=== PATIENT | female | born 1975 | race Caucasian/White ===

== ENCOUNTER 2016-10-18 18:16 | Emergency (ER) | payer OTHER ==
[2016-10-18 19:06] VITALS: BMI 29.6
--- NOTE | 2016-10-18 19:20 | PDOC ---
History of Present Illness - General History Source: Patient, Spouse Exam Limitations: No Limitations - History of Present Illness Timing/Duration: 1 hour <Nelida Sapp - Last Filed: 12/08/16 14:39> <Natasha Daniels - Last Filed: 12/09/16 09:09> - General Chief Complaint: Overdose Stated Complaint: overdose Time Seen by Provider: 10/18/16 18:38 Past History - Past Medical History Anemia: No Asthma: Yes Cancer: No Cardiac Disorders: No CVA: No COPD: No CHF: No Dementia: No Diabetes: No GI Disorders: No Disorders: No HTN: No Hypercholesterolemia: No Liver Disease: No Psychiatric Problems: Yes (DEPRESSION/ANXIETY) Seizures: No Thyroid Disease: No - Surgical History Abdominal Surgery: No Appendectomy: No Cardiac Surgery: No Cholecystectomy: No Lung Surgery: No Neurologic Surgery: No Orthopedic Surgery: No - Immunization History Immunization Up to Date: Yes - Psycho/Social/Smoking Cessation Hx Anxiety: Yes Suicidal Ideation: Yes Smoking Status: No Smoking History: Current some day smoker Have you smoked in the past 12 months: Yes Number of Cigarettes Smoked Daily: 2 Information on smoking cessation initiated: Yes 'Breaking Loose' booklet given: 10/18/16 Hx Alcohol Use: No Drug/Substance Use Hx: No Substance Use Type: None Hx Substance Use Treatment: No <Nelida Sapp - Last Filed: 12/08/16 14:39> <Natasha Daniels - Last Filed: 12/09/16 09:09> - Past Medical History Allergies/Adverse Reactions: Allergies Allergy/AdvReac Type Severity Reaction Status Date / Time latex [Latex] Allergy Intermediate Verified 10/18/16 19:06 Home Medications: Ambulatory Orders Acetaminophen [Tylenol] 650 mg PO ONCE PRN 12/04/16 BUPROPion HCL "SR" [Wellbutrin Sr [Nf]] 150 mg PO DAILY 12/04/16 Bupropion HCl [Bupropion HCl ER] 200 mg PO DAILY 12/04/16 Clonazepam [Klonopin] 1 mg PO BID PRN 12/04/16 Review of Systems - Review of Systems Comments:: 10/19/16 03:22 CONSTITUTIONAL: Absent: fever, chills, diaphoresis, generalized weakness, malaise, loss of appetite HEENT: Absent: rhinorrhea, nasal congestion, throat pain, throat swelling, difficulty swallowing, mouth swelling, ear pain, eye pain, visual Changes CARDIOVASCULAR: Absent: chest pain, loss of consciousness, palpitations, irregular heart rate, peripheral edema RESPIRATORY: Absent: cough, shortness of breath, dyspnea with exertion, orthopnea, wheezing, stridor, hemoptysis GASTROINTESTINAL: Absent: abdominal pain, abdominal distension, nausea, vomiting, diarrhea, constipation, melena, hematochezia GENITOURINARY: Absent: dysuria, frequency, urgency, hesitancy, hematuria, flank pain, genital pain MUSCULOSKELETAL: Absent: myalgia, arthralgia, joint swelling SKIN: Absent: rash, itching, pallor HEMATOLOGIC/IMMUNOLOGIC: Absent: easy bleeding, easy bruising, lymphadenopathy, frequent infections ENDOCRINE: Absent: unexplained weight gain, unexplained weight loss, heat intolerance, cold intolerance NEUROLOGIC: Absent: headache, focal weakness or paresthesias, dizziness, unsteady gait, seizure, mental status changes, bladder or bowel incontinence PSYCHIATRIC: + anxiety, depression, suicidal Absent:r homicidal ideation, hallucinations. <Nelida Sapp - Last Filed: 12/08/16 14:39> *Physical Exam - Vital Signs Last Vital Signs Temp Pulse Resp BP Pulse Ox 99.4 F 106 H 18 105/51 96 10/18/16 18:28 10/18/16 18:28 10/18/16 18:28 10/18/16 18:28 10/18/16 18:28 - Physical Exam Comments: 10/19/16 03:23 GENERAL: Well developed, well nourished. Awake and alert. No acute distress. HEENT: Normocephalic, atraumatic. PERRLA, EOMI. No conjunctival pallor. Sclera are non- icteric. Moist mucous membranes. Oropharynx is clear. NECK: Supple. Full ROM. No JVD. Carotid pulses 2+ and symmetric, without bruits. No thyromegaly. No lymphadenopathy. CARDIOVASCULAR: Regular rate and rhythm. No murmurs, rubs, or gallops. Distal pulses are 2+ and symmetric. PULMONARY: No evidence of respiratory distress. Lungs clear to auscultation bilaterally. No wheezing, rales or rhonchi. ABDOMINAL: Soft. Non-tender. Non-distended. No rebound or guarding. No organomegaly. Normoactive bowel sounds. MUSCULOSKELETAL Normal range of motion at all joints. No bony deformities or tenderness. No CVA tenderness. EXTREMITIES: No cyanosis. No clubbing. No edema. No calf tenderness. SKIN: Warm and dry. Normal capillary refill. No rashes. No jaundice. NEUROLOGICAL: Alert, awake, appropriate. Cranial nerves 2-12 intact. No deficits to light touch and temperature in face, upper extremities and lower extremities. No motor deficits in the in face, upper extremities and lower extremities. Normoreflexic in the upper and lower extremities. Normal speech. Toes are down- going bilaterally. Gait is normal without ataxia. PSYCHIATRIC: Cooperative. Good eye contact. Appropriate mood and affect. <Nelida Sapp - Last Filed: 12/08/16 14:39> - Vital Signs Last Vital Signs Temp Pulse Resp BP Pulse Ox 98.4 F 92 H 18 118/76 99 10/19/16 08:54 10/19/16 13:01 10/19/16 13:01 10/19/16 13:01 10/19/16 13:01 <Natasha Daniels - Last Filed: 12/09/16 09:09> ED Treatment Course - LABORATORY CBC & Chemistry Diagram: 10/18/16 19:30 10/18/16 19:30 <Nelida Sapp - Last Filed: 12/08/16 14:39> - LABORATORY CBC & Chemistry Diagram: 10/18/16 19:30 10/18/16 19:30 - ADDITIONAL ORDERS Additional order review: 10/18/16 19:30 RBC 4.75 MCV 87.6 MCHC 33.5 RDW 13.1 MPV 6.9 L Neutrophils % 63.8 D Lymphocytes % 28.0 D Monocytes % 6.0 D Eosinophils % 1.6 D Basophils % 0.6 - Medications Given in the ED: ED Medications Discontinued Medications Generic Name Dose Route Start Last Admin Trade Name Freq PRN Reason Stop Dose Admin Diphenhydramine HCl 50 mg 10/19/16 05:49 10/19/16 06:02 Benadryl Injection - IVPUSH 10/19/16 05:50 50 mg ONCE ONE Administration Sodium Chloride 1,000 mls @ 1,000 mls/hr 10/18/16 19:28 10/18/16 19:31 Normal Saline - IV 10/18/16 20:27 1,000 mls/hr ASDIR STA Administration Sodium Chloride 1,000 mls @ 1,000 mls/hr 10/19/16 05:49 10/19/16 06:02 Normal Saline - IV 10/19/16 06:48 1,000 mls/hr ASDIR STA Administration Sodium Chloride 1,000 mls @ 100 mls/hr 10/19/16 08:45 10/19/16 08:52 Normal Saline - IV 100 mls/hr ASDIR TALISHA Administration Nicotine 21 mg 10/19/16 10:00 10/19/16 12:04 Nicoderm Patch - TD Not Given DAILY TALISHA <Natasha Daniels - Last Filed: 12/09/16 09:09> *DC/Admit/Observation/Transfer <Nelida Sapp - Last Filed: 12/08/16 14:39> - Attestations Physician Attestion: I reviewed the case with the mid-level practitioner and agree with the mid- level practitioner's assessment, diagnosis and disposition. <Natasha Daniels - Last Filed: 12/09/16 09:09> Diagnosis at time of Disposition: Drug overdose Qualifiers: Encounter type: initial encounter Injury intent: undetermined intent Qualified Code(s): T50.904A - Poisoning by unspecified drugs, medicaments and biological substances, undetermined, initial encounter - Discharge Dispostion Disposition: HOME - Referrals Referrals: Cindy Landis MD [Staff Physician] - Call tomorrow - Patient Instructions Printed Discharge Instructions: DI for Drug Overdose in Adults Additional Instructions: -Rest and say well-hydrated -Take your medications only as prescribed -Return here for suicidal thoughts or any other concerning symptoms Progress Note - Progress Note Progress Note: 1922hrs: Called Poison Control [phone]/ In Service Educator Natasha Increase PROSTHETICS ASSISTANT, Tachycardia, Decrease bowel sounds, Mydriasis Will monitor and obtain labs: CBCw/diff Chem Drug screen LFT Tylenol level Alcohol Level ASA level EKG [id number]: Called [facility] for transfer to [facility] 40-year-old female presents to the emergency department complaining of feeling depressed with suicidal thoughts. Patient states she is tired of being tired and failing in school. Patient states she informed her that she no longer wants to live for approximately one week. This evening, she decided to take 12 tablets of Klonopin 1 mg. She denies any headache, dizziness, lightheadedness, difficulty swallowing, sore throat, neck pain, chest pain, shortness of breath, abdominal pains or extremity numbness or tingling sensation. Patient's states immediately after she ingested the medications, she informed him and he called 911. Patient has been experiencing suicidal thoughts and had the plan of overdosing on Klonopin. Patient denies any homicidal thoughts or intentions. Patient sees her psychiatry every other week. The expiration date on the Clonopin on 08/16/2013. Pt informed that she will remain in the ER until our psychiatrist consults with her. Pt understands. Called Dr. Landers/psychiatry numerous times/ no response <Nelida Sapp - Last Filed: 12/08/16 14:39>
[2016-10-18] MEDS ORDERED: SODIUM CHLORIDE 1,000 ML IV STA (19:28)
[2016-10-18 19:45] LABS: BASOPHIL 0.6 % (0-2.0); EOSINOPHIL 1.6 % (0-4.5); MCH 29.4 pg (25.7-33.7); MCHC 33.5 g/dl (32.0-36.0); MEAN CELL VOLUME 87.6 fl (80-96); MEAN PLT VOLUME 6.9 fl (7.5-11.1); NEUTROPHILS 63.8 % (42.8-82.8); PLATELET COUNT 349 K/MM3 (134-434); RDW 13.1 % (11.6-15.6); WHITE BLOOD COUNT 8.1 K/mm3 (4.0-10.0)
[2016-10-18 20:17] LABS: ALBUMIN 3.8 g/dl (3.4-5.0); ALK PHOS 74 U/L (45-117); ANION GAP 12 (8-16); BILIRUBIN,TOTAL 0.2 mg/dL (0.2-1.0); CALCIUM 8.4 mg/dL (8.5-10.1); CO2 22 mmol/L (21-32); CREATININE 0.6 mg/dL (0.55-1.02); GLUCOSE,RANDOM 103 mg/dL (74-106); SGOT/AST 26 U/L (15-37); SGPT/ALT 50 U/L (12-78); TOT PROT 7.7 g/dl (6.4-8.2)
[2016-10-18] MEDS: NICOTINE 21 MG/24 HOURS TOPICAL PATCH TD SCH (21:13)
[2016-10-18 21:15] LABS: SALICYLATE < 4.0 mg/dl (0.0-30.0)
[2016-10-18 21:16] LABS: ALCOHOL 128.1 mg/dl (0-5)
[2016-10-18 21:29] LABS: URINE MARIJUANA THC NEGATIVE ng/ml (CUTOFF=50)
[2016-10-18 23:00] LABS: ALBUMIN 3.7 g/dl (3.4-5.0); ALK PHOS 73 U/L (45-117); BILIRUBIN,TOTAL 0.2 mg/dL (0.2-1.0); SGOT/AST 26 U/L (15-37); SGPT/ALT 50 U/L (12-78); TOT PROT 7.5 g/dl (6.4-8.2)
[2016-10-18 23:01] LABS: BILIRUBIN,DIRECT < 0.1 mg/dL (0.0-0.2)
[2016-10-19 05:30] VITALS: TEMP 98.4
[2016-10-19] MEDS ORDERED: SODIUM CHLORIDE 1,000 ML IV STA (05:49)
--- NOTE | 2016-10-19 07:16 | PDOC ---
*Physical Exam - Vital Signs Last Vital Signs Temp Pulse Resp BP Pulse Ox 98.4 F 126 H 20 124/81 100 10/19/16 04:35 10/19/16 06:35 10/19/16 04:35 10/19/16 06:35 10/19/16 06:35 ED Treatment Course - LABORATORY CBC & Chemistry Diagram: 10/18/16 19:30 10/18/16 19:30 - ADDITIONAL ORDERS Additional order review: Laboratory Results 10/18/16 10/18/16 10/18/16 20:48 19:30 19:30 Sodium Potassium Chloride Carbon Dioxide Anion Gap BUN Creatinine Creat Clearance w eGFR Random Glucose Calcium Total Bilirubin Direct Bilirubin AST ALT Alkaline Phosphatase Total Protein Albumin Salicylates < 4.0 Opiates Screen Negative Methadone Screen Negative Acetaminophen < 2.000 L Barbiturate Screen Negative Phencyclidine Screen Negative Ur Amphetamines Screen Positive MDMA (Ecstasy) Screen Negative Benzodiazepines Screen Negative Cocaine Screen Negative U Marijuana (THC) Screen Negative Alcohol, Quantitative 128.1 H* 10/18/16 10/18/16 19:30 19:27 Sodium 141 Potassium 4.0 Chloride 107 Carbon Dioxide 22 Anion Gap 12 BUN 9 Creatinine 0.6 D Creat Clearance w eGFR > 60 Random Glucose 103 Calcium 8.4 L Total Bilirubin 0.2 0.2 D Direct Bilirubin < 0.1 AST 26 26 D ALT 50 50 D Alkaline Phosphatase 74 73 Total Protein 7.7 7.5 Albumin 3.8 3.7 Salicylates Opiates Screen Methadone Screen Acetaminophen Barbiturate Screen Phencyclidine Screen Ur Amphetamines Screen MDMA (Ecstasy) Screen Benzodiazepines Screen Cocaine Screen U Marijuana (THC) Screen Alcohol, Quantitative 10/18/16 19:30 RBC 4.75 MCV 87.6 MCHC 33.5 RDW 13.1 MPV 6.9 L Neutrophils % 63.8 D Lymphocytes % 28.0 D Monocytes % 6.0 D Eosinophils % 1.6 D Basophils % 0.6 - Medications Given in the ED: ED Medications Discontinued Medications Generic Name Dose Route Start Last Admin Trade Name Freq PRN Reason Stop Dose Admin Diphenhydramine HCl 50 mg 10/19/16 05:49 10/19/16 06:02 Benadryl Injection - IVPUSH 10/19/16 05:50 50 mg ONCE ONE Administration Sodium Chloride 1,000 mls @ 1,000 mls/hr 10/18/16 19:28 10/18/16 19:31 Normal Saline - IV 10/18/16 20:27 1,000 mls/hr ASDIR STA Administration Sodium Chloride 1,000 mls @ 1,000 mls/hr 10/19/16 05:49 10/19/16 06:02 Normal Saline - IV 10/19/16 06:48 1,000 mls/hr ASDIR STA Administration Medical Decision Making - Medical Decision Making 10/19/16 07:16 Signout received from MICHAEL Sapp. Briefly, this is a 40 year old female with a history of depression who presented to the ED with depression and suicidal ideation after taking 12 x 1mg tablets of Klonopin. Airway and breathing have been stable, but patient has been tachycardic up to 126. She is now resting comfortably after receiving Benadryl and 2L IVF. Psychiatry consultation is pending. 10/19/16 09:08 Repeat HR is 104. 10/19/16 12:39 Patient evaluated by psychiatry. She is feeling less anxious and now denies SI. Declines alcohol/drug detox. Cleared for discharge home by psychiatry. Accompanied by . *DC/Admit/Observation/Transfer Diagnosis at time of Disposition: Drug overdose Qualifiers: Encounter type: initial encounter Injury intent: undetermined intent Qualified Code(s): T50.904A - Poisoning by unspecified drugs, medicaments and biological substances, undetermined, initial encounter - Discharge Dispostion Disposition: HOME Admit: No - Referrals Referrals: Cindy Landis MD [Staff Physician] - Call tomorrow - Patient Instructions Printed Discharge Instructions: DI for Drug Overdose in Adults Additional Instructions: -Rest and say well-hydrated -Take your medications only as prescribed -Return here for suicidal thoughts or any other concerning symptoms
[2016-10-19] MEDS ORDERED: SODIUM CHLORIDE 1,000 ML IV SCH (08:45)
[2016-10-19] MEDS: NICOTINE 21 MG/24 HOURS TOPICAL PATCH TD SCH (12:04)
--- NOTE | 2016-10-19 12:49 | CONSULT ---
Consult - text type - Consultation Consultation Note: Psych Consultation. 40 yeart old female brought to ER by for taking three Klonapins and drinking Alcohol. Patient has a history of Major DEpression, PTSD. Anxiety. Patient denies s\any suicidal thoughts or behaviour. She is under a pvt psych care. One previous admission to Psych In patient about two years ago. Ms: Alert, oriented, able to comprehend, not hallucinating or delusional. No concrete suicidal plans. RES: Dischsrge when medically stable. Follow up with T psych.
[2016-10-19 13:02] VITALS: BP 118/76; PULSE 92
--- NOTE | 2016-10-20 16:18 | EKG ---
Test Reason : Blood Pressure : / mmHG Vent. Rate : 102 BPM Atrial Rate : 102 BPM P-R Int : 152 ms QRS Dur : 092 ms QT Int : 354 ms P-R-T Axes : 057 024 050 degrees QTc Int : 461 ms SINUS TACHYCARDIA POSSIBLE LEFT ATRIAL ENLARGEMENT INCOMPLETE RIGHT BUNDLE BRANCH BLOCK BORDERLINE ECG NO PREVIOUS ECGS AVAILABLE Confirmed by ZACH MOREAU, FERMIN ([id number]) on 10/20/2016 4:18:15 PM Referred By: Confirmed By:FERMIN SERRANO MD
--- NOTE | 2016-10-20 16:18 | EKG ---
Test Reason : Blood Pressure : / mmHG Vent. Rate : 125 BPM Atrial Rate : 125 BPM P-R Int : 148 ms QRS Dur : 092 ms QT Int : 306 ms P-R-T Axes : 035 011 039 degrees QTc Int : 441 ms SINUS TACHYCARDIA RSR' OR QR PATTERN IN V1 SUGGESTS RIGHT VENTRICULAR CONDUCTION DELAY ABNORMAL ECG WHEN COMPARED WITH ECG OF 18-OCT-2016 18:33, LIKELY NO SIGNIFICANT CHANGES Confirmed by FERMIN SERRANO MD ([id number]) on 10/20/2016 4:17:50 PM Referred By: Confirmed By:FERMIN SERRANO MD
== END 2016-10-19 13:02 | disposition home or self-care (01) ==
LOC: JER 18:16
PROC: 3E0337Z Introduction of Electrolytic and Water Balance Substance into Peripheral Vein, Percutaneous Approach (ICD-10-PCS; principal; 2016-10-18)
PROC: 3E033GC Introduction of Other Therapeutic Substance into Peripheral Vein, Percutaneous Approach (ICD-10-PCS; 2016-10-18)
DX: T42.4X2A Poisoning by benzodiazepines, intentional self-harm, initial encounter (principal); F32.89 Other specified depressive episodes; F43.10 Post-traumatic stress disorder, unspecified; J45.909 Unspecified asthma, uncomplicated; F17.210 Nicotine dependence, cigarettes, uncomplicated; Y92.038 Other place in apartment as the place of occurrence of the external cause
CPT/HCPCS: 36415; 80053; 80076; 80307; 84443; 85025; 93005; 93010; 99285-25

== ENCOUNTER 2016-12-04 20:05 | Emergency (ER) | payer OTHER ==
--- NOTE | 2016-12-04 20:16 | PDOC ---
History of Present Illness - General History Source: Patient, Old Records Exam Limitations: No Limitations - History of Present Illness Initial Comments: 12/04/16 20:50 The patient is a 41 year old female, with a significant past medical history of anxiety and depression, who presents to the emergency department with right eye pain and tearing for the past 2 days. The patient reports that two days ago, she wiped her face and believes she might have scratched her eye, as her symptoms began shortly after. She rates her pain as an 8/10 and reports that the pain is worse when closing her eye or moving her eye in any direction. She presents to the ED for evaluation because she does not have an opthamologist, as she does not wear glasses or contact lenses. The patient denies blurry vision , double vision or any changes in vision. PAST MEDICAL HISTORY: See HPI. PAST SURGICAL HISTORY: No significant history. FAMILY HISTORY: No pertinent history. SOCIAL HISTORY: Patient lives with family and is employed. MEDICATIONS: Reviewed. ALLERGIES: As per nursing notes. Adult ROS: General: No fevers or chills, no weakness, no weight loss. HEENT: +Right eye pain and tearing. No change in vision. No sore throat. No ear pain. CardioVascular: No chest pain or shortness of breath. Respiratory: No cough, or wheezing. Gastrointestinal: No nausea, vomiting, diarrhea or constipation, no rectal bleeding. Genitourinary: No dysuria, hematuria, or frequency. Musculoskeletal: No joint or muscle pain or swelling. Neurologic: No headache, vertigo, dizziness or loss of consciousness. Psychiatric: No depression. Skin: No rashes or easy bruising. Endocrine: No increased thirst or abnormal weight change. Allergic: No skin or latex allergy. All other systems reviewed and normal. Basic Exam: GENERAL: The patient is awake, alert, and fully oriented, in no acute distress. HEAD: Normal with no signs of trauma. EYES: Right eye, there is moderate tearing of the eye with some mild injection of the conjunctival tissues. No foreign body visible on exam. There is a corneal abrasion visible on slit lamp and on fluorescein stain. There is increased uptake of fluorescein stain corresponding to the location of the corneal abrasion. Pupils equal, round and reactive to light, extraocular movements intact, sclera anicteric. EXTREMITIES: Normal range of motion, no edema. NEUROLOGICAL: Normal speech, normal gait. PSYCH: Normal mood, normal affect. SKIN: Warm, dry, normal turgor, no rashes or lesions noted. <Leia Correa - Last Filed: 12/04/16 20:50> - General History Source: Patient Exam Limitations: No Limitations - History of Present Illness Initial Comments: 12/04/16 20:56 A portion of this note was documented by scribe services under my direction. I have reviewed the details of the note, within reason, and agree with the documentation. The case summary and management plan written by me. Assessment and plan: This is a 41-year-old female who comes in complaining of pain in her right eye. Patient on examination has a small corneal abrasion. Patient given antibiotics and a follow-up with an caster operator. Patient discharged home with antibiotic drops for her eye. <Jatin Mckenna I - Last Filed: 12/04/16 20:57> - General Chief Complaint: Eye Problem Stated Complaint: RIGHT EYE PAIN & TEARING Time Seen by Provider: 12/04/16 20:15 Past History <Leia Correa - Last Filed: 12/04/16 20:50> - Past Medical History Anemia: No Asthma: Yes Cancer: No Cardiac Disorders: No CVA: No COPD: No CHF: No Dementia: No Diabetes: No GI Disorders: No Disorders: No HTN: No Hypercholesterolemia: No Liver Disease: No Psychiatric Problems: Yes (DEPRESSION/ANXIETY) Seizures: No Thyroid Disease: No - Surgical History Abdominal Surgery: No Appendectomy: No Cardiac Surgery: No Cholecystectomy: No Lung Surgery: No Neurologic Surgery: No Orthopedic Surgery: No - Immunization History Immunization Up to Date: Yes - Psycho/Social/Smoking Cessation Hx Anxiety: Yes Suicidal Ideation: Yes Smoking Status: No Smoking History: Current some day smoker Have you smoked in the past 12 months: Yes Number of Cigarettes Smoked Daily: 2 'Breaking Loose' booklet given: 10/18/16 Hx Alcohol Use: No Drug/Substance Use Hx: No Substance Use Type: None Hx Substance Use Treatment: No <Jatin Mckenna I - Last Filed: 12/04/16 20:57> - Past Medical History Allergies/Adverse Reactions: Allergies Allergy/AdvReac Type Severity Reaction Status Date / Time latex [Latex] Allergy Intermediate Verified 12/04/16 20:16 Home Medications: Ambulatory Orders Acetaminophen [Tylenol] 650 mg PO ONCE PRN 12/04/16 BUPROPion HCL "SR" [Wellbutrin Sr [Nf]] 150 mg PO DAILY 12/04/16 Bupropion HCl [Bupropion HCl ER] 200 mg PO DAILY 12/04/16 Clonazepam [Klonopin] 1 mg PO BID PRN 12/04/16 *Physical Exam - Vital Signs Last Vital Signs Temp Pulse Resp BP Pulse Ox 97.8 F 87 16 122/76 96 12/04/16 20:14 12/04/16 20:14 12/04/16 20:14 12/04/16 20:14 12/04/16 20:14 <Leia Correa - Last Filed: 12/04/16 20:50> *DC/Admit/Observation/Transfer - Attestations Scribe Attestion: 12/04/16 20:29 Documentation prepared by Leia Correa, acting as medical advisor for Jatin Mckenna MD. <Leia Correa - Last Filed: 12/04/16 20:50> <Jatin Mckenna I - Last Filed: 12/04/16 20:57> Diagnosis at time of Disposition: Corneal abrasion Qualifiers: Encounter type: initial encounter Laterality: right Qualified Code(s): S05.01XA - Injury of conjunctiva and corneal abrasion without foreign body, right eye, initial encounter - Discharge Dispostion Disposition: HOME Condition at time of disposition: Good - Referrals Referrals: Maxine Parnell [Primary Care Provider] - Maria Guadalupe Kuhn MD [Staff Physician] - - Patient Instructions Additional Instructions: Put 2 drops of tobramycin in your right eye 4 times a day for the next 5 days. Follow-up with the caster operator call them in the morning for an appointment. For pain you can take Tylenol or ibuprofen or Aleve as directed on the bottle all 3 are [id number]. Return to the emergency department immediately with ANY new, persistent or worsening symptoms. Continue any medications as previously prescribed by your physician. You should follow up with your primary doctor as soon as possible regarding today's emergency department visit. . Please make sure your doctor reviews the results of your emergency evaluation. Thank you for coming to the Emergency Department today for your care. It was a pleasure to see you today. Please note that your evaluation is INCOMPLETE until you follow-up with your doctor.
[2016-12-04 20:39] VITALS: BP 122/76; PULSE 87; TEMP 97.8; BMI 30.9
[2016-12-04] MEDS ORDERED: TOBRAMYCIN 0.3% OPHTH SOLN 5 ML BOTTLE OD ONE (20:41)
[2016-12-04] MEDS ORDERED: OXYCODONE/APAP 5/325MG COMBO TABLET PO ONE (20:42)
[2016-12-04] MEDS ORDERED: TOBRAMYCIN 0.3% OPHTH SOLN 5 ML BOTTLE ONE (20:43)
[2016-12-04] MEDS ORDERED: OXYCODONE/APAP 5/325MG COMBO TABLET ONE (20:44)
== END 2016-12-04 21:03 | disposition home or self-care (01) ==
LOC: FER 20:05
DX: S05.01XA Injury of conjunctiva and corneal abrasion without foreign body, right eye, initial encounter (principal); F17.210 Nicotine dependence, cigarettes, uncomplicated; F41.8 Other specified anxiety disorders; J45.909 Unspecified asthma, uncomplicated
CPT/HCPCS: 99282-25

== ENCOUNTER 2016-12-26 08:07 | Emergency (ER) | payer OTHER ==
--- NOTE | 2016-12-26 08:08 | PDOC ---
History of Present Illness - General Chief Complaint: Vomiting/Diarrhea Stated Complaint: N/V/D Time Seen by Provider: 12/26/16 08:08 History Source: Patient Exam Limitations: No Limitations - History of Present Illness Initial Comments: 12/26/16 08:10 This is a 41yo F who presents to the ER with a complaint of nausea, vomiting, diarrhea, abdominal cramping Pt states her symptoms began 2 days ago with nausea, vomiting and subjective fevers Pt states she has vomited (in total) 4 times (non bloody, non bilious) Yesterday, she had nausea and diarrhea currently, she continues to have diarrhea, described as brown liquid Pt states she is having so much diarrhea, that she went in the bed No travel No ill contacts No recent antibiotic use PMH: Asthma, Depression PSH: C section Meds: Wellbutrin, Buproprion, Klonopin ALL: Latex Social: denies alcohol, drug, cigarette use GENERAL/CONSTITUTIONAL: Yes: subjective fevers yesterday No: chills HEAD, EYES, EARS, NOSE AND THROAT: No: change in vision, ear pain, discharge, sore throat, throat swelling. CARDIOVASCULAR: No: chest pain, lightheadedness RESPIRATORY: No: cough, shortness of breath GASTROINTESTINAL: Yes: nausea, vomiting, diarrhea, abdominal pain No:rectal bleeding GENITOURINARY: No: dysuria, hematuria, frequency, urgency, flank pain. NEUROLOGIC: No: headache, vertigo, paresthesias, weakness GENERAL: The patient is in no acute distress. EYES: PERRLA, EOMI, sclera anicteric, conjunctiva clear. ENT: Ears normal, nares patent, oropharynx clear without exudates. Moist mucous membranes. NECK: Normal range of motion, supple without lymphadenopathy, JVD, or masses. LUNGS: Breath sounds equal, clear to auscultation bilaterally. No wheezes, and no crackles. HEART:Regular rate and rhythm, normal S1 and S2 without murmur, rub or gallop. ABDOMEN: Soft, nontender, normoactive bowel sounds. No guarding, no rebound. No RLQ or LLQ tenderness EXTREMITIES: Normal range of motion, no edema. No clubbing or cyanosis. No erythema, or tenderness. 12/26/16 08:21 12/26/16 08:51 Past History - Past Medical History Allergies/Adverse Reactions: Allergies Allergy/AdvReac Type Severity Reaction Status Date / Time latex [Latex] Allergy Intermediate Verified 12/26/16 08:08 Home Medications: Ambulatory Orders BUPROPion HCL "SR" [Wellbutrin Sr [Nf]] 450 mg PO DAILY 12/04/16 Clonazepam [Klonopin] 1 mg PO ASDIR PRN 12/04/16 Ondansetron HCl [Zofran] 4 mg PO BID PRN #10 tablet 12/26/16 Anemia: No Asthma: Yes Cancer: No Cardiac Disorders: No CVA: No COPD: No CHF: No Dementia: No Diabetes: No GI Disorders: No Disorders: No HTN: No Hypercholesterolemia: No Liver Disease: No Psychiatric Problems: Yes (DEPRESSION/ANXIETY) Seizures: No Thyroid Disease: No - Surgical History Abdominal Surgery: No Appendectomy: No Cardiac Surgery: No Cholecystectomy: No Lung Surgery: No Neurologic Surgery: No Orthopedic Surgery: No - Immunization History Immunization Up to Date: Yes - Psycho/Social/Smoking Cessation Hx Anxiety: Yes Suicidal Ideation: Yes Smoking Status: No Smoking History: Current some day smoker Have you smoked in the past 12 months: Yes Number of Cigarettes Smoked Daily: 2 'Breaking Loose' booklet given: 10/18/16 Hx Alcohol Use: No Drug/Substance Use Hx: No Substance Use Type: None Hx Substance Use Treatment: No Medical Decision Making - Medical Decision Making 12/26/16 08:50 41 yo F presenting with a complaint of nausea, vomiting, diarrhea Symptoms began with fever, no longer having fevers Pt predominant symptom is diarrhea Will Check bhcg give IVF give Zofran Will discharge to home 12/26/16 09:43 Upon re assessment, pt states she feels better Will discharge to home Follow up with PMD Return to the ER for any new symptoms, concerns or complaints *DC/Admit/Observation/Transfer Diagnosis at time of Disposition: Diarrhea, Vomiting - Discharge Dispostion Disposition: HOME Condition at time of disposition: Stable Admit: No - Prescriptions Prescriptions: Ondansetron HCl [Zofran] 4 mg PO BID PRN #10 tablet PRN Reason: Nausea - Patient Instructions Printed Discharge Instructions: DI for Vomiting -- Adult, DI for Diarrhea and Traveler's Diarrhea -- Adult, Loperamide, Diarrhea (Alternative Therapy) Additional Instructions: Ms. Mcguire Thank you for coming in to the ER today Please take medications as prescribed Please try to stay hydrated Please monitor yourself for fevers, lower abdominal pain Please return to the ER for ANY new symptoms, persistent symptoms, any other concerns or complaints
[2016-12-26 08:14] VITALS: BP 114/73; PULSE 89; TEMP 99.6; BMI 30.2
[2016-12-26] MEDS ORDERED: FAMOTIDINE 20 MG/50 ML IVPB 50 ML IVPB ONE (08:16)
[2016-12-26] MEDS ORDERED: ONDANSETRON 4 MG/2 ML VIAL IVPUSH ONE (08:16)
[2016-12-26] MEDS ORDERED: SODIUM CHLORIDE 1,000 ML IV STA (08:20)
[2016-12-26] MEDS ORDERED: LOPERAMIDE HCL 2 MG CAPSULE PO ONE (09:01)
[2016-12-26] MEDS ORDERED: LOPERAMIDE HCL 2 MG CAPSULE ONE (09:02)
== END 2016-12-26 10:11 | disposition home or self-care (01) ==
LOC: FER 08:07
PROC: 3E033GC Introduction of Other Therapeutic Substance into Peripheral Vein, Percutaneous Approach (ICD-10-PCS; principal; 2016-12-26)
PROC: 3E0337Z Introduction of Electrolytic and Water Balance Substance into Peripheral Vein, Percutaneous Approach (ICD-10-PCS; 2016-12-26)
DX: R19.7 Diarrhea, unspecified (principal); R11.10 Vomiting, unspecified; F17.210 Nicotine dependence, cigarettes, uncomplicated; J45.909 Unspecified asthma, uncomplicated; F41.8 Other specified anxiety disorders
CPT/HCPCS: 84703; 96361; 96365; 96375; 99281-25

== ENCOUNTER 2017-01-12 08:01 | Emergency (ER) | payer OTHER ==
--- NOTE | 2017-01-12 08:10 | PDOC ---
History of Present Illness - General Chief Complaint: Sore Throat Stated Complaint: SORE THROAT,COUGH Time Seen by Provider: 01/12/17 08:10 History Source: Patient, Old Records Exam Limitations: No Limitations - History of Present Illness Initial Comments: 01/12/17 08:26 41-year-old female with history of PTSD, depression, personality disorder who presents to the emergency Department with complaints of 1 week history of nonproductive cough, sore throat and subjective fevers at home. She denies nausea vomiting diarrhea complaints. The pain in her throat is mostly when she swallows but she is able to tolerate solids and liquids without difficulty. She denies any hoarseness, muffled voice, difficulty speaking. The patient has not taken any medication for the pain; however, she has taken several doses of Amoxicillin that she had left over from a prior prescription. Past History - Past Medical History Allergies/Adverse Reactions: Allergies Allergy/AdvReac Type Severity Reaction Status Date / Time latex [Latex] Allergy Intermediate Verified 01/12/17 08:02 Home Medications: Ambulatory Orders Clonazepam [Klonopin] 1 mg PO ASDIR PRN 12/04/16 Ondansetron HCl [Zofran] 4 mg PO BID PRN #10 tablet 12/26/16 Loratadine [Claritin] 10 mg PO DAILY #30 tablet 01/12/17 Anemia: No Asthma: Yes Cancer: No Cardiac Disorders: No CVA: No COPD: No CHF: No Dementia: No Diabetes: No GI Disorders: No Disorders: No HTN: No Hypercholesterolemia: No Liver Disease: No Psychiatric Problems: Yes (DEPRESSION/ANXIETY) Seizures: No Thyroid Disease: No - Surgical History Abdominal Surgery: No Appendectomy: No Cardiac Surgery: No Cholecystectomy: No Lung Surgery: No Neurologic Surgery: No Orthopedic Surgery: No - Immunization History Immunization Up to Date: Yes - Psycho/Social/Smoking Cessation Hx Anxiety: Yes Suicidal Ideation: Yes Smoking Status: No Smoking History: Current some day smoker Have you smoked in the past 12 months: Yes Number of Cigarettes Smoked Daily: 2 If you are a former smoker, when did you quit?: T 'Breaking Loose' booklet given: 10/18/16 Hx Alcohol Use: No Drug/Substance Use Hx: No Substance Use Type: None Hx Substance Use Treatment: No Review of Systems - Review of Systems Able to Perform ROS?: Yes Is the patient limited Cook Islander proficient: No Constitutional: Yes: See HPI HEENTM: Yes: See HPI Respiratory: Yes: See HPI Cardiac (ROS): No: Symptoms Reported ABD/GI: No: Symptoms Reported : No: Symptoms Reported Musculoskeletal: No: Symptoms Reported Integumentary: No: Symptoms Reported Neurological: No: Symptoms reported *Physical Exam - Physical Exam Comments: 01/12/17 08:27 GENERAL: Well developed, well nourished. Awake and alert. No acute distress. HEENT: Normocephalic, atraumatic. PERRLA, EOMI. No conjunctival pallor. Sclera are non- icteric. Moist mucous membranes. Oropharynx has mild erythema but no exudates. NECK: Supple. Full ROM. No JVD. No lymphadenopathy. CARDIOVASCULAR: Regular rate and rhythm. No murmurs, rubs, or gallops. Distal pulses are 2+ and symmetric. PULMONARY: No evidence of respiratory distress. Lungs clear to auscultation bilaterally. No wheezing, rales or rhonchi. EXTREMITIES: No cyanosis. No clubbing. No edema. SKIN: Warm and dry. Normal capillary refill. No rashes. No jaundice. NEUROLOGICAL: Alert, awake, appropriate. Cranial nerves 2-12 intact. Grossly non-focal exam. PSYCHIATRIC: Cooperative. Good eye contact. Appropriate mood and affect. Medical Decision Making - Medical Decision Making 01/12/17 08:28 41-year-old female with sore throat and dry cough as well as itchy eyes and ears. Differential diagnosis includes but is not limited to: Strep pharyngitis, viral syndrome, seasonal ALLERGIES. Plan: 1. Rapid strep 2. Ibuprofen for pain 3. Observe and reevaluate 4. If rapid strep is negative will discharge home with ibuprofen, follow-up with primary care physician and return to the emergency department if symptoms persist, worsen, or new symptoms arise. *DC/Admit/Observation/Transfer Diagnosis at time of Disposition: Pharyngitis - Discharge Dispostion Disposition: HOME Condition at time of disposition: Stable Admit: No - Prescriptions Prescriptions: Loratadine [Claritin] 10 mg PO DAILY #30 tablet - Patient Instructions Printed Discharge Instructions: DI for Viral Pharyngitis Additional Instructions: You have pharyngitis that is likely viral in origin. You may take Ibuprofen 600 -800mg every 6-8 hours as needed for the pain. Please follow-up with your primary care physician within one week. Return to the ED if your symptoms persist, worsen or new symptoms arise.
[2017-01-12 08:21] VITALS: BP 104/53; PULSE 71; TEMP 98.6; BMI 30.4
[2017-01-12] MEDS ORDERED: IBUPROFEN 400 MG TABLET (FP) PO ONE ×2 (08:25→08:30)
== END 2017-01-12 09:13 | disposition home or self-care (01) ==
LOC: FER 08:01
DX: J02.9 Acute pharyngitis, unspecified (principal); F43.10 Post-traumatic stress disorder, unspecified; F32.9 Major depressive disorder, single episode, unspecified; J45.909 Unspecified asthma, uncomplicated; F41.9 Anxiety disorder, unspecified; F17.210 Nicotine dependence, cigarettes, uncomplicated
CPT/HCPCS: 87070; 87430; 99282-25

== ENCOUNTER 2017-02-18 06:33 | Day surgery (SDC) | payer SELFPAY ==
[2017-02-10 17:05] VITALS: BMI 31.4
[2017-02-18] MEDS ORDERED: HEPARIN NA (PORCINE) 5,000 UNITS/ML 1ML VIAL ONE (06:46)
[2017-02-18] MEDS ORDERED: EPINEPHrine 1:1,000 1 MG/1 ML - 30ML VIAL (INJECTION) ONE (07:14)
[2017-02-18] MEDS ORDERED: LIDOCAINE HCL 1%, 10 MG/ML (20ML VIAL) ONE (07:14)
[2017-02-18] MEDS ORDERED: HYDROmorphone HCL/PF 1 MG/ML VIAL (FOR PYXIS CHARGING ONLY) ONE (07:41)
[2017-02-18] MEDS ORDERED: PROPOFOL 20 ML ONE ×2 (07:42)
[2017-02-18] MEDS ORDERED: ROCURONIUM BROMIDE 50 MG/5 ML VIAL ONE ×2 (07:42→09:03)
[2017-02-18] MEDS ORDERED: MIDAZOLAM HCL 2 MG/2 ML SINGLE DOSE VIAL ONE (07:42)
[2017-02-18] MEDS ORDERED: SUCCINYLCHOLINE CHLORIDE 200 MG/10 ML VIAL ONE (07:42)
[2017-02-18] MEDS ORDERED: LIDOCAINE HCL/PF 2% SDV 5ML VIAL ONE (07:44)
[2017-02-18] MEDS ORDERED: ONDANSETRON 4 MG/2 ML VIAL ONE (07:45)
[2017-02-18] MEDS ORDERED: ceFAZolin SODIUM 1 GM VIAL ONE (07:45)
[2017-02-18] MEDS ORDERED: DEXAMETHASONE SOD PHOSPHATE 4 MG/1 ML VIAL ONE (07:45)
[2017-02-18] MEDS ORDERED: KETOROLAC TROMETHAMINE 30 MG/1 ML VIAL ONE (07:45)
[2017-02-18] MEDS ORDERED: SODIUM CHLORIDE 0.9% P/F 10 ML VIAL IJ ONE (07:45)
[2017-02-18] MEDS ORDERED: SCOPOLAMINE HYDROBROMIDE 1 PATCH PATCH.TD72 ONE (07:50)
[2017-02-18] MEDS ORDERED: BACITRACIN 15 GM TUBE TOPICAL OINTMENT ONE (07:52)
[2017-02-18] MEDS ORDERED: BUPIVACAINE HCL/PF 2.5 MG/ML - 30 ML VIAL IJ ONE (07:52)
[2017-02-18] MEDS ORDERED: DESFLURANE GAS 240 ML BOTTLE IH ONE (09:43)
[2017-02-18] MEDS ORDERED: GLYCOPYRROLATE 0.2 MG/1 ML VIAL ONE (12:01)
[2017-02-18] MEDS ORDERED: NEOSTIGMINE METHYLSULFATE 0.5 MG/ML - 10 ML MDV ONE (12:01)
[2017-02-18] MEDS ORDERED: ONDANSETRON 4 MG/2 ML VIAL IVPUSH PRN (12:37)
[2017-02-18] MEDS ORDERED: ONDANSETRON 4 MG/2 ML VIAL IVPB PRN (12:41)
[2017-02-18] MEDS: LACTATED RINGERS SOLUTION 1,000 ML IV SCH ×2 (14:51→14:52)
[2017-02-18] MEDS: morphine CARPU-JECT 2 MG/1 ML DISP.SYRIN IVPUSH PRN ×2 (15:31→20:52)
[2017-02-18] MEDS: oxyCODONE HCL 5 MG TABLET PO PRN ×2 (15:41→19:17)
[2017-02-18] MEDS: CEFAZOLIN 1 GM/D5W 50 ML IVPB SCH (17:16)
[2017-02-19] MEDS: morphine CARPU-JECT 2 MG/1 ML DISP.SYRIN IVPUSH PRN ×3 (00:16→11:07)
[2017-02-19] MEDS: CEFAZOLIN 1 GM/D5W 50 ML IVPB SCH ×2 (01:40→09:43)
[2017-02-19] MEDS: oxyCODONE HCL 5 MG TABLET PO PRN ×2 (01:46→08:14)
[2017-02-19] MEDS ORDERED: HEPARIN NA (PORCINE) 5,000 UNITS/ML 1ML VIAL SQ SCH (07:00)
--- NOTE | 2017-02-19 08:02 | OP ---
DATE OF OPERATION: 02/18/2017 TITLE OF PROCEDURE: Abdominoplasty with bilateral flank liposuction. PREOPERATIVE DIAGNOSIS: Abdominal lipidosis. POSTOPERATIVE DIAGNOSIS: Abdominal lipidosis. Patient seen in the holding area. She was counseled on all risks, benefits, and alternatives throughout the procedure which she understands, agrees to proceed. She is marked wide awake in a standing position, awake and aware of all incisions and resulting scars. The patient is given 5000 units subcutaneous heparin preoperatively. Sequential compression stockings and FLOR hose are applied. She is then brought to the operating room, placed in a supine position. Position is carefully checked and padded by surgical and anesthesia teams. She is prepped and draped in standard surgical fashion. Two g of Ancef are given preoperatively. The timeout is called. Patient, procedure, incision sites are verified. A Beyer catheter had been placed in the beginning of the procedure is removed at the end of the procedure. PROCEDURE: Incision is made along the intrapedicular portion of the abdominoplasty flap markings. Dissection is then carried along the abdominal fascia to the level of the umbilicus. The umbilicus is then circumcised and developed on a fibrofatty stalk to its base along the abdominal fascia. The abdominoplasty flaps are then elevated to the xiphoid process of the midline costal margins bilaterally. At this point, hemostasis is meticulously achieved and irrigation is performed. The midline plication is performed in 2 layers with a series of interrupted buried [id number] 1 Prolene sutures followed by running locking 1 Prolene suture, 1 line of plication is performed superior to the umbilicus, a separate line is performed inferior to the umbilicus. Wide berth is given to the umbilicus to be translocated through the plication. The flap is judiciously defatted of sub [place] fat. Hemostasis is meticulously achieved once again. Wound is copiously irrigated, and the patient is brought to a flexed position where the flap is able to be transposed with minimal tension. The excess skin and fat is then removed. At this point, the skin is tailor tacked with les. The flanks are then marked for liposuction and are infiltrated with wetting solution, 700 mL of wetting solution is infiltrated on the right side, and 700 mL is infiltrated on the left side. The wetting solution is a liter of normal saline with 1:1000 epinephrine 1 mL as well as 20 mg of lidocaine plain. Prior to final closure, the costal margins are injected with a total of 20 of 0.25% Marcaine plain into the fascia. Liposuction is then performed 15 minutes after the wetting solution is performed using a power assisted system and 5 mm cannula. The total aspirate is 500 mL of fat from both sides. The end point is smooth, even contour. No blood is seen within the fluid. The closure is then performed over 2 flat JAVED drains which were brought out to lateral extents of the incisions. The closure performed with a series of interrupted buried superficial fascial system 2-0 Vicryl sutures followed by a series of interrupted deep dermal 3-0 Monocryl followed by a running subcuticular 3-0 Monocryl suture. The umbilicus had been translocated through the umbilical defect which is cut in an oval pattern on the abdominoplasty flap. Flap is not thinned around the umbilicus. The umbilicus is then insetted to the new defect with a series of interrupted buried deep dermal 3-0 Monocryl suture followed by a running 5-0 nylon suture. All incisions are dressed with bacitracin and Xeroform. Nitroglycerin paste is applied to the suprapubic skin prophylactically in the case of ischemia which is not evident at the time of this closure. The tissues appear with good appropriate capillary refill and color. Dressings are applied with 4x4 gauze, ABD gauze, and an abdominal binder. Drains are placed to bulb suction. Patient is transferred to her hospital bed in a flexed position, transferred to recovery without complications. YAYA ALVA M.D. [id number]
--- NOTE | 2017-02-19 08:43 | PN ---
Progress Note (short form) - Note Progress Note: All tissues viable, no collections, JAVED thin and functioning, Pt ambulating, received sq heparin. OK for discharge once meets all criteria.
[2017-02-19 10:00] VITALS: BP 126/70; PULSE 75; TEMP 98
--- NOTE | 2017-02-19 11:33 | PN ---
Progress Note, Physician Chief Complaint: Pt. complaining of pain that was worse yesterday, but helped with medication. Was on PO now also getting Morphine IV. No GA complaints. - Current Medication List Current Medications: Active Medications Fentanyl (Sublimaze Injection -) 50 mcg IVPUSH [id number] PRN PRN Reason: PAIN Stop: 02/21/17 12:38 Last Admin: 02/18/17 13:40 Dose: 50 mcg Heparin Sodium (Porcine) (Heparin -) 5,000 unit SQ BID@0700,1900 [facility] Last Admin: 02/19/17 06:34 Dose: 5,000 unit Lactated Ringer's (Lactated Ringers Solution) 1,000 mls @ 125 mls/hr IV ASDIR [facility] Last Admin: 02/18/17 14:51 Dose: Not Given Cefazolin Sodium (Ancef 1 Gm Premixed Ivpb -) 50 mls @ 100 mls/hr IVPB Q8H-IV [facility] Last Admin: 02/19/17 09:43 Dose: 100 mls/hr Lactated Ringer's (Lactated Ringers Solution) 1,000 mls @ 75 mls/hr IV ASDIR [facility] Last Admin: 02/18/17 14:52 Dose: 75 mls/hr Morphine Sulfate (Morphine Injection -) 2 mg IVPUSH Q4H PRN PRN Reason: PAIN Last Admin: 02/19/17 11:07 Dose: 2 mg Ondansetron HCl (Zofran Injection) 8 mg IVPB Q6H PRN PRN Reason: NAUSEA Oxycodone HCl (Roxicodone -) 10 mg PO Q4H PRN PRN Reason: PAIN Last Admin: 02/19/17 08:14 Dose: 10 mg - Objective Vital Signs: Vital Signs Temperature 98.0 F 02/19/17 09:40 Pulse Rate 75 02/19/17 09:40 Respiratory Rate 20 02/19/17 09:40 Blood Pressure 126/70 02/19/17 09:40 O2 Sat by Pulse Oximetry (%) 96 02/19/17 06:15 Constitutional: Yes: Well Nourished, No Distress, Calm Musculoskeletal: Yes: WNL Neurological: Yes: WNL, Alert, Oriented ...Motor Strength: WNL Assessment/Plan pOD#1 s/p Abdominoplasty with liposuction under GA. Doing well. D/C from anesthesia care.
[2017-02-19] MEDS: LACTATED RINGERS SOLUTION 1,000 ML IV SCH ×2 (12:34→12:35)
--- NOTE | 2017-02-25 15:31 | PATH ---
Surgical Pathology Report Patient Name: TRSITIAN PADILLA [facility]. Rec. #: [id number] /Age/Gender: 1975 (Age: 41) / F Account: [id number] Location: [facility] Taken: 02/18/2017 Received: 02/18/2017 Reported: 02/25/2017 Physicians: Shashi Jennings Specimen(s) Received ABDOMINAL SKIN AND TISSUE Clinical History Cosmetic Final Diagnosis ABDOMINAL SKIN AND TISSUE, ABDOMINOPLASTY: SKIN AND ADIPOSE TISSUE, DESCRIBED (GROSS EXAMINATION ONLY). Electronically Signed Patty Kearney M.D. Gross Description Received in formalin labeled "abdominal skin and tissue," is a 2277 g, 36.0 x 19.5 x 4.2 cm aggregate of 2 shearer, triangular, unoriented portions of inlet underlying soft tissue. The epidermal surfaces are unremarkable. Sectioning of the underlying soft tissue reveals unremarkable yellow, lobulated adipose tissue. No lesions are identified. No sections are submitted, gross only. /02/19/2017 [facility]02/19/2017
== END 2017-02-19 15:35 | disposition home or self-care (01) ==
LOC: FASU 06:33 → FM/S 12:41 → FASU 02-19 15:35
PROVIDERS: ATTEND Plastic Surgery
PROC: 0J083ZZ Alteration of Abdomen Subcutaneous Tissue and Fascia, Percutaneous Approach (ICD-10-PCS; 2017-02-18)
PROC: 0J080ZZ Alteration of Abdomen Subcutaneous Tissue and Fascia, Open Approach (ICD-10-PCS; principal; 2017-02-18 08:35)
DX: Z41.1 Encounter for cosmetic surgery (principal); E75.6 Lipid storage disorder, unspecified
CPT/HCPCS: 84703; 88300-TC; 94010; 94760; J1644

== ENCOUNTER 2017-05-21 11:16 | Emergency (ER) | payer OTHER ==
[2017-05-21] MEDS ORDERED: FLUORESCEIN NA 1 EA STRIP ONE (11:28)
[2017-05-21] MEDS ORDERED: TETRACAINE 0.5% OPHTH SOLN 2 ML BOTTLE ONE (11:28)
[2017-05-21 11:35] VITALS: BP 141/78; PULSE 60; TEMP 98.5; BMI 28.3
--- NOTE | 2017-05-21 11:39 | PDOC ---
Attending Attestation - Resident Resident Name: Rachel Satcy - ED Attending Attestation I have performed the following: I have examined & evaluated the patient, The case was reviewed & discussed with the resident, I agree w/resident's findings & plan, Exceptions are as noted - HPI HPI: 05/21/17 11:39 41 yo healthy woman presents with pain and tearing in Right Eye - Physicial Exam PE: 05/21/17 12:12 Punctate abrasion center cornea. Superficial in nature 05/21/17 12:35 - Medical Decision Making 05/21/17 12:[address] Stacy's assessment and plan
[2017-05-21] MEDS ORDERED: TOBRAMYCIN 0.3% OPHTH SOLN 5 ML BOTTLE OD ONE (12:13)
[2017-05-21] MEDS ORDERED: DIPHTH,PERTUSS(ACELL),TET 0.5 ML DISP.SYRIN IM ONE (12:14)
--- NOTE | 2017-05-21 12:18 | PDOC ---
History of Present Illness - General Chief Complaint: Eye Problem Stated Complaint: rt eye tearing Time Seen by Provider: 05/21/17 11:38 - History of Present Illness Initial Comments: 05/21/17 13:21 Patient is a 41 y.o. female with a PMH of Anxiety and Depression who presents to our facility today c/o 1 day h/o L eye tearing, "itching" pain and blurry vision. Patient states she believes she scratched her eye during her sleep and her symptoms today are identical to her symptoms on a previous admission at our facility a few months previous at which time she was diagnosed with an ocular abrasion. Patient denies any photophobia, contact lens use, trauma, medication changes. Past History - Past Medical History Allergies/Adverse Reactions: Allergies Allergy/AdvReac Type Severity Reaction Status Date / Time latex [Latex] Allergy Intermediate Itching Verified 05/21/17 11:17 Home Medications: Ambulatory Orders Clonazepam [Klonopin] 1 mg PO ASDIR PRN 12/04/16 Loratadine [Claritin] 10 mg PO DAILY PRN 02/10/17 Anemia: No Asthma: Yes (seasonal) Cancer: No Cardiac Disorders: No CVA: No COPD: No CHF: No Dementia: No Diabetes: No GI Disorders: No Disorders: No HTN: No Hypercholesterolemia: No Liver Disease: No Psychiatric Problems: Yes (DEPRESSION/ANXIETY) Seizures: No Thyroid Disease: No - Surgical History Abdominal Surgery: Yes Appendectomy: No Cardiac Surgery: No Cholecystectomy: No Lung Surgery: No Neurologic Surgery: No Orthopedic Surgery: No - Immunization History Immunization Up to Date: Yes - Psycho/Social/Smoking Cessation Hx Anxiety: No Suicidal Ideation: No Smoking Status: No Smoking History: Former smoker Have you smoked in the past 12 months: No Number of Cigarettes Smoked Daily: 2 If you are a former smoker, when did you quit?: 10 yrs ago Information on smoking cessation initiated: No 'Breaking Loose' booklet given: 01/12/17 Hx Alcohol Use: No Drug/Substance Use Hx: No Substance Use Type: None Hx Substance Use Treatment: No Review of Systems - Review of Systems Constitutional: No: Chills, Diaphoresis, Fever, Unintentional Wgt. Loss HEENTM: Yes: Eye Pain, Blurred Vision, Tearing, Recent change in vision. No: Double Vision Respiratory: No: Cough, Shortness of Breath, Wheezing, Hemoptysis Cardiac (ROS): No: Chest Pain, Edema, Lightheadedness, Palpitations ABD/GI: No: Constipated, Diarrhea : No: Burning, Dysuria Musculoskeletal: No: Back Pain, Joint Pain, Muscle Pain, Muscle Weakness Integumentary: No: Bruising, Dryness, Erythema, Rash Neurological: No: Headache, Numbness Psychiatric: No: Anxiety, Depression All Other Systems: Reviewed and Negative *Physical Exam - Vital Signs Last Vital Signs Temp Pulse Resp BP Pulse Ox 98.5 F 60 16 141/78 96 05/21/17 11:17 05/21/17 11:17 05/21/17 11:17 05/21/17 11:17 05/21/17 11:17 - Physical Exam General Appearance: Yes: Nourished, Appropriately Dressed HEENT: positive: EOMI, CARLOS ENRIQUE, Other (R eye lacrimation; eye appears grossly normal; no conjunctival inflammation; no purulent draining; anterior chamber clear; fundoscopic exam beningn; flourescent dye reveals a pinpoint abrasion in the central corneal region). negative: Photophobia Neck: positive: Tender, Supple Respiratory/Chest: positive: Lungs Clear, Normal Breath Sounds Cardiovascular: positive: Regular Rhythm, Regular Rate, S1, S2 Gastrointestinal/Abdominal: positive: Normal Bowel Sounds, Soft Neurologic: positive: Fully Oriented, Alert Medical Decision Making - Medical Decision Making 05/21/17 14:30 Patient is a 44 y.o. female who presents with blurry vision, lacrimation and R eye pain. Flourscein dye examination reveals a corneal abrasion in the central corneal region likely secondary to self inflicted abrasion during sleep. Patient advised to trim fingernails and given Tobramycin (1%) as well as tetanus shot in ED and referral to radiotelegrapher. *DC/Admit/Observation/Transfer Diagnosis at time of Disposition: Eye abrasion - Discharge Dispostion Disposition: HOME Condition at time of disposition: Good Admit: No - Referrals Referrals: Trevor Arnett [Staff Physician] - - Patient Instructions Printed Discharge Instructions: DI for Corneal Abrasion Additional Instructions: Please make an appointment with Dr. Arnett, opthamologist within the next 2-3 days. Please use tobramycin drops twice daily until bottle is finished or until advised by opthamologist. - Attestations Physician Attestion: 05/21/17 12:16 Physician Attestation: Dr. Rachel Stacy, I attest all medical notation and procedures as documented in this note are under the auspices of my medical decision making.
[2017-05-21] MEDS ORDERED: TOBRAMYCIN 0.3% OPHTH SOLN 5 ML BOTTLE ONE (12:23)
== END 2017-05-21 12:29 | disposition home or self-care (01) ==
LOC: FER 11:16
PROC: 3E0234Z Introduction of Serum, Toxoid and Vaccine into Muscle, Percutaneous Approach (ICD-10-PCS; principal; 2017-05-21)
DX: S05.01XA Injury of conjunctiva and corneal abrasion without foreign body, right eye, initial encounter (principal); F41.8 Other specified anxiety disorders; J45.998 Other asthma; Z87.891 Personal history of nicotine dependence
CPT/HCPCS: 90715; 99282-25

== ENCOUNTER 2017-07-14 11:11 | Emergency (ER) | payer OTHER ==
[2017-07-14 11:28] VITALS: BP 118/58; PULSE 90; TEMP 99.1; BMI 32.5
--- NOTE | 2017-07-14 11:52 | PDOC ---
History of Present Illness - History of Present Illness Initial Comments: 07/14/17 12:19 The patient is a 41yo Female, reportedly 9 weeks with twins, with a significant past medical history of asthma, anxiety, depression, who presents to the ER with a complaint of right ear and right throat pain/"itching" and nasal congestion for 3 days. She reports putting rubbing alcohol in her right ear last night which burned her inner ear. She reports her right ear has been itchy inside. She reports the right side of her throat and neck extending to her right ear is itchy and painful with swallowing. The patient states she has "bad seasonal allergies" and usually takes Zyrtec, however, states she was concerned to take it during . The patient reports her 9 year old daughters classmates have strep throat. She also states her daughter woke up this morning complaining of sore throat. She reports some morning nausea with her , but denies increased nausea in the past few days. She denies chest pain, shortness of breath, cough, headache and dizziness. She denies fever, chills, nausea, vomit, diarrhea and constipation. She denies dysuria, frequency, urgency and hematuria. Allergies: NKDA PSH: C section x 1, tummy tuck Social: Denies alcohol, drug, cigarette use Bloom Conveyor Operator: Mayo Agarwal <Brittany Bermudez - Last Filed: 07/14/17 12:19> - History of Present Illness Initial Comments: 07/15/17 08:00 Patient is a 41-year-old 9 weeks with twins with seasonal ALLERGY symptoms. No vaginal discharge or bleeding, no abdominal or pelvic cramping. Afebrile, vital signs normal, ENT clear without sign of infection. Lungs clear. Abdomen benign. Throat culture negative for strep. Instructed to discuss permitted medication with her CHIEF COMMUNICATIONS OFFICER physician. Tylenol and vinegar/peroxide eardrops for symptomatic relief as needed. Fully ambulatory and in no distress upon discharge to follow-up as directed <Hernandez Whatley - Last Filed: 07/15/17 08:02> - General Chief Complaint: Ear Problem Stated Complaint: RT EAR ACHE Time Seen by Provider: 07/14/17 11:37 Past History <Brittany Bermudez - Last Filed: 07/14/17 12:19> - Past Medical History Anemia: No Asthma: Yes (seasonal) Cancer: No Cardiac Disorders: No CVA: No COPD: No CHF: No Dementia: No Diabetes: No GI Disorders: No Disorders: No HTN: No Hypercholesterolemia: No Liver Disease: No Psychiatric Problems: Yes (DEPRESSION/ANXIETY) Seizures: No Thyroid Disease: No Other medical history: 9 WEEK / TWINS - Surgical History Abdominal Surgery: Yes Appendectomy: No Cardiac Surgery: No Cholecystectomy: No Lung Surgery: No Neurologic Surgery: No Orthopedic Surgery: No - Immunization History Immunization Up to Date: Yes - Suicide/Smoking/Psychosocial Hx Smoking Status: No Smoking History: Former smoker Have you smoked in the past 12 months: No Number of Cigarettes Smoked Daily: 0 If you are a former smoker, when did you quit?: 10 yrs ago Information on smoking cessation initiated: No 'Breaking Loose' booklet given: 01/12/17 Hx Alcohol Use: No Drug/Substance Use Hx: No Substance Use Type: None Hx Substance Use Treatment: No <Hernandez Whatley - Last Filed: 07/15/17 08:02> - Past Medical History Allergies/Adverse Reactions: Allergies Allergy/AdvReac Type Severity Reaction Status Date / Time latex [Latex] Allergy Intermediate Itching Verified 07/14/17 11:12 Home Medications: Ambulatory Orders Clonazepam [Klonopin] 1 mg PO ASDIR PRN 12/04/16 Loratadine [Claritin] 10 mg PO DAILY PRN 02/10/17 Review of Systems - Review of Systems Able to Perform ROS?: Yes Comments:: 07/14/17 12:19 CONSTITUTIONAL: Absent: fever, chills, diaphoresis, generalized weakness, malaise, loss of appetite HEENT: (+) nasal congestion, right ear pain, right sided throoat pain with swallowing, Absent: rhinorrhea, throat pain, throat swelling, mouth swelling, eye pain, visual Changes CARDIOVASCULAR: Absent: chest pain, syncope, palpitations, irregular heart rate, lightheadedness , peripheral edema RESPIRATORY: Absent: cough, shortness of breath, dyspnea with exertion, orthopnea, wheezing, stridor, hemoptysis GASTROINTESTINAL: Absent: abdominal pain, abdominal distension, nausea, vomiting, diarrhea, constipation, melena, hematochezia GENITOURINARY: Absent: dysuria, frequency, urgency, hesitancy, hematuria, flank pain, genital pain MUSCULOSKELETAL: Absent: myalgia, arthralgia, joint swelling SKIN: Absent: rash, itching, pallor HEMATOLOGIC/IMMUNOLOGIC: Absent: easy bleeding, easy bruising, lymphadenopathy, frequent infections ENDOCRINE: Absent: unexplained weight gain, unexplained weight loss, heat intolerance, cold intolerance NEUROLOGIC: Absent: headache, focal weakness or paresthesia, dizziness, unsteady gait, seizure, mental status changes, bladder or bowel incontinence PSYCHIATRIC: Absent: anxiety, depression, suicidal or homicidal ideation, hallucinations <Brittany Bermudez - Last Filed: 07/14/17 12:19> *Physical Exam - Vital Signs Last Vital Signs Temp Pulse Resp BP Pulse Ox 99.1 F 90 20 118/58 97 07/14/17 11:12 07/14/17 11:12 07/14/17 11:12 07/14/17 11:12 07/14/17 11:12 - Physical Exam Comments: 07/14/17 12:20 GENERAL: Well developed, well nourished. Awake and alert. No acute distress. HEENT: Normocephalic, atraumatic. PERRLA, EOMI. No conjunctival pallor. Sclera are non- icteric. Moist mucous membranes. Oropharynx is clear. NECK: Supple. Full ROM. No JVD. Carotid pulses 2+ and symmetric, without bruits. No thyromegaly. No lymphadenopathy. CARDIOVASCULAR: Regular rate and rhythm. No murmurs, rubs, or gallops. Distal pulses are 2+ and symmetric. PULMONARY: No evidence of respiratory distress. Lungs clear to auscultation bilaterally. No wheezing, rales or rhonchi. SKIN: Warm and dry. Normal capillary refill. No rashes. No jaundice. NEUROLOGICAL: Alert, awake, appropriate. Cranial nerves 2-12 intact. No motor deficits in the upper extremities and lower extremities. Normoreflexic in the upper and lower extremities. Normal speech. Gait is normal without ataxia. PSYCHIATRIC: Cooperative. Good eye contact. Appropriate mood and affect. <Birttany Bermudez - Last Filed: 07/14/17 12:19> - Vital Signs Last Vital Signs Temp Pulse Resp BP Pulse Ox 99.1 F 90 20 118/58 97 07/14/17 11:12 07/14/17 11:12 07/14/17 11:12 07/14/17 11:12 07/14/17 11:12 <Hernandez Whatley - Last Filed: 07/15/17 08:02> ED Treatment Course - ADDITIONAL ORDERS Additional order review: 07/14/17 11:45 Group A Strep Rapid Antigen - Final Throat <Brittany Bermudez - Last Filed: 07/14/17 12:19> *DC/Admit/Observation/Transfer - Attestations Scribe Attestion: 07/14/17 12:24 Documentation prepared by Brittany Bermudez, acting as medical pathology teacher for Hernandez Sanchez MD <Brittany Bermudez - Last Filed: 07/14/17 12:19> - Discharge Dispostion Admit: No <Hernandez Whatley - Last Filed: 07/15/17 08:02> Diagnosis at time of Disposition: Seasonal allergies Qualifiers: Chronicity: chronic Allergic rhinitis trigger: pollen Qualified Code(s): J30.1 - Allergic rhinitis due to pollen - Discharge Dispostion Disposition: HOME Condition at time of disposition: Stable - Patient Instructions Printed Discharge Instructions: Allergies, Respiratory (Alternative Therapy) Additional Instructions: Discussed the use of ALLERGY medication with your CHIEF COMMUNICATIONS OFFICER physician. There is no sign of infection and your throat or your ears.
== END 2017-07-14 12:21 | disposition home or self-care (01) ==
LOC: FER 11:11
DX: O26.891 Other specified pregnancy related conditions, first trimester (principal); J30.1 Allergic rhinitis due to pollen; Z3A.09 9 weeks gestation of pregnancy; O30.001 Twin pregnancy, unspecified number of placenta and unspecified number of amniotic sacs, first trimester; Z87.891 Personal history of nicotine dependence; F41.8 Other specified anxiety disorders
CPT/HCPCS: 87070; 87430; 99281-25

== ENCOUNTER 2017-09-22 12:40 | Emergency (ER) | payer OTHER ==
[2017-09-22 13:01] VITALS: BP 113/60; PULSE 98; TEMP 98.7; BMI 32.1
--- NOTE | 2017-09-22 13:19 | PDOC ---
History of Present Illness - General Chief Complaint: Respiratory Stated Complaint: SINUS CONGESTION, SORE THROAT, EARACHE Time Seen by Provider: 09/22/17 12:55 - History of Present Illness Initial Comments: 09/22/17 13:15 History of present illness: Upper respiratory infection History of present illness: This is a 41-year-old woman with no significant past medical history 20 weeks who presents to emergency department with several day history of runny nose ear congestion sinus congestion mild headache and sinus pain. Symptoms are persistent constant moderate no exacerbating or alleviating factors. No neck stiffness no rash Past History - Past Medical History Allergies/Adverse Reactions: Allergies Allergy/AdvReac Type Severity Reaction Status Date / Time latex [Latex] Allergy Intermediate Itching Verified 07/14/17 11:12 Home Medications: Ambulatory Orders NK [No Known Home Medication] 09/22/17 Anemia: No Asthma: Yes (seasonal) Cancer: No Cardiac Disorders: No CVA: No COPD: No CHF: No Dementia: No Diabetes: No GI Disorders: No Disorders: No HTN: No Hypercholesterolemia: No Liver Disease: No Psychiatric Problems: Yes (DEPRESSION/ANXIETY) Seizures: No Thyroid Disease: No - Surgical History Abdominal Surgery: Yes (TUMMY TUCK) Appendectomy: No Cardiac Surgery: No Cholecystectomy: No Lung Surgery: No Neurologic Surgery: No Orthopedic Surgery: No - Immunization History Immunization Up to Date: Yes - Suicide/Smoking/Psychosocial Hx Smoking Status: No Smoking History: Former smoker Have you smoked in the past 12 months: No Number of Cigarettes Smoked Daily: 0 If you are a former smoker, when did you quit?: 10 yrs ago Information on smoking cessation initiated: No 'Breaking Loose' booklet given: 01/12/17 Hx Alcohol Use: No Drug/Substance Use Hx: No Substance Use Type: None Hx Substance Use Treatment: No Review of Systems - Review of Systems Comments:: 09/22/17 13:16 ROS: A complete review of 10 out of 10 review of systems is taken and is negative apart from what is previously mentioned below and in the HPI. *Physical Exam - Vital Signs Last Vital Signs Temp Pulse Resp BP Pulse Ox 98.7 F 98 H 18 113/60 96 09/22/17 12:40 09/22/17 12:40 09/22/17 12:40 09/22/17 12:40 09/22/17 12:40 - Physical Exam Comments: 09/22/17 13:16 Vitals: Triage Vital signs reviewed General Appearance: no acute distress, well nourished well developed, Head: Atraumatic, Eyes: Pupils equal reactive round, extraocular movement intact Ears: TM's normal bilaterally; Nose: Nares patent bilaterally;+ nasal congestion, positive bilateral maxillary sinus tenderness to palpation. Throat: Posterior oropharynx without erythema, mucous membranes moist, Neck: Supple;No Nucal rigidity Chest Wall: Nontender Cardiac: Regular rate and rhythym, no murmurs, no rubs, no gallops, Lungs: Clear to auscultation bilateral, good air movement bilaterally, Abdomen: Soft, non distended, normal bowel sounds, non tender to palpation Extremities: Full range of motion to all extremities, no cyanosis, clubbing, or edema Skin: Warm and dry, no rashes or lesions, no rash, no petechiae Medical Decision Making - Medical Decision Making 09/22/17 13:17 Well-appearing no apparent distress history and examination consistent with viral sinusitis. Given the patient is will avoid Afrin we'll treat with Flonase and Netti pot Findings, the need for follow-up and strict return instructions discussed with patient. 09/22/17 17:31 *DC/Admit/Observation/Transfer Diagnosis at time of Disposition: Sinusitis Qualifiers: Sinusitis location: maxillary Chronicity: acute Recurrence: not specified as recurrent Qualified Code(s): J01.00 - Acute maxillary sinusitis, unspecified - Discharge Dispostion Disposition: HOME Condition at time of disposition: Stable Admit: No - Referrals - Patient Instructions Printed Discharge Instructions: Sinusitis Additional Instructions: Take [id number] Flonase as prescribed on package. Purchase a Netti Pot at the pharmacy. Use 3-4 times a day as instructed. Return to the ED for any fever severe worsening symptoms difficulty breathing or for any concerns. If no improvement symptoms within 1 week follow-up with your doctor or BUTTON SEWER [facility]. - Post Discharge Activity
== END 2017-09-22 13:29 | disposition home or self-care (01) ==
LOC: FER 12:40
DX: O26.892 Other specified pregnancy related conditions, second trimester (principal); Z3A.20 20 weeks gestation of pregnancy; J01.00 Acute maxillary sinusitis, unspecified; Z87.891 Personal history of nicotine dependence; F41.8 Other specified anxiety disorders
CPT/HCPCS: 99283-25

== ENCOUNTER 2017-10-17 14:51 | Emergency (ER) | payer OTHER ==
[2017-10-17 15:06] VITALS: BP 105/65; PULSE 104; TEMP 97.8; BMI 29.8
--- NOTE | 2017-10-17 15:30 | PDOC ---
History of Present Illness - General History Source: Patient Exam Limitations: No Limitations - History of Present Illness Initial Comments: 10/17/17 15:47 Chief complaint: Syncope History of Present Illness: The patient is a , 23 week female with twins, who arrives to the ED s/p syncopal episode earlier today. She reports walking with her daughter in [facility] when she began to feel warmer and lightheaded, prompting her to sit down on a stoop where she then lost consciousness for a few minutes. She remembers her friend helping her after a few minutes and reports still feeling warm and lightheaded after the episode, but much less severe than before. Patient reports being high risk for her age, but denies any complications in her so far. She reports following up weekly at [facility]. Review of Systems: The patient denies any headache or visual changes. She denies hitting her head during the episode. She denies any numbness or tingling in her extremities or focal deficits. The patient denies any fevers or chills, nausea, vomiting, diarrhea, cough, SOB, or urinary symptoms. She denies any vaginal bleeding. Past Medical History: Seasonal asthma, depression, anxiety Surgical History: Reports [facility] Social History: Denies drug, alcohol, or tobacco use. <ShantelCleopatra - Last Filed: 10/17/17 15:47> - History of Present Illness Initial Comments: 10/17/17 15:51 Physical exam: Alert and oriented 3, well-developed well-nourished, no acute distress, cheerful and cooperative. The patient is asymptomatic at present, denying any lightheadedness, dizziness, vertigo, focal neurologic symptoms, unsteadiness of gait Head atraumatic. PERRLA 4 mm, fundi benign with sharp disc margins and good central venous pulsations ENT clear except for mild nasal congestion. The patient states that this is not due to illness but due to her . She had similar symptoms throughout her last Neck supple without bruit mass or nodes. Full range of motion without pain, no point tenderness or deformity Lungs clear with full breath sounds throughout bilaterally. No rib cage or chest wall did deformity or tenderness CV S1 and S2 normal without murmur rub or gallop pulses full and symmetric no JVD or edema no bruits Abdomen: Enlarged consistent with 23 week . Bowel sounds normal. Soft without tenderness organomegaly No spine or pelvic tenderness or deformity. Neurological C2 to 12 intact. Strength full and symmetric. No focal sensory or motor deficits. Gait stable and unimpaired. Skin clear, no rash, adequate turgor and wet mucous membranes Extremities no CCE. No visible or palpable trauma. Impression: Vasovagal syncope. No residual. The feelings of warmth and panic are characteristic Plan: Reassure. Caution if symptoms recur, sitting or lying as quickly as possible. Follow-up primary physician. Fully ambulatory, asymptomatic, in no pain or other distress upon discharge with to follow-up as directed <Hernandez Whatley - Last Filed: 10/17/17 15:54> - General Chief Complaint: Lightheaded Stated Complaint: DIZZY Time Seen by Provider: 10/17/17 14:55 Past History <Cleopatra Funes - Last Filed: 10/17/17 15:47> - Past Medical History Anemia: No Asthma: Yes (seasonal) Cancer: No Cardiac Disorders: No CVA: No COPD: No CHF: No Dementia: No Diabetes: No GI Disorders: No Disorders: No HTN: No Hypercholesterolemia: No Liver Disease: No Psychiatric Problems: Yes (DEPRESSION/ANXIETY) Seizures: No Thyroid Disease: No Other medical history: 23 WEEK - Surgical History Abdominal Surgery: Yes (TUMMY TUCK) Appendectomy: No Cardiac Surgery: No Cholecystectomy: No Lung Surgery: No Neurologic Surgery: No Orthopedic Surgery: No - Immunization History Immunization Up to Date: Yes - Suicide/Smoking/Psychosocial Hx Smoking Status: No Smoking History: Former smoker Have you smoked in the past 12 months: No Number of Cigarettes Smoked Daily: 0 If you are a former smoker, when did you quit?: 10 yrs ago Information on smoking cessation initiated: No 'Breaking Loose' booklet given: 01/12/17 Hx Alcohol Use: No Drug/Substance Use Hx: No Substance Use Type: None Hx Substance Use Treatment: No <Hernandez Whatley - Last Filed: 10/17/17 15:54> - Past Medical History Allergies/Adverse Reactions: Allergies Allergy/AdvReac Type Severity Reaction Status Date / Time latex [Latex] Allergy Intermediate Itching Verified 10/17/17 14:53 Home Medications: Ambulatory Orders NK [No Known Home Medication] 09/22/17 Review of Systems - Review of Systems Able to Perform ROS?: Yes All Other Systems: Reviewed and Negative <JoeCleopatra rasmussen - Last Filed: 10/17/17 15:47> *Physical Exam - Vital Signs Last Vital Signs Temp Pulse Resp BP Pulse Ox 97.8 F 104 H 20 105/65 96 10/17/17 14:52 10/17/17 14:52 10/17/17 14:52 10/17/17 14:52 10/17/17 14:52 <zainabgradyCleopatra - Last Filed: 10/17/17 15:47> - Vital Signs Last Vital Signs Temp Pulse Resp BP Pulse Ox 97.8 F 104 H 20 105/65 96 10/17/17 14:52 10/17/17 14:52 10/17/17 14:52 10/17/17 14:52 10/17/17 14:52 <Hernandez Whatley - Last Filed: 10/17/17 15:54> *DC/Admit/Observation/Transfer - Attestations Scribe Attestion: 10/17/17 15:48 Documentation prepared by Cleopatra Funes, acting as medical staff assistant for Hernandez Sanchez MD. <Cleopatra Funes - Last Filed: 10/17/17 15:47> - Discharge Dispostion Admit: No <Hernandez Whatley - Last Filed: 10/17/17 15:54> Diagnosis at time of Disposition: Vasovagal syncope - Discharge Dispostion Disposition: HOME Condition at time of disposition: Improved - Patient Instructions Printed Discharge Instructions: DI for Syncope in Adults (Fainting) Additional Instructions: Return to ER for reevaluation if symptoms recur, or additional symptoms develop. Stay hydrated and get good nutrition. See your PARKING ASSISTANT as scheduled.
== END 2017-10-17 15:37 | disposition home or self-care (01) ==
LOC: FER 14:51
DX: O26.892 Other specified pregnancy related conditions, second trimester (principal); Z3A.23 23 weeks gestation of pregnancy; R55 Syncope and collapse; F41.8 Other specified anxiety disorders; Z87.891 Personal history of nicotine dependence
CPT/HCPCS: 99282-25

== ENCOUNTER 2017-10-30 09:53 | Emergency (ER) | payer OTHER ==
[2017-10-30 10:06] VITALS: BP 115/69; PULSE 99; TEMP 98.9; BMI 34.9
--- NOTE | 2017-10-30 10:18 | PDOC ---
History of Present Illness - General Chief Complaint: Cold Symptoms Stated Complaint: cough Time Seen by Provider: 10/30/17 09:57 - History of Present Illness Initial Comments: 10/30/17 11:41 Chief complaint: Cold symptoms History of present illness: Runny nose, nasal congestion, nonproductive cough for several days. Review of systems: No fever, chest pain, shortness of breath, abdominal pain, nausea, vomiting, diarrhea Past medical history: Asthma, 6 months with twins, last COMMERCIAL CREDIT REVIEWER appointment was yesterday, had normal ultrasound. Social/family history reviewed and noncontributory Physical exam: Alert, no acute distress, cooperative Afebrile, vital signs normal HEENT: Watery nasal discharge and congestion, no sinus tenderness, ears and throat clear Neck supple without bruit mass or nodes Chest clear with full breath sounds throughout bilaterally. No wheezes rales or rhonchi CV regular without murmur rub or gallop pulses full and symmetric no JVD or edema no bruits Abdomen benign Neurological intact Extremities no CCE Skin clear, no rash, adequate turgor and wet mucous membranes Impression: Viral URI, no sign of pneumonia or other serious infection, third trimester Plan: Symptomatic treatment, follow-up with primary physician and COMMERCIAL CREDIT REVIEWER. Return to ER if there is fever, shortness of breath, or chest pain. Past History - Past Medical History Allergies/Adverse Reactions: Allergies Allergy/AdvReac Type Severity Reaction Status Date / Time latex [Latex] Allergy Intermediate Itching Verified 10/30/17 09:54 Home Medications: Ambulatory Orders Guaifenesin [Robitussin -] 1 - 2 tsp PO Q4H PRN #210 ml 10/30/17 Anemia: No Asthma: Yes (seasonal) Cancer: No Cardiac Disorders: No CVA: No COPD: No CHF: No Dementia: No Diabetes: No GI Disorders: No Disorders: No HTN: No Hypercholesterolemia: No Liver Disease: No Psychiatric Problems: Yes (DEPRESSION/ANXIETY) Seizures: No Thyroid Disease: No Other medical history: 25 weeks - Surgical History Abdominal Surgery: Yes (TUMMY TUCK) Appendectomy: No Cardiac Surgery: No Cholecystectomy: No Lung Surgery: No Neurologic Surgery: No Orthopedic Surgery: No - Immunization History Immunization Up to Date: Yes - Suicide/Smoking/Psychosocial Hx Smoking Status: No Smoking History: Former smoker Have you smoked in the past 12 months: No Number of Cigarettes Smoked Daily: 0 If you are a former smoker, when did you quit?: 10 yrs ago Information on smoking cessation initiated: No 'Breaking Loose' booklet given: 01/12/17 Hx Alcohol Use: No Drug/Substance Use Hx: No Substance Use Type: None Hx Substance Use Treatment: No *Physical Exam - Vital Signs Last Vital Signs Temp Pulse Resp BP Pulse Ox 98.9 F 99 H 20 115/69 97 10/30/17 09:54 10/30/17 09:54 10/30/17 09:54 10/30/17 09:54 10/30/17 09:54 Medical Decision Making - Medical Decision Making 10/30/17 11:45 COMMERCIAL CREDIT REVIEWER, Dr. Peters. Office was contacted. Spoke to physician's assistant import manager. Declined to OK codeine. Spoke with a dairy quality assurance officer. She stated that she will assure that the doctor would not prescribe codeine as well. This was explained to the patient. She will take Robitussin only as directed by the PA and follow- up with her primary physician and COMMERCIAL CREDIT REVIEWER as scheduled. Return to ER if there is chest pain, shortness of breath, or fever. Fully ambulatory and in no distress upon discharge to follow-up as recommended *DC/Admit/Observation/Transfer Diagnosis at time of Disposition: Viral upper respiratory infection - Discharge Dispostion Disposition: HOME Condition at time of disposition: Stable Admit: No - Prescriptions Prescriptions: Guaifenesin [Robitussin -] 1 - 2 tsp PO Q4H PRN #210 ml PRN Reason: Cough - Referrals - Patient Instructions Printed Discharge Instructions: DI for Viral Upper Respiratory Infection -- Adult - Post Discharge Activity
== END 2017-10-30 11:48 | disposition home or self-care (01) ==
LOC: FER 09:53
DX: O30.002 Twin pregnancy, unspecified number of placenta and unspecified number of amniotic sacs, second trimester (principal); Z3A.25 25 weeks gestation of pregnancy; J06.9 Acute upper respiratory infection, unspecified; B97.89 Other viral agents as the cause of diseases classified elsewhere; F41.8 Other specified anxiety disorders; Z87.891 Personal history of nicotine dependence
CPT/HCPCS: 99281-25

== ENCOUNTER 2017-11-06 08:38 | Emergency (ER) | payer OTHER ==
[2017-11-06 08:44] VITALS: BP 116/73; TEMP 98.1; BMI 33.3
--- NOTE | 2017-11-06 08:47 | PDOC ---
History of Present Illness - General Chief Complaint: Sore Throat Stated Complaint: SORE THROAT Time Seen by Provider: 11/06/17 08:40 - History of Present Illness Initial Comments: 11/06/17 09:08 Chief complaint: Sore throat History of present illness: 26 weeks with twins, URI symptoms for 1 week, prescribed Zithromax and Robitussin. Nonproductive cough is still present and sore throat has just become a prominent feature. No fever or difficulty swallowing. No shortness of breath or chest pain. Review of systems: As above. In addition, no vomiting or diarrhea. By mouth intake is good. Remainder of systems reviewed and negative Past medical history: Patient is a 41-year-old female, 20 02/27/2027 weeks with twins, who had an [facility] visit yesterday with ultrasound and this was reportedly normal. Otherwise healthy female with normal prior pregnancies Social/family history reviewed and noncontributory Physical exam: Alert oriented no acute distress cooperative Afebrile, vital signs normal except for mild regular tachycardia consistent with HEENT: Mild injection of the posterior pharynx without exudate swelling or mass. Ears clear. Conjunctivae clear. Neck supple without bruit mass or nodes. Chest clear with full breath sounds throughout bilaterally. No wheezes rales or rhonchi CV regular 110/m without murmur rub or gallop pulses full and symmetric no JVD or edema no bruits Abdomen consistent with enlarged uterus due to , approximately 28 weeks. heart tones 140. movement appreciated. No tenderness or other masses. No organomegaly. Extremities no CCE Neurological intact. No hyperreflexia or clonus Skin clear, no rash, adequate turgor and wet mucous membranes Impression: Viral URI, without complications Plan: Strep screen, although this is unlikely. Symptomatic treatment and close follow-up if symptoms worsen. 11/06/17 09:13 Past History - Past Medical History Allergies/Adverse Reactions: Allergies Allergy/AdvReac Type Severity Reaction Status Date / Time latex [Latex] Allergy Intermediate Itching Verified 11/06/17 08:39 Home Medications: Ambulatory Orders No122/Iron/Folic Acid [ Multi Tablet] 1 each PO DAILY 11/06/17 Anemia: No Asthma: Yes (seasonal) Cancer: No Cardiac Disorders: No CVA: No COPD: No CHF: No DVT: No Dementia: No Diabetes: No GI Disorders: No Disorders: No HTN: No Hypercholesterolemia: No Liver Disease: No Psychiatric Problems: Yes (DEPRESSION/ANXIETY) Seizures: No Thyroid Disease: No - Surgical History Abdominal Surgery: Yes (TUMMY TUCK) Appendectomy: No Cardiac Surgery: No Cholecystectomy: No Lung Surgery: No Neurologic Surgery: No Orthopedic Surgery: No - Immunization History Immunization Up to Date: Yes - Suicide/Smoking/Psychosocial Hx Smoking Status: No Smoking History: Former smoker Have you smoked in the past 12 months: No Number of Cigarettes Smoked Daily: 0 If you are a former smoker, when did you quit?: 10 years ago Information on smoking cessation initiated: No 'Breaking Loose' booklet given: 01/12/17 Hx Alcohol Use: No Drug/Substance Use Hx: No Substance Use Type: None Hx Substance Use Treatment: No *Physical Exam - Vital Signs Last Vital Signs Temp Pulse Resp BP Pulse Ox 98.1 F 110 H 18 116/73 96 11/06/17 08:39 11/06/17 08:39 11/06/17 08:39 11/06/17 08:39 11/06/17 08:39 Medical Decision Making - Medical Decision Making 11/06/17 10:01 Rapid strep is negative Persistent viral upper respiratory infection. Finished course of Zithromax. Taking Robitussin as prescribed by [facility]. On last visit, Dr. Peters, [facility] was contacted, and did not want the patient prescribed any additional medication due to her . Symptomatic treatment and follow-up as indicated. Patient does not appear significantly ill and is fully ambulatory and in no real distress upon discharge *DC/Admit/Observation/Transfer Diagnosis at time of Disposition: Viral URI with cough - Discharge Dispostion Disposition: HOME Condition at time of disposition: Stable Admit: No - Referrals - Patient Instructions Printed Discharge Instructions: DI for Viral Upper Respiratory Infection -- Adult - Post Discharge Activity
[2017-11-06 09:56] VITALS: PULSE 105
== END 2017-11-06 10:49 | disposition home or self-care (01) ==
LOC: FER 08:38
DX: J06.9 Acute upper respiratory infection, unspecified (principal); Z87.891 Personal history of nicotine dependence; F41.8 Other specified anxiety disorders; J45.998 Other asthma
CPT/HCPCS: 87070; 87430; 99282-25

== ENCOUNTER 2018-01-03 19:05 | Emergency (ER) | payer OTHER ==
[2018-01-03 19:23] VITALS: BP 122/82; PULSE 108; TEMP 98.6; BMI 37.4
[2018-01-03] MEDS ORDERED: AMOXICILLIN 250 MG CAPSULE PO ONE (20:03)
--- NOTE | 2018-01-03 20:03 | PDOC ---
History of Present Illness <Teresa Vásquez - Last Filed: 01/03/18 19:54> - General History Source: Patient Exam Limitations: No Limitations - History of Present Illness Initial Comments: 01/03/18 20:32 The patient is a 42 year old female in her third trimester due 02/02, with no significant past medical history, who presents to the emergency department with, 2 days of a painful area to the distal left 4th digit. She reports mild swelling to the digit and intermittent bleeding. She denies any trauma to the finger. She denies ever having similar symptoms. She denies recent fevers, chills, headache or dizziness. She denies recent nausea, vomit, diarrhea or constipation. She denies recent dysuria, frequency, urgency or hematuria. She denies recent chest pain or shortness of breath. Allergies: Latex. Past surgical history: None reported. Social history: Nonsmoker. Denies EtOH use and recreational drug use. <Narendra Maddox - Last Filed: 01/03/18 20:49> - General Chief Complaint: Abscess Boil Stated Complaint: LEFT RING FINGER PIMPLE Time Seen by Provider: 01/03/18 19:17 Past History - Past Medical History Anemia: No Asthma: Yes (seasonal) Cancer: No Cardiac Disorders: No CVA: No COPD: No CHF: No DVT: No Dementia: No Diabetes: No GI Disorders: No Disorders: No HTN: No Hypercholesterolemia: No Liver Disease: No Psychiatric Problems: Yes (DEPRESSION/ANXIETY) Seizures: No Thyroid Disease: No Other medical history: PSORIASIS - Surgical History Abdominal Surgery: Yes (TUMMY TUCK) Appendectomy: No Cardiac Surgery: No Cholecystectomy: No Lung Surgery: No Neurologic Surgery: No Orthopedic Surgery: No - Immunization History Immunization Up to Date: Yes - Suicide/Smoking/Psychosocial Hx Smoking Status: No Smoking History: Former smoker Have you smoked in the past 12 months: No Number of Cigarettes Smoked Daily: 0 If you are a former smoker, when did you quit?: 2006 Information on smoking cessation initiated: No 'Breaking Loose' booklet given: 01/12/17 Hx Alcohol Use: No Drug/Substance Use Hx: No Substance Use Type: None Hx Substance Use Treatment: No <Teresa Vásquez - Last Filed: 01/03/18 19:54> <Narendra Maddox - Last Filed: 01/03/18 20:49> - Past Medical History Allergies/Adverse Reactions: Allergies Allergy/AdvReac Type Severity Reaction Status Date / Time latex [Latex] Allergy Intermediate Itching Verified 11/06/17 08:39 Home Medications: Ambulatory Orders No122/Iron/Folic Acid [ Multi Tablet] 1 each PO DAILY 11/06/17 Amoxicillin - [Amoxicillin 250mg Capsule -] 250 mg PO TID #15 capsule 01/03/18 Review of Systems - Review of Systems Able to Perform ROS?: Yes Comments:: 01/03/18 20:32 CONSTITUTIONAL: Absent: fever, no chills, no fatigue EYES: Absent: visual changes ENT: Absent: ear pain, no sore throat CARDIOVASCULAR: Absent: chest pain, no palpitations RESPIRATORY: Absent: cough, no SOB GI: Absent: abdominal pain, no nausea, no vomiting, no constipation, no diarrhea GENITOURINARY: Absent: dysuria, no frequency, no hematuria MUSKULOSKELETAL: Absent: back pain, no arthralgia, no myalgia SKIN: Absent: rash FINGER: Present: Pain to the distal left 4th digit. NEURO: Absent: headache All Other Systems: Reviewed and Negative <Narendra Maddox - Last Filed: 01/03/18 20:49> *Physical Exam - Vital Signs Last Vital Signs Temp Pulse Resp BP Pulse Ox 98.6 F 108 H 28 H 122/82 100 01/03/18 19:12 01/03/18 19:12 01/03/18 19:12 01/03/18 19:12 01/03/18 19:12 <Teresa Vásquez - Last Filed: 01/03/18 19:54> - Vital Signs Last Vital Signs Temp Pulse Resp BP Pulse Ox 98.6 F 108 H 28 H 122/82 100 01/03/18 19:12 01/03/18 19:12 01/03/18 19:12 01/03/18 19:12 01/03/18 19:12 - Physical Exam Comments: 01/03/18 20:32 GENERAL: The patient is awake, alert, and fully oriented, in no acute distress. HEAD:Normal with no signs of trauma. EYES: Pupils equal, round and reactive to light, extraocular movements intact, sclera anicteric, conjunctiva clear. EXTREMITIES: Normal range of motion, no edema. FINGER: Small 2mm x 2mm area of palmar aspect of the distal left phalanx without active bleeding. No pain on actively moving the finger. No fluctuance or cellulitis. Remainder of the hand normal. NEUROLOGICAL: Normal speech, normal gait. PSYCH: Normal mood, normal affect. SKIN: Warm, Dry, normal turgor, no rashes or lesions noted. <Narendra Maddox - Last Filed: 01/03/18 20:49> ED Treatment Course - Medications Given in the ED: ED Medications Discontinued Medications Generic Name Dose Route Start Last Admin Trade Name Sofiya PRN Reason Stop Dose Admin Amoxicillin 250 mg 01/03/18 20:03 01/03/18 20:06 Amoxicillin - PO 01/03/18 20:04 250 mg ONCE ONE Administration <Narendra Maddox - Last Filed: 01/03/18 20:49> *DC/Admit/Observation/Transfer <Teresa Vásquez - Last Filed: 01/03/18 19:54> - Attestations Scribe Attestion: 01/03/18 20:33 Documentation prepared by Narendra Maddox, acting as medical director for Teresa Vásquez MD. <Narendra Maddox - Last Filed: 01/03/18 20:49> Diagnosis at time of Disposition: Finger lesion - Discharge Dispostion Disposition: HOME Condition at time of disposition: Stable - Prescriptions Prescriptions: Amoxicillin - [Amoxicillin 250mg Capsule -] 250 mg PO TID #15 capsule - Referrals Referrals: Maxine Parnell [Primary Care Provider] - - Patient Instructions Printed Discharge Instructions: DI for Boils Additional Instructions: warm soaks to finger at least 4 times a day amoxicillin 250mg 3 times a day for 5 days return here or see your doctor if area becomes more swollen/red/painful - Post Discharge Activity
[2018-01-03] MEDS ORDERED: AMOXICILLIN 250 MG CAPSULE ONE (20:04)
== END 2018-01-03 20:09 | disposition home or self-care (01) ==
LOC: FER 19:05
DX: O26.893 Other specified pregnancy related conditions, third trimester (principal); Z3A.00 Weeks of gestation of pregnancy not specified; J45.998 Other asthma; F41.8 Other specified anxiety disorders; Z87.891 Personal history of nicotine dependence
CPT/HCPCS: 99281-25

== ENCOUNTER 2018-01-24 23:30 | Emergency (ER) | payer OTHER | END 2018-01-25 00:29 | disposition home or self-care (01) | LOC: FER 23:30 | CPT/HCPCS: 36415; 70450-TC; 86618; 99281-25 ==

== ENCOUNTER 2018-10-17 09:36 | Emergency (ER) | payer OTHER ==
[2018-10-17 09:42] VITALS: BP 90/67; PULSE 99; TEMP 99.4; BMI 33.6
[2018-10-17] MEDS ORDERED: ALBUTEROL SO4 2.5/IPRATROPIUM 0.5 INH SOL 3 ML VIAL.NEB. NEB ONE (10:11)
--- NOTE | 2018-10-17 10:11 | PDOC ---
History of Present Illness - General Chief Complaint: Respiratory Stated Complaint: COUGH Time Seen by Provider: 10/17/18 09:38 - History of Present Illness Initial Comments: 42 year old female with PMH of asthma and HLD (moderate persistent but well controlled) presenting with cough and worsening respiratory status for the past week. States that she has had a light non-productive cough with occasional warmth and shortness of breath for the past week. Her symptoms started with the cough, she had one episode of warmth two days prior, and had one episode of severe shortness of breath last night that worried her greatly. She has not had her flu shot this year and has multiple sick contacts at home (three children and ) with very similar symptoms. She uses a daily symbicort x 2, ventolin rescue, and nebulizer. Cooper any nausea, vomiting, diarrhea, chest pain , or other symptoms. 10/17/18 10:37 Past History - Past Medical History Allergies/Adverse Reactions: Allergies Allergy/AdvReac Type Severity Reaction Status Date / Time latex [Latex] Allergy Intermediate Itching Verified 10/17/18 09:37 Home Medications: Ambulatory Orders Albuterol 2.5/Ipratropium 0.5 [Duoneb -] 1 amp NEB Q15M amp 10/17/18 Albuterol Sulfate Inhaler - [Ventolin HFA Inhaler -] 1 - 2 inh PO QID PRN Apremilast [Otezla] 30 mg PO BID 10/17/18 Budesonide/Formeterol Fumarate [SYMBICORT 160/4.5mcg -] 1 inh PO BID 10/17/18 Prednisone [Prednisone 50 MG TABLETS] 50 mg PO DAILY #4 tablet 10/17/18 Anemia: No Asthma: Yes Cancer: No Cardiac Disorders: No CVA: No COPD: No CHF: No DVT: No Dementia: No Diabetes: No GI Disorders: No Disorders: No HTN: No Hypercholesterolemia: No Liver Disease: No Psychiatric Problems: Yes (DEPRESSION/ANXIETY) Seizures: No Thyroid Disease: No Other medical history: PSORIASIS - Surgical History Abdominal Surgery: Yes (TUMMY TUCK) Appendectomy: No Cardiac Surgery: No Cholecystectomy: No Lung Surgery: No Neurologic Surgery: No Orthopedic Surgery: No - Immunization History Immunization Up to Date: Yes - Suicide/Smoking/Psychosocial Hx Smoking Status: No Smoking History: Never smoked Have you smoked in the past 12 months: No Number of Cigarettes Smoked Daily: 0 If you are a former smoker, when did you quit?: 2006 Information on smoking cessation initiated: No 'Breaking Loose' booklet given: 01/12/17 Hx Alcohol Use: (occasional) Drug/Substance Use Hx: No Substance Use Type: None Hx Substance Use Treatment: No Review of Systems - Review of Systems Constitutional: Yes: Fever. No: Chills, Diaphoresis HEENTM: No: Eye Pain, Blurred Vision, Tearing Respiratory: Yes: Cough, Shortness of Breath. No: SOB with Exertion, SOB at Rest, Wheezing Cardiac (ROS): No: Edema, Irregular Heart Rate, Lightheadedness, Palpitations ABD/GI: No: Diarrhea, Nausea, Vomiting : No: Burning, Dysuria, Discharge Musculoskeletal: No: Back Pain, Joint Pain, Muscle Pain, Muscle Weakness Integumentary: No: Bruising, Erythema, Flushing, Lesions, Lumps Neurological: No: Headache, Numbness, Paresthesia, Tingling Psychiatric: No: Anxiety, Depression Hematologic/Lymphatic: No: Anemia, Blood Clots, Easy Bleeding *Physical Exam - Vital Signs Last Vital Signs Temp Pulse Resp BP Pulse Ox 99.4 F 99 H 18 90/67 98 10/17/18 09:36 10/17/18 09:36 10/17/18 09:36 10/17/18 09:36 10/17/18 09:36 - Physical Exam General Appearance: Yes: Nourished, Appropriately Dressed. No: Apparent Distress HEENT: positive: EOMI, CARLOS ENRIQUE, Normal ENT Inspection, Normal Voice Neck: positive: Trachea midline, Normal Thyroid, Supple, Lymphadenopathy (R) ( mild), Lymphadenopathy (L) (mild). negative: Tender, Rigid Respiratory/Chest: positive: Lungs Clear, Normal Breath Sounds. negative: Chest Tender, Respiratory Distress, Accessory Muscle Use Cardiovascular: positive: Regular Rhythm, Tachycardia (mild) Gastrointestinal/Abdominal: positive: Normal Bowel Sounds, Flat, Soft. negative : Tender Lymphatic: positive: Adenopathy. negative: Tenderness Musculoskeletal: positive: Normal Inspection. negative: Decreased Range of Motion Extremity: positive: Normal Capillary Refill, Normal Inspection, Normal Range of Motion. negative: Tender Integumentary: positive: Normal Color, Dry, Warm Neurologic: positive: Fully Oriented, Alert, Normal Mood/Affect, Normal Response Moderate Sedation - Procedure Monitoring Vital Signs: Procedure Monitoring Vital Signs Temperature 99.4 F 10/17/18 09:36 Pulse Rate 99 H 10/17/18 09:36 Respiratory Rate 18 10/17/18 09:36 Blood Pressure 90/67 10/17/18 09:36 O2 Sat by Pulse Oximetry (%) 98 10/17/18 09:36 Medical Decision Making - Medical Decision Making 42 year old female with PMH of moderate persistent but controlled asthma presenting with cough and respiratory distress at home. In our ED she was afebrile with mild tachycardia to 100 and her peakflow was 300 which improved to 400 after duonebs x 3. Her CXR did not demonstrate any obvious infiltrate but did have some bronchial thickening. Her flu was pending. She is on azithromycin as well prescribed by her urgent care doctor.Given her level of symptoms we felt it appropriate to give her one dose of prednisone 50 here and 4 more days of treatment outpatient. We will call her back with her influenza results as well. 10/17/18 11:11 Influenza negative. Patient called back and results were relayed to her [employer] machine. 10/17/18 17:31 *DC/Admit/Observation/Transfer Diagnosis at time of Disposition: Asthma exacerbation Qualifiers: Asthma severity: mild Asthma persistence: persistent Qualified Code(s): J45.31 - Mild persistent asthma with (acute) exacerbation - Discharge Dispostion Disposition: HOME Condition at time of disposition: Improved Decision to Admit order: No - Prescriptions Prescriptions: Prednisone [Prednisone 50 MG TABLETS] 50 mg PO DAILY #4 tablet - Referrals Referrals: Maxine Parnell [Primary Care Provider] - - Patient Instructions Printed Discharge Instructions: DI for Asthma -- Adult Additional Instructions: Please call us back in 2 hours to see the results of your influenza swab. Please use your inhalers and nebulizer as prescribed. Please take your Z pack to completion and take the steroids once daily. Please follow up with your primary care doctor this week and please return to the ED if you have new or worsening symptoms. - Post Discharge Activity
[2018-10-17] MEDS: ALBUTEROL SO4 2.5/IPRATROPIUM 0.5 INH SOL 3 ML VIAL.NEB. NEB SCH ×3 (10:14→11:04)
[2018-10-17] MEDS ORDERED: predniSONE 20 MG TABLET (UD) PO ONE (11:08)
[2018-10-17] MEDS ORDERED: predniSONE 10 MG TABLET (UD) ONE (11:12)
[2018-10-17] MEDS ORDERED: predniSONE 20 MG TABLET (UD) ONE (11:12)
--- NOTE | 2018-10-17 11:12 | PDOC ---
Attending Attestation - Resident Resident Name: BraxtonNaomirociorussell - ED Attending Attestation I have performed the following: I have examined & evaluated the patient, The case was reviewed & discussed with the resident, I agree w/resident's findings & plan - HPI HPI: 10/17/18 11:08 Patient with long history of asthma, never intubated. Patient with recent URI in the setting of multiple sick contacts at home. Her and her kids all have viral upper respiratory symptoms. She had fever early in the week which is now resolved. She continues to have a moist cough without sputum production. There is no chest pain. Last night she had increased wheezing despite using her albuterol inhaler along with Symbicort preventive inhaler. She was also started yesterday by her doctor on azithromycin Z-Brian. On examination, there was no audible wheezing. However, her peak flow was 300 prior to treatment. After treatment, she said she felt much better and her peak flow on repeat was 400. Her mucous membranes are clear. The pharynx is normal. The ears are normal. The nose has mild rhinorrhea with clear discharge. There is no sinus tenderness. Heart is regular rhythm without murmur. Extremities are without tenderness or swelling. Chest x-ray PA and lateral was performed and shows no focal infiltrates. There is some mild bronchial thickening consistent with chronic asthma. Final radiology reading is pending at the time of discharge. Impression: Viral upper respiratory infection with increased bronchospasm superimposed on a history of chronic asthma. Patient improved after treatment in the ED with. Chest x-ray is clear and rules out pneumonia. Patient will continue her albuterol, Symbicort, azithromycin, and we will add prednisone 50 mg once a day for 5 days. The first dose will be given in the ED. Patient was advised regarding treatment and follow-up with her primary care physician and indications to return to the ED. - Physicial Exam PE: 10/17/18 11:11 Posttreatment the lungs are clear without wheezes. Repeat peak flow is 400. Remainder of exam is as outlined above. - Medical Decision Making 10/17/18 11:12 Impression: Viral URI Asthma exacerbation
== END 2018-10-17 11:30 | disposition home or self-care (01) ==
LOC: FER 09:36
PROC: 3E0F7GC Introduction of Other Therapeutic Substance into Respiratory Tract, Via Natural or Artificial Opening (ICD-10-PCS; principal; 2018-10-17)
DX: J45.31 Mild persistent asthma with (acute) exacerbation (principal); Z87.891 Personal history of nicotine dependence
CPT/HCPCS: 71046-TC-FY; 84703; 87804; 99283-25

== ENCOUNTER 2018-11-18 06:49 | Emergency (ER) | payer OTHER ==
[2018-11-18 06:56] VITALS: BP 129/77; PULSE 72; TEMP 99.1; BMI 33.7
--- NOTE | 2018-11-18 07:12 | PDOC ---
History of Present Illness - General Chief Complaint: Chest Pain Stated Complaint: CHEST PAIN X 7 DAYS Time Seen by Provider: 11/18/18 07:08 History Source: Patient Exam Limitations: No Limitations - History of Present Illness Initial Comments: 11/18/18 07:31 42y F pmhx HL, anxiety/depression, presents with intermittent chest pain. Pt notes pain started yesterday afternoon lasted a few seconds, was ni the mid chest and sharp in nature. It resolved until the evening hours around when she was watching her favorite show when it came back and was more persistent and seemed to wax and wane for several hours, where it was 8/10, associated with nausaa w/o vomiting, fever/chills, sob, diaphoresis, vaz. There was no worsening of the pain on exertion and she is fairly active with new twins. notse she had salmon last night but wasn't greasy or oily. She is currently asymptomatic wo pain. deneis any smoking, etoh abuse, ivdu family hx: no known cardiac history Past History - Past Medical History Allergies/Adverse Reactions: Allergies Allergy/AdvReac Type Severity Reaction Status Date / Time latex [Latex] Allergy Intermediate Itching Verified 11/18/18 06:50 Home Medications: Ambulatory Orders NK [No Known Home Medication] 11/18/18 Anemia: No Asthma: Yes Cancer: No Cardiac Disorders: No CVA: No COPD: No CHF: No DVT: No Dementia: No Diabetes: No GI Disorders: No Disorders: No HTN: No Hypercholesterolemia: No Liver Disease: No Psychiatric Problems: Yes (DEPRESSION/ANXIETY) Seizures: No Thyroid Disease: No - Surgical History Abdominal Surgery: Yes (TUMMY TUCK) Appendectomy: No Cardiac Surgery: No Cholecystectomy: No Lung Surgery: No Neurologic Surgery: No Orthopedic Surgery: No - Immunization History Immunization Up to Date: Yes - Suicide/Smoking/Psychosocial Hx Smoking Status: No Smoking History: Never smoked Have you smoked in the past 12 months: No Number of Cigarettes Smoked Daily: 0 If you are a former smoker, when did you quit?: 2006 'Breaking Loose' booklet given: 01/12/17 Hx Alcohol Use: No Drug/Substance Use Hx: No Substance Use Type: None Hx Substance Use Treatment: No Cardiac Specific PMH - Complaint Specific PMHX Pacemaker: No Review of Systems - Review of Systems Able to Perform ROS?: Yes Comments:: 11/18/18 08:09 CONSTITUTIONAL: No reported: Fever, Chills, Diaphoresis, Generalized Weakness, Malaise, Loss of Appetite HEENT: No reported: Rhinorrhea, Nasal Congestion, Throat Pain, Throat Swelling, Difficulty Swallowing, Mouth Swelling, Ear Pain, Eye Pain, Visual Changes CARDIOVASCULAR: No reported: Chest Pain, Syncope, Palpitations, Irregular Heart Rate, Lightheadedness, Peripheral Edema RESPIRATORY: No reported: Cough, Shortness of Breath, SOB with Exertion, Orthopnea, Wheezing , Stridor, Hemoptysis GASTROINTESTINAL: +Abdominal pain, Nausea, No reported:Abdominal Distension, Vomiting, Diarrhea, Constipation, Melena, Hematochezia GENITOURINARY: No reported: Dysuria, Frequency, Urgency, Hesitancy, Flank Pain, Genital Pain MUSCULOSKELETAL: No reported: Myalgia, Arthralgia, Joint Swelling, Back pain, Neck Pain SKIN: No reported: Rash, Itching, Pallor HEMEATOLOGIC/IMMUNOLOGIC: No reported: Easy Bleeding, Easy Bruising, Lymphadenopathy, Frequent infections ENDOCRINE: No reported: Unexplained Weight Gain, Unexplained Weight Loss, Heat Intolerance , Cold Intolerance NEUROLOGIC: No reported: Headache, Focal Weakness, Paresthesias, Vertigo, Lightheadedness, Unsteady Gait, Seizure, Mental Status Changes, Incontinence PSYCHIATRIC: No reported: Anxiety, Depression *Physical Exam - Vital Signs Last Vital Signs Temp Pulse Resp BP Pulse Ox 99.1 F 72 18 129/77 98 11/18/18 06:50 11/18/18 06:50 11/18/18 06:50 11/18/18 06:50 11/18/18 06:50 - Physical Exam Comments: 11/18/18 08:10 GENERAL: The patient is awake, alert, and fully oriented, Nontoxic - in no acute distress. HEAD: Normocephalic, atraumatic. EYES: extraocular movements intact, sclera anicteric, conjunctiva clear. ENT: Normal voice, Moist mucous membranes. NECK: Normal range of motion, supple LUNGS: Breath sounds equal, clear to auscultation bilaterally. No wheezes, no rhonchi, no rales. HEART: Regular rate and rhythm, without murmur, rub or gallop. ABDOMEN: Soft, nontender, No guarding, no rebound.No CVA tenderness EXTREMITIES: Normal range of motion, no edema. No cyanosis. No erythema, or tenderness. NEUROLOGICAL: No facial assymetry, Normal speech, PSYCH: Normal mood, normal affect. SKIN: Warm, Dry, normal turgor, Heart Score/ECG Review - ECG Impressions Comment:: 11/18/18 08:14 EKG: Rate of [address] changes suggestive of acute ischemia Normal [place] Impression: Normal sinus rhythm Moderate Sedation - Procedure Monitoring Vital Signs: Procedure Monitoring Vital Signs Temperature 99.1 F 11/18/18 06:50 Pulse Rate 72 11/18/18 06:50 Respiratory Rate 18 11/18/18 06:50 Blood Pressure 129/77 11/18/18 06:50 O2 Sat by Pulse Oximetry (%) 98 11/18/18 06:50 ED Treatment Course - LABORATORY CBC & Chemistry Diagram: 11/18/18 07:56 11/18/18 07:56 - ADDITIONAL ORDERS Additional order review: 11/18/18 07:56 RBC 4.86 MCV 86.7 MCHC 33.6 RDW 12.5 MPV 7.1 L Neutrophils % 66.9 Lymphocytes % 23.7 Monocytes % 5.4 Eosinophils % 3.4 Basophils % 0.6 - RADIOLOGY Radiology Studies Ordered: Category Date Time Status ABDOMEN US -LIMITED [US] Stat Ultrasound 11/18/18 07:57 Ordered Medical Decision Making - Medical Decision Making 11/18/18 08:10 based on history, consider possible gall stones - will obtain US consider pancreatitis, acs, although symptmos seem somewhat atypical will ck lipase, ekg, trops 11/18/18 09:03 cbc unremarkble mary rest of the pts labs are still pending includnig CMP and troponin gallbladder US noted for +gall stone, no signs of obstruction pt currently pain free, rquesting to leave due to family problems will sign the pt out AMA will dc pt home with return precautions and pmd fu *DC/Admit/Observation/Transfer Diagnosis at time of Disposition: Gall stone Qualifiers: Cholecystitis presence: without cholecystitis Biliary obstruction: without biliary obstruction Qualified Code(s): K80.20 - Calculus of gallbladder without cholecystitis without obstruction Chest pain Qualifiers: Chest pain type: unspecified Qualified Code(s): R07.9 - Chest pain, unspecified - Discharge Dispostion Disposition: AGAINST MEDICAL ADVICE Condition at time of disposition: Stable Decision to Admit order: No - Referrals Referrals: Maxine Parnell [Primary Care Provider] - - Patient Instructions Printed Discharge Instructions: DI for Gallstones, DI for Atypical Chest Pain Additional Instructions: Return to the emergency department immediately with ANY new, persistent or worsening symptoms including worsening abdominal pain, fevers, inability to tolerate oral intake, or any other concerns. Try to avoid fatty foods. Take ibuprofen if you have any pain Stay well hydrated. You MUST call and follow up with your doctor tomorrow. Your emergency department visit is not complete without a followup with your doctor for reevaluation. Please make sure your doctor reviews the results of your emergency evaluation - Post Discharge Activity
[2018-11-18 08:44] LABS: BASO % 0.6 % (0-2.0); EOS % 3.4 % (0-4.5); HEMATOCRIT 42.2 % (32.4-45.2); HEMOGLOBIN 14.2 GM/dl (10.7-15.3); LYMPH % 23.7 % (8-40); MCH 29.1 pg (25.7-33.7); MCHC 33.6 g/dl (32.0-36.0); MEAN CELL VOLUME 86.7 fl (80-96); MEAN PLT VOLUME 7.1 fl (7.5-11.1); MONO % 5.4 % (3.8-10.2); NEUT % 66.9 % (42.8-82.8); PLATELET COUNT 374 K/MM3 (134-434); RBC 4.86 M/mm3 (3.60-5.2); RDW 12.5 % (11.6-15.6); WHITE BLOOD COUNT 8.4 K/mm3 (4.0-10.8)
[2018-11-18 09:01] LABS: ALBUMIN 3.7 g/dl (3.4-5.0); ALK PHOS 79 U/L (45-117); ANION GAP 14 MMOL/L (8-16); BILIRUBIN,TOTAL 0.5 mg/dl (0.2-1); BLOOD UREA NITROGEN 7 mg/dl (7-18); CALCIUM 8.9 mg/dl (8.5-10); CHLORIDE 102 mmol/L (98-107); CO2 20 mmol/L (21-32); CREATININE 0.5 mg/dl (0.55-1.3); GLUCOSE,RANDOM 109 mg/dl (74-106); SGOT/AST 29 U/L (15-37); SGPT/ALT 42 U/L (13-61); SODIUM 136 mmol/L (136-145); TOT PROT 7.1 g/dl (6.4-8.2)
[2018-11-18 09:06] LABS: PH,URINE 5.5 (4.5-8); URINE APPEARANCE Slightly; URINE BILIRUBIN Negative (NEGATIVE); URINE COLOR Amber; URINE GLUCOSE (UA) Negative (NEGATIVE); URINE KETONE Negative (NEGATIVE); URINE LEUK ESTERASE Negative (NEGATIVE); URINE NITRITE Negative (NEGATIVE); URINE PROTEIN Negative (NEGATIVE); URINE UROBILINOGEN 0.2 (0.2-1.0)
[2018-11-18 10:41] LABS: EPI CELLS 4+ /HPF; URINE RBC 0-2 /hpf (0-3); URINE WBC 0-2 (0-5)
--- NOTE | 2018-11-18 11:59 | EKG ---
Test Reason : Blood Pressure : / mmHG Vent. Rate : 075 BPM Atrial Rate : 075 BPM P-R Int : 164 ms QRS Dur : 092 ms QT Int : 410 ms P-R-T Axes : 075 023 047 degrees QTc Int : 457 ms POOR DATA QUALITY, INTERPRETATION MAY BE ADVERSELY AFFECTED NORMAL SINUS RHYTHM NORMAL ECG WHEN COMPARED WITH ECG OF 19-OCT-2016 05:59, VENT. RATE HAS DECREASED BY 50 BPM Confirmed by JELANI MOREAU, HI ([id number]) on 11/18/2018 11:59:38 AM Referred By: Confirmed By:HI PALOMARES MD
[2018-11-18 14:48] LABS: LIPASE 96 U/L (73-393)
== END 2018-11-18 09:13 | disposition left against medical advice (07) ==
LOC: FER 06:49
DX: K80.20 Calculus of gallbladder without cholecystitis without obstruction (principal); R07.89 Other chest pain; F41.9 Anxiety disorder, unspecified; F32.9 Major depressive disorder, single episode, unspecified; J45.909 Unspecified asthma, uncomplicated
CPT/HCPCS: 36415; 76705-TC; 80053; 81003; 81015; 82550; 83690; 84484; 84703; 85025; 93005; 99282-25

== ENCOUNTER 2018-12-31 05:20 | Emergency (ER) | payer OTHER ==
--- NOTE | 2018-12-31 05:25 | PDOC ---
History of Present Illness - General Chief Complaint: Injury Stated Complaint: LT ANKLE PAIN Time Seen by Provider: 12/31/18 05:23 - History of Present Illness Initial Comments: 12/31/18 05:50 This 43-year-old woman with a history of psoriasis and ADHD/depression presents with left ankle injury: She describes missing several stairs as she was walking down steps outside of her apartment to discard trash last evening. Patient states that she was unable to weight-bear immediately and needed to assist her back to her apartment. Patient iced and elevated ankle overnight but continued to have pain and swelling and presents now for evaluation. No previous history of injury to left leg. Patient had no head/neck injury and denies LOC. No other injury except for abrasion of right elbow psoriatic plaque. ALLERGIES: Latex Patient states that she has had medication prescribed for her depression but that she does not take it Past History - Past Medical History Allergies/Adverse Reactions: Allergies Allergy/AdvReac Type Severity Reaction Status Date / Time latex [Latex] Allergy Intermediate Itching Verified 11/18/18 06:50 Home Medications: Ambulatory Orders Oxycodone HCl/Acetaminophen [Percocet 5-325 mg Tablet] 2 tab PO Q6H PRN #6 tablet MDD 2 tabs 12/31/18 Anemia: No Asthma: Yes Cancer: No Cardiac Disorders: No CVA: No COPD: No CHF: No DVT: No Dementia: No Diabetes: No GI Disorders: No Disorders: No HTN: No Hypercholesterolemia: No Liver Disease: No Psychiatric Problems: Yes (DEPRESSION/ANXIETY) Seizures: No Thyroid Disease: No - Surgical History Abdominal Surgery: Yes (TUMMY TUCK) Appendectomy: No Cardiac Surgery: No Cholecystectomy: No Lung Surgery: No Neurologic Surgery: No Orthopedic Surgery: No - Immunization History Immunization Up to Date: Yes - Suicide/Smoking/Psychosocial Hx Smoking Status: No Smoking History: Never smoked Have you smoked in the past 12 months: No Number of Cigarettes Smoked Daily: 0 If you are a former smoker, when did you quit?: 2006 'Breaking Loose' booklet given: 01/12/17 Hx Alcohol Use: No Drug/Substance Use Hx: No Substance Use Type: None Hx Substance Use Treatment: No Review of Systems - Review of Systems Able to Perform ROS?: Yes Comments:: 12 point review of systems is negative except for what is noted in the history of present illness *Physical Exam - Physical Exam Comments: GENERAL: Adult female in mild distress secondary to left ankle pain HEAD: Normal with no signs of trauma. EYES: PERRLA, EOMI, sclera anicteric, conjunctiva clear. EXTREMITIES: Left lower extremity -ankle: Bilateral malleoli edema, lateral > medial, tenderness throughout ankle joint. No edematous instability No foot tenderness/edema noted No proximal leg/ knee/thigh tenderness or edema Remainder extremity exam is normal NEUROLOGICAL: Cranial nerves II through XII grossly intact. Normal speech. No focal neurological deficits. MUSCULOSKELETAL: Back non-tender to palpation, no CVA tenderness SKIN: Warm, Dry, normal turgor, non-bleeding, superficial abrasion within psoriatic plaque volar aspect of proximal right forearm; no bony tenderness or deformity noted. Remainder of the right upper extremity skin is normal; no other rash/lacerations/abrasions noted. Medical Decision Making - Medical Decision Making 12/31/18 05:52 Patient is status post tubal ligation. Left ankle x-ray ordered 12/31/18 06:45 Left ankle x-ray performed: Preliminary reading-no evidence of fracture or dislocation Alvin wrap/removable Velcro ankle stirrup splint applied. Patient recommended to ice and elevate ankle as much as possible over the next 48 hours. Crutches given to patient and adjusted for height. Crutch walking instruction given. Patient does not have an orthopedist and Jasmin Rangel/Chetan referral information given to the patient in case she has persistent pain or swelling Patient should use Motrin/Aleve/Tylenol as needed for [id number]-mx-simdxary pain. Patient requested strong pain medication for the first few days since she states she is in excruciating pain. Small (#6) prescription for Percocet 5/325 will be given to the patient with instructions to use maximum dose of 2 tablets per day as needed for severe pain. She has been instructed regarding not engage in any activity requiring full at attention while taking this medication. *DC/Admit/Observation/Transfer Diagnosis at time of Disposition: Ankle sprain Qualifiers: Encounter type: initial encounter Involved ligament of ankle: unspecified ligament Laterality: left Qualified Code(s): S93.402A - Sprain of unspecified ligament of left ankle, initial encounter - Discharge Dispostion Disposition: HOME Condition at time of disposition: Stable - Prescriptions Prescriptions: Oxycodone HCl/Acetaminophen [Percocet 5-325 mg Tablet] 2 tab PO Q6H PRN #6 tablet MDD 2 tabs PRN Reason: Severe Pain - Referrals Referrals: Armando Rangel MD [Staff Physician] - - Patient Instructions Printed Discharge Instructions: Ankle Sprain Additional Instructions: Ice/elevation of left ankle as much as possible for the next 48 hours Crutches for ambulation for the next 3 days Alvin wrap and removable splint in place when up and around for the next week Follow-up with orthopedist (Drs. Rangel/Chetan) if pain and swelling persist for more than 5-7 days Motrin/Aleve/Tylenol as needed for [id number] pain Percocet 5/325 twice a day as needed for severe painthis medication will make you sleepy; avoid all activities that require your full attention while taking this - Post Discharge Activity
[2018-12-31 05:43] VITALS: BP 119/71; PULSE 90; TEMP 98.2; BMI 34.0
[2018-12-31] MEDS ORDERED: IBUPROFEN 600 MG TABLET (FP) PO ONE ×2 (05:59→06:01)
== END 2018-12-31 06:57 | disposition home or self-care (01) ==
LOC: FER 05:20
PROC: 2W3RX1Z Immobilization of Left Lower Leg using Splint (ICD-10-PCS; principal; 2018-12-31)
DX: S93.402A Sprain of unspecified ligament of left ankle, initial encounter (principal); W10.9XXA Fall (on) (from) unspecified stairs and steps, initial encounter; Y93.89 Activity, other specified; Y92.008 Other place in unspecified non-institutional (private) residence as the place of occurrence of the external cause; L40.9 Psoriasis, unspecified; Z87.891 Personal history of nicotine dependence; J45.909 Unspecified asthma, uncomplicated; F41.8 Other specified anxiety disorders
CPT/HCPCS: 73610-TC-LT-FY; 99282-25

== ENCOUNTER 2019-09-18 08:21 | Emergency (ER) | payer OTHER ==
--- NOTE | 2019-09-18 08:36 | PDOC ---
History of Present Illness - General Chief Complaint: Cold Symptoms Stated Complaint: COUGH Time Seen by Provider: 09/18/19 08:25 History Source: Patient Exam Limitations: No Limitations - History of Present Illness Initial Comments: 09/18/19 08:30 43 y/o female with hx of asthma presents to ER with cough and congestion for 1 week. Using inhaler more often. No SOB, chest pain, fever or chills. Denies N/V/ d/C. Child at home who is sick as well. Is this a multiple visit Asthma Patient?: No Past History - Past Medical History Allergies/Adverse Reactions: Allergies Allergy/AdvReac Type Severity Reaction Status Date / Time latex [Latex] Allergy Intermediate Itching Verified 09/18/19 08:24 Home Medications: Ambulatory Orders Albuterol Sulfate [Albuterol Sulfate Hfa] 2 puff .ROUTE PRN PRN 09/18/19 Azithromycin [Zithromax -] 250 mg PO UTDICT #6 tab 09/18/19 predniSONE [Deltasone -] 20 mg PO BID #10 tablet 09/18/19 Anemia: No Asthma: Yes Cancer: No Cardiac Disorders: No CVA: No COPD: No CHF: No DVT: No Dementia: No Diabetes: No GI Disorders: No Disorders: No HTN: No Hypercholesterolemia: No Liver Disease: No Psychiatric Problems: Yes (DEPRESSION/ANXIETY) Seizures: No Thyroid Disease: No - Surgical History Abdominal Surgery: Yes (TUMMY TUCK) Appendectomy: No Cardiac Surgery: No Cholecystectomy: No Lung Surgery: No Neurologic Surgery: No Orthopedic Surgery: No - Immunization History Immunization Up to Date: Yes - Psycho Social/Smoking Cessation Hx Smoking Status: No Smoking History: Never smoked Have you smoked in the past 12 months: No Number of Cigarettes Smoked Daily: 0 If you are a former smoker, when did you quit?: 2006 'Breaking Loose' booklet given: 01/12/17 Hx Alcohol Use: No Drug/Substance Use Hx: No Substance Use Type: None Hx Substance Use Treatment: No Review of Systems - Review of Systems Able to Perform ROS?: Yes Is the patient limited Croatian proficient: No Constitutional: No: Chills, Fever HEENTM: No: Throat Pain Respiratory: Yes: Cough. No: Shortness of Breath Cardiac (ROS): No: Chest Pain ABD/GI: No: Diarrhea, Nausea, Vomiting : No: Dysuria Musculoskeletal: No: Muscle Pain All Other Systems: Reviewed and Negative *Physical Exam - Physical Exam General Appearance: Yes: Nourished, Appropriately Dressed. No: Apparent Distress HEENT: positive: EOMI, CARLOS ENRIQUE, Normal ENT Inspection, Pharynx Normal, Nasal Congestion. negative: Rhinorrhea, Sinus Tenderness Neck: positive: Tender, Trachea midline, Normal Thyroid, Supple. negative: Rigid, Carotid bruit Respiratory/Chest: positive: Lungs Clear, Normal Breath Sounds. negative: Chest Tender Cardiovascular: positive: Regular Rhythm, Regular Rate, S1, S2. negative: Edema , JVD, Murmur Vascular Pulses: Femoral (R): 4+, Femoral (L): 4+, Carotid (R): 4+, Carotid (L) : 4+, Dorsalis-Pedis (R): 4+, Doralis-Pedis (L): 4+ Gastrointestinal/Abdominal: positive: Normal Bowel Sounds, Flat, Soft. negative : Tender, Organomegaly Lymphatic: negative: Adenopathy, Tenderness, Other Musculoskeletal: positive: Normal Inspection. 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 NML intact, Fully Oriented, Alert, Normal Mood/ Affect, Normal Response, Motor Strength 5/ ED Treatment Course - ADDITIONAL ORDERS Additional order review: 09/18/19 08:35 Pt presents with an asthmatic bronchitis Will treat with Prednisone and Z-pack IF worsen return to ER Pt is in agreement with plan Discharge - Discharge Information Problems reviewed: Yes Clinical Impression/Diagnosis: Bronchitis Condition: Good Disposition: HOME - Admission No - Follow up/Referral - Patient Discharge Instructions Patient Printed Discharge Instructions: DI for Acute Bronchitis Additional Instructions: Fluids, rest, Motrin Z-pack as directed Prednisone 20 mg 2x/day for 5 days Continue asthma meds If worsen return to ER - Post Discharge Activity
[2019-09-18 08:53] VITALS: BP 130/75; PULSE 79; TEMP 99.5; BMI 31.6
== END 2019-09-18 08:50 | disposition home or self-care (01) ==
LOC: FER 08:21
DX: J20.9 Acute bronchitis, unspecified (principal); J45.909 Unspecified asthma, uncomplicated; Z91.040 Latex allergy status
CPT/HCPCS: 99282-25

== ENCOUNTER 2019-09-30 16:59 | Emergency (ER) | payer OTHER ==
[2019-09-30 17:02] VITALS: BP 94/53; PULSE 94; TEMP 98.3; BMI 31.3
--- NOTE | 2019-09-30 18:45 | PDOC ---
Documentation entered by Yolie Marley SCRIBE, acting as scribe for Hernandez Whatley MD. Hernandez Whatley MD: This documentation has been prepared by the Donell mayen Adrianna, SCRIBE, under my direction and personally reviewed by me in its entirety. I confirm that the documentation accurately reflects all work, treatment, procedures, and medical decision making performed by me. History of Present Illness - General Chief Complaint: Respiratory Stated Complaint: COUGH, SOB Time Seen by Provider: 09/30/19 17:14 - History of Present Illness Initial Comments: The patient is a 43 year old female, with a significant PMH of asthma (had albuterol pump), HLD, depression, PTSD, and anxiety, who presents to the ED for evaluation of cough and SOB. Patient was seen in [place] 12 days ago for cough and congestion, where she was told it was asthmatic bronchitis and was given prednisone and a Z-pack. Patient endorses relief with both medications , but 2 days after completing the course her symptoms returned and were worse than before. Patient reports feeling SOB secondary to the constant coughing, and the SOB is causing her to feel anxious. She endorses a severe dry cough, which induces headaches, chest discomfort, back pain, nausea, and even caused her to vomit once and have an episode of incontinence. Patient reports having sinus pressure, and she feels as if she is wheezing. She notes she feels weak, feverish, and exhausted. Denies any relief with nebulizer and albuterol pump at home. Allergies: Latex Surgical History: Tummy aristeock, Social History: Former smoker (quit 13 years ago). Denies EtOH or illicit drug use PCP: Dr. Parnell Past History - Past Medical History Allergies/Adverse Reactions: Allergies Allergy/AdvReac Type Severity Reaction Status Date / Time latex [Latex] Allergy Intermediate Itching Verified 09/30/19 16:59 Home Medications: Ambulatory Orders KlonoPIN - 0.5 mg PO BID PRN 10/01/19 Salmeterol/Fluticasone [Advair 100Mcg/50Mcg -] 1 puff DAILY PRN 10/01/19 Codein Guaifen 5 ml PO Q4H PRN 10/02/19 Anemia: No Asthma: Yes Cancer: No Cardiac Disorders: No CVA: No COPD: No CHF: No DVT: No Dementia: No Diabetes: No GI Disorders: No Disorders: No HTN: No Hypercholesterolemia: No Liver Disease: No Psychiatric Problems: Yes (DEPRESSION/ANXIETY) Seizures: No Thyroid Disease: No - Surgical History Abdominal Surgery: Yes (TUMMY TUCK) Appendectomy: No Cardiac Surgery: No Cholecystectomy: No Lung Surgery: No Neurologic Surgery: No Orthopedic Surgery: No - Immunization History Immunization Up to Date: Yes - Psycho Social/Smoking Cessation Hx Smoking Status: No Smoking History: Never smoked Have you smoked in the past 12 months: No Number of Cigarettes Smoked Daily: 0 If you are a former smoker, when did you quit?: 2006 Information on smoking cessation initiated: No 'Breaking Loose' booklet given: 01/12/17 Hx Alcohol Use: No Drug/Substance Use Hx: No Substance Use Type: None Hx Substance Use Treatment: No Review of Systems - Review of Systems Comments:: GENERAL/CONSTITUTIONAL: +Subjective fever. +Weak. +Anxious. +Exhausted. HEAD, EYES, EARS, NOSE AND THROAT: +Congestion. No change in vision. No ear pain or discharge. No sore throat. CARDIOVASCULAR: +Chest discomfort 2/2 cough. RESPIRATORY: +Dry cough. +SOB. No wheezing or hemoptysis. GASTROINTESTINAL: +Nausea 2/2 cough. +1 episode of NBNB vomit 2/2 cough. No diarrhea or constipation. GENITOURINARY: +Incontinence 2/2 cough. No dysuria, frequency, or change in urination. MUSCULOSKELETAL: +Back pain 2/2 cough. No joint or muscle swelling or pain. No neck pain. SKIN: No rash NEUROLOGIC: +Headache 2/2 cough. No vertigo, loss of consciousness, or change in strength/sensation. ENDOCRINE: No increased thirst. No abnormal weight change. HEMATOLOGIC/LYMPHATIC: No anemia, easy bleeding, or history of blood clots. ALLERGIC/IMMUNOLOGIC: No hives or skin allergy. *Physical Exam - Vital Signs Last Vital Signs Temp Pulse Resp BP Pulse Ox 98.3 F 94 H 18 94/53 L 98 09/30/19 17:00 09/30/19 17:00 09/30/19 17:00 09/30/19 17:00 09/30/19 17:00 - Physical Exam GENERAL: Awake, alert, and fully oriented, in no acute distress HEAD: No signs of trauma EYES: PERRLA, EOMI, sclera anicteric, conjunctiva clear ENT: +Nasal congestions with watery discharge. Auricles normal inspection, hearing grossly normal, nares patent, oropharynx clear without exudates. Moist mucosa NECK: Normal ROM, supple, no lymphadenopathy, JVD, nodes, or masses LUNGS: Breath sounds equal, clear to auscultation bilaterally. No wheezes, and no crackles HEART: Regular rate and rhythm, normal S1 and S2, no murmurs, rubs or gallops ABDOMEN: Soft, nontender, normoactive bowel sounds. No guarding, no rebound. No masses EXTREMITIES: Normal range of motion, no edema. No clubbing or cyanosis. No cords, erythema, or tenderness NEUROLOGICAL: Cranial nerves II through XII grossly intact. Normal speech, normal gait SKIN: Warm, Dry, normal turgor, no rashes or lesions noted. Medical Decision Making - Medical Decision Making 10/05/19 08:41 Patient is lungs are clear. Full breath sounds bilaterally. No tachypnea, dyspnea, or other respiratory distress. Her primary complaint seems to be intractable cough. This is either due to her underlying asthma or post infectious bronchitis Continue using nebulizer at home. More effective cough suppressant prescribed. Follow-up primary physician, or return to ER if there is difficulty breathing. Fully ambulatory and in no distress at discharge Discharge - Discharge Information Problems reviewed: Yes Clinical Impression/Diagnosis: Viral URI with cough Condition: Stable Disposition: HOME - Admission No - Follow up/Referral Referrals: Maxine Parnell [Primary Care Provider] - - Patient Discharge Instructions Patient Printed Discharge Instructions: DI for Viral Upper Respiratory Infection -- Adult - Post Discharge Activity
== END 2019-09-30 19:33 | disposition home or self-care (01) ==
LOC: FER 16:59
DX: J06.9 Acute upper respiratory infection, unspecified (principal); B97.89 Other viral agents as the cause of diseases classified elsewhere; R05 Cough; J45.909 Unspecified asthma, uncomplicated; E78.5 Hyperlipidemia, unspecified; F32.9 Major depressive disorder, single episode, unspecified; F43.10 Post-traumatic stress disorder, unspecified; F41.9 Anxiety disorder, unspecified; Z91.040 Latex allergy status
CPT/HCPCS: 99282-25

== ENCOUNTER 2019-10-01 12:18 | Inpatient (IN) | payer OTHER ==
[2019-10-01] MEDS ORDERED: ACETAMINOPHEN INJECTION 100 ML IVPB ONE (12:28)
[2019-10-01] MEDS ORDERED: ALBUTEROL SO4 2.5/IPRATROPIUM 0.5 INH SOL 3 ML VIAL.NEB. NEB ONE ×2 (12:28→12:50)
[2019-10-01] MEDS ORDERED: SODIUM CHLORIDE IV ONE (12:43)
[2019-10-01] MEDS ORDERED: ACETAMINOPHEN 1000 MG/100 ML VIAL (NON FORMULARY) IVPB ONE (12:47)
[2019-10-01] MEDS ORDERED: MAGNESIUM SULF 50% (8.12 MEQ/2 ML-1 GM VIAL) IVPB ONE (12:54)
[2019-10-01] MEDS ORDERED: methylPREDNISolone NA SUCC 125 MG/2 ML VIAL ONE (12:55)
[2019-10-01] MEDS ORDERED: methylPREDNISolone NA SUCC 125 MG/2 ML VIAL IVPUSH ONE (12:55)
[2019-10-01] MEDS ORDERED: MAGNESIUM 1GM/D5W - 2 GM/200 ML IVPB IVPB ONE (12:55)
[2019-10-01 13:09] LABS: BASO % 0.7 % (0-2.0); EOS % 2.4 % (0-4.5); HEMATOCRIT 39.5 % (32.4-45.2); HEMOGLOBIN 13.5 GM/dL (10.7-15.3); LYMPH % 8.9 % (8-40); MCH 30.1 pg (25.7-33.7); MCHC 34.1 g/dl (32.0-36.0); MEAN CELL VOLUME 88.4 fl (80-96); MEAN PLT VOLUME 6.9 fl (7.5-11.1); MONO % 8.9 % (3.8-10.2); NEUT % 79.1 % (42.8-82.8); PLATELET COUNT 236 K/MM3 (134-434); RBC 4.46 M/mm3 (3.60-5.2); RDW 13.5 % (11.6-15.6); WHITE BLOOD COUNT 7.7 K/mm3 (4.0-10.0)
--- NOTE | 2019-10-01 13:18 | PDOC ---
History of Present Illness - General History Source: Patient Exam Limitations: No Limitations - History of Present Illness Initial Comments: 43 y/o F pmh of asthma and depression, presents to the ED for difficulty breathing, productive cough of yellow sputum and fever. Pt reports that she has been symptomatic for 3 weeks with a fever that started 2-3 days ago. She was seen at her local hospital in [place] three weeks ago, during which they sent her home with a dx of bronchitis and a Z pack. Her symptoms then worsened, prompting her to see her PCP who sent her home on fluticasone/salmeterol and cough medication. In the ED, she was saturating at 93 and tachy at 110s. She was given 1 amp of dounebs and her symptoms improved. She admits to coughing, chest pain, fevers. Denies c/n/v/d/abdominal pain. 10/01/19 13:18 10/01/19 13:20 Associated Symptoms: reports: denies symptoms. denies: chest pain, fever/chills , headaches, nausea/vomiting, shortness of breath <Jamaal Conte - Last Filed: 10/01/19 16:17> <Duglas Chen - Last Filed: 10/01/19 16:37> - General Chief Complaint: Respiratory Distress Stated Complaint: DIFFICULTY BREATHING Time Seen by Provider: 10/01/19 12:45 Past History - Past Medical History Anemia: No Asthma: Yes Cancer: No Cardiac Disorders: No CVA: No COPD: No CHF: No DVT: No Dementia: No Diabetes: No GI Disorders: No Disorders: No HTN: No Hypercholesterolemia: No Liver Disease: No Psychiatric Problems: Yes (DEPRESSION/ANXIETY) Seizures: No Thyroid Disease: No - Surgical History Abdominal Surgery: Yes ([facility]) Appendectomy: No Cardiac Surgery: No Cholecystectomy: No Lung Surgery: No Neurologic Surgery: No Orthopedic Surgery: No - Immunization History Immunization Up to Date: Yes - Psycho Social/Smoking Cessation Hx Smoking Status: No Smoking History: Never smoked Have you smoked in the past 12 months: No Number of Cigarettes Smoked Daily: 0 If you are a former smoker, when did you quit?: 2006 'Breaking Loose' booklet given: 01/12/17 Hx Alcohol Use: No Drug/Substance Use Hx: No Substance Use Type: None Hx Substance Use Treatment: No <Jamaal Conte - Last Filed: 10/01/19 16:17> <Duglas Chen - Last Filed: 10/01/19 16:37> - Past Medical History Allergies/Adverse Reactions: Allergies Allergy/AdvReac Type Severity Reaction Status Date / Time latex [Latex] Allergy Intermediate Itching Verified 09/30/19 16:59 Home Medications: Ambulatory Orders NK [No Known Home Medication] 10/01/19 Review of Systems - Review of Systems Able to Perform ROS?: Yes Is the patient limited Luxembourger proficient: No Constitutional: Yes: Symptoms Reported, Weight Stable. No: Chills, Diaphoresis , Fever, Loss of Appetite HEENTM: Yes: Symptoms Reported. No: Blurred Vision, Tearing Respiratory: Yes: Symptoms reported, Cough, Shortness of Breath, Productive cough. No: Orthopnea, Wheezing Cardiac (ROS): Yes: Symptoms Reported. No: Chest Pain, Edema ABD/GI: Yes: Symptoms Reported. No: Constipated, Diarrhea, Nausea, Vomiting Neurological: Yes: Symptoms reported. No: Headache, Numbness <DgJamaal - Last Filed: 10/01/19 16:17> *Physical Exam - Vital Signs Last Vital Signs Temp Pulse Resp BP Pulse Ox 101.7 F H 104 H 20 116/57 L 96 10/01/19 12:37 10/01/19 12:37 10/01/19 12:37 10/01/19 12:37 10/01/19 12:37 - Physical Exam General Appearance: Yes: Nourished, Appropriately Dressed HEENT: positive: EOMI, CARLOS ENRIQUE, Normal ENT Inspection, Pharynx Normal Neck: positive: Trachea midline, Normal Thyroid, Supple Respiratory/Chest: positive: Lungs Clear, Normal Breath Sounds. negative: Crackles, Wheezing Cardiovascular: positive: Regular Rhythm, Regular Rate, S1, S2. negative: Murmur, Gallop/S3, Gallop/S4 Vascular Pulses: Dorsalis-Pedis (R): 2+, Doralis-Pedis (L): 2+ Gastrointestinal/Abdominal: positive: Normal Bowel Sounds, Soft. negative: Guarding, Tenderness Neurologic: positive: matrix bath attendant II-XII NML intact, Fully Oriented, Alert, Normal Mood/ Affect <Jamaal Conte - Last Filed: 10/01/19 16:17> - Vital Signs Last Vital Signs Temp Pulse Resp BP Pulse Ox 98.4 F 91 H 18 108/62 100 10/01/19 15:43 10/01/19 15:43 10/01/19 15:43 10/01/19 15:43 10/01/19 15:43 <Jazmin Chenis - Last Filed: 10/01/19 16:37> ED Treatment Course - LABORATORY CBC & Chemistry Diagram: 10/01/19 12:48 10/01/19 12:48 - ADDITIONAL ORDERS Additional order review: 10/01/19 12:48 RBC 4.46 MCV 88.4 MCHC 34.1 RDW 13.5 MPV 6.9 L Neutrophils % 79.1 D Lymphocytes % 8.9 D Monocytes % 8.9 Eosinophils % 2.4 Basophils % 0.7 - RADIOLOGY Radiology Studies Ordered: Category Date Time Status CHEST PA & LAT [RAD] Stat Radiology 10/01/19 13:16 Ordered - Medications Given in the ED: ED Medications Discontinued Medications Generic Name Dose Route Start Last Admin Trade Name Juan Luisq PRN Reason Stop Dose Admin Acetaminophen 1,000 mg 10/01/19 12:47 10/01/19 12:52 Ofirmev Injection - IVPB 10/01/19 12:48 1,000 mg ONCE ONE Administration Albuterol/Ipratropium 3 amp 10/01/19 12:50 10/01/19 12:53 Duoneb - NEB 10/01/19 12:51 3 amp ONCE ONE Administration Magnesium Sulfate 2 gm 10/01/19 12:54 10/01/19 13:00 Magnesium Sulfate IVPB 10/01/19 12:55 2 gm ONCE ONE Administration Methylprednisolone Sodium Succinate 125 mg 10/01/19 12:55 10/01/19 13:00 Solu-Medrol - IVPUSH 10/01/19 12:56 125 mg ONCE ONE Administration <Jamaal Conte - Last Filed: 10/01/19 16:17> - LABORATORY CBC & Chemistry Diagram: 10/01/19 12:48 10/01/19 12:48 - ADDITIONAL ORDERS Additional order review: Laboratory Results 10/01/19 10/01/19 10/01/19 14:02 12:48 12:48 PT with INR INR PTT (Actin FS) D-Dimer 307 Sodium Potassium Chloride Carbon Dioxide Anion Gap BUN Creatinine Est GFR (CKD-EPI)AfAm Est GFR (CKD-EPI)NonAf Random Glucose Lactic Acid 2.6 H* Calcium Total Bilirubin AST ALT Alkaline Phosphatase Troponin I Total Protein Albumin Urine Color Yellow Urine Appearance Clear Urine pH 8.0 Ur Specific [place] 1.009 L Urine Protein Negative Urine Glucose (UA) Negative Urine Ketones Negative Urine Blood Negative Urine Nitrite Negative Urine Bilirubin Negative Urine Urobilinogen 1.0 Ur Leukocyte Esterase Negative 10/01/19 10/01/19 10/01/19 12:48 12:48 12:48 PT with INR 11.80 INR 1.00 PTT (Actin FS) 30.4 D-Dimer Sodium 133 L Potassium 3.9 Chloride 100 Carbon Dioxide 23 Anion Gap 10 BUN 10.6 Creatinine 0.6 Est GFR (CKD-EPI)AfAm 129.39 Est GFR (CKD-EPI)NonAf 111.64 Random Glucose 98 Lactic Acid Calcium 8.2 L Total Bilirubin 0.5 AST 20 ALT 30 Alkaline Phosphatase 62 Troponin I < 0.02 Total Protein 6.8 Albumin 3.4 Urine Color Urine Appearance Urine pH Ur Specific [place] Urine Protein Urine Glucose (UA) Urine Ketones Urine Blood Urine Nitrite Urine Bilirubin Urine Urobilinogen Ur Leukocyte Esterase 10/01/19 12:48 RBC 4.46 MCV 88.4 MCHC 34.1 RDW 13.5 MPV 6.9 L Neutrophils % 79.1 D Lymphocytes % 8.9 D Monocytes % 8.9 Eosinophils % 2.4 Basophils % 0.7 - RADIOLOGY Radiology Studies Ordered: Category Date Time Status CHEST X-RAY PORTABLE* [RAD] Stat Radiology 10/01/19 12:35 Completed - Medications Given in the ED: ED Medications Discontinued Medications Generic Name Dose Route Start Last Admin Trade Name Sofiya PRN Reason Stop Dose Admin Acetaminophen 1,000 mg 10/01/19 12:47 10/01/19 12:52 Ofirmev Injection - IVPB 10/01/19 12:48 1,000 mg ONCE ONE Administration Albuterol Sulfate 1 amp 10/01/19 14:38 10/01/19 14:59 Ventolin 0.083% Nebulizer Soln - NEB 10/01/19 14:39 1 amp ONCE ONE Administration Albuterol/Ipratropium 3 amp 10/01/19 12:50 10/01/19 12:53 Duoneb - NEB 10/01/19 12:51 3 amp ONCE ONE Administration Clonazepam 1 mg 10/01/19 16:32 10/01/19 16:36 Klonopin - PO 10/01/19 16:33 1 mg ONCE ONE Administration Sodium Chloride 2,681 mls @ 1,340.5 mls/hr 10/01/19 12:43 10/01/19 12:53 Normal Saline - 30 ml/kg infuse over 2 hr (2681 ml) 10/01/19 14:42 1,340.5 mls/hr IV Administration ONCE ONE Ketorolac Tromethamine 15 mg 10/01/19 14:37 10/01/19 14:59 Toradol Injection - IVPUSH 10/01/19 14:38 15 mg ONCE ONE Administration Magnesium Sulfate 2 gm 10/01/19 12:54 10/01/19 13:00 Magnesium Sulfate IVPB 10/01/19 12:55 2 gm ONCE ONE Administration Methylprednisolone Sodium Succinate 125 mg 10/01/19 12:55 10/01/19 13:00 Solu-Medrol - IVPUSH 10/01/19 12:56 125 mg ONCE ONE Administration Sodium Chloride 1,000 ml 10/01/19 15:44 10/01/19 15:57 Normal Saline - IV 10/01/19 15:45 1,000 ml ONCE ONE Administration <Duglas Chen - Last Filed: 10/01/19 16:37> Medical Decision Making - Medical Decision Making 43 y/o F pmh of asthma and depression, presents to the ED for difficulty breathing, productive cough of yellow sputum and fever. Pt reports that she has been symptomatic for 3 weeks with a fever that started 2-3 days ago #Acute resp distress 2/2 to pneumonia vs asthma exacerbation Pt febrile, productive cough, difficulty breathing CXR ordered CBC, lactate, trops, BCx, UCx UA EKG IVF Dounebsx3 Solu-medrol 125mg Magnesium given Flu swab 10/01/19 13:40 10/01/19 13:41 10/01/19 13:43 <Jamaal Conte - Last Filed: 10/01/19 16:17> Discharge - Discharge Information Problems reviewed: Yes - Admission Yes <Jamaal Conte - Last Filed: 10/01/19 16:17> - Discharge Information Problems reviewed: Yes - Admission Yes <Duglas Chen - Last Filed: 10/01/19 16:37> - Discharge Information Clinical Impression/Diagnosis: Pneumonia Qualifiers: Pneumonia type: due to unspecified organism Laterality: unspecified laterality Lung location: lower lobe of lung Qualified Code(s): J18.9 - Pneumonia, unspecified organism Asthma exacerbation Qualifiers: Asthma severity: unspecified severity Asthma persistence: unspecified Qualified Code(s): J45.901 - Unspecified asthma with (acute) exacerbation Condition: Fair
[2019-10-01 13:22] LABS: PROTHROMBIN TIME (PATIENT) 11.8 SEC (9.7-13.0)
[2019-10-01 13:24] LABS: ACTIVATED PTT 30.4 SECONDS (25.2-36.5)
[2019-10-01 13:33] LABS: ALBUMIN 3.4 g/dl (3.4-5.0); BILIRUBIN,TOTAL 0.5 mg/dL (0.2-1); BLOOD UREA NITROGEN 10.6 mg/dL (7-18); CALCIUM 8.2 mg/dL (8.5-10.1); CREATININE 0.6 mg/dL (0.55-1.3); POTASSIUM 3.9 mmol/L (3.5-5.1); TOT PROT 6.8 g/dl (6.4-8.2)
[2019-10-01 14:13] LABS: URINE APPEARANCE CLEAR; URINE BILIRUBIN NEGATIVE (NEGATIVE); URINE COLOR YELLOW; URINE GLUCOSE (UA) NEGATIVE (NEGATIVE); URINE KETONE NEGATIVE (NEGATIVE); URINE LEUK ESTERASE NEGATIVE (NEGATIVE); URINE NITRITE NEGATIVE (NEGATIVE); URINE PROTEIN NEGATIVE (NEGATIVE)
[2019-10-01] MEDS ORDERED: KETOROLAC TROMETHAMINE 15 MG/ML VIAL IVPUSH ONE (14:37)
[2019-10-01] MEDS ORDERED: ALBUTEROL SO4 0.083% IH SOL 2.5 MG/3 ML VIAL.NEB. NEB ONE ×2 (14:38→14:58)
--- NOTE | 2019-10-01 14:43 | PDOC ---
Documentation entered by Jessika Marley SCRIBE, acting as scribe for Duglas Chen MD. Duglas Chen MD: This documentation has been prepared by the Donell mayen Brenda, SCRIBE, under my direction and personally reviewed by me in its entirety. I confirm that the documentation accurately reflects all work, treatment, procedures, and medical decision making performed by me. Attending Attestation - Resident Resident Name: DgJamaal - ED Attending Attestation I have performed the following: I have examined & evaluated the patient, The case was reviewed & discussed with the resident, I agree w/resident's findings & plan, Exceptions are as noted - HPI HPI: 10/01/19 13:29 The patient is a 43 year old female, with a significant PMH of asthma and depression who presents to the emergency department with 1 week of difficulty breathing, productive cough of yellow phlegm and 2-3 days of a fever. Patient reports going to her local hospital last week and being diagnosed with bronchitis and sent home on a Z-pack. The patient denies chest pain, headache and dizziness. Denies nausea, vomiting, diarrhea and constipation. Denies any urinary symptoms. Allergies: Latex Past surgical history: Moses peters PCP: Dr. Parnell - Physicial Exam PE: 10/01/19 Patient seen and evaluated immediately upon arrival. Patient is awake and alert, obese, tachypneic and dyspneic, in moderate respiratory distress. Normocephalic, atraumatic PERRLA, EOMI No JVD, no carotid bruits Severely decreased breath sounds bilaterally with limited air entry; no adventitious lung sounds are appreciated bilaterally; patient's tachypneic and dyspneic Tachycardic RRR, - Medical Decision Making 10/01/19 14:42 Patient is a 43-year-old female with history of asthma, no history of intubations presents with signs and symptoms of acute asthma exacerbation likely brought on by an acute infectious process. Will administer continuous nebs, supplemental O2, Solu-Medrol, magnesium sulfate. Will obtain chest x-ray/ blood cultures. Will administer IV fluids and IV antibiotics. Likely admission. 10/01/19 15:50 Patient improved clinically but remains tachypneic and dyspneic. Bedside ultrasound shows B-lines with air bronchograms to the left lower lobe consistent with an acute infiltrate. Will administer Levaquin. Will obtain chest PA and a lateral. Will admit to [facility] for further evaluation and treatment.
[2019-10-01] MEDS ORDERED: KETOROLAC TROMETHAMINE 15 MG/ML VIAL ONE (14:58)
[2019-10-01] MEDS ORDERED: SODIUM CHLORIDE 0.9% 500 ML INFUS.BAG IV ONE ×2 (15:44→17:15)
[2019-10-01] MEDS ORDERED: clonazePAM 0.5 MG TABLET PO ONE (16:32)
[2019-10-01] MEDS ORDERED: clonazePAM 0.5 MG TABLET ONE (16:35)
--- NOTE | 2019-10-01 17:41 | HP ---
CHIEF COMPLAINT: Difficulty breathing and coughing and possible pneumonia PCP: She does not remember the name HISTORY OF PRESENT ILLNESS: 43 y/o F pmh of asthma and depression, presents to the ED for difficulty breathing, productive cough of yellow sputum and fever. Pt reports that she has been symptomatic for 3 weeks with a fever that started 2-3 days ago. She was seen at her local [facility] weeks ago, during which they sent her home with a dx of bronchitis and a Z pack. Her symptoms then worsened, prompting her to see her PCP who sent her home on fluticasone/salmeterol and cough medication. In the ED, she was saturating at 93 and tachy at 110s. She was given 1 amp of dounebs and her symptoms improved. She admits to coughing, chest pain, fevers. Denies c/n/v/d/abdominal pain. In the ER she is also very nervous and having some anxiety. In the home she takes Klonopin for that ER course was notable for: (1) visit to the ER and Dr. gonzalez for same thing (2) to the medical office with her PMD (3) history of asthma Recent Travel: PAST MEDICAL HISTORY: Past medical history of asthma PAST SURGICAL HISTORY: None Social History: Smoking: Alcohol: Drugs: She denies any history of alcohol drugs and smoking Allergies latex [Latex] Allergy (Intermediate, Verified 09/30/19 16:59) Itching latex/itchiness HOME MEDICATIONS: Home Medications Medication Instructions Recorded NK [No Known Home Medication] 10/01/19 REVIEW OF SYSTEMS Head no dizziness Ear nose throat negative epistaxis Pulmonary complain of short of breath coughing and wheezing Cardiovascular no chest pain GI no nausea vomiting no urine incontinence neuro no history of strokes Dermatology no history of any skin rashes Rest of review systems are normal PHYSICAL EXAMINATION Vital Signs - 24 hr 10/01/19 10/01/19 12:37 15:43 Temperature 101.7 F H 98.4 F Pulse Rate 104 H Pulse Rate [ 91 H Right] Respiratory 20 18 Rate Blood Pressure 116/57 L Blood Pressure 108/62 [Right Arm] O2 Sat by Pulse 96 100 Oximetry (%) GENERAL: Awake, alert, and fully oriented, anxious HEAD: Normal with no signs of trauma. EYES: Pupils equal, round and reactive to light, extraocular movements intact, sclera anicteric, conjunctiva clear. No lid lag. EARS, NOSE, THROAT: Ears normal, nares patent, oropharynx clear without exudates. Moist mucous membranes. NECK: Normal range of motion, supple without lymphadenopathy, JVD, or masses. LUNGS: Good air entry both sides and bilateral wheezing present no accessory muscle use. HEART: Regular rate and rhythm, normal S1 and S2 without murmur, rub or gallop. ABDOMEN: Soft, nontender, not distended, normoactive bowel sounds, no guarding, no rebound, no masses. No hepatomegaly or splenomegaly. MUSCULOSKELETAL: Normal range of motion at all joints. No bony deformities or tenderness. No CVA tenderness. UPPER EXTREMITIES: 2+ pulses, warm, well-perfused. No cyanosis. No clubbing. No peripheral edema. LOWER EXTREMITIES: 2+ pulses, warm, well-perfused. No calf tenderness. No peripheral edema. NEUROLOGICAL: Cranial nerves II-XII intact. Normal speech. Normal gait. PSYCHIATRIC: Cooperative. Good eye contact. But little anxious and breathing heavy. Advised patient to breathe in the bag. SKIN: Warm, dry, normal turgor, no rashes or lesions noted, normal capillary refill. Laboratory Results - last 24 hr 10/01/19 10/01/19 10/01/19 12:48 12:48 12:48 WBC 7.7 RBC 4.46 Hgb 13.5 Hct 39.5 MCV 88.4 MCH 30.1 MCHC 34.1 RDW 13.5 Plt Count 236 D MPV 6.9 L Absolute Neuts (auto) 6.1 Neutrophils % 79.1 D Lymphocytes % 8.9 D Monocytes % 8.9 Eosinophils % 2.4 Basophils % 0.7 Nucleated RBC % 0 PT with INR 11.80 INR 1.00 PTT (Actin FS) 30.4 D-Dimer Sodium Potassium Chloride Carbon Dioxide Anion Gap BUN Creatinine Est GFR (CKD-EPI)AfAm Est GFR (CKD-EPI)NonAf Random Glucose Lactic Acid Calcium Total Bilirubin AST ALT Alkaline Phosphatase Troponin I < 0.02 Total Protein Albumin Urine Color Urine Appearance Urine pH Ur Specific [place] Urine Protein Urine Glucose (UA) Urine Ketones Urine Blood Urine Nitrite Urine Bilirubin Urine Urobilinogen Ur Leukocyte Esterase Influenza A (Rapid) Influenza B (Rapid) 10/01/19 10/01/19 10/01/19 12:48 12:48 12:48 WBC RBC Hgb Hct MCV MCH MCHC RDW Plt Count MPV Absolute Neuts (auto) Neutrophils % Lymphocytes % Monocytes % Eosinophils % Basophils % Nucleated RBC % PT with INR INR PTT (Actin FS) D-Dimer 307 Sodium 133 L Potassium 3.9 Chloride 100 Carbon Dioxide 23 Anion Gap 10 BUN 10.6 Creatinine 0.6 Est GFR (CKD-EPI)AfAm 129.39 Est GFR (CKD-EPI)NonAf 111.64 Random Glucose 98 Lactic Acid 2.6 H* Calcium 8.2 L Total Bilirubin 0.5 AST 20 ALT 30 Alkaline Phosphatase 62 Troponin I Total Protein 6.8 Albumin 3.4 Urine Color Urine Appearance Urine pH Ur Specific [place] Urine Protein Urine Glucose (UA) Urine Ketones Urine Blood Urine Nitrite Urine Bilirubin Urine Urobilinogen Ur Leukocyte Esterase Influenza A (Rapid) Influenza B (Rapid) 10/01/19 10/01/19 10/01/19 14:02 14:04 16:28 WBC RBC Hgb Hct MCV MCH MCHC RDW Plt Count MPV Absolute Neuts (auto) Neutrophils % Lymphocytes % Monocytes % Eosinophils % Basophils % Nucleated RBC % PT with INR INR PTT (Actin FS) D-Dimer Sodium Potassium Chloride Carbon Dioxide Anion Gap BUN Creatinine Est GFR (CKD-EPI)AfAm Est GFR (CKD-EPI)NonAf Random Glucose Lactic Acid 3.8 H* Calcium Total Bilirubin AST ALT Alkaline Phosphatase Troponin I Total Protein Albumin Urine Color Yellow Urine Appearance Clear Urine pH 8.0 Ur Specific [place] 1.009 L Urine Protein Negative Urine Glucose (UA) Negative Urine Ketones Negative Urine Blood Negative Urine Nitrite Negative Urine Bilirubin Negative Urine Urobilinogen 1.0 Ur Leukocyte Esterase Negative Influenza A (Rapid) Negative Influenza B (Rapid) Negative Chest x-ray done in the hospital ER shows results as below. She has a poor inspiratory effort but no pneumonia ASSESSMENT/PLAN: Acute asthma and bronchitis Anxiety Patient to start on IV fluids nebulizer every 6 hourly, Solu-Medrol every 6 hourly 40 mg she has already received 120 mg in the ER. We will start her on Klonopin for anxiety as needed every 6 hourly. In home she takes Advair will start Advair 1 puff twice a day Oxygen 2 L nasal cannula. High lactic acid in the blood. She has apparently no sign of septic at this time her chest x-ray is clear. She already received a dose of Levaquin in the ER. Will give her continued dose of Levaquin p.o. We will give her IV fluids D5 half at 100 cc an hour today.
[2019-10-01] MEDS: DEXTROSE 5%-0.45% SALINE 1,000 ML IV SCH (18:43)
[2019-10-01 20:14] VITALS: BMI 33.7
[2019-10-01] MEDS: ALBUTEROL SO4 0.083% IH SOL 2.5 MG/3 ML VIAL.NEB. NEB SCH (20:41)
[2019-10-01] MEDS: methylPREDNISolone NA SUCC 40 MG/1 ML VIAL IVPUSH SCH (20:50)
[2019-10-01] MEDS: clonazePAM 0.5 MG TABLET PO PRN (22:02)
[2019-10-01] MEDS: FLUTICASONE/SALMETEROL 100 MCG/50 MCG DISKUS IH SCH (22:35)
--- NOTE | 2019-10-01 23:12 | EKG ---
Test Reason : Blood Pressure : / mmHG Vent. Rate : 100 BPM Atrial Rate : 100 BPM P-R Int : 152 ms QRS Dur : 088 ms QT Int : 342 ms P-R-T Axes : 061 007 041 degrees QTc Int : 441 ms NORMAL SINUS RHYTHM POSSIBLE ANTERIOR INFARCT , AGE UNDETERMINED ABNORMAL ECG WHEN COMPARED WITH ECG OF 18-NOV-2018 07:29, NO SIGNIFICANT CHANGE WAS FOUND Confirmed by FERMIN SERRANO MD ([id number]) on 10/01/2019 11:12:15 PM Referred By: Confirmed By:FERMIN SERRANO MD
[2019-10-02] MEDS: methylPREDNISolone NA SUCC 40 MG/1 ML VIAL IVPUSH SCH ×4 (02:32→21:10)
[2019-10-02] MEDS: guaiFENesin 200 MG/10 ML 10 ML UNIT-DOSE CUPS PO PRN ×3 (02:45→16:33)
[2019-10-02] MEDS: DEXTROSE 5%-0.45% SALINE 1,000 ML IV SCH (06:26)
[2019-10-02] MEDS: ALBUTEROL SO4 0.083% IH SOL 2.5 MG/3 ML VIAL.NEB. NEB SCH ×4 (08:00→20:25)
--- NOTE | 2019-10-02 08:49 | PN ---
Progress Note, Physician Chief Complaint: c/o wheezing and SOB. States she feels very weak. Concerned about being away from twin babies at home History of Present Illness: 43 y/o F pmh of asthma and depression, presents to the ED for difficulty breathing, productive cough of yellow sputum and fever. Pt reports that she has been symptomatic for 3 weeks with a fever that started 2-3 days ago. She was seen at her local hospital [facility] three weeks ago, during which they sent her home with a dx of bronchitis and a Z pack. Her symptoms then worsened, prompting her to see her PCP who sent her home on fluticasone/salmeterol and cough medication. In the ED, she was saturating at 93 and tachy at 110s. She was given 1 amp of dounebs and her symptoms improved. She admits to coughing, chest pain, fevers. Denies c/n/v/d/abdominal pain. In the ER she is also very nervous and having some anxiety. In the home she takes Klonopin for that - Current Medication List Current Medications: Active Medications Acetaminophen (Tylenol -) 650 mg PO Q6H PRN PRN Reason: PAIN LEVEL 1-5 Albuterol Sulfate (Ventolin 0.083% Nebulizer Soln -) 1 amp NEB RQID [facility] Last Admin: 10/01/19 20:41 Dose: 1 amp Clonazepam (Klonopin -) 0.5 mg PO Q6H PRN PRN Reason: ANXIETY Last Admin: 10/01/19 22:02 Dose: 0.5 mg Enoxaparin Sodium (Lovenox -) 40 mg SQ DAILY [facility] Guaifenesin (Robitussin -) 10 ml PO Q6H PRN PRN Reason: COUGH Last Admin: 10/02/19 02:45 Dose: 10 ml Dextrose/Sodium Chloride (D5-1/2ns -) 1,000 mls @ 100 mls/hr IV ASDIR [facility] Last Admin: 10/02/19 06:26 Dose: 100 mls/hr Levofloxacin (Levaquin -) 500 mg PO DAILY@0600 [facility] Last Admin: 10/02/19 06:27 Dose: 500 mg Methylprednisolone Sodium Succinate (Solu-Medrol -) 40 mg IVPUSH Q6H-IV [facility] Last Admin: 10/02/19 02:32 Dose: 40 mg Fluticasone/Salmeterol (Advair 100mcg/50mcg -) 1 puff IH BID TALISHA Last Admin: 10/01/19 22:35 Dose: 1 puff - Objective Vital Signs: Vital Signs Temperature 98.0 F 10/02/19 06:39 Pulse Rate 82 10/02/19 06:39 Respiratory Rate 10/02/19 06:39 Blood Pressure 132/93 10/02/19 06:39 O2 Sat by Pulse Oximetry (%) 96 10/01/19 21:00 Constitutional: Yes: Well Nourished, No Distress, Calm Eyes: Yes: WNL HENT: Yes: WNL, Atraumatic, Normocephalic Neck: Yes: WNL, Supple, Trachea Midline Cardiovascular: Yes: WNL, Regular Rate and Rhythm Respiratory: Yes: Diminished (at bases), Poor Air Entry, Wheezes (scattered) Gastrointestinal: Yes: WNL, Normal Bowel Sounds ...Rectal Exam: Yes: Deferred Breast(s): Yes: WNL Musculoskeletal: Yes: WNL Extremities: Yes: WNL Edema: No Peripheral Pulses WNL: Yes Peripheral Pulses: Left Radial: 2+, Right Radial: 2+, Left Doralis Pedis: 2+, Right Dorsalis Pedis: 2+, Left Femoral: 2+, Right Femoral: 2+ Integumentary: Yes: WNL Neurological: Yes: WNL, Alert, Oriented ...Motor Strength: WNL Labs: CBC, BMP 10/01/19 12:48 10/01/19 12:48 INR, PTT INR 1.00 (0.83-1.09) 10/01/19 12:48 - ....Imaging Chest X-ray: Image Reviewed (no infiltrates) Problem List - Problems (1) Depression Assessment/Plan: emotional support provided Code(s): F32.9 - MAJOR DEPRESSIVE DISORDER, SINGLE EPISODE, UNSPECIFIED (2) Prophylactic measure Assessment/Plan: FEN Fluids: porr PO intake c/w IVF @ 125cc/hr Electrolytes: monitor & replete as needed Nutrition: reg diet DVT moderate risk sq lovenox Dispo Maintain as inpatient full code discharge planning Code(s): Z29.9 - ENCOUNTER FOR PROPHYLACTIC MEASURES, UNSPECIFIED (3) Asthma exacerbation Assessment/Plan: c/w duo nebs c/w solumedrol 40mg IVP q6h c/w home advair Code(s): J45.901 - UNSPECIFIED ASTHMA WITH (ACUTE) EXACERBATION Qualifiers: Asthma severity: unspecified severity Asthma persistence: unspecified Qualified Code(s): J45.901 - Unspecified asthma with (acute) exacerbation (4) Anxiety Assessment/Plan: c/w home klonipin Code(s): F41.9 - ANXIETY DISORDER, UNSPECIFIED Visit type - Emergency Visit Emergency Visit: Yes ED Registration Date: 10/01/19 Care time: The patient presented to the Emergency Department on the above date and was hospitalized for further evaluation of their emergent condition. - New Patient This patient is new to me today: Yes Date on this admission: 10/02/19 - Critical Care Critical Care patient: No - Discharge Referral Referred to [facility] No
[2019-10-02] MEDS: SODIUM CHLORIDE 1,000 ML IV SCH (10:24)
[2019-10-02] MEDS: clonazePAM 0.5 MG TABLET PO PRN ×2 (10:25→21:18)
[2019-10-02] MEDS: FLUTICASONE/SALMETEROL 100 MCG/50 MCG DISKUS IH SCH ×2 (10:25→21:10)
[2019-10-02 11:51] LABS: BASO % 0.1 % (0-2.0); HEMATOCRIT 38.2 % (32.4-45.2); HEMOGLOBIN 12.5 GM/dL (10.7-15.3); LYMPH % 4.6 % (8-40); MCH 29.5 pg (25.7-33.7); MCHC 32.9 g/dl (32.0-36.0); MEAN CELL VOLUME 89.9 fl (80-96); MEAN PLT VOLUME 6.9 fl (7.5-11.1); MONO % 3.5 % (3.8-10.2); NEUT % 91.8 % (42.8-82.8); PLATELET COUNT 260 K/MM3 (134-434); RBC 4.25 M/mm3 (3.60-5.2); RDW 13.7 % (11.6-15.6); WHITE BLOOD COUNT 16.6 K/mm3 (4.0-10.0)
[2019-10-02 12:17] LABS: BILIRUBIN,TOTAL 0.2 mg/dL (0.2-1); BLOOD UREA NITROGEN 6.5 mg/dL (7-18); CALCIUM 8.2 mg/dL (8.5-10.1); CREATININE 0.7 mg/dL (0.55-1.3); MAGNESIUM 2.3 mg/dL (1.8-2.4); POTASSIUM 4.2 mmol/L (3.5-5.1); TOT PROT 6.6 g/dl (6.4-8.2)
[2019-10-02 12:53] LABS: ANISOCYTOSIS 0; MACROCYTOSIS 0; PLATELET ESTIMATE NORMAL
[2019-10-02] MEDS ORDERED: LACTATED RINGERS SOLUTION 1,000 ML/1,000 ML INFUS.BAG IV ONE (13:49)
[2019-10-02] MEDS ORDERED: ACETAMINOPHEN 1000 MG/100 ML VIAL (NON FORMULARY) IVPB ONE (14:00)
[2019-10-02] MEDS: ENOXAPARIN NA (PORCINE) 40 MG/0.4 ML DISP.SYRIN SQ SCH (14:41)
[2019-10-02] MEDS: ACETAMINOPHEN 325 MG TABLET (FP) PO PRN (17:06)
[2019-10-03] MEDS: guaiFENesin 200 MG/10 ML 10 ML UNIT-DOSE CUPS PO PRN (02:07)
[2019-10-03] MEDS: methylPREDNISolone NA SUCC 40 MG/1 ML VIAL IVPUSH SCH ×4 (02:07→21:20)
[2019-10-03] MEDS: SODIUM CHLORIDE 1,000 ML IV SCH ×4 (06:11→22:53)
[2019-10-03] MEDS: ALBUTEROL SO4 0.083% IH SOL 2.5 MG/3 ML VIAL.NEB. NEB SCH ×4 (07:50→20:40)
--- NOTE | 2019-10-03 08:20 | PN ---
Progress Note, Physician Chief Complaint: c/o wheezing and SOB. States she can't walk without O2 on. Very tearful about her babies at home History of Present Illness: 43 y/o F pmh of asthma and depression, presents to the ED for difficulty breathing, productive cough of yellow sputum and fever. Pt reports that she has been symptomatic for 3 weeks with a fever that started 2-3 days ago. She was seen at her local hospital [facility] three weeks ago, during which they sent her home with a dx of bronchitis and a Z pack. Her symptoms then worsened, prompting her to see her PCP who sent her home on fluticasone/salmeterol and cough medication. In the ED, she was saturating at 93 and tachy at 110s. She was given 1 amp of dounebs and her symptoms improved. She admits to coughing, chest pain, fevers. Denies c/n/v/d/abdominal pain. In the ER she is also very nervous and having some anxiety. In the home she takes Klonopin for that - Current Medication List Current Medications: Active Medications Acetaminophen (Tylenol -) 650 mg PO Q6H PRN PRN Reason: PAIN LEVEL 1-5 Last Admin: 10/02/19 17:06 Dose: 650 mg Albuterol Sulfate (Ventolin 0.083% Nebulizer Soln -) 1 amp NEB RQID [facility] Last Admin: 10/03/19 07:50 Dose: 1 amp Clonazepam (Klonopin -) 0.5 mg PO Q6H PRN PRN Reason: ANXIETY Last Admin: 10/02/19 21:18 Dose: 0.5 mg Enoxaparin Sodium (Lovenox -) 40 mg SQ DAILY [facility] Last Admin: 10/02/19 14:41 Dose: 40 mg Guaifenesin (Robitussin -) 10 ml PO Q6H PRN PRN Reason: COUGH Last Admin: 10/03/19 02:07 Dose: 10 ml Sodium Chloride (Normal Saline -) 1,000 mls @ 125 mls/hr IV ASDIR [facility] Last Admin: 10/03/19 06:11 Dose: 125 mls/hr Levofloxacin (Levaquin -) 500 mg PO DAILY@0600 [facility] Last Admin: 10/03/19 06:14 Dose: 500 mg Methylprednisolone Sodium Succinate (Solu-Medrol -) 40 mg IVPUSH Q6H-IV [facility] Last Admin: 10/03/19 02:07 Dose: 40 mg Fluticasone/Salmeterol (Advair 100mcg/50mcg -) 1 puff IH BID TALISHA Last Admin: 10/02/19 21:10 Dose: 1 puff - Objective Vital Signs: Vital Signs Temperature 98.3 F 10/03/19 06:00 Pulse Rate 81 10/03/19 06:00 Respiratory Rate 20 10/03/19 06:00 Blood Pressure 109/51 L 10/03/19 06:00 O2 Sat by Pulse Oximetry (%) 97 10/02/19 21:00 Additional Findings/Remarks: Constitutional: Yes: Well Nourished, No Distress, Calm Eyes: Yes: WNL HENT: Yes: WNL, Atraumatic, Normocephalic Neck: Yes: WNL, Supple, Trachea Midline Cardiovascular: Yes: WNL, Regular Rate and Rhythm Respiratory: Yes: Diminished (at bases), Poor Air Entry, Wheezes (scattered) Gastrointestinal: Yes: WNL, Normal Bowel Sounds ...Rectal Exam: Yes: Deferred Breast(s): Yes: WNL Musculoskeletal: Yes: WNL Extremities: Yes: WNL Edema: No Peripheral Pulses WNL: Yes Peripheral Pulses: Left Radial: 2+, Right Radial: 2+, Left Doralis Pedis: 2+, Right Dorsalis Pedis: 2+, Left Femoral: 2+, Right Femoral: 2+ Integumentary: Yes: WNL Neurological: Yes: WNL, Alert, Oriented ...Motor Strength: WNL Labs: CBC, BMP 10/02/19 11:25 10/02/19 11:25 INR, PTT INR 1.00 (0.83-1.09) 10/01/19 12:48 - ....Imaging Chest X-ray: Report Reviewed, Image Reviewed (Atelctasis on left) Problem List - Problems (1) Depression Assessment/Plan: emotional support provided very tearful about her young children at home Code(s): F32.9 - MAJOR DEPRESSIVE DISORDER, SINGLE EPISODE, UNSPECIFIED (2) Prophylactic measure Assessment/Plan: FEN Fluids: poor PO intake increase IIVF @ 150cc/hr Electrolytes: monitor & replete as needed Nutrition: reg diet DVT moderate risk sq lovenox Dispo Maintain as inpatient full code discharge planning Code(s): Z29.9 - ENCOUNTER FOR PROPHYLACTIC MEASURES, UNSPECIFIED (3) Asthma exacerbation Assessment/Plan: c/w duo nebs c/w solumedrol 40mg IVP q6h c/w home advair Code(s): J45.901 - UNSPECIFIED ASTHMA WITH (ACUTE) EXACERBATION Qualifiers: Asthma severity: unspecified severity Asthma persistence: unspecified Qualified Code(s): J45.901 - Unspecified asthma with (acute) exacerbation (4) Anxiety Assessment/Plan: c/w home klonipin Code(s): F41.9 - ANXIETY DISORDER, UNSPECIFIED (5) Respiratory failure Assessment/Plan: poor air entry c/w supplemental O2 to maintain SPO2 >90 c/w solumedrol start zosyn and azithromycin given no improvement ID consultation placed Code(s): J96.90 - RESPIRATORY FAILURE, UNSP, UNSP W HYPOXIA OR HYPERCAPNIA (6) Lactic acid acidosis Assessment/Plan: LA rising, now 6.2 Additional 1500cc LR bolus given very poor PO intake continue to trend Code(s): E87.2 - ACIDOSIS (7) Leukocytosis Assessment/Plan: WBC 23 received steroids , could be reactive afebrile continue to trend abx changed ID following Code(s): D72.829 - ELEVATED WHITE BLOOD CELL COUNT, UNSPECIFIED Visit type - Emergency Visit Emergency Visit: Yes ED Registration Date: 10/01/19 Care time: The patient presented to the Emergency Department on the above date and was hospitalized for further evaluation of their emergent condition. - New Patient This patient is new to me today: No - Critical Care Critical Care patient: No - Discharge Referral Referred to [facility] Med P.C.: No
[2019-10-03] MEDS: ENOXAPARIN NA (PORCINE) 40 MG/0.4 ML DISP.SYRIN SQ SCH (09:03)
[2019-10-03] MEDS: FLUTICASONE/SALMETEROL 100 MCG/50 MCG DISKUS IH SCH ×2 (09:05→21:20)
[2019-10-03] MEDS ORDERED: LACTATED RINGERS SOLUTION 1,000 ML/1,000 ML INFUS.BAG IV STA (11:45)
[2019-10-03] MEDS ORDERED: CEFTRIAXONE 1 GM in DEXTROSE 5%-WATER - 50 ML IVPB SCH (12:00)
[2019-10-03 12:13] LABS: BASO % 0.1 % (0-2.0); HEMATOCRIT 37.1 % (32.4-45.2); HEMOGLOBIN 12.2 GM/dL (10.7-15.3); LYMPH % 3.8 % (8-40); MCH 29.4 pg (25.7-33.7); MCHC 32.9 g/dl (32.0-36.0); MEAN CELL VOLUME 89.4 fl (80-96); MEAN PLT VOLUME 6.8 fl (7.5-11.1); MONO % 3.2 % (3.8-10.2); NEUT % 92.9 % (42.8-82.8); PLATELET COUNT 302 K/MM3 (134-434); RBC 4.15 M/mm3 (3.60-5.2); RDW 13.9 % (11.6-15.6); WHITE BLOOD COUNT 23.4 K/mm3 (4.0-10.0)
--- NOTE | 2019-10-03 12:57 | CON.ID ---
Consult Consult Specialty:: infectious diseases Referred by:: Mariela Reason for Consultation:: sepsis, sob,cough,lactic acidosis - History of Present Illness Chief Complaint: sob,cough,fever History of Present Illness: 43 y/o F pmh of asthma and depression, admitted for difficulty breathing, productive cough of yellow sputum and fever. Pt reports that she has been symptomatic for 3 weeks with a fever that started 2-3 days ago. She was seen at her local hospital [facility] three weeks ago, during which they sent her home with a dx of bronchitis and a Z pack. Her symptoms then worsened, prompting her to see her PCP who sent her home on fluticasone/salmeterol and cough medication. In the ED, she was saturating at 93 and tachy at 110s. She was given 1 amp of dounebs and her symptoms improved. She admits to coughing, chest pain, fevers. Denies c/n/v/d/abdominal pain. the above was her history initially patient also mentions that she was having fever with chills. currently she is coughing a lot - History Source History Provided By: Patient Limitations to Obtaining History: No Limitations - Past Medical History ...LMP: 09/18/19 ...: No - Alcohol/Substance Use Hx Alcohol Use: No - Smoking History Smoking history: Never smoked Have you smoked in the past 12 months: No Aproximately how many cigarettes per day: 0 If you are a former smoker, when did you quit?: 2006 Home Medications - Allergies Allergies/Adverse Reactions: Allergies Allergy/AdvReac Type Severity Reaction Status Date / Time latex [Latex] Allergy Intermediate Itching Verified 09/30/19 16:59 - Home Medications Home Medications: Ambulatory Orders KlonoPIN - 0.5 mg PO BID PRN 10/01/19 Salmeterol/Fluticasone [Advair 100Mcg/50Mcg -] 1 puff DAILY PRN 10/01/19 Codein Guaifen 5 ml PO Q4H PRN 10/02/19 Review of Systems - Review of Systems Constitutional: reports: Fever, Other Eyes: reports: No Symptoms HENT: reports: No Symptoms Neck: reports: No Symptoms Cardiovascular: reports: No Symptoms Respiratory: reports: Cough, SOB, SOB on Exertion Gastrointestinal: reports: No Symptoms Musculoskeletal: reports: No Symptoms Integumentary: reports: No Symptoms Neurological: reports: No Symptoms Endocrine: reports: No Symptoms Hematology/Lymphatic: reports: No Symptoms Psychiatric: reports: No Symptoms Physical Exam Vital Signs: Vital Signs Temperature 97.6 F 10/03/19 08:05 Pulse Rate 79 10/03/19 08:05 Respiratory Rate 18 10/03/19 08:05 Blood Pressure 146/80 10/03/19 08:05 O2 Sat by Pulse Oximetry (%) 97 10/02/19 21:00 Constitutional: Yes: Well Nourished, Calm, Moderate Distress Eyes: Yes: Conjunctiva Clear Cardiovascular: Yes: S1, S2 Respiratory: Yes: On Nasal O2, Poor Air Entry, Rhonchi Gastrointestinal: Yes: Normal Bowel Sounds, Soft Musculoskeletal: Yes: WNL Extremities: Yes: WNL Neurological: Yes: Alert, Oriented Psychiatric: Yes: Alert, Oriented Labs: CBC, BMP 10/03/19 11:55 Imaging - Results Chest X-ray: Report Reviewed, Image Reviewed Assessment/Plan 43 y/o F pmh of asthma and depression, presents to the ED for difficulty breathing, productive cough of yellow sputum and fever. Pt reports that she has been symptomatic for 3 weeks with a fever that started 2-3 days ago #Acute resp distress fever cough lactic acidosis leukocytosis plan we will continue current mgmt i am going to start her on zosyn needs neb treatment rest as per the team resp support close watch monitor i2 saturations cx reports noted
[2019-10-03] MEDS: guaiFENesin/CODEINE 10 ML UNIT-DOSE CUPS PO PRN (13:23)
[2019-10-03] MEDS ORDERED: DEXTROSE 5%-WATER - 50 ML IVPB ONE ×2 (13:34→18:16)
[2019-10-03] MEDS ORDERED: PIPERACILLIN/TAZOBACTAM 3.375 GM VIAL IVPB ONE ×2 (13:34→18:15)
[2019-10-03] MEDS: PIPERACILLIN/TAZOB 3.375 GM 3.375 GM in DEXTROSE 5%-WATER - 50 ML IVPB SCH ×2 (13:40→18:21)
[2019-10-03 13:51] LABS: ALBUMIN 3.2 g/dl (3.4-5.0); BILIRUBIN,TOTAL 0.4 mg/dL (0.2-1); BLOOD UREA NITROGEN 10.9 mg/dL (7-18); CALCIUM 8.7 mg/dL (8.5-10.1); CREATININE 0.6 mg/dL (0.55-1.3); MAGNESIUM 2.2 mg/dL (1.8-2.4); TOT PROT 6.7 g/dl (6.4-8.2)
[2019-10-03] MEDS: AZITHROMYCIN IVPB 500 MG/250 ML BAG IVPB SCH (14:45)
[2019-10-03 20:57] LABS: HEMATOCRIT 37.6 % (32.4-45.2); HEMOGLOBIN 12.2 GM/dL (10.7-15.3); LYMPH % 4.1 % (8-40); MCH 29.1 pg (25.7-33.7); MCHC 32.5 g/dl (32.0-36.0); MEAN CELL VOLUME 89.5 fl (80-96); MEAN PLT VOLUME 7.2 fl (7.5-11.1); MONO % 2.6 % (3.8-10.2); NEUT % 93.3 % (42.8-82.8); PLATELET COUNT 302 K/MM3 (134-434); RBC 4.19 M/mm3 (3.60-5.2); RDW 13.7 % (11.6-15.6); WHITE BLOOD COUNT 21.3 K/mm3 (4.0-10.0)
[2019-10-03 21:19] LABS: PLATELET ESTIMATE ADEQUATE
[2019-10-03] MEDS: clonazePAM 0.5 MG TABLET PO PRN (21:20)
[2019-10-04] MEDS: guaiFENesin/CODEINE 10 ML UNIT-DOSE CUPS PO PRN (01:06)
[2019-10-04] MEDS ORDERED: PIPERACILLIN/TAZOBACTAM 3.375 GM VIAL IVPB ONE ×3 (02:33→17:45)
[2019-10-04] MEDS ORDERED: DEXTROSE 5%-WATER - 50 ML IVPB ONE ×3 (02:34→17:45)
[2019-10-04] MEDS: PIPERACILLIN/TAZOB 3.375 GM 3.375 GM in DEXTROSE 5%-WATER - 50 ML IVPB SCH ×3 (02:56→18:10)
[2019-10-04] MEDS: methylPREDNISolone NA SUCC 40 MG/1 ML VIAL IVPUSH SCH ×4 (02:56→21:26)
[2019-10-04] MEDS: SODIUM CHLORIDE 1,000 ML IV SCH ×3 (05:46→15:45)
[2019-10-04] MEDS: ACETAMINOPHEN 325 MG TABLET (FP) PO PRN ×2 (06:53→14:42)
[2019-10-04 08:09] LABS: HEMATOCRIT 35.8 % (32.4-45.2); HEMOGLOBIN 11.9 GM/dL (10.7-15.3); LYMPH % 5.9 % (8-40); MCH 29.5 pg (25.7-33.7); MCHC 33.2 g/dl (32.0-36.0); MEAN CELL VOLUME 88.8 fl (80-96); MEAN PLT VOLUME 6.9 fl (7.5-11.1); MONO % 2.1 % (3.8-10.2); PLATELET COUNT 286 K/MM3 (134-434); RBC 4.03 M/mm3 (3.60-5.2); RDW 13.6 % (11.6-15.6); WHITE BLOOD COUNT 17.7 K/mm3 (4.0-10.0)
[2019-10-04 08:25] LABS: BILIRUBIN,TOTAL 0.3 mg/dL (0.2-1); BLOOD UREA NITROGEN 12.9 mg/dL (7-18); CALCIUM 8.3 mg/dL (8.5-10.1); CREATININE 0.6 mg/dL (0.55-1.3); MAGNESIUM 2.2 mg/dL (1.8-2.4); POTASSIUM 4.2 mmol/L (3.5-5.1); TOT PROT 6.3 g/dl (6.4-8.2)
[2019-10-04] MEDS: ALBUTEROL SO4 0.083% IH SOL 2.5 MG/3 ML VIAL.NEB. NEB SCH (09:00)
[2019-10-04] MEDS: ENOXAPARIN NA (PORCINE) 40 MG/0.4 ML DISP.SYRIN SQ SCH (09:39)
[2019-10-04] MEDS: FLUTICASONE/SALMETEROL 100 MCG/50 MCG DISKUS IH SCH ×2 (09:57→21:27)
--- NOTE | 2019-10-04 11:22 | PN ---
Physical Exam: SUBJECTIVE: Patient seen and examined. complaints of left sided chest pain today, from under her left breast to her left back. dry cough OBJECTIVE: negative troponin , ekg within normal limits Patient is a 43 year old female with pmh of asthma and depression, presents to the ED for difficulty breathing, productive cough of yellow sputum and fever. Pt reports that she has been symptomatic for 3 weeks with a fever that started 2 -3 days ago. She was seen at her local hospital [facility] three weeks ago, during which they sent her home with a dx of bronchitis and a Z pack. Her symptoms then worsened, prompting her to see her PCP who sent her home on fluticasone/salmeterol and cough medication. In the ED she was given 1 amp of dounebs and her symptoms improved. Vital Signs Period Temp Pulse Resp BP Sys/Hall Pulse Ox Last 24 Hr 98.1 F-98.9 F 57-88 18-20 107-136/56-79 97-98 GENERAL: The patient is awake, alert, and fully oriented, in no acute distress. HEAD: Normal with no signs of trauma. EYES: PERRL, extraocular movements intact, sclera anicteric, conjunctiva clear. No ptosis. ENT: Ears normal, nares patent, oropharynx clear without exudates, moist mucous membranes. NECK: Trachea midline, full range of motion, supple. LUNGS: Breath sounds dimin HEART: Regular rate and rhythm, S1, S2 without murmur, rub or gallop. ABDOMEN: Soft, nontender, nondistended, normoactive bowel sounds, no guarding, no rebound, no hepatosplenomegaly, no masses. EXTREMITIES: no edema. NEUROLOGICAL: Normal speech, gait not observed. PSYCH: Normal mood, normal affect. Laboratory Results - last 24 hr 10/03/19 10/03/19 10/03/19 10:00 11:55 11:55 WBC 23.4 H RBC 4.15 Hgb 12.2 Hct 37.1 MCV 89.4 MCH 29.4 MCHC 32.9 RDW 13.9 Plt Count 302 MPV 6.8 L Absolute Neuts (auto) 21.7 H Total Counted Neutrophils % 92.9 H Neutrophils % (Manual) 94.0 H Band Neutrophils % Lymphocytes % 3.8 L Lymphocytes % (Manual) 4.0 L D Monocytes % 3.2 L Monocytes % (Manual) 2 L D Eosinophils % 0.0 Basophils % 0.1 Nucleated RBC % 0 Platelet Estimate Platelet Comment Sodium 137 Potassium 4.0 Chloride 104 Carbon Dioxide 22 Anion Gap 11 BUN 10.9 Creatinine 0.6 Est GFR (CKD-EPI)AfAm 129.39 Est GFR (CKD-EPI)NonAf 111.64 Random Glucose 135 H Lactic Acid 6.1 H* Calcium 8.7 Magnesium 2.2 Total Bilirubin 0.4 AST 10 L ALT 25 Alkaline Phosphatase 55 Troponin I Total Protein 6.7 Albumin 3.2 L 10/03/19 10/03/19 10/04/19 20:00 21:10 06:40 WBC 21.3 H 17.7 H RBC 4.19 4.03 Hgb 12.2 11.9 Hct 37.6 35.8 MCV 89.5 88.8 MCH 29.1 29.5 MCHC 32.5 33.2 RDW 13.7 13.6 Plt Count 302 286 MPV 7.2 L 6.9 L Absolute Neuts (auto) 19.8 H 16.3 H Total Counted 100 Neutrophils % 93.3 H 92.0 H Neutrophils % (Manual) 93.0 H Band Neutrophils % 3.0 Lymphocytes % 4.1 L 5.9 L D Lymphocytes % (Manual) 3.0 L D Monocytes % 2.6 L 2.1 L Monocytes % (Manual) 1 L Eosinophils % 0.0 0.0 Basophils % 0.0 0.0 Nucleated RBC % 0 0 Platelet Estimate Adequate Platelet Comment No clumping noted Sodium Potassium Chloride Carbon Dioxide Anion Gap BUN Creatinine Est GFR (CKD-EPI)AfAm Est GFR (CKD-EPI)NonAf Random Glucose Lactic Acid 3.0 H* Calcium Magnesium Total Bilirubin AST ALT Alkaline Phosphatase Troponin I Total Protein Albumin 10/04/19 10/04/19 10/04/19 06:40 06:40 09:48 WBC RBC Hgb Hct MCV MCH MCHC RDW Plt Count MPV Absolute Neuts (auto) Total Counted Neutrophils % Neutrophils % (Manual) Band Neutrophils % Lymphocytes % Lymphocytes % (Manual) Monocytes % Monocytes % (Manual) Eosinophils % Basophils % Nucleated RBC % Platelet Estimate Platelet Comment Sodium 137 Potassium 4.2 Chloride 103 Carbon Dioxide 26 Anion Gap 8 BUN 12.9 Creatinine 0.6 Est GFR (CKD-EPI)AfAm 129.39 Est GFR (CKD-EPI)NonAf 111.64 Random Glucose 139 H Lactic Acid 4.4 H* Calcium 8.3 L Magnesium 2.2 Total Bilirubin 0.3 AST 11 L ALT 25 Alkaline Phosphatase 51 Troponin I < 0.02 Total Protein 6.3 L Albumin 3.0 L Active Medications Generic Name Dose Route Start Last Admin Trade Name Freq PRN Reason Stop Dose Admin Acetaminophen 650 mg 10/01/19 17:32 10/04/19 06:53 Tylenol - PO 650 mg Q6H PRN Administration PAIN LEVEL 1-5 Albuterol Sulfate 1 amp 10/01/19 20:00 10/04/19 09:00 Ventolin 0.083% Nebulizer Soln - NEB 1 amp RQID TALIS[facility] Administration Clonazepam 0.5 mg 10/01/19 17:35 10/03/19 21:20 Klonopin - PO 0.5 mg Q6H PRN Administration ANXIETY Enoxaparin Sodium 40 mg 10/02/19 10:00 10/04/19 09:39 Lovenox - SQ 40 mg DAILY [facility] Administration Guaifenesin/Codeine Phosphate 10 ml 10/03/19 12:21 10/04/19 01:06 Robitussin Ac - PO 10 ml Q8H PRN Administration COUGH Azithromycin 500 mg in 250 mls @ 250 mls/hr 10/03/19 12:00 10/03/19 14:45 Zithromax 500mg Ivpb (Pre-Docked) IVPB 250 mls/hr DAILY [facility] Administration Sodium Chloride 1,000 mls @ 150 mls/hr 10/03/19 12:16 10/04/19 05:46 Normal Saline - IV 150 mls/hr ASDIR [facility] Administration Piperacillin Sod/Tazobactam 50 mls @ 100 mls/hr 10/03/19 13:30 10/04/19 09:39 Sod 3.375 gm/ Dextrose IVPB 100 mls/hr Q8H-IV TALISHA Administration Protocol Methylprednisolone Sodium Succinate 40 mg 10/01/19 21:00 10/04/19 09:35 Solu-Medrol - IVPUSH 40 mg Q6H-IV T[facility] Administration Fluticasone/Salmeterol 1 puff 10/01/19 22:00 10/04/19 09:57 Advair 100mcg/50mcg - IH 1 puff BID [facility] Administration ASSESSMENT/PLAN: Problem List - Problems (1) Asthma exacerbation Assessment/Plan: on solumedrol taper, duonebs, singular and bronchodilators pulmonary consulted Code(s): J45.901 - UNSPECIFIED ASTHMA WITH (ACUTE) EXACERBATION Qualifiers: Asthma severity: unspecified severity Asthma persistence: unspecified Qualified Code(s): J45.901 - Unspecified asthma with (acute) exacerbation (2) Depression Assessment/Plan: continue home medications Code(s): F32.9 - MAJOR DEPRESSIVE DISORDER, SINGLE EPISODE, UNSPECIFIED (3) Lactic acid acidosis Assessment/Plan: elevated at 4.4 on zosyn repeat lactic acid tonight will give 1 liter bolus may be caused by allbuterol Code(s): E87.2 - ACIDOSIS (4) Leukocytosis Code(s): D72.829 - ELEVATED WHITE BLOOD CELL COUNT, UNSPECIFIED (5) Pneumonia Assessment/Plan: start zosyn and azithromycin given no improvement ID consultation placed Code(s): J18.9 - PNEUMONIA, UNSPECIFIED ORGANISM Qualifiers: Pneumonia type: due to unspecified organism Laterality: unspecified laterality Lung location: lower lobe of lung Qualified Code(s): J18.9 - Pneumonia, unspecified organism (6) Prophylactic measure Code(s): Z29.9 - ENCOUNTER FOR PROPHYLACTIC MEASURES, UNSPECIFIED (7) Respiratory failure Code(s): J96.90 - RESPIRATORY FAILURE, UNSP, UNSP W HYPOXIA OR HYPERCAPNIA (8) Accidental fall Code(s): W19.XXXA - UNSPECIFIED FALL, INITIAL ENCOUNTER Visit type - Emergency Visit Emergency Visit: Yes ED Registration Date: 10/01/19 Care time: The patient presented to the Emergency Department on the above date and was hospitalized for further evaluation of their emergent condition. - New Patient This patient is new to me today: Yes Date on this admission: 10/04/19 - Critical Care Critical Care patient: No - Discharge Referral Referred to [facility] Med P.C.: No
[2019-10-04] MEDS ORDERED: SODIUM CHLORIDE 1,000 ML IV STA ×2 (11:25→18:28)
[2019-10-04 11:37] LABS: ANISOCYTOSIS 0; MACROCYTOSIS 0; PLATELET ESTIMATE NORMAL
--- NOTE | 2019-10-04 11:40 | CON.PULM ---
Consult Consult Specialty:: PULM/CCM Referred by:: Hospitalist Reason for Consultation:: SOB - History of Present Illness Chief Complaint: SOB History of Present Illness: 43 F, apparent Mild Persistent Asthma since childhood. No history of intubations, not steroid dependent, never had baseline PFTs/PEF monitoring. Occasional seasonal allergies. Had 2 hospital admissions in 2019 for AE Asthma. She does snore and reports her said it has been getting worse with episodes of witnessed apneas. Has never been tested. Admitted via the ER due to difficulty breathing, productive cough of yellow sputum, and fever that has been worsening for the past few weeks. No travel history or sick contacts. No hemoptysis or night sweats. Denies smoking history. CXR: Basilar infiltrates Left > Right - History Source History Provided By: Patient Limitations to Obtaining History: No Limitations - Past Medical History Pulmonary: Yes: Asthma, Bronchitis. No: Cancer, COPD, O2 Dependent, Pneumonia, Previously Intubated, Pulmonary Embolus, Pulmonary Fibrosis ...LMP: 09/18/19 ...: No - Alcohol/Substance Use Hx Alcohol Use: No - Smoking History Smoking history: Never smoked Have you smoked in the past 12 months: No Aproximately how many cigarettes per day: 0 If you are a former smoker, when did you quit?: 2006 Home Medications - Allergies Allergies/Adverse Reactions: Allergies Allergy/AdvReac Type Severity Reaction Status Date / Time latex [Latex] Allergy Intermediate Itching Verified 09/30/19 16:59 - Home Medications Home Medications: Ambulatory Orders KlonoPIN - 0.5 mg PO BID PRN 10/01/19 Salmeterol/Fluticasone [Advair 100Mcg/50Mcg -] 1 puff DAILY PRN 10/01/19 Codein Guaifen 5 ml PO Q4H PRN 10/02/19 Review of Systems - Review of Systems Constitutional: reports: Chills, Fever, Loss of Appetite, Malaise. denies: Night Sweats, Unintentional Wgt. Loss Eyes: reports: No Symptoms HENT: reports: No Symptoms Neck: reports: No Symptoms Cardiovascular: reports: Chest Pain, Shortness of Breath. denies: Edema, Palpitations Respiratory: reports: Cough, Snoring, SOB, SOB on Exertion, Wheezing. denies: Hemoptysis, Orthopnea, PND Gastrointestinal: reports: No Symptoms Genitourinary: reports: No Symptoms Breasts: reports: No Symptoms Reported Musculoskeletal: reports: No Symptoms Integumentary: reports: No Symptoms Neurological: reports: No Symptoms Endocrine: reports: No Symptoms Hematology/Lymphatic: reports: No Symptoms Psychiatric: reports: No Symptoms Physical Exam Vital Sings: Vital Signs Temperature 98.1 F 10/04/19 10:09 Pulse Rate 88 10/04/19 10:09 Respiratory Rate 20 10/04/19 10:09 Blood Pressure 107/56 L 10/04/19 10:09 O2 Sat by Pulse Oximetry (%) 98 10/03/19 21:00 Constitutional: Yes: No Distress, Anxious Eyes: Yes: Conjunctiva Clear, EOM Intact HENT: Yes: Atraumatic, Normocephalic Neck: Yes: Supple, Trachea Midline Cardiovascular: Yes: Regular Rate and Rhythm Respiratory: Yes: Cough, Diminished, On Nasal O2, Rhonchi, SOB, SOB on Exertion , Tachypnea, Wheezes. No: Accessory Muscle Use, Rales, Stridor ...Inspection: Yes: WNL ...Clubbing: No Gastrointestinal: Yes: Normal Bowel Sounds, Soft, Abdomen, Obese Musculoskeletal: Yes: WNL Extremities: Yes: WNL Edema: No Peripheral Pulses WNL: Yes Integumentary: Yes: WNL Neurological: Yes: WNL, Alert, Oriented ...Motor Strength: WNL Psychiatric: Yes: WNL, Alert, Oriented Labs: CBC, BMP 10/04/19 06:40 10/04/19 06:40 Imaging - Results Chest X-ray: Report Reviewed, Image Reviewed Problem List - Problems (1) Asthma exacerbation Code(s): J45.901 - UNSPECIFIED ASTHMA WITH (ACUTE) EXACERBATION Qualifiers: Asthma severity: unspecified severity Asthma persistence: unspecified Qualified Code(s): J45.901 - Unspecified asthma with (acute) exacerbation (2) Leukocytosis Code(s): D72.829 - ELEVATED WHITE BLOOD CELL COUNT, UNSPECIFIED (3) Pneumonia Code(s): J18.9 - PNEUMONIA, UNSPECIFIED ORGANISM Qualifiers: Pneumonia type: due to unspecified organism Laterality: unspecified laterality Lung location: lower lobe of lung Qualified Code(s): J18.9 - Pneumonia, unspecified organism (4) Acute viral syndrome Code(s): B34.9 - VIRAL INFECTION, UNSPECIFIED (5) Anxiety Code(s): F41.9 - ANXIETY DISORDER, UNSPECIFIED (6) Asthma Code(s): J45.909 - UNSPECIFIED ASTHMA, UNCOMPLICATED (7) Atypical chest pain Code(s): R07.89 - OTHER CHEST PAIN (8) Bronchitis Code(s): J40 - BRONCHITIS, NOT SPECIFIED ACUTE OR CHRONIC (9) Chest pain Code(s): R07.9 - CHEST PAIN, UNSPECIFIED Qualifiers: Chest pain type: unspecified Qualified Code(s): R07.9 - Chest pain, unspecified (10) Musculoskeletal pain Code(s): M79.1 - MYALGIA * DO NOT USE * Assessment/Plan ABX per ID O2 as needed BD TX standing and PRN Medrol No smoking Check daily PEF Advair Nasal saline Fluticasone Singuilair QHS Outpatient PFTs once stable VTE prophylaxis Will follow Thank you. Dr Juarez
[2019-10-04] MEDS ORDERED: ALBUTEROL SO4 0.083% IH SOL 2.5 MG/3 ML VIAL.NEB. NEB PRN (11:44)
[2019-10-04] MEDS ORDERED: SODIUM CHLORIDE NASAL SPRAY 44 ML BOTTLE NS PRN (11:44)
[2019-10-04] MEDS: ALBUTEROL SO4 2.5/IPRATROPIUM 0.5 INH SOL 3 ML VIAL.NEB. NEB SCH ×3 (12:37→20:30)
--- NOTE | 2019-10-04 12:50 | PN ---
Progress Note, Physician History of Present Illness: stable comfortable - Current Medication List Current Medications: Active Medications Acetaminophen (Tylenol -) 650 mg PO Q6H PRN PRN Reason: PAIN LEVEL 1-5 Last Admin: 10/04/19 06:53 Dose: 650 mg Albuterol Sulfate (Ventolin 0.083% Nebulizer Soln -) 1 amp NEB Q4H PRN PRN Reason: SHORT OF BREATH/WHEEZING Albuterol/Ipratropium (Duoneb -) 1 amp NEB RQID [facility] Last Admin: 10/04/19 12:37 Dose: 1 amp Clonazepam (Klonopin -) 0.5 mg PO Q6H PRN PRN Reason: ANXIETY Last Admin: 10/03/19 21:20 Dose: 0.5 mg Enoxaparin Sodium (Lovenox -) 40 mg SQ DAILY [facility] Last Admin: 10/04/19 09:39 Dose: 40 mg Fluticasone Propionate (Flonase -) 2 spray NS DAILY TAL[facility] Guaifenesin/Codeine Phosphate (Robitussin Ac -) 10 ml PO Q8H PRN PRN Reason: COUGH Last Admin: 10/04/19 01:06 Dose: 10 ml Azithromycin (Zithromax 500mg Ivpb (Pre-Docked)) 500 mg in 250 mls @ 250 mls/ hr IVPB DAILY [facility] Last Admin: 10/03/19 14:45 Dose: 250 mls/hr Sodium Chloride (Normal Saline -) 1,000 mls @ 150 mls/hr IV ASDIR TALISHA Last Admin: 10/04/19 05:46 Dose: 150 mls/hr Piperacillin Sod/Tazobactam (Sod 3.375 gm/ Dextrose) 50 mls @ 100 mls/hr IVPB Q8H-IV TALISHA; Protocol Last Admin: 10/04/19 09:39 Dose: 100 mls/hr Methylprednisolone Sodium Succinate (Solu-Medrol -) 40 mg IVPUSH Q6H-IV TALISHA Last Admin: 10/04/19 09:35 Dose: 40 mg Montelukast Sodium (Singulair -) 10 mg PO HS TALISHA Fluticasone/Salmeterol (Advair 100mcg/50mcg -) 1 puff IH BID TALISHA Last Admin: 10/04/19 09:57 Dose: 1 puff Sodium Chloride ([place]al [place] -) 2 spray NS TID PRN PRN Reason: NASAL CONGESTION - Objective Vital Signs: Vital Signs Temperature 98.1 F 10/04/19 10:09 Pulse Rate 88 10/04/19 10:09 Respiratory Rate 20 10/04/19 10:09 Blood Pressure 107/56 L 10/04/19 10:09 O2 Sat by Pulse Oximetry (%) 98 10/03/19 21:00 Constitutional: Yes: No Distress, Calm Cardiovascular: Yes: S1, S2 Respiratory: Yes: Regular, CTA Bilaterally Gastrointestinal: Yes: Normal Bowel Sounds, Soft Musculoskeletal: Yes: Other Extremities: Yes: Other Neurological: Yes: Alert, Oriented Psychiatric: Yes: Alert, Oriented Labs: CBC, BMP 10/04/19 06:40 10/04/19 06:40 INR, PTT INR 1.00 (0.83-1.09) 10/01/19 12:48 Assessment/Plan 43 y/o F pmh of asthma and depression, presents to the ED for difficulty breathing, productive cough of yellow sputum and fever. Pt reports that she has been symptomatic for 3 weeks with a fever that started 2-3 days ago #Acute resp distress fever cough lactic acidosis leukocytosis plan we will continue current mgmt abx elevation of the leg rest as per the team
--- NOTE | 2019-10-04 12:58 | EKG ---
Test Reason : Blood Pressure : / mmHG Vent. Rate : 091 BPM Atrial Rate : 091 BPM P-R Int : 192 ms QRS Dur : 098 ms QT Int : 356 ms P-R-T Axes : 065 012 043 degrees QTc Int : 437 ms NORMAL SINUS RHYTHM NORMAL ECG WHEN COMPARED WITH ECG OF 01-OCT-2019 12:30, BORDERLINE CRITERIA FOR ANTERIOR INFARCT ARE NO LONGER PRESENT Confirmed by MD Mathieu, Tu ([id number]) on 10/04/2019 12:57:51 PM Referred By: Sonia HAYWOOD Confirmed By:Tu Murdock MD
[2019-10-04] MEDS ORDERED: PT OWN MED DRAWER 7, Y5N ONE (13:10)
[2019-10-04] MEDS: AZITHROMYCIN IVPB 500 MG/250 ML BAG IVPB SCH (13:17)
[2019-10-04] MEDS: FLUTICASONE PROP 0.05% 16 GM NASAL SPRAY NS SCH (14:36)
[2019-10-04] MEDS: clonazePAM 0.5 MG TABLET PO PRN ×2 (14:42→23:02)
[2019-10-04] MEDS: MONTELUKAST NA 10 MG TABLET PO SCH (21:27)
[2019-10-05] MEDS ORDERED: PIPERACILLIN/TAZOBACTAM 3.375 GM VIAL IVPB ONE ×3 (01:16→17:48)
[2019-10-05] MEDS ORDERED: DEXTROSE 5%-WATER - 50 ML IVPB ONE ×3 (01:17→17:48)
[2019-10-05] MEDS: PIPERACILLIN/TAZOB 3.375 GM 3.375 GM in DEXTROSE 5%-WATER - 50 ML IVPB SCH ×3 (01:20→17:50)
[2019-10-05] MEDS ORDERED: SODIUM CHLORIDE 500 ML IV STA (01:32)
[2019-10-05] MEDS: methylPREDNISolone NA SUCC 40 MG/1 ML VIAL IVPUSH SCH ×4 (02:04→21:31)
[2019-10-05] MEDS: SODIUM CHLORIDE 1,000 ML IV SCH ×2 (02:05→12:20)
[2019-10-05] MEDS: ALBUTEROL SO4 2.5/IPRATROPIUM 0.5 INH SOL 3 ML VIAL.NEB. NEB SCH ×4 (08:00→20:27)
--- NOTE | 2019-10-05 08:05 | PN ---
Progress Note (short form) - Note Progress Note: Feels better today. Less SOB and wheezing. Nasal passages are a little more open. No acute events overnight. Intake & Output 10/02/19 10/03/19 10/04/19 10/05/19 23:59 23:59 23:59 23:59 Intake Total 3500 4060 7300 1750 Balance 3500 4060 7300 1750 Last Vital Signs Temp Pulse Resp BP Pulse Ox 97.8 F 65 18 131/68 96 10/05/19 06:00 10/05/19 06:00 10/05/19 06:00 10/05/19 06:00 10/04/19 21:00 Active Medications Acetaminophen (Tylenol -) 650 mg PO Q6H PRN PRN Reason: PAIN LEVEL 1-5 Last Admin: 10/04/19 14:42 Dose: 650 mg Albuterol Sulfate (Ventolin 0.083% Nebulizer Soln -) 1 amp NEB Q4H PRN PRN Reason: SHORT OF BREATH/WHEEZING Albuterol/Ipratropium (Duoneb -) 1 amp NEB RQID [facility] Last Admin: 10/05/19 08:00 Dose: 1 amp Clonazepam (Klonopin -) 0.5 mg PO Q6H PRN PRN Reason: ANXIETY Last Admin: 10/04/19 23:02 Dose: 0.5 mg Enoxaparin Sodium (Lovenox -) 40 mg SQ DAILY [facility] Last Admin: 10/04/19 09:39 Dose: 40 mg Fluticasone Propionate (Flonase -) 2 spray NS DAILY [facility] Last Admin: 10/04/19 14:36 Dose: 2 sprays Guaifenesin/Codeine Phosphate (Robitussin Ac -) 10 ml PO Q8H PRN PRN Reason: COUGH Last Admin: 10/04/19 01:06 Dose: 10 ml Azithromycin (Zithromax 500mg Ivpb (Pre-Docked)) 500 mg in 250 mls @ 250 mls/ hr IVPB DAILY [facility] Last Admin: 10/04/19 13:17 Dose: 250 mls/hr Sodium Chloride (Normal Saline -) 1,000 mls @ 150 mls/hr IV ASDIR [facility] Last Admin: 10/05/19 02:05 Dose: 150 mls/hr Piperacillin Sod/Tazobactam (Sod 3.375 gm/ Dextrose) 50 mls @ 100 mls/hr IVPB Q8H-IV TALISHA; Protocol Last Admin: 10/05/19 01:20 Dose: 100 mls/hr Methylprednisolone Sodium Succinate (Solu-Medrol -) 40 mg IVPUSH Q6H-IV TALISHA Last Admin: 10/05/19 02:04 Dose: 40 mg Montelukast Sodium (Singulair -) 10 mg PO HS TALISHA Last Admin: 10/04/19 21:27 Dose: 10 mg Fluticasone/Salmeterol (Advair 100mcg/50mcg -) 1 puff IH BID TALISHA Last Admin: 10/04/19 21:27 Dose: 1 puff Sodium Chloride ([place] -) 2 spray NS TID PRN PRN Reason: NASAL CONGESTION Constitutional: Yes: No Distress Eyes: Yes: Conjunctiva Clear, EOM Intact HENT: Yes: Atraumatic, Normocephalic Neck: Yes: Supple, Trachea Midline Cardiovascular: Yes: Regular Rate and Rhythm Respiratory: Yes: Cough, Diminished, On Nasal O2, Rhonchi, Less wheezes. No: Accessory Muscle Use, Rales, Stridor ...Inspection: Yes: WNL ...Clubbing: No Gastrointestinal: Yes: Normal Bowel Sounds, Soft, Abdomen, Obese Musculoskeletal: Yes: WNL Extremities: Yes: WNL Edema: No Peripheral Pulses WNL: Yes Integumentary: Yes: WNL Neurological: Yes: WNL, Alert, Oriented ...Motor Strength: WNL Psychiatric: Yes: WNL, Alert, Oriented Labs: Laboratory Results - last 24 hr 10/04/19 10/04/19 10/04/19 06:40 06:40 06:40 WBC 17.7 H RBC 4.03 Hgb 11.9 Hct 35.8 MCV 88.8 MCH 29.5 MCHC 33.2 RDW 13.6 Plt Count 286 MPV 6.9 L Absolute Neuts (auto) 16.3 H Neutrophils % 92.0 H Neutrophils % (Manual) 92.0 H Band Neutrophils % 1.0 Lymphocytes % 5.9 L D Lymphocytes % (Manual) 2.0 L D Monocytes % 2.1 L Monocytes % (Manual) 1 L Eosinophils % 0.0 Eosinophils % (Manual) 0.0 Basophils % 0.0 Basophils % (Manual) 0.0 Myelocytes % (Man) 0 Promyelocytes % (Man) 0 Blast Cells % (Manual) 0 Nucleated RBC % 0 Metamyelocytes 1 D Hypochromia 0 Platelet Estimate Normal Polychromasia 0 Poikilocytosis 0 Anisocytosis 0 Microcytosis 0 Macrocytosis 0 Sodium 137 Potassium 4.2 Chloride 103 Carbon Dioxide 26 Anion Gap 8 BUN 12.9 Creatinine 0.6 Est GFR (CKD-EPI)AfAm 129.39 Est GFR (CKD-EPI)NonAf 111.64 Random Glucose 139 H Lactic Acid 4.4 H* Calcium 8.3 L Magnesium 2.2 Total Bilirubin 0.3 AST 11 L ALT 25 Alkaline Phosphatase 51 Troponin I Total Protein 6.3 L Albumin 3.0 L 10/04/19 10/04/19 10/04/19 09:48 16:15 16:15 WBC RBC Hgb Hct MCV MCH MCHC RDW Plt Count MPV Absolute Neuts (auto) Neutrophils % Neutrophils % (Manual) Band Neutrophils % Lymphocytes % Lymphocytes % (Manual) Monocytes % Monocytes % (Manual) Eosinophils % Eosinophils % (Manual) Basophils % Basophils % (Manual) Myelocytes % (Man) Promyelocytes % (Man) Blast Cells % (Manual) Nucleated RBC % Metamyelocytes Hypochromia Platelet Estimate Polychromasia Poikilocytosis Anisocytosis Microcytosis Macrocytosis Sodium Potassium Chloride Carbon Dioxide Anion Gap BUN Creatinine Est GFR (CKD-EPI)AfAm Est GFR (CKD-EPI)NonAf Random Glucose Lactic Acid 4.3 H* Calcium Magnesium Total Bilirubin AST ALT Alkaline Phosphatase Troponin I < 0.02 < 0.02 Total Protein Albumin 10/04/19 23:05 WBC RBC Hgb Hct MCV MCH MCHC RDW Plt Count MPV Absolute Neuts (auto) Neutrophils % Neutrophils % (Manual) Band Neutrophils % Lymphocytes % Lymphocytes % (Manual) Monocytes % Monocytes % (Manual) Eosinophils % Eosinophils % (Manual) Basophils % Basophils % (Manual) Myelocytes % (Man) Promyelocytes % (Man) Blast Cells % (Manual) Nucleated RBC % Metamyelocytes Hypochromia Platelet Estimate Polychromasia Poikilocytosis Anisocytosis Microcytosis Macrocytosis Sodium Potassium Chloride Carbon Dioxide Anion Gap BUN Creatinine Est GFR (CKD-EPI)AfAm Est GFR (CKD-EPI)NonAf Random Glucose Lactic Acid 4.0 H* Calcium Magnesium Total Bilirubin AST ALT Alkaline Phosphatase Troponin I Total Protein Albumin Problem List - Problems (1) Asthma exacerbation Code(s): J45.901 - UNSPECIFIED ASTHMA WITH (ACUTE) EXACERBATION Qualifiers: Asthma severity: unspecified severity Asthma persistence: unspecified Qualified Code(s): J45.901 - Unspecified asthma with (acute) exacerbation (2) Leukocytosis Code(s): D72.829 - ELEVATED WHITE BLOOD CELL COUNT, UNSPECIFIED (3) Pneumonia Code(s): J18.9 - PNEUMONIA, UNSPECIFIED ORGANISM Qualifiers: Pneumonia type: due to unspecified organism Laterality: unspecified laterality Lung location: lower lobe of lung Qualified Code(s): J18.9 - Pneumonia, unspecified organism (4) Acute viral syndrome Code(s): B34.9 - VIRAL INFECTION, UNSPECIFIED (5) Anxiety Code(s): F41.9 - ANXIETY DISORDER, UNSPECIFIED (6) Asthma Code(s): J45.909 - UNSPECIFIED ASTHMA, UNCOMPLICATED (7) Atypical chest pain Code(s): R07.89 - OTHER CHEST PAIN (8) Bronchitis Code(s): J40 - BRONCHITIS, NOT SPECIFIED ACUTE OR CHRONIC (9) Chest pain Code(s): R07.9 - CHEST PAIN, UNSPECIFIED Qualifiers: Chest pain type: unspecified Qualified Code(s): R07.9 - Chest pain, unspecified (10) Musculoskeletal pain Code(s): M79.1 - MYALGIA * DO NOT USE * Assessment/Plan ABX per ID O2 as needed BD TX standing and PRN Medrol No smoking Check daily PEF Advair Nasal saline Fluticasone Singuilair Q Outpatient PFTs once stable VTE prophylaxis Dr Juarez Problem List - Problems (1) Asthma exacerbation Code(s): J45.901 - UNSPECIFIED ASTHMA WITH (ACUTE) EXACERBATION Qualifiers: Asthma severity: unspecified severity Asthma persistence: unspecified Qualified Code(s): J45.90 - Unspecified asthma with (acute) exacerbation (2) Leukocytosis Code(s): D72.829 - ELEVATED WHITE BLOOD CELL COUNT, UNSPECIFIED (3) Pneumonia Code(s): J18.9 - PNEUMONIA, UNSPECIFIED ORGANISM Qualifiers: Pneumonia type: due to unspecified organism Laterality: unspecified laterality Lung location: lower lobe of lung Qualified Code(s): J18.9 - Pneumonia, unspecified organism (4) Acute viral syndrome Code(s): B34.9 - VIRAL INFECTION, UNSPECIFIED (5) Anxiety Code(s): F41.9 - ANXIETY DISORDER, UNSPECIFIED (6) Asthma Code(s): J45.909 - UNSPECIFIED ASTHMA, UNCOMPLICATED (7) Atypical chest pain Code(s): R07.89 - OTHER CHEST PAIN (8) Bronchitis Code(s): J40 - BRONCHITIS, NOT SPECIFIED ACUTE OR CHRONIC (9) Chest pain Code(s): R07.9 - CHEST PAIN, UNSPECIFIED Qualifiers: Chest pain type: unspecified Qualified Code(s): R07.9 - Chest pain, unspecified (10) Musculoskeletal pain Code(s): M79.1 - MYALGIA * DO NOT USE *
[2019-10-05 08:48] LABS: BASO % 0.1 % (0-2.0); HEMATOCRIT 36.2 % (32.4-45.2); HEMOGLOBIN 12.1 GM/dL (10.7-15.3); LYMPH % 6.9 % (8-40); MCH 29.6 pg (25.7-33.7); MCHC 33.4 g/dl (32.0-36.0); MEAN CELL VOLUME 88.7 fl (80-96); MEAN PLT VOLUME 6.8 fl (7.5-11.1); PLATELET COUNT 298 K/MM3 (134-434); RBC 4.08 M/mm3 (3.60-5.2); RDW 13.5 % (11.6-15.6); WHITE BLOOD COUNT 15.1 K/mm3 (4.0-10.0)
[2019-10-05] MEDS: ACETAMINOPHEN 325 MG TABLET (FP) PO PRN (08:51)
[2019-10-05] MEDS: FLUTICASONE/SALMETEROL 100 MCG/50 MCG DISKUS IH SCH ×2 (09:16→21:33)
[2019-10-05] MEDS: FLUTICASONE PROP 0.05% 16 GM NASAL SPRAY NS SCH (09:16)
[2019-10-05] MEDS: ENOXAPARIN NA (PORCINE) 40 MG/0.4 ML DISP.SYRIN SQ SCH (09:18)
[2019-10-05 09:29] LABS: ALBUMIN 3.2 g/dl (3.4-5.0); BILIRUBIN,TOTAL 0.2 mg/dL (0.2-1); BLOOD UREA NITROGEN 11.3 mg/dL (7-18); CALCIUM 7.9 mg/dL (8.5-10.1); CREATININE 0.6 mg/dL (0.55-1.3); MAGNESIUM 2.3 mg/dL (1.8-2.4); POTASSIUM 4.1 mmol/L (3.5-5.1); TOT PROT 6.4 g/dl (6.4-8.2)
--- NOTE | 2019-10-05 10:29 | CONSULT ---
Consultation: REQUESTING PROVIDER: NEPHROLOGY SERVICE CONSULT REQUEST: We have been asked to medically evaluate this patient for Lactic Acidosis. HISTORY OF PRESENT ILLNESS: Pt is a 43 year old F with PMH asthma, depression, anxiety who presents to ED for difficulty breathing. She was admitted with asthma exacerbation and URI. Nephrology was called to evaluate for lactic acidosis. On my interview, pt states she had bronchitis with associated cough productive of yellow sputum beginning 2 weeks ago. She went to [facility] and was given "cough medicine" and sent home. She continued to have symptoms, so last she went to see her PCP (Dr. Parnell) who gave her fluticasone/salmeterol and cough medication and directed her to [facility] ED. She went home, but the following day, her symptoms got much worse and she felt like she couldn't breath and "was going to ", so she called 911. Pt states she had bad asthma as a child requiring multiple hospitalizations. She has not been intubated. She uses her albuterol inhaler daily and needs it especially at night. She also uses a nebulizer nightly. Pt states her 3 children and have all been diagnosed with the flu recently. No travel. REVIEW OF SYSTEMS: CONSTITUTIONAL: Absent: fever, chills, diaphoresis, generalized weakness, malaise, loss of appetite, weight change HEENT: Absent: rhinorrhea, nasal congestion, throat pain, throat swelling, difficulty swallowing, mouth swelling, ear pain, eye pain, visual changes CARDIOVASCULAR: Absent: chest pain, syncope, palpitations, irregular heart rate, lightheadedness , peripheral edema RESPIRATORY: cough, shortness of breath Absent: , dyspnea with exertion, orthopnea, wheezing, stridor, hemoptysis GASTROINTESTINAL: Absent: abdominal pain, abdominal distension, nausea, vomiting, diarrhea, constipation, melena, hematochezia GENITOURINARY: Absent: dysuria, frequency, urgency, hesitancy, hematuria, flank pain, genital pain MUSCULOSKELETAL: chest wall pain with coughing Absent: myalgia, arthralgia, joint swelling, back pain, neck pain SKIN: Absent: rash, itching, pallor HEMATOLOGIC/IMMUNOLOGIC: Absent: easy bleeding, easy bruising, lymphadenopathy, frequent infections ENDOCRINE: Absent: unexplained weight gain, unexplained weight loss, heat intolerance, cold intolerance NEUROLOGIC: Absent: headache, focal weakness or paresthesias, dizziness, unsteady gait, seizure, mental status changes, bladder or bowel incontinence PSYCHIATRIC: Absent: anxiety, depression, suicidal or homicidal ideation, hallucinations. PHYSICAL EXAMINATION Vital Signs - 24 hr 10/04/19 10/04/19 10/04/19 10:09 10:30 14:00 Temperature 98.1 F 97.9 F Pulse Rate 88 75 Respiratory 20 20 Rate Blood Pressure 107/56 L 136/81 O2 Sat by Pulse 95 Oximetry (%) 10/04/19 10/04/19 10/04/19 18:00 21:00 22:00 Temperature 98.4 F 97.4 F L Pulse Rate 86 75 Respiratory 20 18 Rate Blood Pressure 135/72 145/89 O2 Sat by Pulse 96 Oximetry (%) 10/05/19 10/05/19 06:00 08:45 Temperature 97.8 F 98.4 F Pulse Rate 65 81 Respiratory 18 20 Rate Blood Pressure 131/68 150/94 O2 Sat by Pulse Oximetry (%) Gen: AAOx3, frequent coughing, otherwise, no distress HEENT: EOMI, moist membranes Neck: supple, no jvd, no palpable lymph nodes Cardio: tachycardic, regular, no mrg noted Pulm: deep inspiration limited due to frequent coughing. No wheezing appreciated. Air entry at bases was appreciated. Tachypnic for minutes following coughing fit Abd: obese, soft, nontender, nondistended Ext: no edema Laboratory Results - last 24 hr 10/04/19 10/04/19 10/04/19 06:40 09:48 16:15 WBC RBC Hgb Hct MCV MCH MCHC RDW Plt Count MPV Absolute Neuts (auto) Neutrophils % Neutrophils % (Manual) 92.0 H Band Neutrophils % 1.0 Lymphocytes % Lymphocytes % (Manual) 2.0 L D Monocytes % Monocytes % (Manual) 1 L Eosinophils % Eosinophils % (Manual) 0.0 Basophils % Basophils % (Manual) 0.0 Myelocytes % (Man) 0 Promyelocytes % (Man) 0 Blast Cells % (Manual) 0 Nucleated RBC % Metamyelocytes 1 D Hypochromia 0 Platelet Estimate Normal Polychromasia 0 Poikilocytosis 0 Anisocytosis 0 Microcytosis 0 Macrocytosis 0 Sodium Potassium Chloride Carbon Dioxide Anion Gap BUN Creatinine Est GFR (CKD-EPI)AfAm Est GFR (CKD-EPI)NonAf Random Glucose Lactic Acid Calcium Magnesium Total Bilirubin AST ALT Alkaline Phosphatase Troponin I < 0.02 < 0.02 Total Protein Albumin 10/04/19 10/04/19 10/05/19 16:15 23:05 07:10 WBC 15.1 H RBC 4.08 Hgb 12.1 Hct 36.2 MCV 88.7 MCH 29.6 MCHC 33.4 RDW 13.5 Plt Count 298 MPV 6.8 L Absolute Neuts (auto) 13.6 H Neutrophils % 90.0 H Neutrophils % (Manual) Band Neutrophils % Lymphocytes % 6.9 L Lymphocytes % (Manual) Monocytes % 3.0 L Monocytes % (Manual) Eosinophils % 0.0 Eosinophils % (Manual) Basophils % 0.1 D Basophils % (Manual) Myelocytes % (Man) Promyelocytes % (Man) Blast Cells % (Manual) Nucleated RBC % 0 Metamyelocytes Hypochromia Platelet Estimate Polychromasia Poikilocytosis Anisocytosis Microcytosis Macrocytosis Sodium Potassium Chloride Carbon Dioxide Anion Gap BUN Creatinine Est GFR (CKD-EPI)AfAm Est GFR (CKD-EPI)NonAf Random Glucose Lactic Acid 4.3 H* 4.0 H* Calcium Magnesium Total Bilirubin AST ALT Alkaline Phosphatase Troponin I Total Protein Albumin 10/05/19 07:10 WBC RBC Hgb Hct MCV MCH MCHC RDW Plt Count MPV Absolute Neuts (auto) Neutrophils % Neutrophils % (Manual) Band Neutrophils % Lymphocytes % Lymphocytes % (Manual) Monocytes % Monocytes % (Manual) Eosinophils % Eosinophils % (Manual) Basophils % Basophils % (Manual) Myelocytes % (Man) Promyelocytes % (Man) Blast Cells % (Manual) Nucleated RBC % Metamyelocytes Hypochromia Platelet Estimate Polychromasia Poikilocytosis Anisocytosis Microcytosis Macrocytosis Sodium 136 Potassium 4.1 Chloride 102 Carbon Dioxide 23 Anion Gap 11 BUN 11.3 Creatinine 0.6 Est GFR (CKD-EPI)AfAm 129.39 Est GFR (CKD-EPI)NonAf 111.64 Random Glucose 151 H Lactic Acid Calcium 7.9 L Magnesium 2.3 Total Bilirubin 0.2 AST 6 L ALT 26 Alkaline Phosphatase 49 Troponin I Total Protein 6.4 Albumin 3.2 L Active Medications Generic Name Dose Route Start Last Admin Trade Name Freq PRN Reason Stop Dose Admin Acetaminophen 650 mg 10/01/19 17:32 10/05/19 08:51 Tylenol - PO 650 mg Q6H PRN Administration PAIN LEVEL 1-5 Albuterol Sulfate 1 amp 10/04/19 11:44 Ventolin 0.083% Nebulizer Soln - NEB Q4H PRN SHORT OF BREATH/WHEEZING Albuterol/Ipratropium 1 amp 10/04/19 12:00 10/05/19 08:00 Duoneb - NEB 1 amp RQID TALISHA Administration Clonazepam 0.5 mg 10/01/19 17:35 10/04/19 23:02 Klonopin - PO 0.5 mg Q6H PRN Administration ANXIETY Enoxaparin Sodium 40 mg 10/02/19 10:00 10/05/19 09:18 Lovenox - SQ 40 mg DAILY TALISHA Administration Fluticasone Propionate 2 spray 10/04/19 11:45 10/05/19 09:16 Flonase - NS 2 sprays DAILY TALISHA Administration Guaifenesin/Codeine Phosphate 10 ml 10/03/19 12:21 10/04/19 01:06 Robitussin Ac - PO 10 ml Q8H PRN Administration COUGH Azithromycin 500 mg in 250 mls @ 250 mls/hr 10/03/19 12:00 10/04/19 13:17 Zithromax 500mg Ivpb (Pre-Docked) IVPB 250 mls/hr DAILY TALISHA Administration Sodium Chloride 1,000 mls @ 150 mls/hr 10/03/19 12:16 10/05/19 02:05 Normal Saline - IV 150 mls/hr ASDIR TALISHA Administration Piperacillin Sod/Tazobactam 50 mls @ 100 mls/hr 10/03/19 13:30 10/05/19 09:14 Sod 3.375 gm/ Dextrose IVPB 100 mls/hr Q8H-IV TALISHA Administration Protocol Methylprednisolone Sodium Succinate 40 mg 10/01/19 21:00 10/05/19 08:58 Solu-Medrol - IVPUSH 40 mg Q6H-IV TALISHA Administration Montelukast Sodium 10 mg 10/04/19 22:00 10/04/19 21:27 Singulair - PO 10 mg HS TALISHA Administration Fluticasone/Salmeterol 1 puff 10/01/19 22:00 10/05/19 09:16 Advair 100mcg/50mcg - IH 1 puff BID TALISHA Administration Sodium Chloride 2 spray 10/04/19 11:44 [place] Nasal [place] - NS TID PRN NASAL CONGESTION ASSESSMENT/PLAN: Pt is a 43 year old F with PMH asthma, depression, anxiety who presents to ED for difficulty breathing. She was admitted with asthma exacerbation and URI. Nephrology was called to evaluate for lactic acidosis. Asthma exacerbation -? 2/2 viral URI vs PNA -leukocytosis -flu neg -Improving with abx, salmeterol/fluticasone, methylprednisolone, nebs, antitussive -daily peak flow Lactic Acidosis -? 2/2 persistent coughing and tachypnea as well as beta agonist administration for days/weeks -No hx/suspicion for EtOH, DM, hypoperfusion, malignancy, HIV -bicarb and AG wnl -ABG Dispo: We will continue to follow the patient. Thank you for this consultative opportunity. Visit type - Emergency Visit Emergency Visit: No - New Patient This patient is new to me today: No - Critical Care Critical Care patient: No ATTENDING PHYSICIAN STATEMENT I saw and evaluated the patient. I reviewed the resident's note and discussed the case with the resident. I agree with the resident's findings and plan as documented. SUBJECTIVE: OBJECTIVE: ASSESSMENT AND PLAN:
[2019-10-05] MEDS: AZITHROMYCIN IVPB 500 MG/250 ML BAG IVPB SCH (10:48)
--- NOTE | 2019-10-05 12:18 | EKG ---
Test Reason : Blood Pressure : / mmHG Vent. Rate : 069 BPM Atrial Rate : 069 BPM P-R Int : 138 ms QRS Dur : 092 ms QT Int : 402 ms P-R-T Axes : 027 004 028 degrees QTc Int : 430 ms NORMAL SINUS RHYTHM MINIMAL VOLTAGE CRITERIA FOR LVH, MAY BE NORMAL VARIANT BORDERLINE ECG WHEN COMPARED WITH ECG OF 04-OCT-2019 09:05, NO SIGNIFICANT CHANGE WAS FOUND Confirmed by JUSTEN MOREAU, STEPHANIE ([id number]) on 10/05/2019 12:17:42 PM Referred By: COURTNEY HENDERSON Confirmed By:STEPHANIE CAMPUZANO MD
[2019-10-05 12:39] LABS: ANISOCYTOSIS 0; MACROCYTOSIS 0; PLATELET ESTIMATE NORMAL
--- NOTE | 2019-10-05 12:39 | PN ---
Progress Note, Physician History of Present Illness: improving breathing better - Current Medication List Current Medications: Active Medications Acetaminophen (Tylenol -) 650 mg PO Q6H PRN PRN Reason: PAIN LEVEL 1-5 Last Admin: 10/05/19 08:51 Dose: 650 mg Albuterol Sulfate (Ventolin 0.083% Nebulizer Soln -) 1 amp NEB Q4H PRN PRN Reason: SHORT OF BREATH/WHEEZING Albuterol/Ipratropium (Duoneb -) 1 amp NEB RQID T[facility] Last Admin: 10/05/19 08:00 Dose: 1 amp Clonazepam (Klonopin -) 0.5 mg PO Q6H PRN PRN Reason: ANXIETY Last Admin: 10/04/19 23:02 Dose: 0.5 mg Enoxaparin Sodium (Lovenox -) 40 mg SQ DAILY T[facility] Last Admin: 10/05/19 09:18 Dose: 40 mg Fluticasone Propionate (Flonase -) 2 spray NS DAILY T[facility] Last Admin: 10/05/19 09:16 Dose: 2 sprays Guaifenesin/Codeine Phosphate (Robitussin Ac -) 10 ml PO Q8H PRN PRN Reason: COUGH Last Admin: 10/04/19 01:06 Dose: 10 ml Azithromycin (Zithromax 500mg Ivpb (Pre-Docked)) 500 mg in 250 mls @ 250 mls/ hr IVPB DAILY [facility] Last Admin: 10/05/19 10:48 Dose: 250 mls/hr Sodium Chloride (Normal Saline -) 1,000 mls @ 150 mls/hr IV ASDIR [facility] Last Admin: 10/05/19 02:05 Dose: 150 mls/hr Piperacillin Sod/Tazobactam (Sod 3.375 gm/ Dextrose) 50 mls @ 100 mls/hr IVPB Q8H-IV TALISHA; Protocol Last Admin: 10/05/19 09:14 Dose: 100 mls/hr Methylprednisolone Sodium Succinate (Solu-Medrol -) 40 mg IVPUSH Q6H-IV T[facility] Last Admin: 10/05/19 08:58 Dose: 40 mg Montelukast Sodium (Singulair -) 10 mg PO HS T[facility]HA Last Admin: 10/04/19 21:27 Dose: 10 mg Fluticasone/Salmeterol (Advair 100mcg/50mcg -) 1 puff IH BID [facility] Last Admin: 10/05/19 09:16 Dose: 1 puff Sodium Chloride ([place] Nasal [place] -) 2 spray NS TID PRN PRN Reason: NASAL CONGESTION - Objective Vital Signs: Vital Signs Temperature 98.4 F 10/05/19 08:45 Pulse Rate 81 10/05/19 08:45 Respiratory Rate 20 10/05/19 08:45 Blood Pressure 150/94 10/05/19 08:45 O2 Sat by Pulse Oximetry (%) 96 10/04/19 21:00 Constitutional: Yes: No Distress, Calm Cardiovascular: Yes: S1, S2 Respiratory: Yes: Regular, CTA Bilaterally Gastrointestinal: Yes: Normal Bowel Sounds, Soft Musculoskeletal: Yes: WNL Extremities: Yes: Erythema (improving), Other Neurological: Yes: Alert, Oriented Psychiatric: Yes: Alert, Oriented Labs: CBC, BMP 10/05/19 07:10 10/05/19 07:10 INR, PTT INR 1.00 (0.83-1.09) 10/01/19 12:48 Assessment/Plan 43 y/o F pmh of asthma and depression, presents to the ED for difficulty breathing, productive cough of yellow sputum and fever. Pt reports that she has been symptomatic for 3 weeks with a fever that started 2-3 days ago #Acute resp distress fever cough lactic acidosis leukocytosis plan we will continue current mgmt abx elevation of the leg rest as per the team will d/w the team
[2019-10-05] MEDS ORDERED: SODIUM CHLORIDE 1,000 ML IV STA (12:49)
[2019-10-05] MEDS ORDERED: IBUPROFEN 400 MG TABLET (FP) PO ONE (12:52)
--- NOTE | 2019-10-05 12:53 | PN ---
Physical Exam: SUBJECTIVE: Patient seen and examined at the bedside. still having left sided below breast bone pain, will send for echo. cardiology consulted. OBJECTIVE: ekg unchanged, nsr and troponins negative will send for echo for chest pain cardiology consulted for left sided chest pain, may be pleuritic, but is persistent ---- Patient is a 43 year old female with pmh of asthma and depression, presents to the ED for difficulty breathing, productive cough of yellow sputum and fever. Pt reports that she has been symptomatic for 3 weeks with a fever that started 2 -3 days ago. She was seen at her local hospital at [place] three weeks ago, during which they sent her home with a dx of bronchitis and a Z pack. Her symptoms then worsened, prompting her to see her PCP who sent her home on fluticasone/salmeterol and cough medication. In the ED she was given 1 amp of dounebs and her symptoms improved. She is currently on zosyn for presumed pneumonia as well as lactic acidosis. She is also on a medrol taper. She is currently on 2 -3 liters of nasal cannula. her chest snowden persist and will be sent for an echo with cardiology consultation. Vital Signs Period Temp Pulse Resp BP Sys/Hall Pulse Ox Last 24 Hr 97.4 F-98.4 F 65-86 18-20 131-150/68-94 96 GENERAL: The patient is awake, alert, and fully oriented, in no acute distress. HEAD: Normal with no signs of trauma. EYES: PERRL, extraocular movements intact, sclera anicteric, conjunctiva clear. No ptosis. ENT: Ears normal, nares patent, oropharynx clear without exudates, moist mucous membranes. NECK: Trachea midline, full range of motion, supple. LUNGS: scattered wheezing but improved airway entry bilaterally HEART: Regular rate and rhythm ABDOMEN: Soft, nontender, nondistended, normoactive bowel sounds, no guarding, no rebound, no hepatosplenomegaly, no masses. EXTREMITIES: no edema. NEUROLOGICAL: Normal speech, gait not observed. PSYCH: Normal mood, normal affect. Laboratory Results - last 24 hr 10/04/19 10/04/19 10/04/19 16:15 16:15 23:05 WBC RBC Hgb Hct MCV MCH MCHC RDW Plt Count MPV Absolute Neuts (auto) Neutrophils % Neutrophils % (Manual) Band Neutrophils % Lymphocytes % Lymphocytes % (Manual) Monocytes % Monocytes % (Manual) Eosinophils % Eosinophils % (Manual) Basophils % Basophils % (Manual) Myelocytes % (Man) Promyelocytes % (Man) Blast Cells % (Manual) Nucleated RBC % Metamyelocytes Hypochromia Platelet Estimate Polychromasia Poikilocytosis Anisocytosis Microcytosis Macrocytosis Stomatocytes Sodium Potassium Chloride Carbon Dioxide Anion Gap BUN Creatinine Est GFR (CKD-EPI)AfAm Est GFR (CKD-EPI)NonAf Random Glucose Lactic Acid 4.3 H* 4.0 H* Calcium Magnesium Total Bilirubin AST ALT Alkaline Phosphatase Troponin I < 0.02 Total Protein Albumin 10/05/19 10/05/19 10/05/19 07:10 07:10 07:10 WBC 15.1 H RBC 4.08 Hgb 12.1 Hct 36.2 MCV 88.7 MCH 29.6 MCHC 33.4 RDW 13.5 Plt Count 298 MPV 6.8 L Absolute Neuts (auto) 13.6 H Neutrophils % 90.0 H Neutrophils % (Manual) 92.9 H Band Neutrophils % 0.0 Lymphocytes % 6.9 L Lymphocytes % (Manual) 4.1 L D Monocytes % 3.0 L Monocytes % (Manual) 1 L Eosinophils % 0.0 Eosinophils % (Manual) 0.0 Basophils % 0.1 D Basophils % (Manual) 0.0 Myelocytes % (Man) 0 Promyelocytes % (Man) 0 Blast Cells % (Manual) 0 Nucleated RBC % 0 Metamyelocytes 0 D Hypochromia 0 Platelet Estimate Normal Polychromasia 0 Poikilocytosis 1+ Anisocytosis 0 Microcytosis 0 Macrocytosis 0 Stomatocytes 1+ Sodium 136 Potassium 4.1 Chloride 102 Carbon Dioxide 23 Anion Gap 11 BUN 11.3 Creatinine 0.6 Est GFR (CKD-EPI)AfAm 129.39 Est GFR (CKD-EPI)NonAf 111.64 Random Glucose 151 H Lactic Acid 5.5 H* Calcium 7.9 L Magnesium 2.3 Total Bilirubin 0.2 AST 6 L ALT 26 Alkaline Phosphatase 49 Troponin I Total Protein 6.4 Albumin 3.2 L Active Medications Generic Name Dose Route Start Last Admin Trade Name Freq PRN Reason Stop Dose Admin Acetaminophen 650 mg 10/01/19 17:32 10/05/19 08:51 Tylenol - PO 650 mg Q6H PRN Administration PAIN LEVEL 1-5 Albuterol Sulfate 1 amp 10/04/19 11:44 Ventolin 0.083% Nebulizer Soln - NEB Q4H PRN SHORT OF BREATH/WHEEZING Albuterol/Ipratropium 1 amp 10/04/19 12:00 10/05/19 08:00 Duoneb - NEB 1 amp RQID TALISHA Administration Clonazepam 0.5 mg 10/01/19 17:35 10/04/19 23:02 Klonopin - PO 0.5 mg Q6H PRN Administration ANXIETY Enoxaparin Sodium 40 mg 10/02/19 10:00 10/05/19 09:18 Lovenox - SQ 40 mg DAILY TALISHA Administration Fluticasone Propionate 2 spray 10/04/19 11:45 10/05/19 09:16 Flonase - NS 2 sprays DAILY TALISHA Administration Guaifenesin/Codeine Phosphate 10 ml 10/03/19 12:21 10/04/19 01:06 Robitussin Ac - PO 10 ml Q8H PRN Administration COUGH Azithromycin 500 mg in 250 mls @ 250 mls/hr 10/03/19 12:00 10/05/19 10:48 Zithromax 500mg Ivpb (Pre-Docked) IVPB 250 mls/hr DAILY TALISHA Administration Sodium Chloride 1,000 mls @ 150 mls/hr 10/03/19 12:16 10/05/19 02:05 Normal Saline - IV 150 mls/hr ASDIR TALISHA Administration Piperacillin Sod/Tazobactam 50 mls @ 100 mls/hr 10/03/19 13:30 10/05/19 09:14 Sod 3.375 gm/ Dextrose IVPB 100 mls/hr Q8H-IV TALISHA Administration Protocol Sodium Chloride 1,000 mls @ 1,000 mls/hr 10/05/19 12:49 Normal Saline - IV 10/05/19 13:48 ASDIR STA Ibuprofen 400 mg 10/05/19 12:52 Motrin - PO 10/05/19 12:53 ONCE ONE Methylprednisolone Sodium Succinate 40 mg 10/01/19 21:00 10/05/19 08:58 Solu-Medrol - IVPUSH 40 mg Q6H-IV TALISHA Administration Montelukast Sodium 10 mg 10/04/19 22:00 10/04/19 21:27 Singulair - PO 10 mg HS TALISHA Administration Fluticasone/Salmeterol 1 puff 10/01/19 22:00 10/05/19 09:16 Advair 100mcg/50mcg - IH 1 puff BID TALISHA Administration Sodium Chloride 2 spray 10/04/19 11:44 [place] Nasal [place] - NS TID PRN NASAL CONGESTION ASSESSMENT/PLAN: Problem List - Problems (1) Chest pain Assessment/Plan: chest pain persists on left sided, under breast and radiates to her back, worse with coughing troponins negative echo ordered and pending will give one dose of motrin now cardiology consulted, bnp ordered for a.m Code(s): R07.9 - CHEST PAIN, UNSPECIFIED (2) Asthma exacerbation Assessment/Plan: on solumedrol taper, duonebs, singular and bronchodilators pulmonary consulted Code(s): J45.901 - UNSPECIFIED ASTHMA WITH (ACUTE) EXACERBATION Qualifiers: Asthma severity: unspecified severity Asthma persistence: unspecified Qualified Code(s): J45.901 - Unspecified asthma with (acute) exacerbation (3) Lactic acid acidosis Assessment/Plan: elevated at 5 on zosyn repeat lactic acid tonight will give 1 liter bolus may be caused by allbuterol renal consulted, abg ordered Code(s): E87.2 - ACIDOSIS (4) Leukocytosis Code(s): D72.829 - ELEVATED WHITE BLOOD CELL COUNT, UNSPECIFIED (5) Pneumonia Assessment/Plan: start zosyn and azithromycin given no improvement ID consulted and following Code(s): J18.9 - PNEUMONIA, UNSPECIFIED ORGANISM Qualifiers: Pneumonia type: due to unspecified organism Laterality: unspecified laterality Lung location: lower lobe of lung Qualified Code(s): J18.9 - Pneumonia, unspecified organism (6) Respiratory failure Assessment/Plan: on 3 liters of nasal cannula with duonebs stable oxygen saturations will attempt to wean off oxygen as tolerated pulmonary following on solumedrol taper Code(s): J96.90 - RESPIRATORY FAILURE, UNSP, UNSP W HYPOXIA OR HYPERCAPNIA (7) Depression Assessment/Plan: continue home medications Code(s): F32.9 - MAJOR DEPRESSIVE DISORDER, SINGLE EPISODE, UNSPECIFIED (8) Prophylactic measure Assessment/Plan: fen tolerating po monitor electrolytes low salt diet full code physical therapy Code(s): Z29.9 - ENCOUNTER FOR PROPHYLACTIC MEASURES, UNSPECIFIED (9) DVT prophylaxis Assessment/Plan: lovenox 40 daily Code(s): Z29.9 - ENCOUNTER FOR PROPHYLACTIC MEASURES, UNSPECIFIED Visit type - Emergency Visit Emergency Visit: Yes ED Registration Date: 10/01/19 Care time: The patient presented to the Emergency Department on the above date and was hospitalized for further evaluation of their emergent condition. - New Patient This patient is new to me today: No - Critical Care Critical Care patient: No - Discharge Referral Referred to [facility] Med P.C.: No
--- NOTE | 2019-10-05 13:04 | CON.CARD ---
Consult Consult Specialty:: Cardiology - History of Present Illness History of Present Illness: 43 y/o F pmh of asthma and depression, presents to the ED for difficulty breathing, productive cough of yellow sputum and fever. Pt reports that she has been symptomatic for 3 weeks with a fever that started 2-3 days ago. She was seen at her local hospital in [place] three weeks ago, during which they sent her home with a dx of bronchitis and a Z pack. Her symptoms then worsened, prompting her to see her PCP who sent her home on fluticasone/salmeterol and cough medication. In the ED, she was saturating at 93 and tachy at 110s. She was given 1 amp of dounebs and her symptoms improved. She admits to coughing, chest pain, fevers. Denies c/n/v/d/abdominal pain. - History Source History Provided By: Patient, Medical Record - Past Medical History Pulmonary: Yes: Asthma, Bronchitis. No: Cancer, COPD, O2 Dependent, Pneumonia, Previously Intubated, Pulmonary Embolus, Pulmonary Fibrosis ...LMP: 09/18/19 ...: No - Alcohol/Substance Use Hx Alcohol Use: No - Smoking History Smoking history: Never smoked Have you smoked in the past 12 months: No Aproximately how many cigarettes per day: 0 If you are a former smoker, when did you quit?: 2006 Home Medications - Allergies Allergies/Adverse Reactions: Allergies Allergy/AdvReac Type Severity Reaction Status Date / Time latex [Latex] Allergy Intermediate Itching Verified 09/30/19 16:59 - Home Medications Home Medications: Ambulatory Orders KlonoPIN - 0.5 mg PO BID PRN 10/01/19 Salmeterol/Fluticasone [Advair 100Mcg/50Mcg -] 1 puff DAILY PRN 10/01/19 Codein Guaifen 5 ml PO Q4H PRN 10/02/19 Review of Systems - Review of Systems Constitutional: reports: No Symptoms Eyes: reports: No Symptoms HENT: reports: No Symptoms Neck: reports: No Symptoms Cardiovascular: reports: Shortness of Breath Respiratory: reports: SOB Gastrointestinal: reports: No Symptoms Genitourinary: reports: No Symptoms Breasts: reports: No Symptoms Reported Musculoskeletal: reports: No Symptoms Integumentary: reports: No Symptoms Neurological: reports: No Symptoms Endocrine: reports: No Symptoms Hematology/Lymphatic: reports: No Symptoms Psychiatric: reports: No Symptoms Vital Signs: Vital Signs Temperature 98.4 F 10/05/19 08:45 Pulse Rate 81 10/05/19 08:45 Respiratory Rate 20 10/05/19 08:45 Blood Pressure 150/94 10/05/19 08:45 O2 Sat by Pulse Oximetry (%) 96 10/04/19 21:00 Constitutional: Yes: Well Nourished, No Distress, Calm Eyes: Yes: WNL, Conjunctiva Clear, EOM Intact HENT: Yes: WNL, Atraumatic, Normocephalic Neck: Yes: WNL, Supple, Trachea Midline Respiratory: Yes: WNL, Regular, CTA Bilaterally Gastrointestinal: Yes: WNL, Normal Bowel Sounds Renal/: Yes: WNL Cardiovascular: Yes: WNL, Regular Rate and Rhythm Musculoskeletal: Yes: WNL Extremities: Yes: WNL Integumentary: Yes: WNL Neurological: Yes: WNL, Alert, Oriented ...Motor Strength: WNL Psychiatric: Yes: WNL, Alert, Oriented - Other Data Labs, Other Data: CBC, BMP 10/05/19 07:10 10/05/19 07:10 INR, PTT INR 1.00 (0.83-1.09) 10/01/19 12:48 Troponin, BNP 10/04/19 16:15 Troponin I < 0.02 Troponin, BNP 10/04/19 16:15 Troponin I < 0.02 Imaging - Results Chest X-ray: Image Reviewed (no i/e) EKG: Image Reviewed (nsr borderline LVH) Problem List - Problems (1) Asthma exacerbation Code(s): J45.901 - UNSPECIFIED ASTHMA WITH (ACUTE) EXACERBATION Qualifiers: Asthma severity: unspecified severity Asthma persistence: unspecified Qualified Code(s): J45.901 - Unspecified asthma with (acute) exacerbation (2) Depression Code(s): F32.9 - MAJOR DEPRESSIVE DISORDER, SINGLE EPISODE, UNSPECIFIED (3) Lactic acid acidosis Code(s): E87.2 - ACIDOSIS (4) Leukocytosis Code(s): D72.829 - ELEVATED WHITE BLOOD CELL COUNT, UNSPECIFIED (5) Pneumonia Code(s): J18.9 - PNEUMONIA, UNSPECIFIED ORGANISM Qualifiers: Pneumonia type: due to unspecified organism Laterality: unspecified laterality Lung location: lower lobe of lung Qualified Code(s): J18.9 - Pneumonia, unspecified organism (6) Prophylactic measure Code(s): Z29.9 - ENCOUNTER FOR PROPHYLACTIC MEASURES, UNSPECIFIED (7) Respiratory failure Code(s): J96.90 - RESPIRATORY FAILURE, UNSP, UNSP W HYPOXIA OR HYPERCAPNIA (8) Accidental fall Code(s): W19.XXXA - UNSPECIFIED FALL, INITIAL ENCOUNTER (9) Acute otitis media Code(s): H66.90 - OTITIS MEDIA, UNSPECIFIED, UNSPECIFIED EAR (10) Acute viral syndrome Code(s): B34.9 - VIRAL INFECTION, UNSPECIFIED (11) Ankle sprain Code(s): S93.409A - SPRAIN OF UNSP LIGAMENT OF UNSPECIFIED ANKLE, INIT ENCNTR Qualifiers: Encounter type: initial encounter Involved ligament of ankle: unspecified ligament Laterality: left Qualified Code(s): S93.402A - Sprain of unspecified ligament of left ankle, initial encounter (12) Anxiety Code(s): F41.9 - ANXIETY DISORDER, UNSPECIFIED (13) Asthma Code(s): J45.909 - UNSPECIFIED ASTHMA, UNCOMPLICATED (14) Atypical chest pain Code(s): R07.89 - OTHER CHEST PAIN (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 (16) Bronchitis Code(s): J40 - BRONCHITIS, NOT SPECIFIED ACUTE OR CHRONIC (17) Chest pain Code(s): R07.9 - CHEST PAIN, UNSPECIFIED Qualifiers: Chest pain type: unspecified Qualified Code(s): R07.9 - Chest pain, unspecified (18) Corneal abrasion Code(s): S05.00XA - INJ CONJUNCTIVA AND CORNEAL ABRASION W/O FB, UNSP EYE, INIT Qualifiers: Encounter type: initial encounter Laterality: right Qualified Code(s): S05.01XA - Injury of conjunctiva and corneal abrasion without foreign body, right eye, initial encounter (19) Diarrhea Code(s): R19.7 - DIARRHEA, UNSPECIFIED (20) Drug overdose Code(s): T50.901A - POISONING BY UNSP DRUG/MEDS/BIOL SUBST, ACCIDENTAL, INIT Qualifiers: Encounter type: initial encounter Injury intent: undetermined intent Qualified Code(s): T50.904A - Poisoning by unspecified drugs, medicaments and biological substances, undetermined, initial encounter (21) Eye abrasion Code(s): S05.8X9A - OTHER INJURIES OF UNSPECIFIED EYE AND ORBIT, INIT ENCNTR (22) Finger lesion Code(s): L98.9 - DISORDER OF THE SKIN AND SUBCUTANEOUS TISSUE, UNSPECIFIED (23) Gall stone Code(s): K80.20 - CALCULUS OF GALLBLADDER W/O CHOLECYSTITIS W/O OBSTRUCTION Qualifiers: Cholecystitis presence: without cholecystitis Biliary obstruction: without biliary obstruction Qualified Code(s): K80.20 - Calculus of gallbladder without cholecystitis without obstruction (24) Musculoskeletal pain Code(s): M79.1 - MYALGIA * DO NOT USE * (25) Pharyngitis Code(s): J02.9 - ACUTE PHARYNGITIS, UNSPECIFIED (26) Premenstrual symptom Code(s): N94.3 - PREMENSTRUAL TENSION SYNDROME (27) Seasonal allergies Code(s): J30.2 - OTHER SEASONAL ALLERGIC RHINITIS Qualifiers: Allergic rhinitis trigger: pollen (28) Sinusitis Code(s): J32.9 - CHRONIC SINUSITIS, UNSPECIFIED Qualifiers: Sinusitis location: maxillary Chronicity: acute Recurrence: not specified as recurrent Qualified Code(s): J01.00 - Acute maxillary sinusitis, unspecified (29) Streptococcal pharyngitis Code(s): J02.0 - STREPTOCOCCAL PHARYNGITIS (30) Vasovagal syncope Code(s): R55 - SYNCOPE AND COLLAPSE (31) Viral URI with cough Code(s): J06.9 - ACUTE UPPER RESPIRATORY INFECTION, UNSPECIFIED; B97.89 - OTH VIRAL AGENTS THE CAUSE OF DISEASES CLASSD ELSWHR (32) Viral upper respiratory infection Code(s): J06.9 - ACUTE UPPER RESPIRATORY INFECTION, UNSPECIFIED (33) Vomiting Code(s): R11.10 - VOMITING, UNSPECIFIED Assessment/Plan Asthma Acute resp distress fever cough lactic acidosis leukocytosis Plan ECHO BNP cont pulmonary rx
--- NOTE | 2019-10-05 15:15 | PN ---
Teaching Attending Note Name of Resident: Cornelio Benoit (Nephrology) ATTENDING PHYSICIAN STATEMENT I saw and evaluated the patient. I reviewed the resident's note and discussed the case with the resident. I agree with the resident's findings and plan as documented. SUBJECTIVE: This is a 43 year old woman with history of Asthma, depression and anxiety who presented to the ED with shortness of breath and found to have asthma exacerbation and found to have persistent lactic acidosis. Remainder of HPI as per resident report. OBJECTIVE: Vital Signs Temperature 98.4 F 10/05/19 08:45 Pulse Rate 81 10/05/19 08:45 Respiratory Rate 10/05/19 08:45 Blood Pressure 150/94 10/05/19 08:45 O2 Sat by Pulse Oximetry (%) 96 10/04/19 21:00 Intake & Output 10/02/19 10/03/19 10/04/19 10/05/19 23:59 23:59 23:59 23:59 Intake Total 3500 4060 7300 2000 Balance 3500 4060 7300 2000 NAD awake and alert neck supple, no JVD RRR, no M/R Dec BS throughout the lung diamond soft, NT/ND no LE edema, swelling or cyanosis CBC, BMP 10/05/19 07:10 10/05/19 07:10 Laboratory Tests 10/03/19 10/04/19 10/04/19 21:10 06:40 16:15 Lactic Acid 3.0 H* 4.4 H* 4.3 H* 10/04/19 10/05/19 23:05 07:10 Lactic Acid 4.0 H* 5.5 H* Current Medications Acetaminophen (Tylenol -) 650 mg PO Q6H PRN PRN Reason: PAIN LEVEL 1-5 Last Admin: 10/05/19 08:51 Dose: 650 mg Albuterol Sulfate (Ventolin 0.083% Nebulizer Soln -) 1 amp NEB Q4H PRN PRN Reason: SHORT OF BREATH/WHEEZING Albuterol/Ipratropium (Duoneb -) 1 amp NEB RQID TALISHA Last Admin: 10/05/19 08:00 Dose: 1 amp Clonazepam (Klonopin -) 0.5 mg PO Q6H PRN PRN Reason: ANXIETY Last Admin: 10/04/19 23:02 Dose: 0.5 mg Enoxaparin Sodium (Lovenox -) 40 mg SQ DAILY TALISHA Last Admin: 10/05/19 09:18 Dose: 40 mg Fluticasone Propionate (Flonase -) 2 spray NS DAILY TALISHA Last Admin: 10/05/19 09:16 Dose: 2 sprays Guaifenesin/Codeine Phosphate (Robitussin Ac -) 10 ml PO Q8H PRN PRN Reason: COUGH Last Admin: 10/04/19 01:06 Dose: 10 ml Azithromycin (Zithromax 500mg Ivpb (Pre-Docked)) 500 mg in 250 mls @ 250 mls/ hr IVPB DAILY TALISHA Last Admin: 10/05/19 10:48 Dose: 250 mls/hr Sodium Chloride (Normal Saline -) 1,000 mls @ 150 mls/hr IV ASDIR TALISHA Last Admin: 10/05/19 02:05 Dose: 150 mls/hr Piperacillin Sod/Tazobactam (Sod 3.375 gm/ Dextrose) 50 mls @ 100 mls/hr IVPB Q8H-IV TALISHA; Protocol Last Admin: 10/05/19 09:14 Dose: 100 mls/hr Methylprednisolone Sodium Succinate (Solu-Medrol -) 40 mg IVPUSH Q6H-IV TALISHA Last Admin: 10/05/19 08:58 Dose: 40 mg Montelukast Sodium (Singulair -) 10 mg PO HS TALISHA Last Admin: 10/04/19 21:27 Dose: 10 mg Pantoprazole Sodium (Protonix -) 40 mg PO DAILY TALISHA Fluticasone/Salmeterol (Advair 100mcg/50mcg -) 1 puff IH BID TALISHA Last Admin: 10/05/19 09:16 Dose: 1 puff Sodium Chloride ([place] Nasal [place] -) 2 spray NS TID PRN PRN Reason: NASAL CONGESTION ASSESSMENT AND PLAN: 1. Lactic acidosis w/o evidence of tissue hypoprofusion 2. Asthma exacerbation 3. Possible PNA Lactic acidosis likely related to beta agonist exposure He serum bicbaronate is normal and there is no elevation in her anion gap Would check ABG to ensure that pH is WNL can discontinue IVF as pt is without evidence of hypovolemia continue Nebs/Steroids as per pulmonary Thank you Gerber Joshi DO
--- NOTE | 2019-10-05 15:19 | ECHO ---
Name: MELINDA PADILLAYCE Exam:Adult Echocardiogram Study Date: 10/05/2019 02:22 PM Age: 43 yrs Height: 66 in Weight: 209 lb BSA: 2.0 m2 MMode/2D Measurements & Calculations IVSd: 0.82 cm Ao root diam: 2.9 cm LVIDd: 3.8 cm LA dimension: 3.5 cm LVIDs: 2.7 cm LVPWd: 1.2 cm LVPWs: 1.4 cm EDV(Teich): 63.3 ml ESV(Teich): 28.0 ml LVOT diam: 2.0 cm RV S Rito: 15.7 cm/sec Doppler Measurements & Calculations MV E max rito: 105.6 cm/sec Ao V2 max: 149.3 cm/sec MV A max rito: 91.3 cm/sec Ao max P.9 mmHg MV E/A: 1.2 MV dec time: 0.20 sec LEO(V,D): 2.3 cm2 LV V1 max P.4 mmHg PA V2 max: 116.4 cm/sec LV V1 max: 105.1 cm/sec PA max P.4 mmHg Med Peak E' Rito: 8.1 cm/sec Med E/e': 13.0 Lat Peak E' Rito: 7.0 cm/sec Lat E/e': 15.1 Procedure A two-dimensional transthoracic echocardiogram with color flow and Doppler was performed. Left Ventricle The left ventricular size, thickness and function are normal. The left ventricular ejection fraction is normal. Left Ventricular Filling pattern is normal for age. The left ventricular wall motion is chastity l. Right Ventricle The right ventricle is normal in size and function. Atria Normal left and right atrial size and function. Mitral Valve There is mild mitral valve thickening. There is no mitral valve stenosis. There is trace to mild mitr al regurgitation. Tricuspid Valve There is mild tricuspid valve thickening. There is no tricuspid stenosis. There was insufficient TR d etected to calculate RV systolic pressure. Aortic Valve The aortic valve is not well visualized. No hemodynamically significant valvular aortic stenosis. No aortic regurgitation is present. Pulmonic Valve The pulmonic valve is not well visualized. Great Vessels The aortic root is normal size. Pericardium/Pleura Trivial pericardial effusion not hemodynamically significant. Interpretation Summary The left ventricular size, thickness and function are normal The left ventricular ejection fraction is normal. The left ventricular wall motion is normal. There is trace to mild mitral regurgitation. Left Ventricular Filling pattern is normal for age. There was insufficient TR detected to calculate RV systolic pressure. Trivial pericardial effusion not hemodynamically significant MD Anant Mason 10/05/2019 03:18 PM
[2019-10-05 16:32] LABS: ARTERIAL BLD GAS O2 SATURATION 96.1 % (95-98); ARTERIAL BLOOD GAS BASE EXCESS -1.4 meq/l (-2-2); ARTERIAL BLOOD GAS PCO2 37.9 mmHg (35-45); ARTERIAL BLOOD GAS PO2 84.2 mmHg (80-100)
[2019-10-05 16:33] LABS: ALLENS TEST POSITIVE
[2019-10-05] MEDS ORDERED: INSULIN (NOVOLOG) ASPART 100 UNITS/ML 10ML VIAL ONE (17:17)
[2019-10-05] MEDS: INSULIN SLIDING SCALE (NOVOLOG) 1 VIAL SQ SCH ×2 (17:18→21:42)
[2019-10-05] MEDS ORDERED: PT OWN MED DRAWER 7, Y5N ONE (21:24)
[2019-10-05] MEDS: MONTELUKAST NA 10 MG TABLET PO SCH (21:31)
[2019-10-05] MEDS: clonazePAM 0.5 MG TABLET PO PRN (21:32)
[2019-10-06] MEDS ORDERED: PIPERACILLIN/TAZOBACTAM 3.375 GM VIAL IVPB ONE ×3 (02:16→17:58)
[2019-10-06] MEDS ORDERED: DEXTROSE 5%-WATER - 50 ML IVPB ONE ×3 (02:16→17:58)
[2019-10-06] MEDS: PIPERACILLIN/TAZOB 3.375 GM 3.375 GM in DEXTROSE 5%-WATER - 50 ML IVPB SCH ×3 (02:32→18:42)
[2019-10-06] MEDS: methylPREDNISolone NA SUCC 40 MG/1 ML VIAL IVPUSH SCH ×4 (02:32→20:58)
[2019-10-06] MEDS ORDERED: IBUPROFEN 400 MG TABLET (FP) PO ONE (02:56)
[2019-10-06] MEDS: INSULIN SLIDING SCALE (NOVOLOG) 1 VIAL SQ SCH ×4 (06:09→21:06)
[2019-10-06] MEDS: ACETAMINOPHEN 325 MG TABLET (FP) PO PRN (06:40)
[2019-10-06] MEDS: ALBUTEROL SO4 2.5/IPRATROPIUM 0.5 INH SOL 3 ML VIAL.NEB. NEB SCH ×4 (07:50→21:45)
[2019-10-06] MEDS: ENOXAPARIN NA (PORCINE) 40 MG/0.4 ML DISP.SYRIN SQ SCH (09:16)
[2019-10-06] MEDS: PANTOPRAZOLE 40 MG TABLET (FP) PO SCH (09:16)
[2019-10-06] MEDS: FLUTICASONE PROP 0.05% 16 GM NASAL SPRAY NS SCH (09:17)
[2019-10-06] MEDS: FLUTICASONE/SALMETEROL 100 MCG/50 MCG DISKUS IH SCH ×2 (09:20→21:05)
[2019-10-06 09:27] LABS: BASO % 0.1 % (0-2.0); HEMATOCRIT 37.5 % (32.4-45.2); HEMOGLOBIN 12.6 GM/dL (10.7-15.3); LYMPH % 9.1 % (8-40); MCH 29.8 pg (25.7-33.7); MCHC 33.6 g/dl (32.0-36.0); MEAN CELL VOLUME 88.7 fl (80-96); MEAN PLT VOLUME 6.8 fl (7.5-11.1); MONO % 3.7 % (3.8-10.2); NEUT % 87.1 % (42.8-82.8); PLATELET COUNT 317 K/MM3 (134-434); RBC 4.23 M/mm3 (3.60-5.2); RDW 13.6 % (11.6-15.6); WHITE BLOOD COUNT 14.5 K/mm3 (4.0-10.0)
[2019-10-06] MEDS: AZITHROMYCIN IVPB 500 MG/250 ML BAG IVPB SCH (09:35)
[2019-10-06 09:51] LABS: N-TERMINAL BNP 280.5 pg/ml (5-125)
[2019-10-06 09:57] LABS: ALBUMIN 3.2 g/dl (3.4-5.0); BILIRUBIN,TOTAL 0.4 mg/dL (0.2-1); BLOOD UREA NITROGEN 13.6 mg/dL (7-18); CALCIUM 8.1 mg/dL (8.5-10.1); CREATININE 0.8 mg/dL (0.55-1.3); MAGNESIUM 2.4 mg/dL (1.8-2.4); POTASSIUM 3.9 mmol/L (3.5-5.1); TOT PROT 6.6 g/dl (6.4-8.2)
--- NOTE | 2019-10-06 10:39 | PN ---
Progress Note (short form) - Note Progress Note: Continues to slowly improve. Less SOB and wheezing. Nasal passages are more open. No acute events overnight. PEF yesterday: 200 / 270 Intake & Output 10/03/19 10/04/19 10/05/19 10/06/19 23:59 23:59 23:59 23:59 Intake Total 4060 7300 4150 400 Balance 4060 7300 4150 400 Last Vital Signs Temp Pulse Resp BP Pulse Ox 100.1 F H 78 20 131/92 96 10/06/19 06:01 10/06/19 06:01 10/06/19 06:01 10/06/19 06:01 10/05/19 21:00 Active Medications Acetaminophen (Tylenol -) 650 mg PO Q6H PRN PRN Reason: PAIN LEVEL 1-5 Last Admin: 10/06/19 06:40 Dose: 650 mg Albuterol Sulfate (Ventolin 0.083% Nebulizer Soln -) 1 amp NEB Q4H PRN PRN Reason: SHORT OF BREATH/WHEEZING Albuterol/Ipratropium (Duoneb -) 1 amp NEB RQID [facility] Last Admin: 10/06/19 07:50 Dose: 1 amp Clonazepam (Klonopin -) 0.5 mg PO Q6H PRN PRN Reason: ANXIETY Last Admin: 10/05/19 21:32 Dose: 0.5 mg Enoxaparin Sodium (Lovenox -) 40 mg SQ DAILY [facility] Last Admin: 10/06/19 09:16 Dose: 40 mg Fluticasone Propionate (Flonase -) 2 spray NS DAILY [facility] Last Admin: 10/06/19 09:17 Dose: 2 sprays Guaifenesin/Codeine Phosphate (Robitussin Ac -) 10 ml PO Q8H PRN PRN Reason: COUGH Last Admin: 10/04/19 01:06 Dose: 10 ml Azithromycin (Zithromax 500mg Ivpb (Pre-Docked)) 500 mg in 250 mls @ 250 mls/ hr IVPB DAILY [facility] Last Admin: 10/06/19 09:35 Dose: 250 mls/hr Piperacillin Sod/Tazobactam (Sod 3.375 gm/ Dextrose) 50 mls @ 100 mls/hr IVPB Q8H-IV [facility]; Protocol Last Admin: 10/06/19 09:16 Dose: 100 mls/hr Insulin Aspart (Novolog Vial Sliding Scale -) 1 vial SQ ACHS [facility]; Protocol Last Admin: 10/06/19 06:09 Dose: 4 units Methylprednisolone Sodium Succinate (Solu-Medrol -) 40 mg IVPUSH Q6H-IV [facility] Last Admin: 10/06/19 09:53 Dose: 40 mg Montelukast Sodium (Singulair -) 10 mg PO HS [facility] Last Admin: 10/05/19 21:31 Dose: 10 mg Pantoprazole Sodium (Protonix -) 40 mg PO DAILY [facility] Last Admin: 10/06/19 09:16 Dose: 40 mg Fluticasone/Salmeterol (Advair 100mcg/50mcg -) 1 puff IH BID [facility] Last Admin: 10/06/19 09:20 Dose: 1 puff Sodium Chloride ([place]al [place] -) 2 spray NS TID PRN PRN Reason: NASAL CONGESTION Constitutional: Yes: No Distress Eyes: Yes: Conjunctiva Clear, EOM Intact HENT: Yes: Atraumatic, Normocephalic Neck: Yes: Supple, Trachea Midline Cardiovascular: Yes: Regular Rate and Rhythm Respiratory: Yes: Cough, Diminished, On Nasal O2, Rhonchi, Less wheezes. No: Accessory Muscle Use, Rales, Stridor ...Inspection: Yes: WNL ...Clubbing: No Gastrointestinal: Yes: Normal Bowel Sounds, Soft, Abdomen, Obese Musculoskeletal: Yes: WNL Extremities: Yes: WNL Edema: No Peripheral Pulses WNL: Yes Integumentary: Yes: WNL Neurological: Yes: WNL, Alert, Oriented ...Motor Strength: WNL Psychiatric: Yes: WNL, Alert, Oriented Labs: Laboratory Results - last 24 hr 10/05/19 10/05/19 10/05/19 07:10 15:00 15:49 WBC RBC Hgb Hct MCV MCH MCHC RDW Plt Count MPV Absolute Neuts (auto) Neutrophils % Neutrophils % (Manual) 92.9 H Band Neutrophils % 0.0 Lymphocytes % Lymphocytes % (Manual) 4.1 L D Monocytes % Monocytes % (Manual) 1 L Eosinophils % Eosinophils % (Manual) 0.0 Basophils % Basophils % (Manual) 0.0 Myelocytes % (Man) 0 Promyelocytes % (Man) 0 Blast Cells % (Manual) 0 Nucleated RBC % Metamyelocytes 0 D Hypochromia 0 Platelet Estimate Normal Polychromasia 0 Poikilocytosis 1+ Anisocytosis 0 Microcytosis 0 Macrocytosis 0 Stomatocytes 1+ Anticoagulation Therapy No Result Required. Puncture Site Left radial ABG pH 7.40 ABG pCO2 at Pt Temp 37.9 ABG pO2 at Pt Temp 84.2 ABG HCO3 22.7 ABG O2 Sat (Measured) 96.1 ABG O2 Content 15.4 ABG Base Excess -1.4 Zohaib Test Positive O2 Delivery Device N/c Oxygen Flow Rate 3l Vent Mode No Result Required. Vent Rate No Result Required. Mechanical Rate No Result Required. Pressure Support Vent No Result Required. Sodium Potassium Chloride Carbon Dioxide Anion Gap BUN Creatinine Est GFR (CKD-EPI)AfAm Est GFR (CKD-EPI)NonAf POC Glucometer Random Glucose Lactic Acid 6.1 H* Calcium Magnesium Total Bilirubin AST ALT Alkaline Phosphatase B-Natriuretic Peptide Total Protein Albumin 10/05/19 10/05/19 10/05/19 17:12 21:38 21:45 WBC RBC Hgb Hct MCV MCH MCHC RDW Plt Count MPV Absolute Neuts (auto) Neutrophils % Neutrophils % (Manual) Band Neutrophils % Lymphocytes % Lymphocytes % (Manual) Monocytes % Monocytes % (Manual) Eosinophils % Eosinophils % (Manual) Basophils % Basophils % (Manual) Myelocytes % (Man) Promyelocytes % (Man) Blast Cells % (Manual) Nucleated RBC % Metamyelocytes Hypochromia Platelet Estimate Polychromasia Poikilocytosis Anisocytosis Microcytosis Macrocytosis Stomatocytes Anticoagulation Therapy Puncture Site ABG pH ABG pCO2 at Pt Temp ABG pO2 at Pt Temp ABG HCO3 ABG O2 Sat (Measured) ABG O2 Content ABG Base Excess Zohaib Test O2 Delivery Device Oxygen Flow Rate Vent Mode Vent Rate Mechanical Rate Pressure Support Vent Sodium Potassium Chloride Carbon Dioxide Anion Gap BUN Creatinine Est GFR (CKD-EPI)AfAm Est GFR (CKD-EPI)NonAf POC Glucometer 208 211 Random Glucose Lactic Acid 4.7 H* Calcium Magnesium Total Bilirubin AST ALT Alkaline Phosphatase B-Natriuretic Peptide Total Protein Albumin 10/06/19 10/06/19 10/06/19 06:07 08:19 08:19 WBC 14.5 H RBC 4.23 Hgb 12.6 Hct 37.5 MCV 88.7 MCH 29.8 MCHC 33.6 RDW 13.6 Plt Count 317 MPV 6.8 L Absolute Neuts (auto) 12.6 H Neutrophils % 87.1 H Neutrophils % (Manual) Band Neutrophils % Lymphocytes % 9.1 D Lymphocytes % (Manual) Monocytes % 3.7 L Monocytes % (Manual) Eosinophils % 0.0 Eosinophils % (Manual) Basophils % 0.1 Basophils % (Manual) Myelocytes % (Man) Promyelocytes % (Man) Blast Cells % (Manual) Nucleated RBC % 0 Metamyelocytes Hypochromia Platelet Estimate Polychromasia Poikilocytosis Anisocytosis Microcytosis Macrocytosis Stomatocytes Anticoagulation Therapy Puncture Site ABG pH ABG pCO2 at Pt Temp ABG pO2 at Pt Temp ABG HCO3 ABG O2 Sat (Measured) ABG O2 Content ABG Base Excess Zohaib Test O2 Delivery Device Oxygen Flow Rate Vent Mode Vent Rate Mechanical Rate Pressure Support Vent Sodium 136 Potassium 3.9 Chloride 101 Carbon Dioxide 25 Anion Gap 10 BUN 13.6 Creatinine 0.8 Est GFR (CKD-EPI)AfAm 104.65 Est GFR (CKD-EPI)NonAf 90.30 POC Glucometer 222 Random Glucose 226 H Lactic Acid Calcium 8.1 L Magnesium 2.4 Total Bilirubin 0.4 AST 8 L ALT 26 Alkaline Phosphatase 50 B-Natriuretic Peptide Total Protein 6.6 Albumin 3.2 L 10/06/19 08:19 WBC RBC Hgb Hct MCV MCH MCHC RDW Plt Count MPV Absolute Neuts (auto) Neutrophils % Neutrophils % (Manual) Band Neutrophils % Lymphocytes % Lymphocytes % (Manual) Monocytes % Monocytes % (Manual) Eosinophils % Eosinophils % (Manual) Basophils % Basophils % (Manual) Myelocytes % (Man) Promyelocytes % (Man) Blast Cells % (Manual) Nucleated RBC % Metamyelocytes Hypochromia Platelet Estimate Polychromasia Poikilocytosis Anisocytosis Microcytosis Macrocytosis Stomatocytes Anticoagulation Therapy Puncture Site ABG pH ABG pCO2 at Pt Temp ABG pO2 at Pt Temp ABG HCO3 ABG O2 Sat (Measured) ABG O2 Content ABG Base Excess Zohaib Test O2 Delivery Device Oxygen Flow Rate Vent Mode Vent Rate Mechanical Rate Pressure Support Vent Sodium Potassium Chloride Carbon Dioxide Anion Gap BUN Creatinine Est GFR (CKD-EPI)AfAm Est GFR (CKD-EPI)NonAf POC Glucometer Random Glucose Lactic Acid Calcium Magnesium Total Bilirubin AST ALT Alkaline Phosphatase B-Natriuretic Peptide 280.5 H Total Protein Albumin Problem List - Problems (1) Asthma exacerbation Code(s): J45.901 - UNSPECIFIED ASTHMA WITH (ACUTE) EXACERBATION Qualifiers: Asthma severity: unspecified severity Asthma persistence: unspecified Qualified Code(s): J45.90 - Unspecified asthma with (acute) exacerbation (2) Leukocytosis Code(s): D72.829 - ELEVATED WHITE BLOOD CELL COUNT, UNSPECIFIED (3) Pneumonia Code(s): J18.9 - PNEUMONIA, UNSPECIFIED ORGANISM Qualifiers: Pneumonia type: due to unspecified organism Laterality: unspecified laterality Lung location: lower lobe of lung Qualified Code(s): J18.9 - Pneumonia, unspecified organism (4) Acute viral syndrome Code(s): B34.9 - VIRAL INFECTION, UNSPECIFIED (5) Anxiety Code(s): F41.9 - ANXIETY DISORDER, UNSPECIFIED (6) Asthma Code(s): J45.909 - UNSPECIFIED ASTHMA, UNCOMPLICATED (7) Atypical chest pain Code(s): R07.89 - OTHER CHEST PAIN (8) Bronchitis Code(s): J40 - BRONCHITIS, NOT SPECIFIED ACUTE OR CHRONIC (9) Chest pain Code(s): R07.9 - CHEST PAIN, UNSPECIFIED Qualifiers: Chest pain type: unspecified Qualified Code(s): R07.9 - Chest pain, unspecified (10) Musculoskeletal pain Code(s): M79.1 - MYALGIA * DO NOT USE * Assessment/Plan ABX per ID O2 as needed BD TX standing and PRN Medrol at current dose and hope to taper or change to Prednisone in next 24 to 48 hours No smoking Check daily PEF Advair Nasal saline Fluticasone Singuilair Q Outpatient PFTs once stable VTE prophylaxis Dr Juarez Problem List - Problems (1) Asthma exacerbation Code(s): J45.90 - UNSPECIFIED ASTHMA WITH (ACUTE) EXACERBATION Qualifiers: Asthma severity: unspecified severity Asthma persistence: unspecified Qualified Code(s): J45. - Unspecified asthma with (acute) exacerbation (2) Leukocytosis Code(s): D72.829 - ELEVATED WHITE BLOOD CELL COUNT, UNSPECIFIED (3) Pneumonia Code(s): J18.9 - PNEUMONIA, UNSPECIFIED ORGANISM Qualifiers: Pneumonia type: due to unspecified organism Laterality: unspecified laterality Lung location: lower lobe of lung Qualified Code(s): J18.9 - Pneumonia, unspecified organism (4) Acute viral syndrome Code(s): B34.9 - VIRAL INFECTION, UNSPECIFIED (5) Anxiety Code(s): F41.9 - ANXIETY DISORDER, UNSPECIFIED (6) Asthma Code(s): J45.909 - UNSPECIFIED ASTHMA, UNCOMPLICATED (7) Atypical chest pain Code(s): R07.89 - OTHER CHEST PAIN (8) Bronchitis Code(s): J40 - BRONCHITIS, NOT SPECIFIED ACUTE OR CHRONIC (9) Chest pain Code(s): R07.9 - CHEST PAIN, UNSPECIFIED Qualifiers: Chest pain type: unspecified Qualified Code(s): R07.9 - Chest pain, unspecified (10) Musculoskeletal pain Code(s): M79.1 - MYALGIA * DO NOT USE *
[2019-10-06 10:46] LABS: ANISOCYTOSIS 0; MACROCYTOSIS 0; PLATELET ESTIMATE NORMAL
--- NOTE | 2019-10-06 10:51 | PN ---
Physical Exam: SUBJECTIVE: Patient seen and examined, had chills last night, no chest pain. feels like her breathing is improving. OBJECTIVE: Patient is a 43 year old female with pmh of asthma and depression, presents to the ED for difficulty breathing, productive cough of yellow sputum and fever. Pt reports that she has been symptomatic for 3 weeks with a fever that started 2 -3 days ago. She was seen at her local hospital at [place] three weeks ago, during which they sent her home with a dx of bronchitis and a Z pack. Her symptoms then worsened, prompting her to see her PCP who sent her home on fluticasone/salmeterol and cough medication. In the ED she was given 1 amp of dounebs and her symptoms improved. She is currently on zosyn for presumed pneumonia as well as lactic acidosis. She is also on a medrol taper. ---- blood cultures were re-drawn overnight. Vital Signs Period Temp Pulse Resp BP Sys/Hall Pulse Ox Last 24 Hr 98.2 F-100.1 F 70-82 20-20 131-142/71-92 96 GENERAL: The patient is awake, alert, and fully oriented, in no acute distress. HEAD: Normal with no signs of trauma. EYES: PERRL, extraocular movements intact, sclera anicteric, conjunctiva clear. No ptosis. ENT: Ears normal, nares patent, oropharynx clear without exudates, moist mucous membranes. NECK: Trachea midline, full range of motion, supple. LUNGS: no wheezing auscultated, now diminished bilaterally, coughs with deep inspiration, cough is dry, non productive. HEART: Regular rate and rhythm ABDOMEN: Soft, nontender, nondistended, normoactive bowel sounds, no guarding, no rebound, no hepatosplenomegaly, no masses. EXTREMITIES: no edema. NEUROLOGICAL: Normal speech, gait not observed. PSYCH: Normal mood, normal affect. Laboratory Results - last 24 hr 10/05/19 10/05/19 10/05/19 07:10 15:00 15:49 WBC RBC Hgb Hct MCV MCH MCHC RDW Plt Count MPV Absolute Neuts (auto) Neutrophils % Neutrophils % (Manual) 92.9 H Band Neutrophils % 0.0 Lymphocytes % Lymphocytes % (Manual) 4.1 L D Monocytes % Monocytes % (Manual) 1 L Eosinophils % Eosinophils % (Manual) 0.0 Basophils % Basophils % (Manual) 0.0 Myelocytes % (Man) 0 Promyelocytes % (Man) 0 Blast Cells % (Manual) 0 Nucleated RBC % Metamyelocytes 0 D Hypochromia 0 Platelet Estimate Normal Polychromasia 0 Poikilocytosis 1+ Anisocytosis 0 Microcytosis 0 Macrocytosis 0 Stomatocytes 1+ Anticoagulation Therapy No Result Required. Puncture Site Left radial ABG pH 7.40 ABG pCO2 at Pt Temp 37.9 ABG pO2 at Pt Temp 84.2 ABG HCO3 22.7 ABG O2 Sat (Measured) 96.1 ABG O2 Content 15.4 ABG Base Excess -1.4 Zohaib Test Positive O2 Delivery Device N/c Oxygen Flow Rate 3l Vent Mode No Result Required. Vent Rate No Result Required. Mechanical Rate No Result Required. Pressure Support Vent No Result Required. Sodium Potassium Chloride Carbon Dioxide Anion Gap BUN Creatinine Est GFR (CKD-EPI)AfAm Est GFR (CKD-EPI)NonAf POC Glucometer Random Glucose Lactic Acid 6.1 H* Calcium Magnesium Total Bilirubin AST ALT Alkaline Phosphatase B-Natriuretic Peptide Total Protein Albumin 10/05/19 10/05/19 10/05/19 17:12 21:38 21:45 WBC RBC Hgb Hct MCV MCH MCHC RDW Plt Count MPV Absolute Neuts (auto) Neutrophils % Neutrophils % (Manual) Band Neutrophils % Lymphocytes % Lymphocytes % (Manual) Monocytes % Monocytes % (Manual) Eosinophils % Eosinophils % (Manual) Basophils % Basophils % (Manual) Myelocytes % (Man) Promyelocytes % (Man) Blast Cells % (Manual) Nucleated RBC % Metamyelocytes Hypochromia Platelet Estimate Polychromasia Poikilocytosis Anisocytosis Microcytosis Macrocytosis Stomatocytes Anticoagulation Therapy Puncture Site ABG pH ABG pCO2 at Pt Temp ABG pO2 at Pt Temp ABG HCO3 ABG O2 Sat (Measured) ABG O2 Content ABG Base Excess Zohaib Test O2 Delivery Device Oxygen Flow Rate Vent Mode Vent Rate Mechanical Rate Pressure Support Vent Sodium Potassium Chloride Carbon Dioxide Anion Gap BUN Creatinine Est GFR (CKD-EPI)AfAm Est GFR (CKD-EPI)NonAf POC Glucometer 208 211 Random Glucose Lactic Acid 4.7 H* Calcium Magnesium Total Bilirubin AST ALT Alkaline Phosphatase B-Natriuretic Peptide Total Protein Albumin 10/06/19 10/06/19 10/06/19 06:07 08:19 08:19 WBC 14.5 H RBC 4.23 Hgb 12.6 Hct 37.5 MCV 88.7 MCH 29.8 MCHC 33.6 RDW 13.6 Plt Count 317 MPV 6.8 L Absolute Neuts (auto) 12.6 H Neutrophils % 87.1 H Neutrophils % (Manual) Band Neutrophils % Lymphocytes % 9.1 D Lymphocytes % (Manual) Monocytes % 3.7 L Monocytes % (Manual) Eosinophils % 0.0 Eosinophils % (Manual) Basophils % 0.1 Basophils % (Manual) Myelocytes % (Man) Promyelocytes % (Man) Blast Cells % (Manual) Nucleated RBC % 0 Metamyelocytes Hypochromia Platelet Estimate Polychromasia Poikilocytosis Anisocytosis Microcytosis Macrocytosis Stomatocytes Anticoagulation Therapy Puncture Site ABG pH ABG pCO2 at Pt Temp ABG pO2 at Pt Temp ABG HCO3 ABG O2 Sat (Measured) ABG O2 Content ABG Base Excess Zohaib Test O2 Delivery Device Oxygen Flow Rate Vent Mode Vent Rate Mechanical Rate Pressure Support Vent Sodium 136 Potassium 3.9 Chloride 101 Carbon Dioxide 25 Anion Gap 10 BUN 13.6 Creatinine 0.8 Est GFR (CKD-EPI)AfAm 104.65 Est GFR (CKD-EPI)NonAf 90.30 POC Glucometer 222 Random Glucose 226 H Lactic Acid Calcium 8.1 L Magnesium 2.4 Total Bilirubin 0.4 AST 8 L ALT 26 Alkaline Phosphatase 50 B-Natriuretic Peptide Total Protein 6.6 Albumin 3.2 L 10/06/19 08:19 WBC RBC Hgb Hct MCV MCH MCHC RDW Plt Count MPV Absolute Neuts (auto) Neutrophils % Neutrophils % (Manual) Band Neutrophils % Lymphocytes % Lymphocytes % (Manual) Monocytes % Monocytes % (Manual) Eosinophils % Eosinophils % (Manual) Basophils % Basophils % (Manual) Myelocytes % (Man) Promyelocytes % (Man) Blast Cells % (Manual) Nucleated RBC % Metamyelocytes Hypochromia Platelet Estimate Polychromasia Poikilocytosis Anisocytosis Microcytosis Macrocytosis Stomatocytes Anticoagulation Therapy Puncture Site ABG pH ABG pCO2 at Pt Temp ABG pO2 at Pt Temp ABG HCO3 ABG O2 Sat (Measured) ABG O2 Content ABG Base Excess Zohaib Test O2 Delivery Device Oxygen Flow Rate Vent Mode Vent Rate Mechanical Rate Pressure Support Vent Sodium Potassium Chloride Carbon Dioxide Anion Gap BUN Creatinine Est GFR (CKD-EPI)AfAm Est GFR (CKD-EPI)NonAf POC Glucometer Random Glucose Lactic Acid Calcium Magnesium Total Bilirubin AST ALT Alkaline Phosphatase B-Natriuretic Peptide 280.5 H Total Protein Albumin Active Medications Generic Name Dose Route Start Last Admin Trade Name Freq PRN Reason Stop Dose Admin Acetaminophen 650 mg 10/01/19 17:32 10/06/19 06:40 Tylenol - PO 650 mg Q6H PRN Administration PAIN LEVEL 1-5 Albuterol Sulfate 1 amp 10/04/19 11:44 Ventolin 0.083% Nebulizer Soln - NEB Q4H PRN SHORT OF BREATH/WHEEZING Albuterol/Ipratropium 1 amp 10/04/19 12:00 10/06/19 07:50 Duoneb - NEB 1 amp RQID [facility] Administration Clonazepam 0.5 mg 10/01/19 17:35 10/05/19 21:32 Klonopin - PO 0.5 mg Q6H PRN Administration ANXIETY Enoxaparin Sodium 40 mg 10/02/19 10:00 10/06/19 09:16 Lovenox - SQ 40 mg DAILY [facility] Administration Fluticasone Propionate 2 spray 10/04/19 11:45 10/06/19 09:17 Flonase - NS 2 sprays DAILY [facility] Administration Guaifenesin/Codeine Phosphate 10 ml 10/03/19 12:21 10/04/19 01:06 Robitussin Ac - PO 10 ml Q8H PRN Administration COUGH Azithromycin 500 mg in 250 mls @ 250 mls/hr 10/03/19 12:00 10/06/19 09:35 Zithromax 500mg Ivpb (Pre-Docked) IVPB 250 mls/hr DAILY [facility] Administration Piperacillin Sod/Tazobactam 50 mls @ 100 mls/hr 10/03/19 13:30 10/06/19 09:16 Sod 3.375 gm/ Dextrose IVPB 100 mls/hr Q8H-IV [facility] Administration Protocol Insulin Aspart 1 vial 10/05/19 16:30 10/06/19 06:09 Novolog Vial Sliding Scale - SQ 4 units ACHS [facility] Administration Protocol Methylprednisolone Sodium Succinate 40 mg 10/01/19 21:00 10/06/19 09:53 Solu-Medrol - IVPUSH 40 mg Q6H-IV [facility] Administration Montelukast Sodium 10 mg 10/04/19 22:00 10/05/19 21:31 Singulair - PO 10 mg HS [facility] Administration Pantoprazole Sodium 40 mg 10/06/19 10:00 10/06/19 09:16 Protonix - PO 40 mg DAILY [facility] Administration Fluticasone/Salmeterol 1 puff 10/01/19 22:00 10/06/19 09:20 Advair 100mcg/50mcg - IH 1 puff BID [facility] Administration Sodium Chloride 2 spray 10/04/19 11:44 [place] Nasal [place] - NS TID PRN NASAL CONGESTION ASSESSMENT/PLAN: Problem List - Problems (1) Chest pain Assessment/Plan: chest pain persists on left sided, under breast and radiates to her back, worse with coughing troponins negative echo ordered and reviewed cardiology consulted, for persistent left sided chest pain Code(s): R07.9 - CHEST PAIN, UNSPECIFIED (2) Asthma exacerbation Assessment/Plan: on solumedrol taper, duonebs, singular and bronchodilators pulmonary consulted Code(s): J45.901 - UNSPECIFIED ASTHMA WITH (ACUTE) EXACERBATION Qualifiers: Asthma severity: unspecified severity Asthma persistence: unspecified Qualified Code(s): J45.901 - Unspecified asthma with (acute) exacerbation (3) Lactic acid acidosis Assessment/Plan: elevated, but now trending down on zosyn repeat lactic acid tonight may be caused by allbuterol renal consulted, abg wnl Code(s): E87.2 - ACIDOSIS (4) Leukocytosis Code(s): D72.829 - ELEVATED WHITE BLOOD CELL COUNT, UNSPECIFIED (5) Pneumonia Assessment/Plan: on zosyn and azithromycin Code(s): J18.9 - PNEUMONIA, UNSPECIFIED ORGANISM Qualifiers: Pneumonia type: due to unspecified organism Laterality: unspecified laterality Lung location: lower lobe of lung Qualified Code(s): J18.9 - Pneumonia, unspecified organism (6) Respiratory failure Assessment/Plan: on 3 liters of nasal cannula with duonebs stable oxygen saturations will attempt to wean off oxygen as tolerated on solumedrol taper Code(s): J96.90 - RESPIRATORY FAILURE, UNSP, UNSP W HYPOXIA OR HYPERCAPNIA (7) Depression Assessment/Plan: continue home medications Code(s): F32.9 - MAJOR DEPRESSIVE DISORDER, SINGLE EPISODE, UNSPECIFIED (8) Prophylactic measure Assessment/Plan: fen tolerating po monitor electrolytes low salt diet full code physical therapy Code(s): Z29.9 - ENCOUNTER FOR PROPHYLACTIC MEASURES, UNSPECIFIED (9) DVT prophylaxis Assessment/Plan: lovenox 40 daily Code(s): Z29.9 - ENCOUNTER FOR PROPHYLACTIC MEASURES, UNSPECIFIED Visit type - Emergency Visit Emergency Visit: Yes ED Registration Date: 10/01/19 Care time: The patient presented to the Emergency Department on the above date and was hospitalized for further evaluation of their emergent condition. - New Patient This patient is new to me today: No - Critical Care Critical Care patient: No - Discharge Referral Referred to [facility] No
--- NOTE | 2019-10-06 13:12 | PN ---
Progress Note, Physician History of Present Illness: improving no events overnight - Current Medication List Current Medications: Active Medications Acetaminophen (Tylenol -) 650 mg PO Q6H PRN PRN Reason: PAIN LEVEL 1-5 Last Admin: 10/06/19 06:40 Dose: 650 mg Albuterol Sulfate (Ventolin 0.083% Nebulizer Soln -) 1 amp NEB Q4H PRN PRN Reason: SHORT OF BREATH/WHEEZING Albuterol/Ipratropium (Duoneb -) 1 amp NEB RQID [facility] Last Admin: 10/06/19 07:50 Dose: 1 amp Clonazepam (Klonopin -) 0.5 mg PO Q6H PRN PRN Reason: ANXIETY Last Admin: 10/05/19 21:32 Dose: 0.5 mg Enoxaparin Sodium (Lovenox -) 40 mg SQ DAILY [facility] Last Admin: 10/06/19 09:16 Dose: 40 mg Fluticasone Propionate (Flonase -) 2 spray NS DAILY [facility] Last Admin: 10/06/19 09:17 Dose: 2 sprays Guaifenesin/Codeine Phosphate (Robitussin Ac -) 10 ml PO Q8H PRN PRN Reason: COUGH Last Admin: 10/04/19 01:06 Dose: 10 ml Azithromycin (Zithromax 500mg Ivpb (Pre-Docked)) 500 mg in 250 mls @ 250 mls/ hr IVPB DAILY [facility] Last Admin: 10/06/19 09:35 Dose: 250 mls/hr Piperacillin Sod/Tazobactam (Sod 3.375 gm/ Dextrose) 50 mls @ 100 mls/hr IVPB Q8H-IV [facility]; Protocol Last Admin: 10/06/19 09:16 Dose: 100 mls/hr Insulin Aspart (Novolog Vial Sliding Scale -) 1 vial SQ ACHS [facility]; Protocol Last Admin: 10/06/19 12:07 Dose: Not Given Methylprednisolone Sodium Succinate (Solu-Medrol -) 40 mg IVPUSH Q6H-IV [facility] Last Admin: 10/06/19 09:53 Dose: 40 mg Montelukast Sodium (Singulair -) 10 mg PO HS [facility] Last Admin: 10/05/19 21:31 Dose: 10 mg Pantoprazole Sodium (Protonix -) 40 mg PO DAILY [facility] Last Admin: 10/06/19 09:16 Dose: 40 mg Fluticasone/Salmeterol (Advair 100mcg/50mcg -) 1 puff IH BID [facility] Last Admin: 10/06/19 09:20 Dose: 1 puff Sodium Chloride ([place] Nasal [place] -) 2 spray NS TID PRN PRN Reason: NASAL CONGESTION - Objective Vital Signs: Vital Signs Temperature 98.2 F 10/06/19 10:00 Pulse Rate 79 10/06/19 10:00 Respiratory Rate 18 10/06/19 10:00 Blood Pressure 137/79 10/06/19 10:00 O2 Sat by Pulse Oximetry (%) 96 10/06/19 09:00 Constitutional: Yes: No Distress, Calm Cardiovascular: Yes: S1, S2 Respiratory: Yes: Regular, Poor Air Entry Gastrointestinal: Yes: Normal Bowel Sounds, Soft Musculoskeletal: Yes: WNL Extremities: Yes: WNL Neurological: Yes: Alert, Oriented Psychiatric: Yes: Alert, Oriented Labs: CBC, BMP 10/06/19 08:19 10/06/19 08:19 INR, PTT INR 1.00 (0.83-1.09) 10/01/19 12:48 Assessment/Plan 43 y/o F pmh of asthma and depression, presents to the ED for difficulty breathing, productive cough of yellow sputum and fever. Pt reports that she has been symptomatic for 3 weeks with a fever that started 2-3 days ago #Acute resp distress fever cough lactic acidosis leukocytosis plan we will continue current mgmt abx resp support incentive mary rest as per the team
--- NOTE | 2019-10-06 14:28 | PN ---
Progress Note, Physician Chief Complaint: Pt A&Ox3; anxious; wants to be with her 1 1/2 yr old twins. Deies chest pain; + frequent, dry cugh; SOB on minimal exertion. History of Present Illness: The patient is a 43 year old female, with a significant PMH of asthma, obesity, and depression, who presents to the emergency department with 1 week of difficulty breathing, productive cough of yellow phlegm and 2-3 days of a fever. Patient reports going to her local hospital last week and being diagnosed with bronchitis and sent home on a Z-pack. The patient denies chest pain, headache and dizziness. Denies nausea, vomiting, diarrhea and constipation. Denies any urinary symptoms. Allergies: Latex Past surgical history: Moses peters PCP: Dr. Parnell - Current Medication List Current Medications: Active Medications Acetaminophen (Tylenol -) 650 mg PO Q6H PRN PRN Reason: PAIN LEVEL 1-5 Last Admin: 10/06/19 06:40 Dose: 650 mg Albuterol Sulfate (Ventolin 0.083% Nebulizer Soln -) 1 amp NEB Q4H PRN PRN Reason: SHORT OF BREATH/WHEEZING Albuterol/Ipratropium (Duoneb -) 1 amp NEB RQID [facility] Last Admin: 10/06/19 11:40 Dose: 1 amp Clonazepam (Klonopin -) 0.5 mg PO Q6H PRN PRN Reason: ANXIETY Last Admin: 10/05/19 21:32 Dose: 0.5 mg Enoxaparin Sodium (Lovenox -) 40 mg SQ DAILY [facility] Last Admin: 10/06/19 09:16 Dose: 40 mg Fluticasone Propionate (Flonase -) 2 spray NS DAILY [facility] Last Admin: 10/06/19 09:17 Dose: 2 sprays Guaifenesin/Codeine Phosphate (Robitussin Ac -) 10 ml PO Q8H PRN PRN Reason: COUGH Last Admin: 10/04/19 01:06 Dose: 10 ml Azithromycin (Zithromax 500mg Ivpb (Pre-Docked)) 500 mg in 250 mls @ 250 mls/ hr IVPB DAILY [facility] Last Admin: 10/06/19 09:35 Dose: 250 mls/hr Piperacillin Sod/Tazobactam (Sod 3.375 gm/ Dextrose) 50 mls @ 100 mls/hr IVPB Q8H-IV [facility]; Protocol Last Admin: 10/06/19 09:16 Dose: 100 mls/hr Insulin Aspart (Novolog Vial Sliding Scale -) 1 vial SQ ACHS [facility]; Protocol Last Admin: 10/06/19 12:07 Dose: Not Given Methylprednisolone Sodium Succinate (Solu-Medrol -) 40 mg IVPUSH Q6H-IV [facility] Last Admin: 10/06/19 09:53 Dose: 40 mg Montelukast Sodium (Singulair -) 10 mg PO HS [facility] Last Admin: 10/05/19 21:31 Dose: 10 mg Pantoprazole Sodium (Protonix -) 40 mg PO DAILY [facility] Last Admin: 10/06/19 09:16 Dose: 40 mg Fluticasone/Salmeterol (Advair 100mcg/50mcg -) 1 puff IH BID [facility] Last Admin: 10/06/19 09:20 Dose: 1 puff Sodium Chloride ([place] Nasal [place] -) 2 spray NS TID PRN PRN Reason: NASAL CONGESTION - Objective Vital Signs: Vital Signs Temperature 98.2 F 10/06/19 10:00 Pulse Rate 79 10/06/19 10:00 Respiratory Rate 18 10/06/19 10:00 Blood Pressure 137/79 10/06/19 10:00 O2 Sat by Pulse Oximetry (%) 96 10/06/19 09:00 Constitutional: Yes: Anxious, Obese Eyes: Yes: WNL HENT: Yes: WNL Neck: Yes: WNL Cardiovascular: Yes: S1, S2, S4 Respiratory: Yes: Diminished, SOB. No: Wheezes Gastrointestinal: Yes: Soft, Abdomen, Obese ...Rectal Exam: Yes: Deferred Genitourinary: No: Anuria Breast(s): Yes: WNL Musculoskeletal: Yes: Muscle Weakness Extremities: Yes: WNL Edema: No Peripheral Pulses WNL: Yes Integumentary: Yes: WNL Psychiatric: Yes: Alert, Oriented, Other (anxeity/depression/panic) Labs: CBC, BMP 10/06/19 08:19 10/06/19 08:19 INR, PTT INR 1.00 (0.83-1.09) 10/01/19 12:48 Abnormal Lab Results 10/06/19 10/06/19 10/06/19 08:19 08:19 08:19 WBC 14.5 H MPV 6.8 L Absolute Neuts (auto) 12.6 H Neutrophils % 87.1 H Monocytes % 3.7 L Monocytes % (Manual) 3 L D Myelocytes % (Man) 4 H D Random Glucose 226 H Lactic Acid Calcium 8.1 L AST 8 L B-Natriuretic Peptide 280.5 H Albumin 3.2 L Triglycerides 205 H Cholesterol 202 H HDL Cholesterol 69 H 10/06/19 10/06/19 10/07/19 10:45 21:00 00:15 WBC MPV Absolute Neuts (auto) Neutrophils % Monocytes % Monocytes % (Manual) Myelocytes % (Man) Random Glucose Lactic Acid 4.0 H* 7.4 H* 4.5 H* Calcium AST B-Natriuretic Peptide Albumin Triglycerides Cholesterol HDL Cholesterol - ....Imaging Chest X-ray: Image Reviewed (no acute pathollgy) EKG: Image Reviewed Other: Image Reviewed (ECHO: normal LVEF) Problem List - Problems (1) Asthma exacerbation Assessment/Plan: f/u with hotel front office manager. 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 She agrees to see a research and development scientist. Code(s): E66.9 - OBESITY, UNSPECIFIED (8) Elevated lactic acid level Assessment/Plan: low-grade fever earlier. On antibiotics Code(s): R79.89 - OTHER SPECIFIED ABNORMAL FINDINGS OF BLOOD CHEMISTRY (9) Hyperlipidemia Assessment/Plan: start statin (LDL 100 mg/dL; DM, with additional cardiac risk factors). Code(s): E78.5 - HYPERLIPIDEMIA, UNSPECIFIED (10) Hyperglycemia Assessment/Plan: on steroids. Obese F/u HGBA1c Code(s): R73.9 - HYPERGLYCEMIA, UNSPECIFIED (11) [place] cardiac risk >20% in next 10 years Assessment/Plan: stress test when stable, if not done recently (may be done as outpatient) Problems reviewed: Yes Code(s): Z91.89 - OTH PERSONAL RISK FACTORS, NOT ELSEWHERE CLASSIFIED (12) Anxiety and depression Assessment/Plan: also has panic attacks. F/u with psych would be of benefit. Code(s): F41.9 - ANXIETY DISORDER, UNSPECIFIED; F32.9 - MAJOR DEPRESSIVE DISORDER, SINGLE EPISODE, UNSPECIFIED
--- NOTE | 2019-10-06 17:37 | PN ---
Progress Note (short form) - Note Progress Note: Renal follow up for lactic acidosis Seen and examined at the bedside feels better overall sob persists but better no chest pain, abdominal pain, N/V/D making urine Vital Signs Temperature 98.3 F 10/06/19 14:00 Pulse Rate 73 10/06/19 14:00 Respiratory Rate 18 10/06/19 14:00 Blood Pressure 139/76 10/06/19 14:00 O2 Sat by Pulse Oximetry (%) 96 10/06/19 09:00 Intake & Output 10/03/19 10/04/19 10/05/19 10/06/19 23:59 23:59 23:59 23:59 Intake Total 4060 7300 4150 700 Balance 4060 7300 4150 700 NAD awake and alert neck supple, no JVD RRR, no M/R Dec BS throughout the lung diamond soft, NT/ND no LE edema, swelling or cyanosis CBC, BMP 10/06/19 08:19 10/06/19 08:19 Laboratory Tests 10/06/19 10/06/19 08:19 10:45 Lactic Acid 4.0 H* Calcium 8.1 L Albumin 3.2 L Current Medications Acetaminophen (Tylenol -) 650 mg PO Q6H PRN PRN Reason: PAIN LEVEL 1-5 Last Admin: 10/06/19 06:40 Dose: 650 mg Albuterol Sulfate (Ventolin 0.083% Nebulizer Soln -) 1 amp NEB Q4H PRN PRN Reason: SHORT OF BREATH/WHEEZING Albuterol/Ipratropium (Duoneb -) 1 amp NEB RQID [facility] Last Admin: 10/06/19 11:40 Dose: 1 amp Clonazepam (Klonopin -) 0.5 mg PO Q6H PRN PRN Reason: ANXIETY Last Admin: 10/05/19 21:32 Dose: 0.5 mg Enoxaparin Sodium (Lovenox -) 40 mg SQ DAILY [facility] Last Admin: 10/06/19 09:16 Dose: 40 mg Fluticasone Propionate (Flonase -) 2 spray NS DAILY [facility] Last Admin: 10/06/19 09:17 Dose: 2 sprays Guaifenesin/Codeine Phosphate (Robitussin Ac -) 10 ml PO Q8H PRN PRN Reason: COUGH Last Admin: 10/04/19 01:06 Dose: 10 ml Azithromycin (Zithromax 500mg Ivpb (Pre-Docked)) 500 mg in 250 mls @ 250 mls/ hr IVPB DAILY [facility] Last Admin: 10/06/19 09:35 Dose: 250 mls/hr Piperacillin Sod/Tazobactam (Sod 3.375 gm/ Dextrose) 50 mls @ 100 mls/hr IVPB Q8H-IV [facility]; Protocol Last Admin: 10/06/19 09:16 Dose: 100 mls/hr Insulin Aspart (Novolog Vial Sliding Scale -) 1 vial SQ ACHS [facility]; Protocol Last Admin: 10/06/19 17:34 Dose: 2 units Methylprednisolone Sodium Succinate (Solu-Medrol -) 40 mg IVPUSH Q6H-IV [facility] Last Admin: 10/06/19 15:38 Dose: 40 mg Montelukast Sodium (Singulair -) 10 mg PO HS [facility] Last Admin: 10/05/19 21:31 Dose: 10 mg Pantoprazole Sodium (Protonix -) 40 mg PO DAILY [facility] Last Admin: 10/06/19 09:16 Dose: 40 mg Fluticasone/Salmeterol (Advair 100mcg/50mcg -) 1 puff IH BID [facility] Last Admin: 10/06/19 09:20 Dose: 1 puff Sodium Chloride ([place] Nasal [place] -) 2 spray NS TID PRN PRN Reason: NASAL CONGESTION ASSESSMENT AND PLAN: 1. Lactic acidosis w/o evidence of tissue hypoprofusion 2. Asthma exacerbation 3. Possible PNA Lactic acidosis related to beta against exposure He serum bicbaronate is normal and there is no elevation in her anion gap serum pH is 7.4 on AbG titrate Nebs/Steroids as per pulmonary would not routinely check lactic acid levels unless there is a change in clinical status will follow up as needed, please call if there are any questions or concerns Thank you Gerber Joshi DO
[2019-10-06] MEDS: MONTELUKAST NA 10 MG TABLET PO SCH (21:00)
[2019-10-06] MEDS ORDERED: SODIUM CHLORIDE 500 ML IV STA (22:45)
[2019-10-06] MEDS: clonazePAM 0.5 MG TABLET PO PRN (23:27)
[2019-10-07] MEDS ORDERED: DEXTROSE 5%-WATER - 50 ML IVPB ONE ×2 (01:46→10:08)
[2019-10-07] MEDS ORDERED: PIPERACILLIN/TAZOBACTAM 3.375 GM VIAL IVPB ONE ×2 (01:46→10:08)
[2019-10-07] MEDS: methylPREDNISolone NA SUCC 40 MG/1 ML VIAL IVPUSH SCH ×4 (02:45→22:44)
[2019-10-07] MEDS: PIPERACILLIN/TAZOB 3.375 GM 3.375 GM in DEXTROSE 5%-WATER - 50 ML IVPB SCH ×2 (02:45→10:20)
[2019-10-07] MEDS: INSULIN SLIDING SCALE (NOVOLOG) 1 VIAL SQ SCH ×4 (07:08→23:37)
[2019-10-07] MEDS: ALBUTEROL SO4 2.5/IPRATROPIUM 0.5 INH SOL 3 ML VIAL.NEB. NEB SCH ×4 (08:00→21:35)
[2019-10-07 09:25] LABS: HEMATOCRIT 41.8 % (32.4-45.2); HEMOGLOBIN 13.8 GM/dL (10.7-15.3); LYMPH % 7.2 % (8-40); MCH 29.5 pg (25.7-33.7); MCHC 33.1 g/dl (32.0-36.0); MEAN CELL VOLUME 89.2 fl (80-96); MEAN PLT VOLUME 6.6 fl (7.5-11.1); NEUT % 88.8 % (42.8-82.8); PLATELET COUNT 374 K/MM3 (134-434); RBC 4.69 M/mm3 (3.60-5.2); RDW 13.6 % (11.6-15.6); WHITE BLOOD COUNT 21.8 K/mm3 (4.0-10.0)
[2019-10-07 09:57] LABS: ALBUMIN 3.6 g/dl (3.4-5.0); BILIRUBIN,TOTAL 0.4 mg/dL (0.2-1); BLOOD UREA NITROGEN 15.9 mg/dL (7-18); CALCIUM 9.3 mg/dL (8.5-10.1); CREATININE 0.6 mg/dL (0.55-1.3); MAGNESIUM 2.5 mg/dL (1.8-2.4); POTASSIUM 4.4 mmol/L (3.5-5.1); TOT PROT 7.3 g/dl (6.4-8.2)
[2019-10-07] MEDS: PANTOPRAZOLE 40 MG TABLET (FP) PO SCH (10:18)
--- NOTE | 2019-10-07 10:18 | PN ---
Progress Note, Physician History of Present Illness: feeling better breathing better - Current Medication List Current Medications: Active Medications Acetaminophen (Tylenol -) 650 mg PO Q6H PRN PRN Reason: PAIN LEVEL 1-5 Last Admin: 10/06/19 06:40 Dose: 650 mg Albuterol Sulfate (Ventolin 0.083% Nebulizer Soln -) 1 amp NEB Q4H PRN PRN Reason: SHORT OF BREATH/WHEEZING Albuterol/Ipratropium (Duoneb -) 1 amp NEB RQID [facility] Last Admin: 10/07/19 08:00 Dose: 1 amp Atorvastatin Calcium (Lipitor -) 10 mg PO HS [facility] Clonazepam (Klonopin -) 0.5 mg PO Q6H PRN PRN Reason: ANXIETY Last Admin: 10/06/19 23:27 Dose: 0.5 mg Enoxaparin Sodium (Lovenox -) 40 mg SQ DAILY [facility] Last Admin: 10/06/19 09:16 Dose: 40 mg Fluticasone Propionate (Flonase -) 2 spray NS DAILY [facility] Last Admin: 10/06/19 09:17 Dose: 2 sprays Guaifenesin/Codeine Phosphate (Robitussin Ac -) 10 ml PO Q8H PRN PRN Reason: COUGH Last Admin: 10/04/19 01:06 Dose: 10 ml Insulin Aspart (Novolog Vial Sliding Scale -) 1 vial SQ ACHS [facility]; Protocol Last Admin: 10/07/19 07:08 Dose: Not Given Methylprednisolone Sodium Succinate (Solu-Medrol -) 40 mg IVPUSH Q6H-IV [facility] Last Admin: 10/07/19 02:45 Dose: 40 mg Montelukast Sodium (Singulair -) 10 mg PO HS [facility] Last Admin: 10/06/19 21:00 Dose: 10 mg Pantoprazole Sodium (Protonix -) 40 mg PO DAILY [facility] Last Admin: 10/06/19 09:16 Dose: 40 mg Fluticasone/Salmeterol (Advair 100mcg/50mcg -) 1 puff IH BID [facility] Last Admin: 10/06/19 21:05 Dose: Not Given Sodium Chloride ([place] Fine Nasal Fine -) 2 spray NS TID PRN PRN Reason: NASAL CONGESTION - Objective Vital Signs: Vital Signs Temperature 97.9 F 10/07/19 06:46 Pulse Rate 63 10/07/19 06:46 Respiratory Rate 118 H 10/07/19 06:46 Blood Pressure 139/75 10/07/19 06:46 O2 Sat by Pulse Oximetry (%) 96 10/06/19 21:00 Constitutional: Yes: No Distress, Calm Cardiovascular: Yes: S1, S2 Respiratory: Yes: Regular, On Nasal O2 Gastrointestinal: Yes: Normal Bowel Sounds, Soft Musculoskeletal: Yes: WNL Extremities: Yes: WNL Neurological: Yes: Alert, Oriented Psychiatric: Yes: Alert, Oriented Labs: CBC, BMP 10/07/19 07:30 10/07/19 07:30 INR, PTT INR 1.00 (0.83-1.09) 10/01/19 12:48 Assessment/Plan 43 y/o F pmh of asthma and depression, presents to the ED for difficulty breathing, productive cough of yellow sputum and fever. Pt reports that she has been symptomatic for 3 weeks with a fever that started 2-3 days ago #Acute resp distress fever cough lactic acidosis leukocytosis plan will stop abx monitor resp support incentive mary
[2019-10-07] MEDS: ENOXAPARIN NA (PORCINE) 40 MG/0.4 ML DISP.SYRIN SQ SCH (10:19)
[2019-10-07] MEDS: AZITHROMYCIN IVPB 500 MG/250 ML BAG IVPB SCH (10:22)
[2019-10-07] MEDS: FLUTICASONE/SALMETEROL 100 MCG/50 MCG DISKUS IH SCH ×2 (10:22→22:46)
[2019-10-07] MEDS: FLUTICASONE PROP 0.05% 16 GM NASAL SPRAY NS SCH (10:23)
--- NOTE | 2019-10-07 10:29 | PN ---
Physical Exam: SUBJECTIVE: Patient seen and examined at the bedside. Feels better today, still reports shortness of breath with physical exertion. OBJECTIVE: will order pre and post to assess oxygen on room air will titrate off oxygen as tolerated taper off solumedrol per pulmonary Patient is a 43 year old female with past medical history of asthma and depression. Patient presented to the ED with shortness of breath and productive cough of yellow sputum and fever. Pt reports that she has been symptomatic for 3 weeks. She was seen at her local hospital at [place] three weeks ago, during which they sent her home with a dx of bronchitis and a Z pack. Her symptoms then worsened, prompting her to see her PCP who sent her home on fluticasone/salmeterol and cough medication. In the ED she was given 1 amp of dounebs and her symptoms improved. She is has been treated with zosyn for presumed pneumonia as well as elevated lactic acid. She is also on a medrol taper. Antibiotics discontinued today per ID. ---- blood cultures negative to date. Vital Signs Period Temp Pulse Resp BP Sys/Hall Pulse Ox Last 24 Hr 97.8 F-98.4 F 63-81 18-118 131-142/73-79 96 GENERAL: The patient is awake, alert, and fully oriented, in no acute distress. HEAD: Normal with no signs of trauma. EYES: PERRL, extraocular movements intact, sclera anicteric, conjunctiva clear. No ptosis. ENT: Ears normal, nares patent, oropharynx clear without exudates, moist mucous membranes. NECK: Trachea midline, full range of motion, supple. LUNGS: clear to auscultation bilaterally, no wheezing, titrate off oxygen as tolerated HEART: Regular rate and rhythm ABDOMEN: Soft, nontender, nondistended, normoactive bowel sounds, no guarding, no rebound, no hepatosplenomegaly, no masses. EXTREMITIES: no edema. NEUROLOGICAL: Normal speech, gait not observed. PSYCH: Normal mood, normal affect. Laboratory Results - last 24 hr 10/06/19 10/06/19 10/06/19 08:19 08:19 10:45 WBC RBC Hgb Hct MCV MCH MCHC RDW Plt Count MPV Absolute Neuts (auto) Neutrophils % Neutrophils % (Manual) 80.0 Band Neutrophils % 0.0 Lymphocytes % Lymphocytes % (Manual) 12.4 D Monocytes % Monocytes % (Manual) 3 L D Eosinophils % Eosinophils % (Manual) 0.0 Basophils % Basophils % (Manual) 0.0 Myelocytes % (Man) 4 H D Promyelocytes % (Man) 0 Blast Cells % (Manual) 0 Nucleated RBC % 0 Metamyelocytes 1 D Hypochromia 0 Platelet Estimate Normal Polychromasia 0 Poikilocytosis 0 Anisocytosis 0 Microcytosis 0 Macrocytosis 0 Sodium Potassium Chloride Carbon Dioxide Anion Gap BUN Creatinine Est GFR (CKD-EPI)AfAm Est GFR (CKD-EPI)NonAf POC Glucometer Random Glucose Hemoglobin A1c % Lactic Acid 4.0 H* Calcium Magnesium Total Bilirubin AST ALT Alkaline Phosphatase B-Natriuretic Peptide 280.5 H Total Protein Albumin Triglycerides 205 H Cholesterol 202 H Total LDL Cholesterol 100 HDL Cholesterol 69 H TSH 0.83 10/06/19 10/06/19 10/06/19 12:06 14:13 17:32 WBC RBC Hgb Hct MCV MCH MCHC RDW Plt Count MPV Absolute Neuts (auto) Neutrophils % Neutrophils % (Manual) Band Neutrophils % Lymphocytes % Lymphocytes % (Manual) Monocytes % Monocytes % (Manual) Eosinophils % Eosinophils % (Manual) Basophils % Basophils % (Manual) Myelocytes % (Man) Promyelocytes % (Man) Blast Cells % (Manual) Nucleated RBC % Metamyelocytes Hypochromia Platelet Estimate Polychromasia Poikilocytosis Anisocytosis Microcytosis Macrocytosis Sodium Potassium Chloride Carbon Dioxide Anion Gap BUN Creatinine Est GFR (CKD-EPI)AfAm Est GFR (CKD-EPI)NonAf POC Glucometer 117 151 Random Glucose Hemoglobin A1c % 6.0 Lactic Acid Calcium Magnesium Total Bilirubin AST ALT Alkaline Phosphatase B-Natriuretic Peptide Total Protein Albumin Triglycerides Cholesterol Total LDL Cholesterol HDL Cholesterol TSH 10/06/19 10/06/19 10/07/19 20:55 21:00 00:15 WBC RBC Hgb Hct MCV MCH MCHC RDW Plt Count MPV Absolute Neuts (auto) Neutrophils % Neutrophils % (Manual) Band Neutrophils % Lymphocytes % Lymphocytes % (Manual) Monocytes % Monocytes % (Manual) Eosinophils % Eosinophils % (Manual) Basophils % Basophils % (Manual) Myelocytes % (Man) Promyelocytes % (Man) Blast Cells % (Manual) Nucleated RBC % Metamyelocytes Hypochromia Platelet Estimate Polychromasia Poikilocytosis Anisocytosis Microcytosis Macrocytosis Sodium Potassium Chloride Carbon Dioxide Anion Gap BUN Creatinine Est GFR (CKD-EPI)AfAm Est GFR (CKD-EPI)NonAf POC Glucometer 261 Random Glucose Hemoglobin A1c % Lactic Acid 7.4 H* 4.5 H* Calcium Magnesium Total Bilirubin AST ALT Alkaline Phosphatase B-Natriuretic Peptide Total Protein Albumin Triglycerides Cholesterol Total LDL Cholesterol HDL Cholesterol TSH 10/07/19 10/07/19 10/07/19 07:06 07:30 07:30 WBC 21.8 H RBC 4.69 Hgb 13.8 Hct 41.8 MCV 89.2 MCH 29.5 MCHC 33.1 RDW 13.6 Plt Count 374 MPV 6.6 L Absolute Neuts (auto) 19.4 H Neutrophils % 88.8 H Neutrophils % (Manual) Band Neutrophils % Lymphocytes % 7.2 L D Lymphocytes % (Manual) Monocytes % 4.0 Monocytes % (Manual) Eosinophils % 0.0 Eosinophils % (Manual) Basophils % 0.0 Basophils % (Manual) Myelocytes % (Man) Promyelocytes % (Man) Blast Cells % (Manual) Nucleated RBC % 0 Metamyelocytes Hypochromia Platelet Estimate Polychromasia Poikilocytosis Anisocytosis Microcytosis Macrocytosis Sodium 135 L Potassium 4.4 Chloride 98 Carbon Dioxide 26 Anion Gap 11 BUN 15.9 Creatinine 0.6 Est GFR (CKD-EPI)AfAm 129.39 Est GFR (CKD-EPI)NonAf 111.64 POC Glucometer 139 Random Glucose 134 H Hemoglobin A1c % Lactic Acid Calcium 9.3 Magnesium 2.5 H Total Bilirubin 0.4 AST 9 L ALT 29 Alkaline Phosphatase 52 B-Natriuretic Peptide Total Protein 7.3 Albumin 3.6 Triglycerides Cholesterol Total LDL Cholesterol HDL Cholesterol TSH Active Medications Generic Name Dose Route Start Last Admin Trade Name Freq PRN Reason Stop Dose Admin Acetaminophen 650 mg 10/01/19 17:32 10/06/19 06:40 Tylenol - PO 650 mg Q6H PRN Administration PAIN LEVEL 1-5 Albuterol Sulfate 1 amp 10/04/19 11:44 Ventolin 0.083% Nebulizer Soln - NEB Q4H PRN SHORT OF BREATH/WHEEZING Albuterol/Ipratropium 1 amp 10/04/19 12:00 10/07/19 08:00 Duoneb - NEB 1 amp RQID [facility] Administration Atorvastatin Calcium 10 mg 10/07/19 22:00 Lipitor - PO HS [facility] Clonazepam 0.5 mg 10/01/19 17:35 10/06/19 23:27 Klonopin - PO 0.5 mg Q6H PRN Administration ANXIETY Enoxaparin Sodium 40 mg 10/02/19 10:00 10/06/19 09:16 Lovenox - SQ 40 mg DAILY [facility] Administration Fluticasone Propionate 2 spray 10/04/19 11:45 10/06/19 09:17 Flonase - NS 2 sprays DAILY [facility] Administration Guaifenesin/Codeine Phosphate 10 ml 10/03/19 12:21 10/04/19 01:06 Robitussin Ac - PO 10 ml Q8H PRN Administration COUGH Insulin Aspart 1 vial 10/05/19 16:30 10/07/19 07:08 Novolog Vial Sliding Scale - SQ Not Given ACHS [facility] Protocol Methylprednisolone Sodium Succinate 40 mg 10/01/19 21:00 10/07/19 02:45 Solu-Medrol - IVPUSH 40 mg Q6H-IV [facility] Administration Montelukast Sodium 10 mg 10/04/19 22:00 10/06/19 21:00 Singulair - PO 10 mg HS [facility] Administration Pantoprazole Sodium 40 mg 10/06/19 10:00 10/06/19 09:16 Protonix - PO 40 mg DAILY [facility] Administration Fluticasone/Salmeterol 1 puff 10/01/19 22:00 10/06/19 21:05 Advair 100mcg/50mcg - IH Not Given BID [facility] Sodium Chloride 2 spray 10/04/19 11:44 [place] Nasal [place] - NS TID PRN NASAL CONGESTION ASSESSMENT/PLAN: Problem List - Problems (1) Chest pain Assessment/Plan: resolved troponins negative echo ordered and reviewed, no acute findings cardiology following Code(s): R07.9 - CHEST PAIN, UNSPECIFIED (2) Asthma exacerbation Assessment/Plan: on solumedrol taper, duonebs, singular and bronchodilators pulmonary following Code(s): J45.901 - UNSPECIFIED ASTHMA WITH (ACUTE) EXACERBATION Qualifiers: Asthma severity: unspecified severity Asthma persistence: unspecified Qualified Code(s): J45.901 - Unspecified asthma with (acute) exacerbation (3) Lactic acid acidosis Assessment/Plan: elevated, but now trending down may be caused by allbuterol renal consulted, abg wnl Code(s): E87.2 - ACIDOSIS (4) Leukocytosis Code(s): D72.829 - ELEVATED WHITE BLOOD CELL COUNT, UNSPECIFIED (5) Pneumonia Assessment/Plan: monitor off antibiotics per ID s/p zosyn and azithromycin Code(s): J18.9 - PNEUMONIA, UNSPECIFIED ORGANISM Qualifiers: Pneumonia type: due to unspecified organism Laterality: unspecified laterality Lung location: lower lobe of lung Qualified Code(s): J18.9 - Pneumonia, unspecified organism (6) Respiratory failure Assessment/Plan: on 3 liters of nasal cannula with duonebs stable oxygen saturations will attempt to wean off oxygen as tolerated on solumedrol taper Code(s): J96.90 - RESPIRATORY FAILURE, UNSP, UNSP W HYPOXIA OR HYPERCAPNIA (7) Depression Assessment/Plan: continue home medications Code(s): F32.9 - MAJOR DEPRESSIVE DISORDER, SINGLE EPISODE, UNSPECIFIED (8) Morbid obesity Assessment/Plan: bmi 33.8. weight loss encouraged. outpatient follow up. Code(s): E66.01 - MORBID (SEVERE) OBESITY DUE TO EXCESS CALORIES (9) HLD (hyperlipidemia) Assessment/Plan: elevated lipid panel. started on lipitor 10 Code(s): E78.5 - HYPERLIPIDEMIA, UNSPECIFIED (10) DVT prophylaxis Assessment/Plan: lovenox 40 daily Code(s): Z29.9 - ENCOUNTER FOR PROPHYLACTIC MEASURES, UNSPECIFIED (11) Prophylactic measure Assessment/Plan: fen tolerating po monitor electrolytes low salt diet full code physical therapy Code(s): Z29.9 - ENCOUNTER FOR PROPHYLACTIC MEASURES, UNSPECIFIED Visit type - Emergency Visit Emergency Visit: Yes ED Registration Date: 10/01/19 Care time: The patient presented to the Emergency Department on the above date and was hospitalized for further evaluation of their emergent condition. - New Patient This patient is new to me today: No - Critical Care Critical Care patient: No - Discharge Referral Referred to [facility] No
[2019-10-07 12:15] LABS: ANISOCYTOSIS 0; MACROCYTOSIS 0; PLATELET ESTIMATE NORMAL
--- NOTE | 2019-10-07 13:14 | PN ---
Progress Note, Physician History of Present Illness: 43 y/o F pmh of asthma and depression, presents to the ED for difficulty breathing, productive cough of yellow sputum and fever. Pt reports that she has been symptomatic for 3 weeks with a fever that started 2-3 days ago. She was seen at her local hospital in [place] three weeks ago, during which they sent her home with a dx of bronchitis and a Z pack. Her symptoms then worsened, prompting her to see her PCP who sent her home on fluticasone/salmeterol and cough medication. In the ED, she was saturating at 93 and tachy at 110s. She was given 1 amp of dounebs and her symptoms improved. She admits to coughing, chest pain, fevers. Denies c/n/v/d/abdominal pain. - Current Medication List Current Medications: Active Medications Acetaminophen (Tylenol -) 650 mg PO Q6H PRN PRN Reason: PAIN LEVEL 1-5 Last Admin: 10/06/19 06:40 Dose: 650 mg Albuterol Sulfate (Ventolin 0.083% Nebulizer Soln -) 1 amp NEB Q4H PRN PRN Reason: SHORT OF BREATH/WHEEZING Albuterol/Ipratropium (Duoneb -) 1 amp NEB RQID [facility] Last Admin: 10/07/19 12:00 Dose: 1 amp Atorvastatin Calcium (Lipitor -) 10 mg PO HS [facility] Clonazepam (Klonopin -) 0.5 mg PO Q6H PRN PRN Reason: ANXIETY Last Admin: 10/06/19 23:27 Dose: 0.5 mg Enoxaparin Sodium (Lovenox -) 40 mg SQ DAILY [facility] Last Admin: 10/07/19 10:19 Dose: 40 mg Fluticasone Propionate (Flonase -) 2 spray NS DAILY [facility] Last Admin: 10/07/19 10:23 Dose: 2 sprays Guaifenesin/Codeine Phosphate (Robitussin Ac -) 10 ml PO Q8H PRN PRN Reason: COUGH Last Admin: 10/04/19 01:06 Dose: 10 ml Insulin Aspart (Novolog Vial Sliding Scale -) 1 vial SQ [facility]; Protocol Last Admin: 10/07/19 12:01 Dose: Not Given Methylprednisolone Sodium Succinate (Solu-Medrol -) 40 mg IVPUSH Q6H-IV [facility] Last Admin: 10/07/19 10:18 Dose: 40 mg Montelukast Sodium (Singulair -) 10 mg PO HS [facility] Last Admin: 10/06/19 21:00 Dose: 10 mg Pantoprazole Sodium (Protonix -) 40 mg PO DAILY [facility] Last Admin: 10/07/19 10:18 Dose: 40 mg Fluticasone/Salmeterol (Advair 100mcg/50mcg -) 1 puff IH BID [facility] Last Admin: 10/07/19 10:22 Dose: 1 puff Sodium Chloride ([place] Nasal [place] -) 2 spray NS TID PRN PRN Reason: NASAL CONGESTION - Objective Vital Signs: Vital Signs Temperature 97.8 F 10/07/19 10:00 Pulse Rate 82 10/07/19 10:00 Respiratory Rate 18 10/07/19 10:00 Blood Pressure 137/72 10/07/19 10:00 O2 Sat by Pulse Oximetry (%) 96 10/07/19 09:00 Eyes: Yes: WNL, Conjunctiva Clear, EOM Intact HENT: Yes: WNL, Atraumatic, Normocephalic Neck: Yes: WNL, Supple, Trachea Midline Cardiovascular: Yes: WNL, Regular Rate and Rhythm Respiratory: Yes: Diminished Gastrointestinal: Yes: WNL, Normal Bowel Sounds Genitourinary: Yes: WNL Musculoskeletal: Yes: WNL Extremities: Yes: WNL Edema: No Integumentary: Yes: WNL Neurological: Yes: WNL, Alert, Oriented ...Motor Strength: WNL Psychiatric: Yes: WNL Labs: CBC, BMP 10/07/19 07:30 10/07/19 07:30 INR, PTT INR 1.00 (0.83-1.09) 10/01/19 12:48 Problem List - Problems (1) Asthma exacerbation Code(s): J45.901 - UNSPECIFIED ASTHMA WITH (ACUTE) EXACERBATION Qualifiers: Asthma severity: unspecified severity Asthma persistence: unspecified Qualified Code(s): J45.901 - Unspecified asthma with (acute) exacerbation (2) Depression Code(s): F32.9 - MAJOR DEPRESSIVE DISORDER, SINGLE EPISODE, UNSPECIFIED (3) Lactic acid acidosis Code(s): E87.2 - ACIDOSIS (4) Leukocytosis Code(s): D72.829 - ELEVATED WHITE BLOOD CELL COUNT, UNSPECIFIED (5) Pneumonia Code(s): J18.9 - PNEUMONIA, UNSPECIFIED ORGANISM Qualifiers: Pneumonia type: due to unspecified organism Laterality: unspecified laterality Lung location: lower lobe of lung Qualified Code(s): J18.9 - Pneumonia, unspecified organism (6) Prophylactic measure Code(s): Z29.9 - ENCOUNTER FOR PROPHYLACTIC MEASURES, UNSPECIFIED (7) Respiratory failure Code(s): J96.90 - RESPIRATORY FAILURE, UNSP, UNSP W HYPOXIA OR HYPERCAPNIA (8) Accidental fall Code(s): W19.XXXA - UNSPECIFIED FALL, INITIAL ENCOUNTER (9) Acute otitis media Code(s): H66.90 - OTITIS MEDIA, UNSPECIFIED, UNSPECIFIED EAR (10) Acute viral syndrome Code(s): B34.9 - VIRAL INFECTION, UNSPECIFIED (11) Ankle sprain Code(s): S93.409A - SPRAIN OF UNSP LIGAMENT OF UNSPECIFIED ANKLE, INIT ENCNTR Qualifiers: Encounter type: initial encounter Involved ligament of ankle: unspecified ligament Laterality: left Qualified Code(s): S93.402A - Sprain of unspecified ligament of left ankle, initial encounter (12) Anxiety Code(s): F41.9 - ANXIETY DISORDER, UNSPECIFIED (13) Asthma Code(s): J45.909 - UNSPECIFIED ASTHMA, UNCOMPLICATED (14) Atypical chest pain Code(s): R07.89 - OTHER CHEST PAIN (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 (16) Bronchitis Code(s): J40 - BRONCHITIS, NOT SPECIFIED ACUTE OR CHRONIC (17) Chest pain Code(s): R07.9 - CHEST PAIN, UNSPECIFIED Qualifiers: Chest pain type: unspecified Qualified Code(s): R07.9 - Chest pain, unspecified (18) Corneal abrasion Code(s): S05.00XA - INJ CONJUNCTIVA AND CORNEAL ABRASION W/O FB, UNSP EYE, INIT Qualifiers: Encounter type: initial encounter Laterality: right Qualified Code(s): S05.01XA - Injury of conjunctiva and corneal abrasion without foreign body, right eye, initial encounter (19) Diarrhea Code(s): R19.7 - DIARRHEA, UNSPECIFIED (20) Drug overdose Code(s): T50.901A - POISONING BY UNSP DRUG/MEDS/BIOL SUBST, ACCIDENTAL, INIT Qualifiers: Encounter type: initial encounter Injury intent: undetermined intent Qualified Code(s): T50.904A - Poisoning by unspecified drugs, medicaments and biological substances, undetermined, initial encounter (21) Eye abrasion Code(s): S05.8X9A - OTHER INJURIES OF UNSPECIFIED EYE AND ORBIT, INIT ENCNTR (22) Finger lesion Code(s): L98.9 - DISORDER OF THE SKIN AND SUBCUTANEOUS TISSUE, UNSPECIFIED (23) Gall stone Code(s): K80.20 - CALCULUS OF GALLBLADDER W/O CHOLECYSTITIS W/O OBSTRUCTION Qualifiers: Cholecystitis presence: without cholecystitis Biliary obstruction: without biliary obstruction Qualified Code(s): K80.20 - Calculus of gallbladder without cholecystitis without obstruction (24) Musculoskeletal pain Code(s): M79.1 - MYALGIA * DO NOT USE * (25) Pharyngitis Code(s): J02.9 - ACUTE PHARYNGITIS, UNSPECIFIED (26) Premenstrual symptom Code(s): N94.3 - PREMENSTRUAL TENSION SYNDROME (27) Seasonal allergies Code(s): J30.2 - OTHER SEASONAL ALLERGIC RHINITIS Qualifiers: Allergic rhinitis trigger: pollen (28) Sinusitis Code(s): J32.9 - CHRONIC SINUSITIS, UNSPECIFIED Qualifiers: Sinusitis location: maxillary Chronicity: acute Recurrence: not specified as recurrent Qualified Code(s): J01.00 - Acute maxillary sinusitis, unspecified (29) Streptococcal pharyngitis Code(s): J02.0 - STREPTOCOCCAL PHARYNGITIS (30) Vasovagal syncope Code(s): R55 - SYNCOPE AND COLLAPSE (31) Viral URI with cough Code(s): J06.9 - ACUTE UPPER RESPIRATORY INFECTION, UNSPECIFIED; B97.89 - OTH VIRAL AGENTS THE CAUSE OF DISEASES CLASSD ELSWHR (32) Viral upper respiratory infection Code(s): J06.9 - ACUTE UPPER RESPIRATORY INFECTION, UNSPECIFIED (33) Vomiting Code(s): R11.10 - VOMITING, UNSPECIFIED Assessment/Plan Asthma Acute resp distress fever cough lactic acidosis leukocytosis ECHO nl BNP mildly elevated Plan Cardiac rivera stable cont pulmonary rx
--- NOTE | 2019-10-07 14:03 | PN ---
Progress Note (short form) - Note Progress Note: PULMONARY VSS/AFEBRILE SUBJECTIVE IMPROVEMENT Constitutional: Yes: No Distress Eyes: Yes: Conjunctiva Clear, EOM Intact HENT: Yes: Atraumatic, Normocephalic Neck: Yes: Supple, Trachea Midline Cardiovascular: Yes: Regular Rate and Rhythm Respiratory: Yes: Cough, Diminished, On Nasal O2, Rhonchi, Less wheezes. No: Accessory Muscle Use, Rales, Stridor ...Inspection: Yes: WNL ...Clubbing: No Gastrointestinal: Yes: Normal Bowel Sounds, Soft, Abdomen, Obese Musculoskeletal: Yes: WNL Extremities: Yes: WNL Edema: No Peripheral Pulses WNL: Yes Integumentary: Yes: WNL Neurological: Yes: WNL, Alert, Oriented ...Motor Strength: WNL Psychiatric: Yes: WNL, Alert, Oriented Labs/IMAGES NOTED - Problems (1) Asthma exacerbation Code(s): J45.901 - UNSPECIFIED ASTHMA WITH (ACUTE) EXACERBATION Qualifiers: Asthma severity: unspecified severity Asthma persistence: unspecified Qualified Code(s): J45.901 - Unspecified asthma with (acute) exacerbation (2) Leukocytosis Code(s): D72.829 - ELEVATED WHITE BLOOD CELL COUNT, UNSPECIFIED (3) Pneumonia Code(s): J18.9 - PNEUMONIA, UNSPECIFIED ORGANISM Qualifiers: Pneumonia type: due to unspecified organism Laterality: unspecified laterality Lung location: lower lobe of lung Qualified Code(s): J18.9 - Pneumonia, unspecified organism (4) Acute viral syndrome Code(s): B34.9 - VIRAL INFECTION, UNSPECIFIED (5) Anxiety Code(s): F41.9 - ANXIETY DISORDER, UNSPECIFIED (6) Asthma Code(s): J45.909 - UNSPECIFIED ASTHMA, UNCOMPLICATED (7) Atypical chest pain Code(s): R07.89 - OTHER CHEST PAIN (8) Bronchitis Code(s): J40 - BRONCHITIS, NOT SPECIFIED ACUTE OR CHRONIC (9) Chest pain Code(s): R07.9 - CHEST PAIN, UNSPECIFIED Qualifiers: Chest pain type: unspecified Qualified Code(s): R07.9 - Chest pain, unspecified (10) Musculoskeletal pain Code(s): M79.1 - MYALGIA * DO NOT USE * Assessment/Plan ABX per ID O2 as needed BD TX standing and PRN Medrol at current dose No smoking Check daily PEF Advair Nasal saline Fluticasone Singuilair QHS Outpatient PFTs once stable VTE prophylaxis Adriana MELENDEZ MD
[2019-10-07] MEDS: ATORVASTATIN CA 10 MG TABLET (FP) PO SCH (22:44)
[2019-10-07] MEDS: clonazePAM 0.5 MG TABLET PO PRN (22:44)
[2019-10-07] MEDS: MONTELUKAST NA 10 MG TABLET PO SCH (22:44)
[2019-10-08] MEDS: methylPREDNISolone NA SUCC 40 MG/1 ML VIAL IVPUSH SCH ×4 (03:36→22:35)
[2019-10-08] MEDS: clonazePAM 0.5 MG TABLET PO PRN ×2 (06:36→22:35)
[2019-10-08] MEDS: INSULIN SLIDING SCALE (NOVOLOG) 1 VIAL SQ SCH ×4 (06:38→22:35)
[2019-10-08] MEDS: ALBUTEROL SO4 2.5/IPRATROPIUM 0.5 INH SOL 3 ML VIAL.NEB. NEB SCH ×4 (08:00→20:30)
[2019-10-08 08:18] LABS: BASO % 0.2 % (0-2.0); HEMATOCRIT 41.1 % (32.4-45.2); HEMOGLOBIN 13.7 GM/dL (10.7-15.3); LYMPH % 5.8 % (8-40); MCH 29.8 pg (25.7-33.7); MCHC 33.3 g/dl (32.0-36.0); MEAN CELL VOLUME 89.5 fl (80-96); MEAN PLT VOLUME 6.7 fl (7.5-11.1); MONO % 2.8 % (3.8-10.2); NEUT % 91.2 % (42.8-82.8); PLATELET COUNT 383 K/MM3 (134-434); RBC 4.59 M/mm3 (3.60-5.2); RDW 13.6 % (11.6-15.6)
[2019-10-08 08:52] LABS: ALBUMIN 3.4 g/dl (3.4-5.0); BILIRUBIN,TOTAL 0.3 mg/dL (0.2-1); BLOOD UREA NITROGEN 18.9 mg/dL (7-18); CALCIUM 9.4 mg/dL (8.5-10.1); CREATININE 0.6 mg/dL (0.55-1.3); MAGNESIUM 2.4 mg/dL (1.8-2.4); POTASSIUM 4.4 mmol/L (3.5-5.1); TOT PROT 6.9 g/dl (6.4-8.2)
[2019-10-08] MEDS: PANTOPRAZOLE 40 MG TABLET (FP) PO SCH (09:14)
[2019-10-08] MEDS: ENOXAPARIN NA (PORCINE) 40 MG/0.4 ML DISP.SYRIN SQ SCH (09:14)
[2019-10-08] MEDS: FLUTICASONE/SALMETEROL 100 MCG/50 MCG DISKUS IH SCH ×2 (09:23→22:37)
[2019-10-08] MEDS: FLUTICASONE PROP 0.05% 16 GM NASAL SPRAY NS SCH (09:24)
--- NOTE | 2019-10-08 09:43 | PN ---
Progress Note, Physician History of Present Illness: 43 y/o F pmh of asthma and depression, presents to the ED for difficulty breathing, productive cough of yellow sputum and fever. Pt reports that she has been symptomatic for 3 weeks with a fever that started 2-3 days ago. She was seen at her local hospital in [place] three weeks ago, during which they sent her home with a dx of bronchitis and a Z pack. Her symptoms then worsened, prompting her to see her PCP who sent her home on fluticasone/salmeterol and cough medication. In the ED, she was saturating at 93 and tachy at 110s. She was given 1 amp of dounebs and her symptoms improved. She admits to coughing, chest pain, fevers. Denies c/n/v/d/abdominal pain. - Current Medication List Current Medications: Active Medications Acetaminophen (Tylenol -) 650 mg PO Q6H PRN PRN Reason: PAIN LEVEL 1-5 Last Admin: 10/06/19 06:40 Dose: 650 mg Albuterol Sulfate (Ventolin 0.083% Nebulizer Soln -) 1 amp NEB Q4H PRN PRN Reason: SHORT OF BREATH/WHEEZING Albuterol/Ipratropium (Duoneb -) 1 amp NEB RQID [facility] Last Admin: 10/07/19 21:35 Dose: 1 amp Atorvastatin Calcium (Lipitor -) 10 mg PO HS [facility] Last Admin: 10/07/19 22:44 Dose: 10 mg Clonazepam (Klonopin -) 0.5 mg PO Q6H PRN PRN Reason: ANXIETY Last Admin: 10/08/19 06:36 Dose: 0.5 mg Enoxaparin Sodium (Lovenox -) 40 mg SQ DAILY [facility] Last Admin: 10/08/19 09:14 Dose: 40 mg Fluticasone Propionate (Flonase -) 2 spray NS DAILY [facility] Last Admin: 10/08/19 09:24 Dose: 2 sprays Guaifenesin/Codeine Phosphate (Robitussin Ac -) 10 ml PO Q8H PRN PRN Reason: COUGH Last Admin: 10/04/19 01:06 Dose: 10 ml Insulin Aspart (Novolog Vial Sliding Scale -) 1 vial SQ ACHS [facility]; Protocol Last Admin: 10/08/19 06:38 Dose: 2 units Methylprednisolone Sodium Succinate (Solu-Medrol -) 40 mg IVPUSH Q6H-IV [facility] Last Admin: 10/08/19 09:14 Dose: 40 mg Montelukast Sodium (Singulair -) 10 mg PO HS [facility] Last Admin: 10/07/19 22:44 Dose: 10 mg Pantoprazole Sodium (Protonix -) 40 mg PO DAILY [facility] Last Admin: 10/08/19 09:14 Dose: 40 mg Fluticasone/Salmeterol (Advair 100mcg/50mcg -) 1 puff IH BID [facility] Last Admin: 10/08/19 09:23 Dose: 1 puff Sodium Chloride ([place] Nasal [place] -) 2 spray NS TID PRN PRN Reason: NASAL CONGESTION - Objective Vital Signs: Vital Signs Temperature 97.6 F 10/08/19 06:00 Pulse Rate 77 10/08/19 06:00 Respiratory Rate 18 10/08/19 06:00 Blood Pressure 119/59 L 10/08/19 06:00 O2 Sat by Pulse Oximetry (%) 97 10/07/19 21:00 Eyes: Yes: WNL, Conjunctiva Clear, EOM Intact HENT: Yes: WNL, Atraumatic, Normocephalic Neck: Yes: WNL, Supple, Trachea Midline Cardiovascular: Yes: WNL, Regular Rate and Rhythm Respiratory: Yes: WNL, Regular, CTA Bilaterally Gastrointestinal: Yes: WNL, Normal Bowel Sounds Genitourinary: Yes: WNL Musculoskeletal: Yes: WNL Extremities: Yes: WNL Edema: No Integumentary: Yes: WNL Neurological: Yes: WNL, Alert, Oriented ...Motor Strength: WNL Psychiatric: Yes: WNL Labs: CBC, BMP 10/08/19 06:50 10/08/19 06:00 INR, PTT INR 1.00 (0.83-1.09) 10/01/19 12:48 Problem List - Problems (1) Asthma exacerbation Code(s): J45.901 - UNSPECIFIED ASTHMA WITH (ACUTE) EXACERBATION Qualifiers: Asthma severity: unspecified severity Asthma persistence: unspecified Qualified Code(s): J45.901 - Unspecified asthma with (acute) exacerbation (2) Depression Code(s): F32.9 - MAJOR DEPRESSIVE DISORDER, SINGLE EPISODE, UNSPECIFIED (3) Lactic acid acidosis Code(s): E87.2 - ACIDOSIS (4) Leukocytosis Code(s): D72.829 - ELEVATED WHITE BLOOD CELL COUNT, UNSPECIFIED (5) Pneumonia Code(s): J18.9 - PNEUMONIA, UNSPECIFIED ORGANISM Qualifiers: Pneumonia type: due to unspecified organism Laterality: unspecified laterality Lung location: lower lobe of lung Qualified Code(s): J18.9 - Pneumonia, unspecified organism (6) Prophylactic measure Code(s): Z29.9 - ENCOUNTER FOR PROPHYLACTIC MEASURES, UNSPECIFIED (7) Respiratory failure Code(s): J96.90 - RESPIRATORY FAILURE, UNSP, UNSP W HYPOXIA OR HYPERCAPNIA (8) Accidental fall Code(s): W19.XXXA - UNSPECIFIED FALL, INITIAL ENCOUNTER (9) Acute otitis media Code(s): H66.90 - OTITIS MEDIA, UNSPECIFIED, UNSPECIFIED EAR (10) Acute viral syndrome Code(s): B34.9 - VIRAL INFECTION, UNSPECIFIED (11) Ankle sprain Code(s): S93.409A - SPRAIN OF UNSP LIGAMENT OF UNSPECIFIED ANKLE, INIT ENCNTR Qualifiers: Encounter type: initial encounter Involved ligament of ankle: unspecified ligament Laterality: left Qualified Code(s): S93.402A - Sprain of unspecified ligament of left ankle, initial encounter (12) Anxiety Code(s): F41.9 - ANXIETY DISORDER, UNSPECIFIED (13) Asthma Code(s): J45.909 - UNSPECIFIED ASTHMA, UNCOMPLICATED (14) Atypical chest pain Code(s): R07.89 - OTHER CHEST PAIN (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 (16) Bronchitis Code(s): J40 - BRONCHITIS, NOT SPECIFIED ACUTE OR CHRONIC (17) Chest pain Code(s): R07.9 - CHEST PAIN, UNSPECIFIED Qualifiers: Chest pain type: unspecified Qualified Code(s): R07.9 - Chest pain, unspecified (18) Corneal abrasion Code(s): S05.00XA - INJ CONJUNCTIVA AND CORNEAL ABRASION W/O FB, UNSP EYE, INIT Qualifiers: Encounter type: initial encounter Laterality: right Qualified Code(s): S05.01XA - Injury of conjunctiva and corneal abrasion without foreign body, right eye, initial encounter (19) Diarrhea Code(s): R19.7 - DIARRHEA, UNSPECIFIED (20) Drug overdose Code(s): T50.901A - POISONING BY UNSP DRUG/MEDS/BIOL SUBST, ACCIDENTAL, INIT Qualifiers: Encounter type: initial encounter Injury intent: undetermined intent Qualified Code(s): T50.904A - Poisoning by unspecified drugs, medicaments and biological substances, undetermined, initial encounter (21) Eye abrasion Code(s): S05.8X9A - OTHER INJURIES OF UNSPECIFIED EYE AND ORBIT, INIT ENCNTR (22) Finger lesion Code(s): L98.9 - DISORDER OF THE SKIN AND SUBCUTANEOUS TISSUE, UNSPECIFIED (23) Gall stone Code(s): K80.20 - CALCULUS OF GALLBLADDER W/O CHOLECYSTITIS W/O OBSTRUCTION Qualifiers: Cholecystitis presence: without cholecystitis Biliary obstruction: without biliary obstruction Qualified Code(s): K80.20 - Calculus of gallbladder without cholecystitis without obstruction (24) Musculoskeletal pain Code(s): M79.1 - MYALGIA * DO NOT USE * (25) Pharyngitis Code(s): J02.9 - ACUTE PHARYNGITIS, UNSPECIFIED (26) Premenstrual symptom Code(s): N94.3 - PREMENSTRUAL TENSION SYNDROME (27) Seasonal allergies Code(s): J30.2 - OTHER SEASONAL ALLERGIC RHINITIS Qualifiers: Allergic rhinitis trigger: pollen (28) Sinusitis Code(s): J32.9 - CHRONIC SINUSITIS, UNSPECIFIED Qualifiers: Sinusitis location: maxillary Chronicity: acute Recurrence: not specified as recurrent Qualified Code(s): J01.00 - Acute maxillary sinusitis, unspecified (29) Streptococcal pharyngitis Code(s): J02.0 - STREPTOCOCCAL PHARYNGITIS (30) Vasovagal syncope Code(s): R55 - SYNCOPE AND COLLAPSE (31) Viral URI with cough Code(s): J06.9 - ACUTE UPPER RESPIRATORY INFECTION, UNSPECIFIED; B97.89 - OTH VIRAL AGENTS THE CAUSE OF DISEASES CLASSD ELSWHR (32) Viral upper respiratory infection Code(s): J06.9 - ACUTE UPPER RESPIRATORY INFECTION, UNSPECIFIED (33) Vomiting Code(s): R11.10 - VOMITING, UNSPECIFIED Assessment/Plan Asthma Acute resp distress fever cough lactic acidosis leukocytosis ECHO nl BNP mildly elevated Plan Cardiac rivera stable cont pulmonary rx
--- NOTE | 2019-10-08 10:48 | PN ---
Progress Note, Physician History of Present Illness: stable no new issues - Current Medication List Current Medications: Active Medications Acetaminophen (Tylenol -) 650 mg PO Q6H PRN PRN Reason: PAIN LEVEL 1-5 Last Admin: 10/06/19 06:40 Dose: 650 mg Albuterol Sulfate (Ventolin 0.083% Nebulizer Soln -) 1 amp NEB Q4H PRN PRN Reason: SHORT OF BREATH/WHEEZING Albuterol/Ipratropium (Duoneb -) 1 amp NEB RQID [facility] Last Admin: 10/08/19 08:00 Dose: 1 amp Atorvastatin Calcium (Lipitor -) 10 mg PO HS [facility] Last Admin: 10/07/19 22:44 Dose: 10 mg Clonazepam (Klonopin -) 0.5 mg PO Q6H PRN PRN Reason: ANXIETY Last Admin: 10/08/19 06:36 Dose: 0.5 mg Enoxaparin Sodium (Lovenox -) 40 mg SQ DAILY [facility] Last Admin: 10/08/19 09:14 Dose: 40 mg Fluticasone Propionate (Flonase -) 2 spray NS DAILY [facility] Last Admin: 10/08/19 09:24 Dose: 2 sprays Guaifenesin/Codeine Phosphate (Robitussin Ac -) 10 ml PO Q8H PRN PRN Reason: COUGH Last Admin: 10/04/19 01:06 Dose: 10 ml Insulin Aspart (Novolog Vial Sliding Scale -) 1 vial SQ [facility]; Protocol Last Admin: 10/08/19 06:38 Dose: 2 units Methylprednisolone Sodium Succinate (Solu-Medrol -) 40 mg IVPUSH Q6H-IV [facility] Last Admin: 10/08/19 09:14 Dose: 40 mg Montelukast Sodium (Singulair -) 10 mg PO HS [facility] Last Admin: 10/07/19 22:44 Dose: 10 mg Pantoprazole Sodium (Protonix -) 40 mg PO DAILY [facility] Last Admin: 10/08/19 09:14 Dose: 40 mg Fluticasone/Salmeterol (Advair 100mcg/50mcg -) 1 puff IH BID [facility] Last Admin: 10/08/19 09:23 Dose: 1 puff Sodium Chloride ([place] Nasal [place] -) 2 spray NS TID PRN PRN Reason: NASAL CONGESTION - Objective Vital Signs: Vital Signs Temperature 97.6 F 10/08/19 06:00 Pulse Rate 77 10/08/19 06:00 Respiratory Rate 18 10/08/19 06:00 Blood Pressure 119/59 L 10/08/19 06:00 O2 Sat by Pulse Oximetry (%) 97 10/07/19 21:00 Constitutional: Yes: No Distress, Calm Cardiovascular: Yes: S1, S2 Respiratory: Yes: Regular, On Nasal O2, Rhonchi Gastrointestinal: Yes: Normal Bowel Sounds, Soft Musculoskeletal: Yes: WNL Extremities: Yes: WNL Neurological: Yes: Alert, Oriented Psychiatric: Yes: Alert, Oriented Labs: CBC, BMP 10/08/19 06:50 10/08/19 06:00 INR, PTT INR 1.00 (0.83-1.09) 10/01/19 12:48 Assessment/Plan 43 y/o F pmh of asthma and depression, presents to the ED for difficulty breathing, productive cough of yellow sputum and fever. Pt reports that she has been symptomatic for 3 weeks with a fever that started 2-3 days ago #Acute resp distress fever cough lactic acidosis leukocytosis plan continue to monitor rest as per the team
[2019-10-08 11:49] LABS: ANISOCYTOSIS 0; MACROCYTOSIS 0; PLATELET ESTIMATE NORMAL
--- NOTE | 2019-10-08 13:34 | PN ---
Physical Exam: SUBJECTIVE: Patient seen and examined, feels better, breathing much improved. OBJECTIVE: will order pre and post to assess oxygen on room air will titrate off oxygen as tolerated taper off solumedrol per pulmonary Patient is a 43 year old female with past medical history of asthma and depression. Patient presented to the ED with shortness of breath and productive cough of yellow sputum and fever. Pt reports that she has been symptomatic for 3 weeks. She was seen at her local hospital at [place] three weeks ago, during which they sent her home with a dx of bronchitis and a Z pack. Her symptoms then worsened, prompting her to see her PCP who sent her home on fluticasone/salmeterol and cough medication. In the ED she was given 1 amp of dounebs and her symptoms improved. She is has been treated with zosyn for presumed pneumonia as well as elevated lactic acid. She is also on a medrol taper. Antibiotics discontinued per ID. ---- blood cultures negative to date. Vital Signs Period Temp Pulse Resp BP Sys/Hall Pulse Ox Last 24 Hr 97.6 F-98.4 F 71-95 18-18 117-127/59-74 97 GENERAL: The patient is awake, alert, and fully oriented, in no acute distress. HEAD: Normal with no signs of trauma. EYES: PERRL, extraocular movements intact, sclera anicteric, conjunctiva clear. No ptosis. ENT: Ears normal, nares patent, oropharynx clear without exudates, moist mucous membranes. NECK: Trachea midline, full range of motion, supple. LUNGS: clear to auscultation bilaterally, no wheezing, titrate off oxygen as tolerated HEART: Regular rate and rhythm ABDOMEN: Soft, nontender, nondistended, normoactive bowel sounds, no guarding, no rebound, no hepatosplenomegaly, no masses. EXTREMITIES: no edema. NEUROLOGICAL: Normal speech, gait not observed. PSYCH: Normal mood, normal affect. Laboratory Results - last 24 hr 10/07/19 10/07/19 10/08/19 17:18 22:56 06:00 WBC RBC Hgb Hct MCV MCH MCHC RDW Plt Count MPV Absolute Neuts (auto) Neutrophils % Neutrophils % (Manual) Band Neutrophils % Lymphocytes % Lymphocytes % (Manual) Monocytes % Monocytes % (Manual) Eosinophils % Eosinophils % (Manual) Basophils % Basophils % (Manual) Myelocytes % (Man) Promyelocytes % (Man) Blast Cells % (Manual) Nucleated RBC % Metamyelocytes Hypochromia Platelet Estimate Polychromasia Poikilocytosis Anisocytosis Microcytosis Macrocytosis Stomatocytes Sodium 133 L Potassium 4.4 Chloride 96 L Carbon Dioxide 24 Anion Gap 13 BUN 18.9 H Creatinine 0.6 Est GFR (CKD-EPI)AfAm 129.39 Est GFR (CKD-EPI)NonAf 111.64 POC Glucometer 168 287 Random Glucose 177 H Calcium 9.4 Magnesium 2.4 Total Bilirubin 0.3 AST 11 L ALT 28 Alkaline Phosphatase 49 Total Protein 6.9 Albumin 3.4 10/08/19 10/08/19 10/08/19 06:35 06:50 12:16 WBC 20.0 H RBC 4.59 Hgb 13.7 Hct 41.1 MCV 89.5 MCH 29.8 MCHC 33.3 RDW 13.6 Plt Count 383 MPV 6.7 L Absolute Neuts (auto) 18.2 H Neutrophils % 91.2 H Neutrophils % (Manual) 81.0 Band Neutrophils % 0.0 Lymphocytes % 5.8 L Lymphocytes % (Manual) 1.0 L D Monocytes % 2.8 L Monocytes % (Manual) 2 L Eosinophils % 0.0 Eosinophils % (Manual) 0.0 Basophils % 0.2 D Basophils % (Manual) 0.0 Myelocytes % (Man) 1 D Promyelocytes % (Man) 0 Blast Cells % (Manual) 0 Nucleated RBC % 0 Metamyelocytes 3 H Hypochromia 0 Platelet Estimate Normal Polychromasia 1+ Poikilocytosis 1+ Anisocytosis 0 Microcytosis 0 Macrocytosis 0 Stomatocytes 1+ Sodium Potassium Chloride Carbon Dioxide Anion Gap BUN Creatinine Est GFR (CKD-EPI)AfAm Est GFR (CKD-EPI)NonAf POC Glucometer 162 155 Random Glucose Calcium Magnesium Total Bilirubin AST ALT Alkaline Phosphatase Total Protein Albumin Active Medications Generic Name Dose Route Start Last Admin Trade Name Freq PRN Reason Stop Dose Admin Acetaminophen 650 mg 10/01/19 17:32 10/06/19 06:40 Tylenol - PO 650 mg Q6H PRN Administration PAIN LEVEL 1-5 Albuterol Sulfate 1 amp 10/04/19 11:44 Ventolin 0.083% Nebulizer Soln - NEB Q4H PRN SHORT OF BREATH/WHEEZING Albuterol/Ipratropium 1 amp 10/04/19 12:00 10/08/19 12:00 Duoneb - NEB 1 amp RQID TALISHA Administration Atorvastatin Calcium 10 mg 10/07/19 22:00 10/07/19 22:44 Lipitor - PO 10 mg HS TALISHA Administration Clonazepam 0.5 mg 10/01/19 17:35 10/08/19 06:36 Klonopin - PO 0.5 mg Q6H PRN Administration ANXIETY Enoxaparin Sodium 40 mg 10/02/19 10:00 10/08/19 09:14 Lovenox - SQ 40 mg DAILY TALISHA Administration Fluticasone Propionate 2 spray 10/04/19 11:45 10/08/19 09:24 Flonase - NS 2 sprays DAILY TALISHA Administration Guaifenesin/Codeine Phosphate 10 ml 10/03/19 12:21 10/04/19 01:06 Robitussin Ac - PO 10 ml Q8H PRN Administration COUGH Insulin Aspart 1 vial 10/05/19 16:30 10/08/19 12:21 Novolog Vial Sliding Scale - SQ 2 units ACHS TALISHA Administration Protocol Methylprednisolone Sodium Succinate 40 mg 10/01/19 21:00 10/08/19 09:14 Solu-Medrol - IVPUSH 40 mg Q6H-IV TALISHA Administration Montelukast Sodium 10 mg 10/04/19 22:00 10/07/19 22:44 Singulair - PO 10 mg HS TALISHA Administration Pantoprazole Sodium 40 mg 10/06/19 10:00 10/08/19 09:14 Protonix - PO 40 mg DAILY TALISHA Administration Fluticasone/Salmeterol 1 puff 10/01/19 22:00 10/08/19 09:23 Advair 100mcg/50mcg - IH 1 puff BID TALISHA Administration Sodium Chloride 2 spray 10/04/19 11:44 [place] Nasal [place] - NS TID PRN NASAL CONGESTION ASSESSMENT/PLAN: Problem List - Problems (1) Chest pain Assessment/Plan: resolved troponins negative echo ordered and reviewed, no acute findings cardiology following Code(s): R07.9 - CHEST PAIN, UNSPECIFIED (2) Asthma exacerbation Assessment/Plan: on solumedrol taper, duonebs, singular and bronchodilators pulmonary following Code(s): J45.901 - UNSPECIFIED ASTHMA WITH (ACUTE) EXACERBATION Qualifiers: Asthma severity: unspecified severity Asthma persistence: unspecified Qualified Code(s): J45.901 - Unspecified asthma with (acute) exacerbation (3) Lactic acid acidosis Assessment/Plan: elevated, but now trending down may be caused by allbuterol renal consulted, abg wnl Code(s): E87.2 - ACIDOSIS (4) Leukocytosis Code(s): D72.829 - ELEVATED WHITE BLOOD CELL COUNT, UNSPECIFIED (5) Pneumonia Assessment/Plan: monitor off antibiotics per ID s/p zosyn and azithromycin Code(s): J18.9 - PNEUMONIA, UNSPECIFIED ORGANISM Qualifiers: Pneumonia type: due to unspecified organism Laterality: unspecified laterality Lung location: lower lobe of lung Qualified Code(s): J18.9 - Pneumonia, unspecified organism (6) Respiratory failure Assessment/Plan: resolving attempting to wean off oxygen respiratory pre and post on solumedrol taper Code(s): J96.90 - RESPIRATORY FAILURE, UNSP, UNSP W HYPOXIA OR HYPERCAPNIA (7) Depression Assessment/Plan: continue home medications Code(s): F32.9 - MAJOR DEPRESSIVE DISORDER, SINGLE EPISODE, UNSPECIFIED (8) Morbid obesity Assessment/Plan: bmi 33.8. weight loss encouraged. outpatient follow up. Code(s): E66.01 - MORBID (SEVERE) OBESITY DUE TO EXCESS CALORIES (9) HLD (hyperlipidemia) Assessment/Plan: elevated lipid panel. started on lipitor 10 Code(s): E78.5 - HYPERLIPIDEMIA, UNSPECIFIED (10) DVT prophylaxis Assessment/Plan: lovenox 40 daily Code(s): Z29.9 - ENCOUNTER FOR PROPHYLACTIC MEASURES, UNSPECIFIED (11) Prophylactic measure Assessment/Plan: fen tolerating po monitor electrolytes low salt diet full code physical therapy Code(s): Z29.9 - ENCOUNTER FOR PROPHYLACTIC MEASURES, UNSPECIFIED Visit type - Emergency Visit Emergency Visit: Yes ED Registration Date: 10/01/19 Care time: The patient presented to the Emergency Department on the above date and was hospitalized for further evaluation of their emergent condition. - New Patient This patient is new to me today: No - Critical Care Critical Care patient: No - Discharge Referral Referred to [facility] Med [facility] No
[2019-10-08] MEDS: MONTELUKAST NA 10 MG TABLET PO SCH (22:35)
[2019-10-08] MEDS: ATORVASTATIN CA 10 MG TABLET (FP) PO SCH (22:35)
[2019-10-09] MEDS: methylPREDNISolone NA SUCC 40 MG/1 ML VIAL IVPUSH SCH ×2 (04:09→09:59)
[2019-10-09] MEDS: INSULIN SLIDING SCALE (NOVOLOG) 1 VIAL SQ SCH ×2 (06:54→12:47)
[2019-10-09] MEDS: ALBUTEROL SO4 2.5/IPRATROPIUM 0.5 INH SOL 3 ML VIAL.NEB. NEB SCH (07:35)
--- NOTE | 2019-10-09 07:57 | PN ---
Progress Note, Physician History of Present Illness: 43 y/o F pmh of asthma and depression, presents to the ED for difficulty breathing, productive cough of yellow sputum and fever. Pt reports that she has been symptomatic for 3 weeks with a fever that started 2-3 days ago. She was seen at her local hospital in [place] three weeks ago, during which they sent her home with a dx of bronchitis and a Z pack. Her symptoms then worsened, prompting her to see her PCP who sent her home on fluticasone/salmeterol and cough medication. In the ED, she was saturating at 93 and tachy at 110s. She was given 1 amp of dounebs and her symptoms improved. She admits to coughing, chest pain, fevers. Denies c/n/v/d/abdominal pain. - Current Medication List Current Medications: Active Medications Acetaminophen (Tylenol -) 650 mg PO Q6H PRN PRN Reason: PAIN LEVEL 1-5 Last Admin: 10/06/19 06:40 Dose: 650 mg Albuterol Sulfate (Ventolin 0.083% Nebulizer Soln -) 1 amp NEB Q4H PRN PRN Reason: SHORT OF BREATH/WHEEZING Albuterol/Ipratropium (Duoneb -) 1 amp NEB RQID TALISHA Last Admin: 10/08/19 20:30 Dose: 1 amp Atorvastatin Calcium (Lipitor -) 10 mg PO HS [facility] Last Admin: 10/08/19 22:35 Dose: 10 mg Clonazepam (Klonopin -) 0.5 mg PO Q6H PRN PRN Reason: ANXIETY Last Admin: 10/08/19 22:35 Dose: 0.5 mg Enoxaparin Sodium (Lovenox -) 40 mg SQ DAILY [facility] Last Admin: 10/08/19 09:14 Dose: 40 mg Fluticasone Propionate (Flonase -) 2 spray NS DAILY [facility] Last Admin: 10/08/19 09:24 Dose: 2 sprays Guaifenesin/Codeine Phosphate (Robitussin Ac -) 10 ml PO Q8H PRN PRN Reason: COUGH Last Admin: 10/04/19 01:06 Dose: 10 ml Insulin Aspart (Novolog Vial Sliding Scale -) 1 vial SQ ACHS [facility]; Protocol Last Admin: 10/09/19 06:54 Dose: 2 units Methylprednisolone Sodium Succinate (Solu-Medrol -) 40 mg IVPUSH Q6H-IV [facility] Last Admin: 10/09/19 04:09 Dose: 40 mg Montelukast Sodium (Singulair -) 10 mg PO HS [facility] Last Admin: 10/08/19 22:35 Dose: 10 mg Pantoprazole Sodium (Protonix -) 40 mg PO DAILY [facility] Last Admin: 10/08/19 09:14 Dose: 40 mg Fluticasone/Salmeterol (Advair 100mcg/50mcg -) 1 puff IH BID [facility] Last Admin: 10/08/19 22:37 Dose: Not Given Sodium Chloride ([place] Nasal [place] -) 2 spray NS TID PRN PRN Reason: NASAL CONGESTION - Objective Vital Signs: Vital Signs Temperature 98.7 F 10/09/19 07:00 Pulse Rate 75 10/09/19 07:00 Respiratory Rate 20 10/09/19 07:00 Blood Pressure 107/74 10/09/19 07:00 O2 Sat by Pulse Oximetry (%) 97 10/08/19 21:00 Eyes: Yes: WNL, Conjunctiva Clear, EOM Intact HENT: Yes: WNL, Atraumatic, Normocephalic Neck: Yes: WNL, Supple, Trachea Midline Cardiovascular: Yes: WNL, Regular Rate and Rhythm Respiratory: Yes: Regular, CTA Bilaterally, Diminished Gastrointestinal: Yes: WNL, Normal Bowel Sounds Genitourinary: Yes: WNL Musculoskeletal: Yes: WNL Extremities: Yes: WNL Edema: No Integumentary: Yes: WNL Neurological: Yes: WNL, Alert, Oriented ...Motor Strength: WNL Psychiatric: Yes: WNL Labs: INR, PTT INR 1.00 (0.83-1.09) 10/01/19 12:48 Problem List - Problems (1) Asthma exacerbation Code(s): J45.901 - UNSPECIFIED ASTHMA WITH (ACUTE) EXACERBATION Qualifiers: Asthma severity: unspecified severity Asthma persistence: unspecified Qualified Code(s): J45.901 - Unspecified asthma with (acute) exacerbation (2) Depression Code(s): F32.9 - MAJOR DEPRESSIVE DISORDER, SINGLE EPISODE, UNSPECIFIED (3) Lactic acid acidosis Code(s): E87.2 - ACIDOSIS (4) Leukocytosis Code(s): D72.829 - ELEVATED WHITE BLOOD CELL COUNT, UNSPECIFIED (5) Pneumonia Code(s): J18.9 - PNEUMONIA, UNSPECIFIED ORGANISM Qualifiers: Pneumonia type: due to unspecified organism Laterality: unspecified laterality Lung location: lower lobe of lung Qualified Code(s): J18.9 - Pneumonia, unspecified organism (6) Prophylactic measure Code(s): Z29.9 - ENCOUNTER FOR PROPHYLACTIC MEASURES, UNSPECIFIED (7) Respiratory failure Code(s): J96.90 - RESPIRATORY FAILURE, UNSP, UNSP W HYPOXIA OR HYPERCAPNIA (8) Accidental fall Code(s): W19.XXXA - UNSPECIFIED FALL, INITIAL ENCOUNTER (9) Acute otitis media Code(s): H66.90 - OTITIS MEDIA, UNSPECIFIED, UNSPECIFIED EAR (10) Acute viral syndrome Code(s): B34.9 - VIRAL INFECTION, UNSPECIFIED (11) Ankle sprain Code(s): S93.409A - SPRAIN OF UNSP LIGAMENT OF UNSPECIFIED ANKLE, INIT ENCNTR Qualifiers: Encounter type: initial encounter Involved ligament of ankle: unspecified ligament Laterality: left Qualified Code(s): S93.402A - Sprain of unspecified ligament of left ankle, initial encounter (12) Anxiety Code(s): F41.9 - ANXIETY DISORDER, UNSPECIFIED (13) Asthma Code(s): J45.909 - UNSPECIFIED ASTHMA, UNCOMPLICATED (14) Atypical chest pain Code(s): R07.89 - OTHER CHEST PAIN (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 (16) Bronchitis Code(s): J40 - BRONCHITIS, NOT SPECIFIED ACUTE OR CHRONIC (17) Chest pain Code(s): R07.9 - CHEST PAIN, UNSPECIFIED Qualifiers: Chest pain type: unspecified Qualified Code(s): R07.9 - Chest pain, unspecified (18) Corneal abrasion Code(s): S05.00XA - INJ CONJUNCTIVA AND CORNEAL ABRASION W/O FB, UNSP EYE, INIT Qualifiers: Encounter type: initial encounter Laterality: right Qualified Code(s): S05.01XA - Injury of conjunctiva and corneal abrasion without foreign body, right eye, initial encounter (19) Diarrhea Code(s): R19.7 - DIARRHEA, UNSPECIFIED (20) Drug overdose Code(s): T50.901A - POISONING BY UNSP DRUG/MEDS/BIOL SUBST, ACCIDENTAL, INIT Qualifiers: Encounter type: initial encounter Injury intent: undetermined intent Qualified Code(s): T50.904A - Poisoning by unspecified drugs, medicaments and biological substances, undetermined, initial encounter (21) Eye abrasion Code(s): S05.8X9A - OTHER INJURIES OF UNSPECIFIED EYE AND ORBIT, INIT ENCNTR (22) Finger lesion Code(s): L98.9 - DISORDER OF THE SKIN AND SUBCUTANEOUS TISSUE, UNSPECIFIED (23) Gall stone Code(s): K80.20 - CALCULUS OF GALLBLADDER W/O CHOLECYSTITIS W/O OBSTRUCTION Qualifiers: Cholecystitis presence: without cholecystitis Biliary obstruction: without biliary obstruction Qualified Code(s): K80.20 - Calculus of gallbladder without cholecystitis without obstruction (24) Musculoskeletal pain Code(s): M79.1 - MYALGIA * DO NOT USE * (25) Pharyngitis Code(s): J02.9 - ACUTE PHARYNGITIS, UNSPECIFIED (26) Premenstrual symptom Code(s): N94.3 - PREMENSTRUAL TENSION SYNDROME (27) Seasonal allergies Code(s): J30.2 - OTHER SEASONAL ALLERGIC RHINITIS Qualifiers: Allergic rhinitis trigger: pollen (28) Sinusitis Code(s): J32.9 - CHRONIC SINUSITIS, UNSPECIFIED Qualifiers: Sinusitis location: maxillary Chronicity: acute Recurrence: not specified as recurrent Qualified Code(s): J01.00 - Acute maxillary sinusitis, unspecified (29) Streptococcal pharyngitis Code(s): J02.0 - STREPTOCOCCAL PHARYNGITIS (30) Vasovagal syncope Code(s): R55 - SYNCOPE AND COLLAPSE (31) Viral URI with cough Code(s): J06.9 - ACUTE UPPER RESPIRATORY INFECTION, UNSPECIFIED; B97.89 - OTH VIRAL AGENTS THE CAUSE OF DISEASES CLASSD ELSWHR (32) Viral upper respiratory infection Code(s): J06.9 - ACUTE UPPER RESPIRATORY INFECTION, UNSPECIFIED (33) Vomiting Code(s): R11.10 - VOMITING, UNSPECIFIED Assessment/Plan Asthma Acute resp distress fever cough lactic acidosis leukocytosis ECHO nl BNP mildly elevated Plan Cardiac rivera stable cont pulmonary rx
[2019-10-09 08:02] LABS: BASO % 0.2 % (0-2.0); HEMATOCRIT 42.5 % (32.4-45.2); HEMOGLOBIN 14.1 GM/dL (10.7-15.3); LYMPH % 5.7 % (8-40); MCH 29.8 pg (25.7-33.7); MCHC 33.3 g/dl (32.0-36.0); MEAN CELL VOLUME 89.5 fl (80-96); MEAN PLT VOLUME 6.9 fl (7.5-11.1); MONO % 3.1 % (3.8-10.2); PLATELET COUNT 392 K/MM3 (134-434); RBC 4.74 M/mm3 (3.60-5.2); RDW 13.9 % (11.6-15.6)
[2019-10-09 08:07] LABS: ALBUMIN 3.4 g/dl (3.4-5.0); BILIRUBIN,TOTAL 0.3 mg/dL (0.2-1); BLOOD UREA NITROGEN 22.2 mg/dL (7-18); CALCIUM 9.1 mg/dL (8.5-10.1); CREATININE 0.8 mg/dL (0.55-1.3); MAGNESIUM 2.4 mg/dL (1.8-2.4); POTASSIUM 4.5 mmol/L (3.5-5.1); TOT PROT 6.7 g/dl (6.4-8.2)
[2019-10-09] MEDS: PANTOPRAZOLE 40 MG TABLET (FP) PO SCH (09:59)
[2019-10-09] MEDS: ENOXAPARIN NA (PORCINE) 40 MG/0.4 ML DISP.SYRIN SQ SCH (10:00)
[2019-10-09] MEDS: FLUTICASONE/SALMETEROL 100 MCG/50 MCG DISKUS IH SCH (10:13)
[2019-10-09] MEDS: FLUTICASONE PROP 0.05% 16 GM NASAL SPRAY NS SCH (10:14)
--- NOTE | 2019-10-09 12:03 | PN ---
Progress Note (short form) - Note Progress Note: PULMONARY VSS/AFEBRILE SUBJECTIVE IMPROVEMENT Constitutional: Yes: No Distress Eyes: Yes: Conjunctiva Clear, EOM Intact HENT: Yes: Atraumatic, Normocephalic Neck: Yes: Supple, Trachea Midline Cardiovascular: Yes: Regular Rate and Rhythm Respiratory: Yes: Cough, Diminished, On Nasal O2, Rhonchi, Less wheezes. No: Accessory Muscle Use, Rales, Stridor ...Inspection: Yes: WNL ...Clubbing: No Gastrointestinal: Yes: Normal Bowel Sounds, Soft, Abdomen, Obese Musculoskeletal: Yes: WNL Extremities: Yes: WNL Edema: No Peripheral Pulses WNL: Yes Integumentary: Yes: WNL Neurological: Yes: WNL, Alert, Oriented ...Motor Strength: WNL Psychiatric: Yes: WNL, Alert, Oriented Labs/IMAGES NOTED - Problems (1) Asthma exacerbation Code(s): J45.901 - UNSPECIFIED ASTHMA WITH (ACUTE) EXACERBATION Qualifiers: Asthma severity: unspecified severity Asthma persistence: unspecified Qualified Code(s): J45.901 - Unspecified asthma with (acute) exacerbation (2) Leukocytosis Code(s): D72.829 - ELEVATED WHITE BLOOD CELL COUNT, UNSPECIFIED (3) Pneumonia Code(s): J18.9 - PNEUMONIA, UNSPECIFIED ORGANISM Qualifiers: Pneumonia type: due to unspecified organism Laterality: unspecified laterality Lung location: lower lobe of lung Qualified Code(s): J18.9 - Pneumonia, unspecified organism (4) Acute viral syndrome Code(s): B34.9 - VIRAL INFECTION, UNSPECIFIED (5) Anxiety Code(s): F41.9 - ANXIETY DISORDER, UNSPECIFIED (6) Asthma Code(s): J45.909 - UNSPECIFIED ASTHMA, UNCOMPLICATED (7) Atypical chest pain Code(s): R07.89 - OTHER CHEST PAIN (8) Bronchitis Code(s): J40 - BRONCHITIS, NOT SPECIFIED ACUTE OR CHRONIC (9) Chest pain Code(s): R07.9 - CHEST PAIN, UNSPECIFIED Qualifiers: Chest pain type: unspecified Qualified Code(s): R07.9 - Chest pain, unspecified (10) Musculoskeletal pain Code(s): M79.1 - MYALGIA * DO NOT USE * Assessment/Plan O2 as needed Bronchodilators Medrol change to prednisone No smoking Nasal saline Fluticasone Singuilair QHS Outpatient PFTs Discharge planning Adriana MELENDEZ MD
--- NOTE | 2019-10-09 12:04 | DS ---
Physical Exam: SUBJECTIVE: Patient seen and examined at the bedside. Patient agrees to discharge home with outpatient follow up. Denies any pain, denies shortness of breath. Feels improved. Agrees to see pulmonary outpatient for management of asthma. OBJECTIVE: Patient is a 43 year old female with past medical history of asthma and depression. Patient presented to the ED on 10/01/2019 with shortness of breath and productive cough of yellow sputum and fever. Pt reports that she has been symptomatic for 3 weeks. She was seen at her local hospital at [place] three weeks ago, during which they sent her home with a dx of bronchitis and a Z pack. Her symptoms then worsened, prompting her to see her PCP who sent her home on fluticasone/salmeterol and cough medication. In the ED she was given 1 amp of dounebs and her symptoms improved. Patient admitted for acute asthma exacerbation and acute hypoxemic respiratory failure secondary to pneumonia. She completed Zosyn for pneumonia and has been stable. She will be transitioned from Solumedrol to a predinsone taper and discharged home with outpatient follow up with pulmonary. Vital Signs Period Temp Pulse Resp BP Sys/Hall Pulse Ox Last 24 Hr 97.5 F-98.7 F 75-94 14-20 107-145/59-85 96-97 PHYSICAL EXAM GENERAL: The patient is awake, alert, and fully oriented, in no acute distress. HEAD: Normal with no signs of trauma. EYES: PERRL, extraocular movements intact, sclera anicteric, conjunctiva clear. No ptosis. ENT: Ears normal, nares patent, oropharynx clear without exudates, moist mucous membranes. NECK: Trachea midline, full range of motion, supple. LUNGS: clear to auscultation bilaterally, no wheezing, titrate off oxygen as tolerated HEART: Regular rate and rhythm ABDOMEN: Soft, nontender, nondistended, normoactive bowel sounds, no guarding, no rebound, no hepatosplenomegaly, no masses. EXTREMITIES: no edema. NEUROLOGICAL: Normal speech, gait not observed. PSYCH: Normal mood, normal affect. LABS Laboratory Results - last 24 hr 10/08/19 10/08/19 10/08/19 06:50 12:16 16:38 WBC RBC Hgb Hct MCV MCH MCHC RDW Plt Count MPV Absolute Neuts (auto) Neutrophils % Neutrophils % (Manual) 81.0 Band Neutrophils % 0.0 Lymphocytes % Lymphocytes % (Manual) 1.0 L D Monocytes % Monocytes % (Manual) 2 L Eosinophils % Eosinophils % (Manual) 0.0 Basophils % Basophils % (Manual) 0.0 Myelocytes % (Man) 1 D Promyelocytes % (Man) 0 Blast Cells % (Manual) 0 Nucleated RBC % Metamyelocytes 3 H Hypochromia 0 Platelet Estimate Normal Polychromasia 1+ Poikilocytosis 1+ Anisocytosis 0 Microcytosis 0 Macrocytosis 0 Stomatocytes 1+ Sodium Potassium Chloride Carbon Dioxide Anion Gap BUN Creatinine Est GFR (CKD-EPI)AfAm Est GFR (CKD-EPI)NonAf POC Glucometer 155 213 Random Glucose Calcium Magnesium Total Bilirubin AST ALT Alkaline Phosphatase Total Protein Albumin 10/08/19 10/09/19 10/09/19 21:47 06:50 06:50 WBC 22.0 H RBC 4.74 Hgb 14.1 Hct 42.5 MCV 89.5 MCH 29.8 MCHC 33.3 RDW 13.9 Plt Count 392 MPV 6.9 L Absolute Neuts (auto) 20.0 H Neutrophils % 91.0 H Neutrophils % (Manual) Band Neutrophils % Lymphocytes % 5.7 L Lymphocytes % (Manual) Monocytes % 3.1 L Monocytes % (Manual) Eosinophils % 0.0 Eosinophils % (Manual) Basophils % 0.2 Basophils % (Manual) Myelocytes % (Man) Promyelocytes % (Man) Blast Cells % (Manual) Nucleated RBC % 0 Metamyelocytes Hypochromia Platelet Estimate Polychromasia Poikilocytosis Anisocytosis Microcytosis Macrocytosis Stomatocytes Sodium 134 L Potassium 4.5 Chloride 97 L Carbon Dioxide 26 Anion Gap 11 BUN 22.2 H Creatinine 0.8 Est GFR (CKD-EPI)AfAm 104.65 Est GFR (CKD-EPI)NonAf 90.30 POC Glucometer 184 Random Glucose 175 H Calcium 9.1 Magnesium 2.4 Total Bilirubin 0.3 AST 5 L ALT 28 Alkaline Phosphatase 47 Total Protein 6.7 Albumin 3.4 10/09/19 10/09/19 06:52 11:56 WBC RBC Hgb Hct MCV MCH MCHC RDW Plt Count MPV Absolute Neuts (auto) Neutrophils % Neutrophils % (Manual) Band Neutrophils % Lymphocytes % Lymphocytes % (Manual) Monocytes % Monocytes % (Manual) Eosinophils % Eosinophils % (Manual) Basophils % Basophils % (Manual) Myelocytes % (Man) Promyelocytes % (Man) Blast Cells % (Manual) Nucleated RBC % Metamyelocytes Hypochromia Platelet Estimate Polychromasia Poikilocytosis Anisocytosis Microcytosis Macrocytosis Stomatocytes Sodium Potassium Chloride Carbon Dioxide Anion Gap BUN Creatinine Est GFR (CKD-EPI)AfAm Est GFR (CKD-EPI)NonAf POC Glucometer 175 223 Random Glucose Calcium Magnesium Total Bilirubin AST ALT Alkaline Phosphatase Total Protein Albumin HOSPITAL COURSE: Date of Admission:10/01/19 Date of Discharge: 10/09/19 Minutes to complete discharge: 45 Discharge Summary Problems reviewed: Yes Reason For Visit: ASTHMA Current Active Problems Anxiety and depression (Acute) Asthma exacerbation (Acute) Chest pain (Acute) DVT prophylaxis (Acute) Depression (Acute) Elevated lactic acid level (Acute) [place] cardiac risk >20% in next 10 years (Acute) HLD (hyperlipidemia) (Acute) HTN (hypertension) (Acute) Hyperglycemia (Acute) Hyperlipidemia (Acute) Lactic acid acidosis (Acute) Leukocytosis (Acute) Morbid obesity (Acute) Obesity (Acute) Pneumonia (Acute) Prophylactic measure (Acute) Respiratory failure (Acute) Condition: Improved - Instructions Diet, Activity, Other Instructions: Mrs Mcguire: You were admitted for acute asthma exacerbation and possible pneumonia. You have completed the antibiotics. During your hospital stay you were evaluated by pulmonary and cardiology. Here are our discharge instructions. Asthma Exacerbation. We treated you with IV steriods and will transition you to Prednisone ONCE per day as follows: Prednisone 40mg ONCE PER DAY on 10/10/2019 at 8am (4 pills - each pill is 10mg) Prednisone 40mg ONCE PER DAY on 10/11/2019 at 8am (4 pills - each pill is 10mg) Prednisone 40mg ONCE PER DAY on 10/12/2019 at 8am (4 pills - each pill is 10mg) Prednisone 30mg ONCE PER DAY on 10/13/2019 at 8am (3 pills - each pill is 10mg) Prednisone 30mg ONCE PER DAY on 10/14/2019 at 8am (3 pills - each pill is 10mg) Prednisone 20mg ONCE PER DAY on 10/15/2019 at 8am (2 pills - each pill is 10mg) Prednisone 10mg ONCE PER DAY on 10/16/2019 at 8am (1 pill - each pill is 10mg) - THIS IS YOUR LAST DOSE Please take Protonix while you are on the prednisone so that it can protect your stomach. Medications: Take the Prednisone as outlined above. Each pill is 10mg and you will be tapered off as indicated above. Prednisone cannot be stopped abruptly, please do not miss any doses. Lipitor 10mg ONCE PER DAY. This medication is for your high cholesterol. Please continue a low cholesterol diet and have your cholesterol levels repeated with your primary care doctor. Singulair 10mg ONCE PER DAY. Take at bedtime. This medication is for your asthma maintenance Ventolin/Allbuterol: This medication is a rescue inhaler for shortness of breath. Protonix 40mg ONCE PER DAY. Take this medication 1 hour before breakfast or 2 hours after. It will protect your stomach while on the steriods. Follow ups: Please follow up with the process helper who saw you during your stay for post hospital follow up. Please follow up with your primary care doctor within 3-5 days after hospital stay. You were also seen by a graining machine operator during your stay, their information is enclosed. Thank you for allowing us to care for you. Chelo Carmona HAND PAINT MIXER [facility] [phone] Referrals: Abebe Pruitt MD [Staff Physician] - Esteban Wynn MD [Staff Physician] - Tatiana Parnell-Jose Garcia [Primary Care Provider] - Disposition: VNS/HOME HEALTH CARE - Home Medications Comprehensive Discharge Medication List: Ambulatory Orders KlonoPIN - 0.5 mg PO BID PRN 10/01/19 Salmeterol/Fluticasone [Advair 100Mcg/50Mcg -] 1 puff DAILY PRN 10/01/19 Codein Guaifen 5 ml PO Q4H PRN 10/02/19 Albuterol 0.083% Nebulizer Esme [Ventolin 0.083% Nebulizer Soln -] 1 amp NEB Q4H PRN #1 amp 10/09/19 Atorvastatin Ca [Lipitor] 10 mg PO HS #90 tablet 10/09/19 Montelukast Na [Singulair -] 10 mg PO HS #90 tablet 10/09/19 Pantoprazole Sodium [Protonix -] 40 mg PO DAILY #30 tablet.ec 10/09/19 Prednisone 10 mg PO DAILY #30 tablet 10/09/19 Salmeterol/Fluticasone [Advair 100Mcg/50Mcg -] 1 puff IH BID inhaler 10/09/19 Problem List - Problems (1) Chest pain Assessment/Plan: resolved. cardiac workup negative. followed by graining machine operator during hospital stay. Code(s): R07.9 - CHEST PAIN, UNSPECIFIED (2) Asthma exacerbation Assessment/Plan: on solumedrol taper, duonebs, singular and bronchodilators pulmonary outpatient follow up Code(s): J45.901 - UNSPECIFIED ASTHMA WITH (ACUTE) EXACERBATION Qualifiers: Asthma severity: unspecified severity Asthma persistence: unspecified Qualified Code(s): J45.901 - Unspecified asthma with (acute) exacerbation (3) Lactic acid acidosis Assessment/Plan: elevated, but now trending down may be caused by albuterol Code(s): E87.2 - ACIDOSIS (4) Leukocytosis Code(s): D72.829 - ELEVATED WHITE BLOOD CELL COUNT, UNSPECIFIED (5) Pneumonia Assessment/Plan: monitor off antibiotics per ID s/p zosyn and azithromycin Code(s): J18.9 - PNEUMONIA, UNSPECIFIED ORGANISM Qualifiers: Pneumonia type: due to unspecified organism Laterality: unspecified laterality Lung location: lower lobe of lung Qualified Code(s): J18.9 - Pneumonia, unspecified organism (6) Respiratory failure Assessment/Plan: resolved respiratory pre and post shows no need for home oxygen. Code(s): J96.90 - RESPIRATORY FAILURE, UNSP, UNSP W HYPOXIA OR HYPERCAPNIA (7) Depression Assessment/Plan: continue home medications Code(s): F32.9 - MAJOR DEPRESSIVE DISORDER, SINGLE EPISODE, UNSPECIFIED (8) Morbid obesity Assessment/Plan: bmi 33.8. weight loss encouraged. outpatient follow up. Code(s): E66.01 - MORBID (SEVERE) OBESITY DUE TO EXCESS CALORIES (9) HLD (hyperlipidemia) Assessment/Plan: elevated lipid panel. started on lipitor 10 Code(s): E78.5 - HYPERLIPIDEMIA, UNSPECIFIED (10) DVT prophylaxis Assessment/Plan: now more ambulatory Code(s): Z29.9 - ENCOUNTER FOR PROPHYLACTIC MEASURES, UNSPECIFIED (11) Prophylactic measure Assessment/Plan: discharge home with vns services. Code(s): Z29.9 - ENCOUNTER FOR PROPHYLACTIC MEASURES, UNSPECIFIED This patient is new to me today: Yes Date on this admission: 10/09/19 Emergency Visit: No Critical Care patient: No - Discharge Referral Referred to [facility] Med [facility] No
[2019-10-09] MEDS ORDERED: predniSONE 10 MG TABLET (UD) PO SCH (12:15)
[2019-10-09] MEDS ORDERED: INSULIN (NOVOLOG) ASPART 100 UNITS/ML 10ML VIAL ONE (12:44)
[2019-10-09 13:03] LABS: ANISOCYTOSIS 3+; MACROCYTOSIS 0; PLATELET ESTIMATE NORMAL
--- NOTE | 2019-10-09 13:27 | PN ---
Progress Note, Physician - Current Medication List Current Medications: Active Medications Acetaminophen (Tylenol -) 650 mg PO Q6H PRN PRN Reason: PAIN LEVEL 1-5 Last Admin: 10/06/19 06:40 Dose: 650 mg Atorvastatin Calcium (Lipitor -) 10 mg PO HS [facility] Last Admin: 10/08/19 22:35 Dose: 10 mg Clonazepam (Klonopin -) 0.5 mg PO Q6H PRN PRN Reason: ANXIETY Last Admin: 10/08/19 22:35 Dose: 0.5 mg Enoxaparin Sodium (Lovenox -) 40 mg SQ DAILY [facility] Last Admin: 10/09/19 10:00 Dose: 40 mg Fluticasone Propionate (Flonase -) 2 spray NS DAILY [facility] Last Admin: 10/09/19 10:14 Dose: 2 sprays Guaifenesin/Codeine Phosphate (Robitussin Ac -) 10 ml PO Q8H PRN PRN Reason: COUGH Last Admin: 10/04/19 01:06 Dose: 10 ml Insulin Aspart (Novolog Vial Sliding Scale -) 1 vial SQ [facility]; Protocol Last Admin: 10/09/19 12:47 Dose: 4 units Montelukast Sodium (Singulair -) 10 mg PO HS [facility] Last Admin: 10/08/19 22:35 Dose: 10 mg Pantoprazole Sodium (Protonix -) 40 mg PO DAILY [facility] Last Admin: 10/09/19 09:59 Dose: 40 mg Prednisone (Deltasone -) 30 mg PO DAILY [facility] Fluticasone/Salmeterol (Advair 100mcg/50mcg -) 1 puff IH BID [facility] Last Admin: 10/09/19 10:13 Dose: 1 puff Sodium Chloride ([place] Bradley Nasal Bradley -) 2 spray NS TID PRN PRN Reason: NASAL CONGESTION - Objective Vital Signs: Vital Signs Temperature 98.7 F 10/09/19 07:00 Pulse Rate 82 10/09/19 10:37 Respiratory Rate 20 10/09/19 10:00 Blood Pressure 146/76 10/09/19 10:00 O2 Sat by Pulse Oximetry (%) 96 10/09/19 10:37 Labs: CBC, BMP 10/09/19 06:50 10/09/19 06:50 INR, PTT INR 1.00 (0.83-1.09) 10/01/19 12:48
[2019-10-09 14:35] VITALS: BP 149/74; PULSE 98; TEMP 98.2
== END 2019-10-09 15:11 | disposition home health service (06) | DRG 139 ==
LOC: JER 12:18 → JERBED 16:18 → J5S 18:07
PROVIDERS: ADMIT Internal Medicine; ATTEND Nurse Practitioner Family
DX: J18.9 Pneumonia, unspecified organism (principal); J98.11 Atelectasis; J96.01 Acute respiratory failure with hypoxia; E87.2 Acidosis; E66.01 Morbid (severe) obesity due to excess calories; J45.31 Mild persistent asthma with (acute) exacerbation; D72.829 Elevated white blood cell count, unspecified; F41.8 Other specified anxiety disorders; Z68.33 Body mass index [BMI] 33.0-33.9, adult; R07.9 Chest pain, unspecified; R73.9 Hyperglycemia, unspecified; E78.5 Hyperlipidemia, unspecified
CPT/HCPCS: 36415; 36600; 71045-TC-FY; 71046-TC-FY; 80053; 80061; 81003; 82803; 82962; 83036; 83605; 83721; 83735; 83880; 84443; 84484; 85025; 85379; 85610; 85730; 87040; 87086; 87804; 87899; 93005; 93010; 93306-TC; 94150; 94640; 94761; 97116-GP; 97162-GP; 99284-25; J0131; J7030

== ENCOUNTER 2019-10-17 13:40 | Emergency (ER) | payer OTHER ==
[2019-10-17 13:51] VITALS: BP 120/66; PULSE 102; TEMP 98.4; BMI 33.0
--- NOTE | 2019-10-17 13:53 | PDOC ---
Rapid Medical Evaluation Chief Complaint: Chest Pain Time Seen by Provider: 10/17/19 13:53 Medical Evaluation: Allergies Allergy/AdvReac Type Severity Reaction Status Date / Time latex [Latex] Allergy Intermediate Itching Verified 09/30/19 16:59 Vital Signs Temp Pulse Resp BP Pulse Ox 98.4 F 102 H 18 120/66 96 10/17/19 13:48 10/17/19 13:48 10/17/19 13:48 10/17/19 13:48 10/17/19 13:48 10/17/19 13:57 I performed a brief in-person evaluation of this patient. 43-year-old female with asthma s/p 8-day admission for asthma exacerbation and PNA dc 10/09 returning with chest pain (with coughing as well as at rest), SOB, subjective fever/diaphoresis. Pertinent physical exam findings: Alert, oriented, no distress. Scant end-expiratory wheezing, moving air well. I have ordered the following: DuoNeb EKG CXR Cardiac labs Patient to proceed to ED for further evaluation. Discharge Disposition - Diagnosis Chest pain - Referrals - Patient Instructions - Post Discharge Activity
[2019-10-17] MEDS ORDERED: ALBUTEROL SO4 2.5/IPRATROPIUM 0.5 INH SOL 3 ML VIAL.NEB. NEB ONE ×2 (13:54→14:51)
--- NOTE | 2019-10-17 15:14 | PDOC ---
History of Present Illness - General Chief Complaint: Chest Pain Stated Complaint: PAIN Time Seen by Provider: 10/17/19 13:53 History Source: Patient Exam Limitations: Clinical Condition - History of Present Illness Initial Comments: 10/17/19 13:51 Patient with history of asthma recently admitted for asthma exacerbation and pneumonia over 2 weeks ago and discharged 9 days ago presented with complaint of persistent left lower rib cage pain which is worse when she takes deep breathing. Patient was admitted for IV antibiotics for pneumonia and was treated with Levaquin and tapered dose prednisone upon discharge for asthma. Patient report complete resolve of symptoms upon discharge but started having left lower ribcage pain 3 days ago. Denies CP, SOB, Dizziness, numbness or tingling sensation, nausea or vomiting. Denies fever chills. Patient has not taken anything for symptoms Is this a multiple visit Asthma Patient?: No Timing/Duration: other (3 days) Past History - Past Medical History Allergies/Adverse Reactions: Allergies Allergy/AdvReac Type Severity Reaction Status Date / Time latex [Latex] Allergy Intermediate Itching Verified 10/17/19 15:34 Home Medications: Ambulatory Orders KlonoPIN - 0.5 mg PO BID PRN 10/01/19 Albuterol Sulfate Inhaler - [Ventolin Hfa Inhaler -] 1 - 2 inh PO QID #1 inhaler 10/09/19 Atorvastatin Ca [Lipitor] 10 mg PO HS #90 tablet 10/09/19 Montelukast Na [Singulair -] 10 mg PO HS #90 tablet 10/09/19 Nebulizer [Lc D Nebulizer Set] 1 each MC PRN #1 each 10/10/19 Salmeterol/Fluticasone [Advair 100Mcg/50Mcg -] 1 inh IH BID #1 inh 10/10/19 Methylprednisolone [Medrol Dose Brian] 4 mg PO ASDIR #21 tablet 10/17/19 Anemia: No Asthma: Yes Cancer: No Cardiac Disorders: No CVA: No COPD: No CHF: No DVT: No Dementia: No Diabetes: No GI Disorders: No Disorders: No HTN: No Hypercholesterolemia: No Liver Disease: No Psychiatric Problems: Yes (DEPRESSION/ANXIETY) Seizures: No Thyroid Disease: No - Surgical History Abdominal Surgery: Yes (TUMMY TUCK) Appendectomy: No Cardiac Surgery: No Cholecystectomy: No Lung Surgery: No Neurologic Surgery: No Orthopedic Surgery: No - Immunization History Immunization Up to Date: Yes - Psycho Social/Smoking Cessation Hx Smoking Status: No Smoking History: Never smoked Have you smoked in the past 12 months: No Number of Cigarettes Smoked Daily: 0 If you are a former smoker, when did you quit?: 2006 'Breaking Loose' booklet given: 01/12/17 Hx Alcohol Use: No Drug/Substance Use Hx: No Substance Use Type: None Hx Substance Use Treatment: No Review of Systems - Review of Systems Able to Perform ROS?: Yes Is the patient limited Kosovan proficient: No Constitutional: No: Chills, Fever, Malaise HEENTM: No: Symptoms Reported, See HPI, Eye Pain, Blurred Vision, Tearing, Recent change in vision, Double Vision, Cataracts, Ear Pain, Ocular Prothesis, Ear Discharge, Nose Pain, Nose Congestion, Tinnitus, Nose Bleeding, Hearing Loss , Throat Pain, Throat Swelling, Mouth Pain, Dental Problems, Difficulty Swallowing, Mouth Swelling, Other Respiratory: No: Symptoms reported, See HPI, Cough, Orthopnea, Shortness of Breath, SOB with Exertion, SOB at Rest, Stridor, Wheezing, Productive cough, Hemoptysis, Other Cardiac (ROS): Yes: Symptoms Reported, See HPI, Chest Tightness (left side chest wall). No: Chest Pain, Edema, Irregular Heart Rate, Lightheadedness, Palpitations, Syncope, Other ABD/GI: No: Symptoms Reported, Nausea, Vomiting : No: Symptoms Reported, Dysuria, Discharge, Frequency Musculoskeletal: No: Symptoms Reported Integumentary: No: Symptoms Reported All Other Systems: Reviewed and Negative *Physical Exam - Vital Signs Last Vital Signs Temp Pulse Resp BP Pulse Ox 98.4 F 102 H 18 120/66 96 10/17/19 13:48 10/17/19 13:48 10/17/19 13:48 10/17/19 13:48 10/17/19 13:48 - Physical Exam 10/17/19 15:14 GENERAL: Well developed, well nourished. Awake and alert. No acute distress. HEENT: Normocephalic, atraumatic. PERRLA, EOMI. No conjunctival pallor. Sclera are non-icteric. Moist mucous membranes. Oropharynx is clear. NECK: Supple. Full ROM. CARDIOVASCULAR: Regular rate and rhythm. No murmurs, rubs, or gallops. Distal pulses are 2+ and symmetric. PULMONARY: No evidence of respiratory distress. Lungs clear to auscultation bilaterally. No wheezing, rales or rhonchi. ABDOMINAL: Soft. Non-tender. Non-distended. No rebound or guarding. No organomegaly. Normoactive bowel sounds. MUSCULOSKELETAL Normal range of motion at all joints. Mild reproducible tenderness to left lower rib cage over 11-12 ribs SKIN: Warm and dry. Normal capillary refill. No rashes. No cyanosis. NEUROLOGICAL: Alert, awake, appropriate. Gait is normal without ataxia. PSYCHIATRIC: Cooperative. Good eye contact. Appropriate mood General Appearance: Yes: Nourished, Appropriately Dressed. No: Apparent Distress ED Treatment Course - LABORATORY CBC & Chemistry Diagram: 10/17/19 15:15 10/17/19 15:15 Medical Decision Making - Medical Decision Making 10/17/19 13:58 Patient with history of asthma recently admitted for asthma exacerbation and pneumonia over 2 weeks ago and discharged 9 days ago presented with complaint of persistent left lower rib cage pain which is worse when she takes deep breathing. Patient was admitted for IV antibiotics for pneumonia and was treated with Levaquin and tapered dose prednisone upon discharge for asthma. Patient report complete resolve of symptoms upon discharge but started having left lower ribcage pain 3 days ago. Denies CP, SOB, Dizziness, numbness or tingling sensation, nausea or vomiting. Denies fever chills. Patient has not taken anything for symptoms Clinical exam significant for reproducible mild tenderness to left lower rib cage otherwise unremarkable exam. Lungs clear to auscultation and normal cardio exam. EKG done from triage shows no acute abnormality. Will hold off checks x-ray given patient has had 4 chest x-rays in the past 3 weeks and normal lung exam. CBC and cardiac profile labs unremarkable. Patient symptoms likely costochondritis and stable for outpatient management Medrol Brian anti- inflammatory effect with strict follow-up. Patient stable for discharge Discharge - Discharge Information Problems reviewed: Yes Clinical Impression/Diagnosis: Costochondral chest pain Chest pain Qualifiers: Chest pain type: intercostal pain Qualified Code(s): R07.82 - Intercostal pain Condition: Stable Disposition: HOME - Admission No - Additional Discharge Information Prescriptions: Methylprednisolone [Medrol Dose Brian] 4 mg PO ASDIR #21 tablet - Follow up/Referral Referrals: Maxine Parnell [Primary Care Provider] - - Patient Discharge Instructions Patient Printed Discharge Instructions: DI for Costochondritis Additional Instructions: Your labs are normal. Your symptoms is likely caused by chest wall pain and unlikely from the heart. Take prescribed medication for pain. Come back to ER if worsening chest pain, shortness of breathe, palpitations - Post Discharge Activity
[2019-10-17 15:42] LABS: BASO % 0.4 % (0-2.0); HEMATOCRIT 42.2 % (32.4-45.2); LYMPH % 10.5 % (8-40); MCH 29.7 pg (25.7-33.7); MCHC 33.1 g/dl (32.0-36.0); MEAN CELL VOLUME 89.8 fl (80-96); MONO % 3.3 % (3.8-10.2); NEUT % 85.8 % (42.8-82.8); PLATELET COUNT 326 K/MM3 (134-434); RDW 14.5 % (11.6-15.6); WHITE BLOOD COUNT 11.9 K/mm3 (4.0-10.0)
[2019-10-17 16:04] LABS: ALBUMIN 3.8 g/dl (3.4-5.0); BILIRUBIN,TOTAL 0.3 mg/dL (0.2-1); CALCIUM 9.2 mg/dL (8.5-10.1); CREATININE 0.6 mg/dL (0.55-1.3); POTASSIUM 4.6 mmol/L (3.5-5.1)
[2019-10-17 16:07] LABS: INR 0.85 (0.83-1.09)
--- NOTE | 2019-10-18 11:30 | EKG ---
Test Reason : Blood Pressure : / mmHG Vent. Rate : 092 BPM Atrial Rate : 092 BPM P-R Int : 152 ms QRS Dur : 096 ms QT Int : 350 ms P-R-T Axes : 047 019 045 degrees QTc Int : 432 ms NORMAL SINUS RHYTHM INCOMPLETE RIGHT BUNDLE BRANCH BLOCK POSSIBLE ANTERIOR INFARCT , AGE UNDETERMINED ABNORMAL ECG WHEN COMPARED WITH ECG OF 05-OCT-2019 11:51, NO SIGNIFICANT CHANGE WAS FOUND Confirmed by Say Kat MD ([id number]) on 10/18/2019 11:29:51 AM Referred By: Confirmed By:Say Kat MD
== END 2019-10-17 16:43 | disposition home or self-care (01) ==
LOC: JER 13:40
PROC: 3E0F7GC Introduction of Other Therapeutic Substance into Respiratory Tract, Via Natural or Artificial Opening (ICD-10-PCS; principal; 2019-10-17)
DX: M94.0 Chondrocostal junction syndrome [Tietze] (principal); R07.82 Intercostal pain; J45.909 Unspecified asthma, uncomplicated; Z87.01 Personal history of pneumonia (recurrent); F41.8 Other specified anxiety disorders; F32.9 Major depressive disorder, single episode, unspecified; Z98.890 Other specified postprocedural states
CPT/HCPCS: 36415; 80053; 82550; 84484; 85025; 85610; 93005; 93010; 94640; 99284-25

== ENCOUNTER 2019-12-15 17:50 | Emergency (ER) | payer OTHER ==
--- NOTE | 2019-12-15 18:15 | PDOC ---
Attending Attestation - Resident Resident Name: ErnestoDillonHermann - ED Attending Attestation I have performed the following: I have examined & evaluated the patient, The case was reviewed & discussed with the resident, I agree w/resident's findings & plan, Exceptions are as noted - HPI HPI: 12/15/19 18:43 Asthmatic with cough and subjective fever seen by primary physician today and prescribed antibiotics. Primary recommended chest x-ray. She has had a recent hospitalization for asthma in September. Never intubated. Discharge - Discharge Information Clinical Impression/Diagnosis: Shortness of breath Condition: Stable - Follow up/Referral Referrals: Maxine Parnell [Primary Care Provider] - - Patient Discharge Instructions - Post Discharge Activity
[2019-12-15] MEDS ORDERED: ONDANSETRON 4 MG/2 ML VIAL ONE (18:22)
--- NOTE | 2019-12-15 18:31 | PDOC ---
History of Present Illness - General Chief Complaint: Respiratory Stated Complaint: FEVER & COUGH Time Seen by Provider: 12/15/19 18:09 History Source: Patient Exam Limitations: No Limitations - History of Present Illness Initial Comments: 12/15/19 18:26 CC: Fever, SOB for 3 days HPI: 44yo F PMH asthma, anxiety s/p admission at [facility] 10/01-10/09/19 for asthma / PNA, presenting with fever and shortness of breath for 3 days. Patient called PCP today, was given an RX for Zithromax and tessalon pearls - which she then picked up from the pharmacy. She presents to [facility] for further evaluation of her shortness of breath. Fevers (Tmax 100.0), chills, body aches. PCP suggested she come in for lung exam and CXR to evaluate for pneumonia. Concerned because of her 1.5yo twins at home. States that her breathing is improved s/p albuterol treatment at home before coming in. All: Latex Meds: Per chart PMH/PSH: Per chart Past History - Travel Traveled outside of the country in the last 30 days: No Close contact w/someone who was outside of country & ill: No - Past Medical History Allergies/Adverse Reactions: Allergies Allergy/AdvReac Type Severity Reaction Status Date / Time latex [Latex] Allergy Intermediate Itching Verified 11/10/19 09:12 Home Medications: Ambulatory Orders Albuterol Sulfate Inhaler - [Ventolin Hfa Inhaler -] 1 - 2 inh PO QID #1 inhaler 10/09/19 Atorvastatin Ca [Lipitor] 10 mg PO HS #90 tablet 10/09/19 Montelukast Na [Singulair -] 10 mg PO HS #90 tablet 10/09/19 Salmeterol/Fluticasone [Advair 100Mcg/50Mcg -] 1 inh IH BID #1 inh 10/10/19 Azithromycin [Zithromax -] 250 mg PO UTDICT 12/15/19 Benzonatate 200 mg PO BID 12/15/19 Bupropion HCl [Bupropion Xl] 150 mg PO DAILY 12/15/19 Clonazepam [Klonopin] 1 mg PO BID PRN 12/15/19 Fluticasone Propionate 15.8 ml NS BID 12/15/19 Anemia: No Asthma: Yes Cancer: No Cardiac Disorders: No CVA: No COPD: No CHF: No DVT: No Dementia: No Diabetes: No GI Disorders: No Disorders: No HTN: No Hypercholesterolemia: No Liver Disease: No Psychiatric Problems: Yes (DEPRESSION/ANXIETY) Seizures: No Thyroid Disease: No - Surgical History Abdominal Surgery: Yes (TUMMY TUCK) Appendectomy: No Cardiac Surgery: No Cholecystectomy: No Lung Surgery: No Neurologic Surgery: No Orthopedic Surgery: No - Immunization History Immunization Up to Date: Yes - Psycho Social/Smoking Cessation Hx Smoking Status: No Smoking History: Former smoker Have you smoked in the past 12 months: No Number of Cigarettes Smoked Daily: 0 If you are a former smoker, when did you quit?: 2006 'Breaking Loose' booklet given: 01/12/17 Hx Alcohol Use: No Drug/Substance Use Hx: No Substance Use Type: None Hx Substance Use Treatment: No Review of Systems - Review of Systems Able to Perform ROS?: Yes Is the patient limited Armenian proficient: Yes Constitutional: Yes: Chills, Fever, Other (myalgias). No: Diaphoresis, Weakness HEENTM: No: Nose Congestion, Throat Pain Respiratory: Yes: Shortness of Breath, Wheezing. No: Cough, Productive cough Cardiac (ROS): No: Chest Pain, Edema, Irregular Heart Rate, Lightheadedness, P alpitations, Syncope, Chest Tightness ABD/GI: No: Constipated, Diarrhea, Nausea, Vomiting : No: Burning, Dysuria, Frequency Musculoskeletal: Yes: Muscle Pain (myalgias for 3 days). No: Back Pain, Muscle Weakness, Neck Pain Integumentary: No: Bruising, Pruritus, Rash Neurological: No: Headache, Numbness, Tingling, Weakness Psychiatric: No: Stressors, Change in Appetite Endocrine: No: Increased Thirst, Increased Urine Hematologic/Lymphatic: No: Anemia, Blood Clots, Easy Bleeding All Other Systems: Reviewed and Negative *Physical Exam - Physical Exam 12/15/19 18:30 Vitals reviewed, AFVSS GEN: Well appearing, appears stated age, NAD, comfortable. AAOx3. HEENT: NCAT, EOMI, PERRL. Sclera anicteric, noninjected. No facial asymmetry. Moist mucous membranes. Normal voice. Trachea midline. CV: RRR, S1/S2, no murmurs / rubs / gallops appreciated. LUNG: CTABL, normal work of breathing. No wheezes, rales, rhonchi. No cough. Speaking full sentences. GI: Soft, NTND, +BS, no guarding, no rebound. No masses. Neg CVAT b/l. EXTREMITIES: 2+ distal pulses. No LE edema. No obvious deformities of all extremities. SKIN: Warm, dry, no rashes appreciated, non-jaundiced. PSYCH: Normal mood and affect. Cooperative and appropriate. NEURO: CN grossly intact. Moving all extremities well. Normal strength and sensation grossly. ED Treatment Course - RADIOLOGY Radiology Studies Ordered: Category Date Time Status CXRPORT [CHEST X-RAY PORTABLE*] [RAD] Stat Radiology 12/15/19 18:17 Ordered Medical Decision Making - Medical Decision Making 12/15/19 18:33 44yo F PMH asthma, anxiety s/p admission at [facility] 10/01-10/09/19 for PNA, presenting with fever and shortness of breath for 3 days. DDX: URI, influenza, asthma attack, PNA. - CXR - Tylenol 1 g PO - COVID, RSV, Flu, Panel 12/15/19 19:13 CXR clear Dispo: home for quarantine Discharge - Discharge Information Problems reviewed: Yes Clinical Impression/Diagnosis: Shortness of breath, Viral upper respiratory infection Condition: Stable Disposition: HOME - Admission No - Follow up/Referral Referrals: Maxine Parnell [Primary Care Provider] - - Patient Discharge Instructions Patient Printed Discharge Instructions: [facility]-Coronavirus Instructions Additional Instructions: Please proceed home and remain in quarantine until your results are given by phone. Return to the ED as discussed for difficulty breathing / worsening shortness of breath. - Post Discharge Activity
[2019-12-15] MEDS ORDERED: ACETAMINOPHEN 500 MG TABLET (FP) ONE (19:05)
[2019-12-15 19:11] VITALS: BP 136/117; PULSE 97; TEMP 101.5; BMI 69.3
[2019-12-15] MEDS ORDERED: ACETAMINOPHEN 500 MG TABLET (FP) PO ONE (19:11)
== END 2019-12-15 19:20 | disposition home or self-care (01) ==
LOC: FER 17:50
DX: R06.02 Shortness of breath (principal); B34.9 Viral infection, unspecified; Z91.040 Latex allergy status; F41.9 Anxiety disorder, unspecified
CPT/HCPCS: 71045-TC-FY; 87633; 87798; 87804; 87807; 99284-25; U0002

== ENCOUNTER 2020-04-22 17:17 | Emergency (ER) | payer OTHER ==
[2020-04-22 17:23] VITALS: BMI 32.3
--- NOTE | 2020-04-22 17:26 | PDOC ---
Rapid Medical Evaluation Chief Complaint: Asthma Time Seen by Provider: 04/22/20 17:25 Medical Evaluation: Allergies Allergy/AdvReac Type Severity Reaction Status Date / Time latex [Latex] Allergy Intermediate Itching Verified 04/22/20 17:23 Vital Signs Temp Pulse Resp BP Pulse Ox 98.2 F 81 18 131/61 98 04/22/20 17:19 04/22/20 17:19 04/22/20 17:19 04/22/20 17:19 04/22/20 17:19 04/22/20 17:25 Pt presents for evaluation of asthma and upper back pain Exam: NAD, speaking in full sentences Orders: CXR Pt to proceed to the ER for further evaluation Discharge Disposition - Diagnosis SOB (shortness of breath) - Referrals Referrals: Maxine Parnell [Primary Care Provider] - - Patient Instructions - Post Discharge Activity
--- NOTE | 2020-04-22 18:07 | PDOC ---
History of Present Illness - General Chief Complaint: Asthma Stated Complaint: ASTHMA Time Seen by Provider: 04/22/20 17:25 History Source: Patient Exam Limitations: No Limitations - History of Present Illness Initial Comments: 04/22/20 18:02 Patient is a 44-year-old female with history of seasonal allergies, asthma, C- section x2, complaining of shortness of breath x 4 days. States that she has a history of asthma and her breathing has been progressively worsening but her sy mptoms are different. States that she notes that she has been having to sleep on 3 pillows and she has exertional dyspnea. Denies cough, fever, chills. She is non-smoker. [facility] [place] [facility] [place] - recovered. PMD: Dr. Parnell PMHX: as above PSOCHX: (-) cig, (-) drug, (-) etoh ALL: latex GENERAL/CONSTITUTIONAL: [No fever or chills. No weakness. No weight change.] HEAD, EYES, EARS, NOSE AND THROAT: [No change in vision. No ear pain or discharge. No sore throat.] CARDIOVASCULAR: [No chest pain, (+) shortness of breath.] RESPIRATORY: [No cough, wheezing, or hemoptysis.] GASTROINTESTINAL: [No nausea, vomiting, diarrhea or constipation. No rectal bleeding.] GENITOURINARY: [No dysuria, frequency, or change in urination.] MUSCULOSKELETAL: [No joint or muscle swelling or pain. No neck or back pain.] SKIN AND BREASTS: [No rash or easy bruising.] NEUROLOGIC: [No headache, vertigo, loss of consciousness, or loss of sensation.] PSYCHIATRIC: [No depression or anxiety.] ENDOCRINE: [No increased thirst. No abnormal weight change.] HEMATOLOGIC/LYMPHATIC: [No anemia, easy bleeding, or history of blood clots.] ALLERGIC/IMMUNOLOGIC: [No hives or skin allergy. No latex allergy.] GENERAL: [The patient is awake, alert, and fully oriented, in no acute distress.] HEAD: [Normal with no signs of trauma.] EYES: [Pupils equal, round and reactive to light, extraocular movements intact, sclera anicteric, conjunctiva clear.] ENT: [Ears normal, nares patent, oropharynx clear without exudates. Moist mucous membranes.] NECK: [Normal range of motion, supple without lymphadenopathy, JVD, or masses.] LUNGS: [Breath sounds unequal, decreased breath sound on left, right clear to auscultation. No wheezes, and no crackles.] HEART: [Regular rate and rhythm, normal S1 and S2 without murmur, rub.] ABDOMEN: [Soft, nontender, normoactive bowel sounds. No guarding, no rebound. No masses.] EXTREMITIES: [Normal range of motion, no edema. No clubbing or cyanosis. No cords, erythema, or tenderness.] NEUROLOGICAL: [Cranial nerves II through XII grossly intact. Normal speech, normal gait.] PSYCH: [Normal mood, normal affect.] SKIN: [Warm, Dry, normal turgor, no rashes or lesions noted.] Past History - Medical History Allergies/Adverse Reactions: Allergies Allergy/AdvReac Type Severity Reaction Status Date / Time latex [Latex] Allergy Intermediate Itching Verified 04/22/20 18:12 Home Medications: Ambulatory Orders Albuterol Sulfate Inhaler - [Ventolin Hfa Inhaler -] 1 - 2 inh PO QID #1 inhaler 10/09/19 Anemia: No Asthma: Yes Cancer: No Cardiac Disorders: No CVA: No COPD: No CHF: No DVT: No Dementia: No Diabetes: No GI Disorders: No Disorders: No HTN: No Hypercholesterolemia: No Liver Disease: No Psychiatric Problems: Yes (DEPRESSION/ANXIETY) Seizures: No Thyroid Disease: No - Surgical History Abdominal Surgery: Yes (TUMMY TUCK) Appendectomy: No Cardiac Surgery: No Cholecystectomy: No Lung Surgery: No Neurologic Surgery: No Orthopedic Surgery: No - Immunization History Immunization Up to Date: Yes - Psycho-Social/Smoking History Smoking Status: No Smoking History: Never smoked Have you smoked in the past 12 months: No Number of Cigarettes Smoked Daily: 0 If you are a former smoker, when did you quit?: 2006 'Breaking Loose' booklet given: 01/12/17 - Substance Abuse Hx (Audit-C & DAST Scrn) How often the patient has a drink containing alcohol: Never Score: In Men: 4 or > Positive; In Women: 3 or > Positive: 0 Screen Result (Pos requires Nsg. Audit-10AR): Negative *Physical Exam - Vital Signs Last Vital Signs Temp Pulse Resp BP Pulse Ox 98.2 F 81 18 131/61 98 04/22/20 17:19 04/22/20 17:19 04/22/20 17:19 04/22/20 17:19 04/22/20 17:19 ED Treatment Course - LABORATORY CBC & Chemistry Diagram: 04/22/20 16:30 04/22/20 16:30 Medical Decision Making - Medical Decision Making 04/22/20 18:02 Patient is a 44-year-old female with history of seasonal allergies, asthma, C- section x2, complaining of shortness of breath x 4 days. States that she has a history of asthma and her breathing has been progressively worsening but her symptoms are different. States that she notes that she has been having to sleep on 3 pillows and she has exertional dyspnea. Denies cough, fever, chills. She is non-smoker. No recent travel, no leg swelling. Family history negative for MT/CVA/DVT/PE. DDX: CHF, PE, pneumonia, pneumothorax We will get labs including d-dimer, BNP, CXR If D-Dimer neg will CT noncon chest reassess Labs reviewed d-dimer negative, negative troponin, normal BNP Chest x-ray negative. Patient went to CT scan however she is unwilling to wait for the results because she has to go home to her children who are with the babysitters. Patient signed out AMA. 04/22/20 21:39 Patient Full Name: VALERIE LUBIN Patient Accession No: [id number] Patient : 1975 Reason for Exam: sob Referring Physician: Patient Name: TRISTIAN PADILLA THIS IS A PRELIMINARY REPORT FROM [facility] EXAM: CT chest without contrast IMAGES:[id number] DATE OF EXAM: 2020-04-22 20:15:31 REASON FOR EXAM: Shortness of breath COMPARISON: None Findings: Minimal scarring in the lungs. No focal consolidation, pleural effusion, or pneumothorax. Calcified mediastinal lymph nodes from prior granulomatous disease. No acute findings. One or more of the following dose reduction techniques were used: automated exposure control, adjustment of the mA and/or kV according to patient size, use of iterative reconstructive technique. THIS DOCUMENT HAS BEEN ELECTRONICALLY SIGNED Armando Callejas MD 04/22/2020 21:07 MELVI Amin Please call [facility] [phone] ([phone]) with questions. INTERPRETING RADIOLOGIST: Armando Callejas MD Electronically Signed: Apr 22, 2020 09:08PM EDT. Patient was called at [phone] reports of her CAT scan was given to her via phone. Told patient that she needs to follow-up with a hand bobbin cleaner. Was given the name of Dr. Powell and the telephone number for follow-up. Discharge - Discharge Information Problems reviewed: Yes Clinical Impression/Diagnosis: SOB (shortness of breath) Condition: Stable Disposition: AGAINST MEDICAL ADVICE - Follow up/Referral Referrals: Maxine Parnell [Primary Care Provider] - - Patient Discharge Instructions - Post Discharge Activity
[2020-04-22 18:56] LABS: HEMATOCRIT 38.5 % (32.4-45.2); HEMOGLOBIN 12.9 GM/dL (10.7-15.3); MCH 29.4 pg (25.7-33.7); MCHC 33.6 g/dl (32.0-36.0); MEAN CELL VOLUME 87.6 fl (80-96); MEAN PLT VOLUME 6.7 fl (7.5-11.1); PLATELET COUNT 351 K/MM3 (134-434); RDW 13.6 % (11.6-15.6); WHITE BLOOD COUNT 7.3 K/mm3 (4.0-10.0)
[2020-04-22 18:57] LABS: BASO % 0.9 % (0-2.0); EOS % 1.8 % (0-4.5); MONO % 5.2 % (3.8-10.2); NEUT % 65.1 % (42.8-82.8)
[2020-04-22] MEDS ORDERED: AZITHROMYCIN 500 MG TABLET PO ONE (19:58)
[2020-04-22 20:16] LABS: ALBUMIN 3.3 g/dl (3.4-5.0); ALK PHOS 63 U/L (45-117); ANION GAP 11 MMOL/L (8-16); BILIRUBIN,TOTAL 0.3 mg/dL (0.2-1); BLOOD UREA NITROGEN 11.7 mg/dL (7-18); CALCIUM 9.5 mg/dL (8.5-10.1); CHLORIDE 103 mmol/L (98-107); CO2 27 mmol/L (21-32); CREATININE 0.9 mg/dL (0.55-1.3); GLUCOSE,RANDOM 118 mg/dL (74-106); N-TERMINAL BNP 109.9 pg/ml (5-125); POTASSIUM 3.9 mmol/L (3.5-5.1); SGOT/AST 15 U/L (15-37); SGPT/ALT 27 U/L (13-61); SODIUM 141 mmol/L (136-145)
[2020-04-22 20:18] VITALS: BP 120/70; PULSE 84; TEMP 99.1
--- NOTE | 2020-04-23 09:33 | EKG ---
Test Reason : Blood Pressure : / mmHG Vent. Rate : 074 BPM Atrial Rate : 074 BPM P-R Int : 156 ms QRS Dur : 100 ms QT Int : 390 ms P-R-T Axes : 052 048 057 degrees QTc Int : 432 ms NORMAL SINUS RHYTHM WHEN COMPARED WITH ECG OF 10-NOV-2019 09:22, INCOMPLETE RIGHT BUNDLE BRANCH BLOCK IS NO LONGER PRESENT Confirmed by Emerald Riley ([id number]) on 04/23/2020 9:32:27 AM Referred By: Confirmed By:Emerald Riley
== END 2020-04-22 21:05 | disposition left against medical advice (07) ==
LOC: JER 17:17
DX: R06.02 Shortness of breath (principal)
CPT/HCPCS: 36415; 71046-TC-FY; 71250-TC; 80053; 82550; 83880; 84484; 85025; 85379; 93005; 93010; 99285-25

== ENCOUNTER 2020-06-28 18:31 | Emergency (ER) | payer OTHER ==
[2020-06-28 18:44] VITALS: TEMP 98; BMI 31.4
--- NOTE | 2020-06-28 19:37 | PDOC ---
History of Present Illness - General Chief Complaint: Shortness of Breath Stated Complaint: ASTHMA Time Seen by Provider: 06/28/20 19:33 - History of Present Illness Initial Comments: 06/28/20 21:33 44yo F w/ PMHx asthma presents w/ 7days of dry cough + 4 days of exertional SOB accompanied by intermittent Cx discomfort, which started while she was cooking. It is sternal and R CC junction area - does not radiate, is not associated w/ diaphoresis, n/v, LOC, or palpitations. She endorses similar episodes in the past. She has had multiple complications associated w/ her asthma, including an intubation when she was a minor. Denies recent illness, wet cough, fever, rash, exposure to sick people. Pt had COVID in 11/2019 and recovered. Endorses seasonal allergies and regular use of salmeterol/fluticasone. She was recently started on Symbicort. Past History - Medical History Allergies/Adverse Reactions: Allergies Allergy/AdvReac Type Severity Reaction Status Date / Time latex [Latex] Allergy Intermediate Itching Verified 06/28/20 18:37 Home Medications: Ambulatory Orders Albuterol Sulfate Inhaler - [Ventolin Hfa Inhaler -] 1 - 2 inh PO QID #1 inhaler 10/09/19 Anemia: No Asthma: Yes Cancer: No Cardiac Disorders: No CVA: No COPD: No CHF: No DVT: No Dementia: No Diabetes: No GI Disorders: No Disorders: No HTN: No Hypercholesterolemia: No Liver Disease: No Psychiatric Problems: Yes (DEPRESSION/ANXIETY) Seizures: No Thyroid Disease: No - Surgical History Abdominal Surgery: Yes (TUMMY TUCK) Appendectomy: No Cardiac Surgery: No Cholecystectomy: No Lung Surgery: No Neurologic Surgery: No Orthopedic Surgery: No - Reproductive History Is Patient Now?: No - Immunization History Immunization Up to Date: Yes - Psycho-Social/Smoking History Smoking Status: No Smoking History: Never smoked Have you smoked in the past 12 months: No Number of Cigarettes Smoked Daily: 0 If you are a former smoker, when did you quit?: 2006 'Breaking Loose' booklet given: 01/12/17 - Substance Abuse Hx (Audit-C & DAST Scrn) How often the patient has a drink containing alcohol: Never Score: In Men: 4 or > Positive; In Women: 3 or > Positive: 0 Screen Result (Pos requires Nsg. Audit-10AR): Negative In the last yr the pt used illegal drug/Rx for NonMed reason: No Score: Yes response is considered Positive: 0 Screen Result (Positive result requires Nsg. DAST-10): Negative Review of Systems - Review of Systems Able to Perform ROS?: Yes Is the patient limited Panamanian proficient: No Constitutional: No: Chills, Diaphoresis, Fever, Night Sweats, Weakness HEENTM: Yes: Symptoms Reported, Nose Congestion. No: Tearing, Recent change in vision, Nose Pain, Tinnitus, Throat Pain, Throat Swelling Respiratory: Yes: Cough (dry), Shortness of Breath, SOB with Exertion. No: SOB at Rest, Wheezing Cardiac (ROS): Yes: Chest Pain, Lightheadedness (on exertion), Chest Tightness. No: Edema, Irregular Heart Rate, Palpitations, Syncope ABD/GI: No: Abdominal Distended, Constipated, Diarrhea, Nausea, Poor Appetite, Poor Fluid Intake, Vomiting : No: Burning, Hematuria Musculoskeletal: No: Muscle Pain, Muscle Weakness Integumentary: No: Bruising, Rash Neurological: No: Headache, Weakness, Dizziness Endocrine: No: Symptoms Reported Hematologic/Lymphatic: No: Symptoms Reported All Other Systems: Reviewed and Negative *Physical Exam - Vital Signs Last Vital Signs Temp Pulse Resp BP Pulse Ox 98 F 72 18 106/56 L 98 06/28/20 18:37 06/28/20 18:37 06/28/20 18:37 06/28/20 18:37 06/28/20 18:37 - Physical Exam General Appearance: Yes: Nourished, Appropriately Dressed. No: Apparent Distress HEENT: positive: EOMI, CARL[place]RI[place], Normal ENT Inspection (no cervical lymphadenopathy, some evidence of post-nasal drip in posterior phaynx. ), Nasal Congestion. negative: Muffled/Hoarse voice, Tonsillar Exudate, Tonsillar Erythema Neck: positive: Trachea midline, Supple. negative: Tender Respiratory/Chest: positive: Lungs Clear, Normal Breath Sounds. negative: Chest Tender, Labored Respiration, Rapid RR, Crackles, Rales, Rhonchi, Stridor, Wheezing Cardiovascular: positive: Regular Rhythm, Regular Rate Gastrointestinal/Abdominal: positive: Normal Bowel Sounds, Soft Musculoskeletal: positive: Normal Inspection. 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: Fully Oriented, Alert, Motor Strength 5/5 Heart Score/ECG Review - ECG Intrepretation Rhythm: Regular Rhythm - [place]: Normal - ECG Impressions Normal ECG: Yes ED Treatment Course - LABORATORY CBC & Chemistry Diagram: 06/28/20 20:15 06/28/20 20:15 Medical Decision Making - Medical Decision Making 06/28/20 21:39 44yo F w/ h/o asthma presents w/ 7days dry cough and 4 days intermittent CP no cardiac history (personal or family), no palpitations, no syncope, diaphore sis, normal EKG -> unlikely cardiac event non-productive cough, no fever, clear lungs -> unlikely lobar or tracheobronchial PNA no sore throat or tonsillar exudate, no fever -> unlikely strep. will trial duo neb -> resolved some chest tightness. -> will obtain CXR -> Clear palpation of R CC junction on chest wall made pt jump -> possible costochondritis. Clear CXR, resolution of sx, normal EKG and labs -> will DC patient. Discharge - Discharge Information Problems reviewed: Yes Clinical Impression/Diagnosis: Chest pain Qualifiers: Chest pain type: chest pain on breathing Qualified Code(s): R07.1 - Chest pain on breathing; R07.81 - Pleurodynia Seasonal allergies Qualifiers: Allergic rhinitis trigger: unspecified Qualified Code(s): J30.2 - Other seasonal allergic rhinitis Disposition: HOME - Admission No - Follow up/Referral Referrals: Maxine Parnell [Primary Care Provider] - - Patient Discharge Instructions Patient Printed Discharge Instructions: DI for Asthma -- Adult, Yoga May Improve Quality of Life in Patients with Asthma Additional Instructions: You came to the ED with shortness of breath and chest pain. We took an xray of chest, did an EKG, and ran your blood work. All of these look normal. We also gave you a duo-neb breathing treatment which you said helped the symptoms. Please follow up with your doctor within 48 hours of leaving the ED, and return to the ED if any of your symptoms get worse. - Post Discharge Activity
[2020-06-28] MEDS ORDERED: ALBUTEROL SO4 2.5/IPRATROPIUM 0.5 INH SOL 3 ML VIAL.NEB. NEB ONE ×2 (20:15→20:22)
[2020-06-28 20:39] LABS: BASO % 0.6 % (0-2.0); EOS % 4.2 % (0-4.5); HEMATOCRIT 39.2 % (32.4-45.2); HEMOGLOBIN 13.4 GM/dL (10.7-15.3); LYMPH % 27.9 % (8-40); MCH 29.6 pg (25.7-33.7); MCHC 34.2 g/dl (32.0-36.0); MEAN CELL VOLUME 86.5 fl (80-96); MEAN PLT VOLUME 6.8 fl (7.5-11.1); NEUT % 60.3 % (42.8-82.8); PLATELET COUNT 395 K/MM3 (134-434); RBC 4.53 M/mm3 (3.60-5.2); RDW 12.8 % (11.6-15.6); WHITE BLOOD COUNT 9.4 K/mm3 (4.0-10.0)
[2020-06-28 21:46] LABS: ALBUMIN 3.5 g/dl (3.4-5.0); ALK PHOS 82 U/L (45-117); ANION GAP 8 MMOL/L (8-16); BILIRUBIN,TOTAL 0.3 mg/dL (0.2-1); BLOOD UREA NITROGEN 9.9 mg/dL (7-18); CALCIUM 9.3 mg/dL (8.5-10.1); CHLORIDE 103 mmol/L (98-107); CO2 25 mmol/L (21-32); CREATININE 0.6 mg/dL (0.55-1.3); GLUCOSE,RANDOM 95 mg/dL (74-106); N-TERMINAL BNP 43.4 pg/ml (5-125); POTASSIUM 3.9 mmol/L (3.5-5.1); SGOT/AST 16 U/L (15-37); SGPT/ALT 40 U/L (13-61); SODIUM 136 mmol/L (136-145); TOT PROT 7.3 g/dl (6.4-8.2)
[2020-06-28 21:57] VITALS: BP 118/64; PULSE 74
--- NOTE | 2020-06-28 23:52 | PDOC ---
Attending Attestation - Resident Resident Name: Tu Bustillo - ED Attending Attestation I have performed the following: I have examined & evaluated the patient, The case was reviewed & discussed with the resident, I agree w/resident's findings & plan, Exceptions are as noted - HPI HPI: 06/29/20 00:45 See resident HPI - Physicial Exam PE: 06/29/20 00:45 Agree with documented exam - Medical Decision Making 06/29/20 00:45 Subjective dyspnea, vitally stable, exam unremarkable, ?infection, ?bronchospasm, ?reactive, unlikely pe, acs symptomatic tx, cxr dispo per clinical course Discharge - Discharge Information Problems reviewed: Yes Clinical Impression/Diagnosis: Acute viral syndrome, Atypical chest pain Chest pain Qualifiers: Chest pain type: chest pain on breathing Qualified Code(s): R07.1 - Chest pain on breathing Seasonal allergies Qualifiers: Allergic rhinitis trigger: unspecified Qualified Code(s): J30.2 - Other seasonal allergic rhinitis Condition: Stable Disposition: HOME - Follow up/Referral Referrals: Maxine Parnell [Primary Care Provider] - - Patient Discharge Instructions Patient Printed Discharge Instructions: DI for Asthma -- Adult, Yoga May Improve Quality of Life in Patients with Asthma Additional Instructions: You came to the ED with shortness of breath and chest pain. We took an xray of chest, did an EKG, and ran your blood work. All of these look normal. We also gave you a duo-neb breathing treatment which you said helped the symptoms. Please follow up with your doctor within 48 hours of leaving the ED, and return to the ED if any of your symptoms get worse. - Post Discharge Activity
--- NOTE | 2020-06-29 10:50 | EKG ---
Test Reason : Blood Pressure : / mmHG Vent. Rate : 070 BPM Atrial Rate : 070 BPM P-R Int : 170 ms QRS Dur : 096 ms QT Int : 400 ms P-R-T Axes : 071 020 046 degrees QTc Int : 432 ms NORMAL SINUS RHYTHM POSSIBLE LEFT ATRIAL ENLARGEMENT INCOMPLETE RIGHT BUNDLE BRANCH BLOCK Possible Brugada pattern, type 2 WHEN COMPARED WITH ECG OF 22-APR-2020 18:24, NO SIGNIFICANT CHANGE WAS FOUND Confirmed by SHAWN GALLEGOS MD ([id number]) on 06/29/2020 10:50:36 AM Referred By: Confirmed By:SHAWN GALLEGOS MD
== END 2020-06-28 21:54 | disposition home or self-care (01) ==
LOC: JER 18:31
PROC: 3E0F7GC Introduction of Other Therapeutic Substance into Respiratory Tract, Via Natural or Artificial Opening (ICD-10-PCS; principal; 2020-06-28)
DX: R07.1 Chest pain on breathing (principal); R07.81 Pleurodynia; J30.2 Other seasonal allergic rhinitis
CPT/HCPCS: 36415; 71046-TC-FY; 80053; 82550; 83880; 84484; 85025; 93005; 93010; 99285-25

== ENCOUNTER 2020-09-20 11:16 | Emergency (ER) | payer OTHER ==
[2020-09-20 11:36] VITALS: BP 125/66; PULSE 72; TEMP 99.4; BMI 31.3
[2020-09-20] MEDS ORDERED: ACETAMINOPHEN 325 MG TABLET (FP) PO ONE (11:41)
[2020-09-20] MEDS ORDERED: ACETAMINOPHEN 325 MG TABLET (FP) ONE (11:53)
[2020-09-20 12:18] LABS: BASO % 3.5 % (0-2.0); EOS % 2.1 % (0-4.5); HEMATOCRIT 41.3 % (32.4-45.2); HEMOGLOBIN 13.3 GM/dl (10.7-15.3); LYMPH % 21.8 % (8-40); MCH 28.3 pg (25.7-33.7); MCHC 32.2 g/dl (32.0-36.0); MEAN PLT VOLUME 6.5 fl (7.5-11.1); MONO % 6.6 % (3.8-10.2); PLATELET COUNT 428 K/MM3 (134-434); RDW 13.7 % (11.6-15.6); WHITE BLOOD COUNT 7.5 K/mm3 (4.0-10.8)
[2020-09-20 12:31] LABS: ALBUMIN 3.7 g/dl (3.4-5.0); BILIRUBIN,TOTAL 0.6 mg/dl (0.2-1); CALCIUM 8.4 mg/dl (8.5-10); CREATININE 0.6 mg/dl (0.55-1.3); POTASSIUM 4.2 mmol/L (3.5-5.1)
== END 2020-09-20 12:52 | disposition home or self-care (01) ==
LOC: FER 11:16
DX: R07.81 Pleurodynia (principal)
CPT/HCPCS: 36415; 71046-TC-FY; 80053; 82550; 83690; 84484; 85025; 93005; 99285-25

== ENCOUNTER 2021-01-03 09:05 | Emergency (ER) | payer OTHER ==
[2021-01-03 09:19] VITALS: BP 125/65; PULSE 75; TEMP 99; BMI 23.3
== END 2021-01-03 10:37 | disposition home or self-care (01) ==
LOC: JERFT 09:05
PROC: 3E023GC Introduction of Other Therapeutic Substance into Muscle, Percutaneous Approach (ICD-10-PCS; principal; 2021-01-03)
DX: R21 Rash and other nonspecific skin eruption (principal)
CPT/HCPCS: 71046-TC-FY; 99284-25

== ENCOUNTER 2021-01-16 10:27 | Emergency (ER) | payer OTHER ==
[2021-01-16 10:35] VITALS: BP 131/86; PULSE 75; TEMP 98.8; BMI 30.7
[2021-01-16 11:44] LABS: BASO % 0.9 % (0-2.0); EOS % 3.3 % (0-4.5); HEMATOCRIT 42.4 % (32.4-45.2); HEMOGLOBIN 14.4 GM/dL (10.7-15.3); LYMPH % 29.3 % (8-40); MEAN CELL VOLUME 88.1 fl (80-96); MEAN PLT VOLUME 7.1 fl (7.5-11.1); MONO % 6.7 % (3.8-10.2); NEUT % 59.8 % (42.8-82.8); PLATELET COUNT 333 K/MM3 (134-434); RBC 4.82 M/mm3 (3.60-5.2); RDW 13.1 % (11.6-15.6); WHITE BLOOD COUNT 5.8 K/mm3 (4.0-10.0)
[2021-01-16 12:08] LABS: CALCIUM 9.1 mg/dL (8.5-10.1)
[2021-01-16 12:09] LABS: ALBUMIN 3.8 g/dl (3.4-5.0); BLOOD UREA NITROGEN 9.1 mg/dL (7-18)
[2021-01-16 12:12] LABS: CREATININE 0.6 mg/dL (0.55-1.3)
[2021-01-16 12:13] LABS: BILIRUBIN,TOTAL 0.4 mg/dL (0.2-1); TOT PROT 7.3 g/dl (6.4-8.2)
[2021-01-16 23:16] LABS: HCG,QUALITATIVE URINE Negative
[2021-01-16 23:19] LABS: EPI CELLS >36 /uL (0-25.1); HYALINE CASTS 0 /uL (0-3.1); URINE APPEARANCE CLEAR; URINE BACTERIA >9,000 /uL (0-1359); URINE BILIRUBIN NEGATIVE (NEGATIVE); URINE COLOR YELLOW; URINE GLUCOSE (UA) NEGATIVE (NEGATIVE); URINE KETONE NEGATIVE (NEGATIVE); URINE LEUK ESTERASE NEGATIVE (NEGATIVE); URINE NITRITE POSITIVE (NEGATIVE); URINE PROTEIN NEGATIVE (NEGATIVE); URINE RBC 2 /uL (0-23.9); URINE UROBILINOGEN 0.2 mg/dL (0.2-1.0); URINE WBC 10 /uL (0-25.8)
== END 2021-01-16 12:37 | disposition home or self-care (01) ==
LOC: JER 10:27
DX: K80.80 Other cholelithiasis without obstruction (principal)
CPT/HCPCS: 36415; 76705-TC; 76775-TC; 80053; 81003; 83690; 84703; 85025; 99283-25

== ENCOUNTER 2021-02-21 08:37 | Emergency (ER) | payer OTHER ==
[2021-02-21 08:41] VITALS: PULSE 75; TEMP 98.2; BMI 30.7
[2021-02-21] MEDS ORDERED: ONDANSETRON 4 MG/2 ML VIAL IVPUSH ONE (09:29)
[2021-02-21] MEDS ORDERED: SODIUM CHLORIDE 1,000 ML IV STA (09:29)
[2021-02-21] MEDS ORDERED: morphine CARPU-JECT 4 MG/1 ML DISP.SYRIN IVPUSH ONE ×2 (09:29→12:49)
[2021-02-21] MEDS ORDERED: ONDANSETRON 4 MG/2 ML VIAL ONE (09:38)
[2021-02-21] MEDS ORDERED: morphine SULFATE 4 MG/ML VIAL ONE ×2 (09:38→12:43)
[2021-02-21 10:15] LABS: BASO % 0.3 % (0-2.0); EOS % 1.6 % (0-4.5); HEMOGLOBIN 14.4 GM/dL (10.7-15.3); LYMPH % 10.7 % (8-40); MCH 29.9 pg (25.7-33.7); MCHC 34.2 g/dl (32.0-36.0); MEAN CELL VOLUME 87.4 fl (80-96); MEAN PLT VOLUME 7.2 fl (7.5-11.1); MONO % 5.3 % (3.8-10.2); NEUT % 82.1 % (42.8-82.8); PLATELET COUNT 376 K/MM3 (134-434); RBC 4.81 M/mm3 (3.60-5.2); RDW 13.1 % (11.6-15.6); WHITE BLOOD COUNT 11.8 K/mm3 (4.0-10.0)
[2021-02-21 10:35] LABS: ALBUMIN 3.8 g/dl (3.4-5.0); BLOOD UREA NITROGEN 11.5 mg/dL (7-18); CALCIUM 8.9 mg/dL (8.5-10.1)
[2021-02-21 10:38] LABS: CREATININE 0.5 mg/dL (0.55-1.3)
[2021-02-21 10:40] LABS: BILIRUBIN,TOTAL 0.7 mg/dL (0.2-1); TOT PROT 7.5 g/dl (6.4-8.2)
[2021-02-21 11:36] LABS: PH,URINE 6.5 (5.0-8.0); URINE APPEARANCE CLEAR; URINE BILIRUBIN NEGATIVE (NEGATIVE); URINE COLOR YELLOW; URINE GLUCOSE (UA) NEGATIVE (NEGATIVE); URINE KETONE NEGATIVE (NEGATIVE); URINE LEUK ESTERASE NEGATIVE (NEGATIVE); URINE NITRITE NEGATIVE (NEGATIVE); URINE PROTEIN NEGATIVE (NEGATIVE); URINE UROBILINOGEN 0.2 mg/dL (0.2-1.0)
[2021-02-21 11:39] LABS: HCG,QUALITATIVE URINE Negative
[2021-02-21 12:59] VITALS: BP 121/76
== END 2021-02-21 13:50 | disposition home or self-care (01) ==
LOC: JER 08:37
PROC: 3E033NZ Introduction of Analgesics, Hypnotics, Sedatives into Peripheral Vein, Percutaneous Approach (ICD-10-PCS; principal; 2021-02-21)
PROC: 3E033NZ Introduction of Analgesics, Hypnotics, Sedatives into Peripheral Vein, Percutaneous Approach (ICD-10-PCS; 2021-02-21)
PROC: 3E033GC Introduction of Other Therapeutic Substance into Peripheral Vein, Percutaneous Approach (ICD-10-PCS; 2021-02-21)
PROC: 3E0337Z Introduction of Electrolytic and Water Balance Substance into Peripheral Vein, Percutaneous Approach (ICD-10-PCS; 2021-02-21)
DX: K80.20 Calculus of gallbladder without cholecystitis without obstruction (principal)
CPT/HCPCS: 36415; 76705-TC; 80053; 81003; 83690; 84703; 85025; 86850; 86900; 86901; 87086; 99284-25; C9803; U0003; U0005

== ENCOUNTER 2021-02-26 04:37 | Day surgery (SDC) | payer OTHER ==
[2021-02-22 13:47] VITALS: BMI 30.9
[2021-02-26 08:40] LABS: INR 0.95 (0.83-1.09); PROTHROMBIN TIME (PATIENT) 11.7 SEC (9.7-13.0)
[2021-02-26] MEDS ORDERED: BUPIVACAINE HCL/PF 0.5% (5MG/ML) 10 ML VIAL ONE (08:43)
[2021-02-26] MEDS ORDERED: ONDANSETRON 4 MG/2 ML VIAL IVPUSH PRN (08:46)
[2021-02-26] MEDS ORDERED: PROMETHAZINE HCL 25 MG/1 ML VIAL IVPB PRN (08:46)
[2021-02-26] MEDS ORDERED: ceFAZolin SODIUM 1 GM VIAL ONE ×2 (08:55→08:57)
[2021-02-26] MEDS ORDERED: LIDOCAINE HCL/PF 2% SDV 5ML VIAL ONE (08:55)
[2021-02-26] MEDS ORDERED: ROCURONIUM BROMIDE 50 MG/5 ML SYRINGE ONE (08:56)
[2021-02-26] MEDS ORDERED: PROPOFOL 20 ML ONE ×2 (08:56)
[2021-02-26] MEDS ORDERED: fentaNYL CITRATE 250 MCG/5 ML VIAL ONE (08:56)
[2021-02-26] MEDS ORDERED: MIDAZOLAM HCL 2 MG/2 ML SINGLE DOSE VIAL ONE (08:56)
[2021-02-26] MEDS ORDERED: DEXAMETHASONE SOD PHOSPHATE 4 MG/1 ML VIAL ONE (08:57)
[2021-02-26] MEDS ORDERED: LACTATED RINGERS SOLUTION 1,000 ML IV SCH (09:00)
[2021-02-26] MEDS ORDERED: ceFAZolin SODIUM 1 GM VIAL IVPB ONE (09:17)
[2021-02-26] MEDS ORDERED: BUPIVACAINE HCL/PF 0.5% (5MG/ML) 10 ML VIAL IJ ONE ×2 (09:47)
[2021-02-26] MEDS ORDERED: NEOSTIGMINE METHYLSULFATE 0.5 MG/ML - 10 ML MDV ONE (10:00)
[2021-02-26] MEDS ORDERED: GLYCOPYRROLATE 0.2 MG/1 ML VIAL ONE (10:00)
[2021-02-26] MEDS ORDERED: KETAMINE HCL 200 MG/20 ML VIAL ONE (10:16)
[2021-02-26] MEDS ORDERED: BUPIVACAINE HCL 50 ML ONE (10:23)
[2021-02-26] MEDS ORDERED: oxyCODONE HCL 5 MG TABLET PO PRN ×2 (13:08)
[2021-02-26] MEDS ORDERED: oxyCODONE HCL 5 MG TABLET PO ONE ×2 (13:38→14:20)
[2021-02-26 16:16] VITALS: BP 119/67; PULSE 85; TEMP 98.6
== END 2021-02-26 16:10 | disposition home or self-care (01) ==
LOC: JASU-SURG 04:37
PROVIDERS: ATTEND Surgery
PROC: 0FT44ZZ Resection of Gallbladder, Percutaneous Endoscopic Approach (ICD-10-PCS; principal; 2021-02-26 09:00)
DX: K80.10 Calculus of gallbladder with chronic cholecystitis without obstruction (principal)
CPT/HCPCS: 36415; 81025; 85610; 88304-TC; 94760

== ENCOUNTER 2021-03-06 20:38 | Emergency (ER) | payer OTHER ==
[2021-03-06 20:55] VITALS: BP 105/69; PULSE 80; TEMP 98.5; BMI 30.7
[2021-03-06 21:54] LABS: PH,URINE 5.5 (5.0-8.0); URINE APPEARANCE CLEAR; URINE BILIRUBIN NEGATIVE (NEGATIVE); URINE COLOR YELLOW; URINE GLUCOSE (UA) NEGATIVE (NEGATIVE); URINE KETONE NEGATIVE (NEGATIVE); URINE LEUK ESTERASE NEGATIVE (NEGATIVE); URINE NITRITE NEGATIVE (NEGATIVE); URINE PROTEIN NEGATIVE (NEGATIVE); URINE UROBILINOGEN 0.2 mg/dL (0.2-1.0)
[2021-03-06 22:05] LABS: HCG,QUALITATIVE URINE Negative
[2021-03-06] MEDS ORDERED: METHOCARBAMOL 500 MG TABLET PO ONE (22:37)
[2021-03-06] MEDS ORDERED: LIDOCAINE 5% TOPICAL PATCH TP ONE (22:37)
[2021-03-06] MEDS ORDERED: IBUPROFEN 600 MG TABLET (FP) PO ONE ×2 (22:37→22:40)
[2021-03-06] MEDS ORDERED: LIDOCAINE 5% TOPICAL PATCH ONE (22:40)
[2021-03-06] MEDS ORDERED: METHOCARBAMOL 500 MG TABLET ONE (22:40)
== END 2021-03-07 00:27 | disposition home or self-care (01) ==
LOC: JERFT 20:38
DX: M54.5 Low back pain (principal); B37.3 Candidiasis of vulva and vagina
CPT/HCPCS: 36415; 81003; 84703; 87086; 87186; 87491; 87591; 87661; 99283-25

== ENCOUNTER 2021-05-16 06:28 | Emergency (ER) | payer OTHER ==
[2021-05-16 07:08] VITALS: BP 116/80; PULSE 74; TEMP 97.9; BMI 30.7
[2021-05-16] MEDS ORDERED: ALBUTEROL SO4 2.5/IPRATROPIUM 0.5 INH SOL 3 ML VIAL.NEB. NEB ONE (07:34)
[2021-05-16] MEDS: ALBUTEROL SO4 2.5/IPRATROPIUM 0.5 INH SOL 3 ML VIAL.NEB. NEB SCH ×3 (07:44→07:50)
== END 2021-05-16 09:27 | disposition home or self-care (01) ==
LOC: JER 06:28
PROC: 3E0F7GC Introduction of Other Therapeutic Substance into Respiratory Tract, Via Natural or Artificial Opening (ICD-10-PCS; principal; 2021-05-16)
DX: J06.9 Acute upper respiratory infection, unspecified (principal)
CPT/HCPCS: 71045-TC-FY; 87804; 93005; 93010; 99285-25; C9803; U0003; U0005

== ENCOUNTER 2021-06-23 06:51 | Emergency (ER) | payer OTHER ==
[2021-06-23 07:33] VITALS: BP 111/60; PULSE 73; TEMP 98; BMI 32.9
[2021-06-23] MEDS ORDERED: ACETAMINOPHEN 1000 MG/100 ML VIAL (NON FORMULARY) IVPB ONE (07:54)
[2021-06-23] MEDS ORDERED: SODIUM CHLORIDE 0.9% 500 ML INFUS.BAG IV ONE (07:54)
[2021-06-23] MEDS ORDERED: ACETAMINOPHEN INJECTION 100 ML IVPB ONE (08:18)
[2021-06-23] MEDS ORDERED: FAMOTIDINE 20 MG/50 ML IVPB 20 MG/50 ML MG IVPB ONE ×2 (08:23→09:04)
[2021-06-23 09:31] LABS: BASO % 0.8 % (0-2.0); EOS % 3.4 % (0-4.5); HEMATOCRIT 39.8 % (32.4-45.2); HEMOGLOBIN 13.8 GM/dL (10.7-15.3); LYMPH % 28.9 % (8-40); MCH 30.4 pg (25.7-33.7); MCHC 34.6 g/dl (32.0-36.0); MEAN CELL VOLUME 87.9 fl (80-96); MONO % 7.2 % (3.8-10.2); NEUT % 59.7 % (42.8-82.8); PLATELET COUNT 342 10^3/uL (134-434); RBC 4.53 M/mm3 (3.60-5.2); RDW 13.4 % (11.6-15.6); WHITE BLOOD COUNT 5.7 K/mm3 (4.0-10.0)
[2021-06-23 09:43] LABS: EPI CELLS 34 /uL (0-25.1); HYALINE CASTS 0 /uL (0-3.1); URINE APPEARANCE CLEAR; URINE BACTERIA 539 /uL (0-1359); URINE BILIRUBIN NEGATIVE (NEGATIVE); URINE COLOR YELLOW; URINE GLUCOSE (UA) NEGATIVE (NEGATIVE); URINE KETONE NEGATIVE (NEGATIVE); URINE LEUK ESTERASE NEGATIVE (NEGATIVE); URINE NITRITE NEGATIVE (NEGATIVE); URINE PROTEIN NEGATIVE (NEGATIVE); URINE RBC 5 /uL (0-23.9); URINE UROBILINOGEN 0.2 mg/dL (0.2-1.0); URINE WBC 5 /uL (0-25.8)
[2021-06-23 09:49] LABS: CHLORIDE 104 mmol/L (98-107); SODIUM 136 mmol/L (136-145)
[2021-06-23 09:51] LABS: ALBUMIN 3.4 g/dl (3.4-5.0); BLOOD UREA NITROGEN 11.2 mg/dL (7-18); CALCIUM 8.5 mg/dL (8.5-10.1)
[2021-06-23 09:52] LABS: ANION GAP 7 MMOL/L (8-16); CO2 26 mmol/L (21-32); GLUCOSE,RANDOM 101 mg/dL (74-106); LIPASE 103 U/L (73-393); MAGNESIUM 2.1 mg/dL (1.8-2.4)
[2021-06-23 09:55] LABS: CREATININE 0.6 mg/dL (0.55-1.3); SGOT/AST 19 U/L (15-37); SGPT/ALT 34 U/L (13-61)
[2021-06-23 09:56] LABS: BILIRUBIN,TOTAL 0.4 mg/dL (0.2-1); TOT PROT 7.2 g/dl (6.4-8.2)
[2021-06-23 09:57] LABS: ALK PHOS 68 U/L (45-117)
[2021-06-23 09:59] LABS: LACTIC ACID 2.1 mmol/L (0.4-2.0)
== END 2021-06-23 12:16 | disposition home or self-care (01) ==
LOC: JER 06:51
PROC: 3E033GC Introduction of Other Therapeutic Substance into Peripheral Vein, Percutaneous Approach (ICD-10-PCS; principal; 2021-06-23)
DX: N83.202 Unspecified ovarian cyst, left side (principal); K42.9 Umbilical hernia without obstruction or gangrene
CPT/HCPCS: 36415; 74177-TC; 80053; 81003; 82550; 83605; 83690; 83735; 84484; 84703; 85025; 87086; 93005; 93010; 96365; 96375; 99285-25; J0131; Q9967

== ENCOUNTER 2021-07-16 04:18 | Day surgery (SDC) | payer OTHER ==
[2021-07-12 11:42] VITALS: BMI 32.8
[2021-07-16] MEDS ORDERED: BUPIVACAINE HCL/PF 0.5% (5MG/ML) 10 ML VIAL ONE ×2 (07:13→09:58)
[2021-07-16] MEDS ORDERED: LIDOCAINE HCL/PF 2% SDV 5ML VIAL ONE (07:54)
[2021-07-16] MEDS ORDERED: ROCURONIUM BROMIDE 50 MG/5 ML SYRINGE ONE (07:54)
[2021-07-16] MEDS ORDERED: MIDAZOLAM HCL 2 MG/2 ML SINGLE DOSE VIAL ONE (07:54)
[2021-07-16] MEDS ORDERED: PROPOFOL 20 ML ONE ×2 (07:54)
[2021-07-16] MEDS ORDERED: DESFLURANE GAS 240 ML BOTTLE IH ONE (07:56)
[2021-07-16] MEDS ORDERED: DEXAMETHASONE SOD PHOSPHATE 4 MG/1 ML VIAL ONE (08:17)
[2021-07-16] MEDS ORDERED: ceFAZolin SODIUM 1 GM VIAL ONE (08:17)
[2021-07-16] MEDS ORDERED: ceFAZolin SODIUM 1 GM VIAL IVPB ONE (08:22)
[2021-07-16] MEDS ORDERED: GLYCOPYRROLATE 0.2 MG/1 ML VIAL ONE (08:44)
[2021-07-16] MEDS ORDERED: NEOSTIGMINE METHYLSULFATE 0.5 MG/ML - 10 ML MDV ONE (08:44)
[2021-07-16] MEDS ORDERED: BUPIVACAINE HCL/PF 0.5% (5MG/ML) 10 ML VIAL IJ ONE (09:06)
[2021-07-16] MEDS ORDERED: BENZOIN/ALOE VERA/STORAX/TOLU 58 ML BOTTLE ONE (09:22)
[2021-07-16] MEDS ORDERED: ONDANSETRON 4 MG/2 ML VIAL IVPUSH PRN (09:32)
[2021-07-16] MEDS ORDERED: IBUPROFEN 800 MG/8 ML IJ IVPB PRN (09:32)
[2021-07-16] MEDS ORDERED: oxyCODONE HCL 5 MG TABLET PO PRN (09:32)
[2021-07-16] MEDS ORDERED: LACTATED RINGERS SOLUTION 1,000 ML IV SCH (09:45)
[2021-07-16 11:20] VITALS: PULSE 62
[2021-07-16] MEDS ORDERED: oxyCODONE HCL 5 MG TABLET ONE (12:35)
[2021-07-16] MEDS ORDERED: oxyCODONE HCL 5 MG TABLET PO ONE (12:38)
[2021-07-16 16:14] VITALS: BP 121/66; TEMP 97.2
== END 2021-07-16 16:10 | disposition home or self-care (01) ==
LOC: JASU-SURG 04:18
PROVIDERS: ATTEND Surgery
PROC: 0WQF0ZZ Repair Abdominal Wall, Open Approach (ICD-10-PCS; principal; 2021-07-16 08:00)
DX: K42.9 Umbilical hernia without obstruction or gangrene (principal)
CPT/HCPCS: 81025; 94760

== ENCOUNTER 2021-09-10 09:10 | Emergency (ER) | payer OTHER ==
[2021-09-10 09:30] VITALS: BP 123/73; PULSE 77; TEMP 98.7; BMI 24.2
[2021-09-10] MEDS ORDERED: DEXAMETHASONE SOD PHOSPHATE 10 MG/1 ML VIAL IVPUSH ONE (09:37)
[2021-09-10] MEDS ORDERED: DEXAMETHASONE SOD PHOSPHATE 10 MG/1 ML VIAL ONE (10:16)
[2021-09-10] MEDS ORDERED: ALBUTEROL SO4 2.5/IPRATROPIUM 0.5 INH SOL 3 ML VIAL.NEB. NEB ONE (10:16)
[2021-09-10] MEDS: ALBUTEROL SO4 2.5/IPRATROPIUM 0.5 INH SOL 3 ML VIAL.NEB. NEB SCH ×2 (10:28→10:29)
[2021-09-10 10:44] LABS: ALBUMIN 3.9 g/dl (3.4-5.0); BILIRUBIN,TOTAL 0.5 mg/dl (0.2-1); CREATININE 0.5 mg/dl (0.55-1.3); TOT PROT 7.4 g/dl (6.4-8.2)
[2021-09-10] MEDS ORDERED: ACETAMINOPHEN W/ CODEINE LIQ 5 ML CUP PO ONE (11:03)
[2021-09-10] MEDS ORDERED: ACETAMINOPHEN W/ CODEINE LIQ 5 ML CUP ONE (11:06)
[2021-09-10 11:59] LABS: BASO % 0.8 % (0-2.0); EOS % 3.6 % (0-4.5); HEMATOCRIT 40.5 % (32.4-45.2); HEMOGLOBIN 13.8 GM/dL (10.7-15.3); LYMPH % 25.7 % (8-40); MCH 29.7 pg (25.7-33.7); MEAN CELL VOLUME 87.4 fl (80-96); MONO % 9.5 % (3.8-10.2); NEUT % 60.4 % (42.8-82.8); PLATELET COUNT 331 10^3/uL (134-434); RBC 4.64 M/mm3 (3.60-5.2); RDW 13.2 % (11.6-15.6); WHITE BLOOD COUNT 5.4 K/mm3 (4.0-10.0)
== END 2021-09-10 11:57 | disposition home or self-care (01) ==
LOC: FER 09:10
PROC: 3E033GC Introduction of Other Therapeutic Substance into Peripheral Vein, Percutaneous Approach (ICD-10-PCS; principal; 2021-09-10)
PROC: 3E0F7GC Introduction of Other Therapeutic Substance into Respiratory Tract, Via Natural or Artificial Opening (ICD-10-PCS; 2021-09-10)
DX: R05.9 Cough, unspecified (principal)
CPT/HCPCS: 36415; 71046-TC-FY; 80053; 84484; 85025; 87804; 87807; 93005; 99285-25; C9803; J1100; U0003; U0005

== ENCOUNTER 2021-11-19 07:25 | Emergency (ER) | payer OTHER ==
[2021-11-19 07:38] VITALS: BMI 24.2
[2021-11-19] MEDS ORDERED: METOCLOPRAMIDE HCL INJECTION 10 MG/2 ML VIAL IVPB ONE (07:57)
[2021-11-19] MEDS ORDERED: ACETAMINOPHEN 1000 MG/100 ML BAG IVPB ONE (07:57)
[2021-11-19] MEDS ORDERED: SODIUM CHLORIDE 1,000 ML IV ONE (07:57)
[2021-11-19] MEDS ORDERED: FAMOTIDINE 20 MG/50 ML IVPB 20 MG/50 ML MG IVPB ONE ×2 (07:57→08:10)
[2021-11-19] MEDS ORDERED: METOCLOPRAMIDE HCL INJECTION 10 MG/2 ML VIAL ONE (08:10)
[2021-11-19 08:49] LABS: EPITHELIAL CELLS MANY /hpf
[2021-11-19 09:02] LABS: ALBUMIN 3.5 g/dl (3.4-5.0); BILIRUBIN,TOTAL 0.7 mg/dl (0.2-1); CREATININE 0.5 mg/dl (0.55-1.3); TOT PROT 6.5 g/dl (6.4-8.2)
[2021-11-19 09:48] LABS: HEMATOCRIT 38.7 % (32.4-45.2); HEMOGLOBIN 13.4 GM/dL (10.7-15.3); MCH 30.1 pg (25.7-33.7); MCHC 34.6 g/dl (32.0-36.0); MEAN CELL VOLUME 87.1 fl (80-96); MEAN PLT VOLUME 6.8 fl (7.5-11.1); PLATELET COUNT 291 10^3/uL (134-434); RBC 4.45 M/mm3 (3.60-5.2); RDW 13.5 % (11.6-15.6); WHITE BLOOD COUNT 8.3 K/mm3 (4.0-10.0)
[2021-11-19 09:49] VITALS: BP 97/47; PULSE 94; TEMP 99.6
[2021-11-19 10:42] LABS: ANISOCYTOSIS 0; HELMET CELLS 0; HOWELL-JOLLY BODIES 0; MACROCYTOSIS 0; OVALOCYTE 0; ROULEAU 0; SICKELED CELLS 0; TARGET CELLS 0; TEAR DROP CELLS 0; TOXIC GRANULATION 0
== END 2021-11-19 10:20 | disposition home or self-care (01) ==
LOC: FER 07:25
PROC: 3E0333Z Introduction of Anti-inflammatory into Peripheral Vein, Percutaneous Approach (ICD-10-PCS; principal; 2021-11-19)
PROC: 3E033GC Introduction of Other Therapeutic Substance into Peripheral Vein, Percutaneous Approach (ICD-10-PCS; 2021-11-19)
PROC: 3E033GC Introduction of Other Therapeutic Substance into Peripheral Vein, Percutaneous Approach (ICD-10-PCS; 2021-11-19)
PROC: 3E0337Z Introduction of Electrolytic and Water Balance Substance into Peripheral Vein, Percutaneous Approach (ICD-10-PCS; 2021-11-19)
DX: R11.10 Vomiting, unspecified (principal); R19.7 Diarrhea, unspecified
CPT/HCPCS: 36415; 80053; 81003; 81015; 83690; 84703; 85025; 96361; 96374; 96375; 99284-25

== ENCOUNTER 2021-12-02 19:23 | Emergency (ER) | payer OTHER ==
[2021-12-02 19:41] VITALS: BP 124/68; PULSE 78; TEMP 98.9; BMI 32.3
[2021-12-02] MEDS ORDERED: KETOROLAC TROMETHAMINE 30 MG/1 ML VIAL IM ONE (20:00)
[2021-12-02] MEDS ORDERED: KETOROLAC TROMETHAMINE 30 MG/1 ML VIAL ONE (20:15)
== END 2021-12-02 21:36 | disposition home or self-care (01) ==
LOC: JERFT 19:23
PROC: 3E0233Z Introduction of Anti-inflammatory into Muscle, Percutaneous Approach (ICD-10-PCS; principal; 2021-12-02)
DX: M25.521 Pain in right elbow (principal); M77.01 Medial epicondylitis, right elbow
CPT/HCPCS: 73070-TC-RT-FY; 96372; 99284-25

== ENCOUNTER 2021-12-15 14:07 | Emergency (ER) | payer OTHER ==
[2021-12-15 14:16] VITALS: BP 103/72; PULSE 77; TEMP 98.6
[2021-12-15] MEDS ORDERED: ALBUTEROL SO4 2.5/IPRATROPIUM 0.5 INH SOL 3 ML VIAL.NEB. NEB ONE ×2 (14:55→15:03)
[2021-12-15] MEDS ORDERED: predniSONE 20 MG TABLET (UD) PO ONE (15:24)
[2021-12-15] MEDS ORDERED: predniSONE 20 MG TABLET (UD) ONE (15:46)
== END 2021-12-15 16:22 | disposition home or self-care (01) ==
LOC: JERFT 14:07
PROC: 3E0F7GC Introduction of Other Therapeutic Substance into Respiratory Tract, Via Natural or Artificial Opening (ICD-10-PCS; principal; 2021-12-15)
DX: J45.909 Unspecified asthma, uncomplicated (principal)
CPT/HCPCS: 71046-TC-FY; 93005; 93010; 99284-25

== ENCOUNTER 2021-12-26 09:04 | Emergency (ER) | payer OTHER ==
[2021-12-26 09:09] VITALS: BP 98/66; PULSE 75; TEMP 97.6; BMI 29.0
== END 2021-12-26 11:21 | disposition home or self-care (01) ==
LOC: JERFT 09:04
DX: J45.30 Mild persistent asthma, uncomplicated (principal)
CPT/HCPCS: 99281-25

== ENCOUNTER 2021-12-27 06:59 | Emergency (ER) | payer OTHER ==
[2021-12-27] MEDS ORDERED: methylPREDNISolone NA SUCC 125 MG/2 ML VIAL IVPUSH ONE (07:28)
[2021-12-27] MEDS ORDERED: ALBUTEROL SO4 2.5/IPRATROPIUM 0.5 INH SOL 3 ML VIAL.NEB. NEB ONE ×2 (07:28→08:11)
[2021-12-27 07:47] VITALS: PULSE 79; TEMP 98.5; BMI 29.0
[2021-12-27] MEDS ORDERED: predniSONE 20 MG TABLET (UD) PO ONE (08:03)
[2021-12-27] MEDS ORDERED: LORATADINE 10 MG TABLET PO ONE (08:06)
[2021-12-27] MEDS ORDERED: predniSONE 20 MG TABLET (UD) ONE (08:09)
[2021-12-27] MEDS ORDERED: LORATADINE 10 MG TABLET ONE (08:09)
[2021-12-27 08:41] VITALS: BP 114/78
[2021-12-28 11:08] LABS: SARS-CoV-2 NAA Not Detected (Not Detected)
== END 2021-12-27 09:34 | disposition home or self-care (01) ==
LOC: JER 06:59
PROC: 3E0F7GC Introduction of Other Therapeutic Substance into Respiratory Tract, Via Natural or Artificial Opening (ICD-10-PCS; principal; 2021-12-27)
DX: J45.909 Unspecified asthma, uncomplicated (principal)
CPT/HCPCS: 71046-TC-FY; 93005; 93010; 99284-25; C9803-CS; U0003; U0005

== ENCOUNTER 2022-03-20 12:54 | Emergency (ER) | payer OTHER ==
[2022-03-20 13:22] VITALS: BP 107/68; PULSE 79; TEMP 98.9; BMI 32.4
[2022-03-20] MEDS ORDERED: ONDANSETRON 4 MG/2 ML VIAL IVPUSH ONE (15:02)
[2022-03-20] MEDS ORDERED: ACETAMINOPHEN 1000 MG/100 ML BAG IVPB ONE (15:02)
[2022-03-20] MEDS ORDERED: FAMOTIDINE 20 MG/50 ML IVPB 20 MG/50 ML MG IVPB ONE ×2 (15:02→15:22)
[2022-03-20] MEDS ORDERED: MAG HYDROX/AL HYDROX/SIMETH -MYLANTA- ORAL SUSPENSION PO ONE (15:02)
[2022-03-20] MEDS ORDERED: ACETAMINOPHEN INJECTION 100 ML IVPB ONE (15:22)
[2022-03-20] MEDS ORDERED: ONDANSETRON 4 MG/2 ML VIAL ONE (15:22)
[2022-03-20] MEDS ORDERED: MAG HYDROX/AL HYDROX/SIMETH 30 ML UNIT-DOSE CUP ONE (15:22)
[2022-03-20 15:58] LABS: PH,URINE 5.5 (5.0-8.0); URINE APPEARANCE CLEAR; URINE BILIRUBIN NEGATIVE (NEGATIVE); URINE COLOR YELLOW; URINE GLUCOSE (UA) NEGATIVE (NEGATIVE); URINE KETONE NEGATIVE (NEGATIVE); URINE LEUK ESTERASE NEGATIVE (NEGATIVE); URINE NITRITE NEGATIVE (NEGATIVE); URINE PROTEIN NEGATIVE (NEGATIVE); URINE UROBILINOGEN 0.2 mg/dL (0.2-1.0)
[2022-03-20] MEDS ORDERED: LIDOCAINE 5% TOPICAL PATCH TP ONE (16:01)
[2022-03-20] MEDS ORDERED: VANCOMYCIN 1 GM in D5W (PRE-DOCKED) 1,000 MG/250 ML IVPB ONE (16:01)
[2022-03-20] MEDS ORDERED: PIPERACILLIN/TAZOB 4.5 GM 4.5 GM in DEXTROSE 5%-WATER 100 ML IVPB ONE (16:01)
[2022-03-20 16:33] LABS: BASO % 0.7 % (0-2.0); EOS % 1.6 % (0-4.5); HEMATOCRIT 41.3 % (32.4-45.2); LYMPH % 23.1 % (8-40); MCH 29.7 pg (25.7-33.7); MEAN CELL VOLUME 87.5 fl (80-96); MEAN PLT VOLUME 6.7 fl (7.5-11.1); MONO % 7.3 % (3.8-10.2); NEUT % 67.3 % (42.8-82.8); PLATELET COUNT 378 10^3/uL (134-434); RBC 4.72 M/mm3 (3.60-5.2); RDW 13.5 % (11.6-15.6); WHITE BLOOD COUNT 7.6 K/mm3 (4.0-10.0)
[2022-03-20 16:54] LABS: ALBUMIN 3.8 g/dl (3.4-5.0); CALCIUM 8.8 mg/dL (8.5-10.1)
[2022-03-20 16:58] LABS: CREATININE 0.6 mg/dL (0.55-1.3)
[2022-03-20 16:59] LABS: BILIRUBIN,TOTAL 0.4 mg/dL (0.2-1); TOT PROT 7.8 g/dl (6.4-8.2)
[2022-03-20] MEDS ORDERED: LIDOCAINE PATCH REMOVAL MC SCH (22:00)
== END 2022-03-20 18:30 | disposition home or self-care (01) ==
LOC: JER 12:54
PROC: 3E0333Z Introduction of Anti-inflammatory into Peripheral Vein, Percutaneous Approach (ICD-10-PCS; principal; 2022-03-20)
PROC: 3E033GC Introduction of Other Therapeutic Substance into Peripheral Vein, Percutaneous Approach (ICD-10-PCS; 2022-03-20)
PROC: 3E033GC Introduction of Other Therapeutic Substance into Peripheral Vein, Percutaneous Approach (ICD-10-PCS; 2022-03-20)
DX: R10.11 Right upper quadrant pain (principal)
CPT/HCPCS: 36415; 74176-TC; 80053; 81003; 83690; 84484; 84703; 85025; 87086; 93005; 93010; 99285-25

== ENCOUNTER 2022-03-23 16:54 | Emergency (ER) | payer OTHER ==
[2022-03-23 17:13] VITALS: BP 120/50; PULSE 98; TEMP 98.9; BMI 32.4
[2022-03-23] MEDS ORDERED: ALBUTEROL SO4 2.5/IPRATROPIUM 0.5 INH SOL 3 ML VIAL.NEB. NEB ONE ×2 (17:37→18:26)
[2022-03-23] MEDS ORDERED: guaiFENesin/CODEINE 10 ML UNIT-DOSE CUPS PO ONE (17:37)
[2022-03-23] MEDS ORDERED: guaiFENesin/CODEINE 10 ML UNIT-DOSE CUPS ONE (18:02)
== END 2022-03-23 18:52 | disposition home or self-care (01) ==
LOC: FER 16:54
PROC: 3E0F7GC Introduction of Other Therapeutic Substance into Respiratory Tract, Via Natural or Artificial Opening (ICD-10-PCS; principal; 2022-03-23)
DX: J45.901 Unspecified asthma with (acute) exacerbation (principal)
CPT/HCPCS: 99283-25

== ENCOUNTER 2022-08-06 09:50 | Emergency (ER) | payer OTHER ==
[2022-08-06 09:57] VITALS: BP 102/56; PULSE 89; RESP 18; TEMP 98.2; BMI 29.9
[2022-08-06] MEDS ORDERED: ALBUTEROL SO4 2.5/IPRATROPIUM 0.5 INH SOL 3 ML VIAL.NEB. NEB ONE ×2 (10:26→10:46)
== END 2022-08-06 12:40 | disposition home or self-care (01) ==
LOC: FER 09:50
PROC: 3E0F7GC Introduction of Other Therapeutic Substance into Respiratory Tract, Via Natural or Artificial Opening (ICD-10-PCS; principal; 2022-08-06)
DX: U07.1 COVID-19 (principal)
CPT/HCPCS: 0241U-QW; 71046-TC-FY; 99284-25

== ENCOUNTER 2023-02-19 06:16 | Emergency (ER) | payer OTHER ==
[2023-02-19 06:23] VITALS: BP 102/60; PULSE 74; RESP 16; TEMP 98.2; BMI 29.1
[2023-02-19] MEDS ORDERED: ACETAMINOPHEN 500 MG TABLET (FP) PO ONE (06:28)
[2023-02-19] MEDS ORDERED: AMOXICILLIN 500 MG CAPSULE (FP) PO ONE (06:28)
[2023-02-19] MEDS ORDERED: AMOXICILLIN 250 MG CAPSULE ONE (06:30)
[2023-02-19] MEDS ORDERED: ACETAMINOPHEN 500 MG TABLET (FP) ONE (06:30)
== END 2023-02-19 06:38 | disposition home or self-care (01) ==
LOC: FER 06:16
DX: J02.9 Acute pharyngitis, unspecified (principal); R07.0 Pain in throat; R50.9 Fever, unspecified
CPT/HCPCS: 87070; 99283-25

== ENCOUNTER 2023-03-18 20:20 | Emergency (ER) | payer OTHER ==
[2023-03-18] MEDS ORDERED: ACETAMINOPHEN 1000 MG/100 ML BAG IVPB ONE (20:44)
[2023-03-18] MEDS ORDERED: SODIUM CHLORIDE 1,000 ML IV STA (20:44)
[2023-03-18] MEDS ORDERED: ONDANSETRON 4 MG/2 ML VIAL IVPUSH ONE (20:44)
[2023-03-18] MEDS ORDERED: ACETAMINOPHEN INJECTION 100 ML IVPB ONE (20:46)
[2023-03-18] MEDS ORDERED: ONDANSETRON 4 MG/2 ML VIAL ONE (20:46)
[2023-03-18 20:52] VITALS: BP 110/74; PULSE 92; RESP 16; TEMP 98.3
[2023-03-18 21:18] LABS: HEMATOCRIT 46.9 % (32.4-45.2); HEMOGLOBIN 15.8 G/dL (10.7-15.3); MCH 29.5 pg (25.7-33.7); MCHC 33.7 g/dl (32.0-36.0); MEAN CELL VOLUME 87.7 fl (80-96); MEAN PLT VOLUME 6.9 fl (7.5-11.1); PLATELET COUNT 366.4 10^3/uL (134-434); RBC 5.35 10^6/uL (3.60-5.2); RDW 14.1 % (11.6-15.6); WHITE BLOOD COUNT 12.5 10^3/uL (4.0-10.8)
[2023-03-18 21:30] LABS: ALBUMIN 4.6 g/dl (3.4-5.0); BILIRUBIN,TOTAL 0.8 mg/dl (0.2-1); BLOOD UREA NITROGEN 14.6 mg/dl (7-18); CALCIUM 9.9 mg/dl (8.5-10.1); CREATININE 0.7 mg/dl (0.6-1.3); POTASSIUM 3.5 mmol/L (3.5-5.1); SGOT/AST 16.1 U/L (15-37); SGPT/ALT 25.1 U/L (7-52); TOT PROT 7.6 g/dl (6.4-8.2)
[2023-03-18 21:37] LABS: PLATELET ESTIMATE ADEQUATE
== END 2023-03-18 23:16 | disposition home or self-care (01) ==
LOC: FER 20:20
PROC: 3E033NZ Introduction of Analgesics, Hypnotics, Sedatives into Peripheral Vein, Percutaneous Approach (ICD-10-PCS; principal; 2023-03-18)
PROC: 3E033GC Introduction of Other Therapeutic Substance into Peripheral Vein, Percutaneous Approach (ICD-10-PCS; 2023-03-18)
PROC: 3E0337Z Introduction of Electrolytic and Water Balance Substance into Peripheral Vein, Percutaneous Approach (ICD-10-PCS; 2023-03-18)
DX: K52.9 Noninfective gastroenteritis and colitis, unspecified (principal)
CPT/HCPCS: 36415; 80053; 85027; 99284-25

== ENCOUNTER 2023-03-19 14:08 | Emergency (ER) | payer OTHER ==
[2023-03-19 14:23] VITALS: BP 112/67; PULSE 91; RESP 16; TEMP 99.2; BMI 30.5
[2023-03-19] MEDS ORDERED: SODIUM CHLORIDE 0.9% 1000 ML INFUS.BAG IV ONE (14:49)
[2023-03-19] MEDS ORDERED: ACETAMINOPHEN 1000 MG/100 ML BAG IVPB ONE (14:49)
[2023-03-19] MEDS ORDERED: ONDANSETRON 4 MG/2 ML VIAL IVPUSH ONE (14:49)
[2023-03-19] MEDS ORDERED: FAMOTIDINE 20 MG/50 ML IVPB 20 MG/50 ML MG IVPB ONE ×2 (14:50→14:53)
[2023-03-19] MEDS ORDERED: ACETAMINOPHEN INJECTION 100 ML IVPB ONE (14:53)
[2023-03-19] MEDS ORDERED: ONDANSETRON 4 MG/2 ML VIAL ONE (14:53)
[2023-03-19 15:20] LABS: HEMATOCRIT 46.4 % (32.4-45.2); HEMOGLOBIN 15.5 G/dL (10.7-15.3); MCH 29.2 pg (25.7-33.7); MCHC 33.4 g/dl (32.0-36.0); MEAN CELL VOLUME 87.3 fl (80-96); MEAN PLT VOLUME 6.8 fl (7.5-11.1); RBC 5.31 10^6/uL (3.60-5.2); RDW 14.2 % (11.6-15.6); WHITE BLOOD COUNT 7.7 10^3/uL (4.0-10.8)
[2023-03-19 15:42] LABS: ALBUMIN 4.2 g/dl (3.4-5.0); BILIRUBIN,TOTAL 1.1 mg/dl (0.2-1); BLOOD UREA NITROGEN 10.1 mg/dl (7-18); CALCIUM 8.7 mg/dl (8.5-10.1); CREATININE 0.6 mg/dl (0.6-1.3); SGOT/AST 19.8 U/L (15-37); SGPT/ALT 27.5 U/L (7-52); TOT PROT 6.9 g/dl (6.4-8.2)
[2023-03-19 16:34] LABS: MAGNESIUM 1.7 mg/dL (1.8-2.4)
[2023-03-19] MEDS ORDERED: MAGNESIUM SULF 50% (8.12 MEQ/2 ML-1 GM VIAL) IVPB ONE (16:49)
[2023-03-19] MEDS ORDERED: POTASSIUM CHLORIDE TABS 10 MEQ TABLET.ER (FP) PO ONE (16:50)
[2023-03-19] MEDS ORDERED: MAGNESIUM 1GM/D5W - 1 GM/100 ML IVPB IVPB ONE (16:52)
[2023-03-19] MEDS ORDERED: POTASSIUM CHLORIDE TABS 20 MEQ TABLET.ER (FP) PO ONE (16:53)
[2023-03-19] MEDS ORDERED: KCL 10 MEQ IVPB 20 MEQ/200 ML INFUS.BAG IVPB ONE (16:53)
[2023-03-19] MEDS: KCL 10 MEQ IVPB 10 MEQ/100 ML INFUS.BAG IVPB SCH ×2 (18:04→20:29)
== END 2023-03-19 22:09 | disposition home or self-care (01) ==
LOC: FER 14:08
PROC: 3E033GC Introduction of Other Therapeutic Substance into Peripheral Vein, Percutaneous Approach (ICD-10-PCS; principal; 2023-03-19)
PROC: 3E033NZ Introduction of Analgesics, Hypnotics, Sedatives into Peripheral Vein, Percutaneous Approach (ICD-10-PCS; 2023-03-19)
PROC: 3E033GC Introduction of Other Therapeutic Substance into Peripheral Vein, Percutaneous Approach (ICD-10-PCS; 2023-03-19)
PROC: 3E033GC Introduction of Other Therapeutic Substance into Peripheral Vein, Percutaneous Approach (ICD-10-PCS; 2023-03-19)
PROC: 3E033GC Introduction of Other Therapeutic Substance into Peripheral Vein, Percutaneous Approach (ICD-10-PCS; 2023-03-19)
PROC: 3E033GC Introduction of Other Therapeutic Substance into Peripheral Vein, Percutaneous Approach (ICD-10-PCS; 2023-03-19)
DX: R11.2 Nausea with vomiting, unspecified (principal); R19.7 Diarrhea, unspecified; E86.0 Dehydration; E87.1 Hypo-osmolality and hyponatremia; E83.42 Hypomagnesemia; Z20.822 Contact with and (suspected) exposure to COVID-19
CPT/HCPCS: 0241U-QW; 36415; 80053; 83735; 85027; 93005; 99284-25

== ENCOUNTER 2023-04-08 14:40 | Emergency (ER) | payer OTHER ==
[2023-04-08 14:52] VITALS: TEMP 97.8; BMI 29.8
[2023-04-08] MEDS ORDERED: clonazePAM 0.5 MG TABLET PO ONE (16:09)
[2023-04-08] MEDS ORDERED: clonazePAM 0.5 MG TABLET ONE (16:22)
[2023-04-08 18:10] VITALS: BP 113/61; PULSE 65; RESP 20
== END 2023-04-08 20:44 | disposition home or self-care (01) ==
LOC: JER 14:40
DX: R09.89 Other specified symptoms and signs involving the circulatory and respiratory systems (principal)
CPT/HCPCS: 70490-TC; 71250-TC; 99284-25

== ENCOUNTER 2023-08-28 06:58 | Emergency (ER) | payer OTHER ==
[2023-08-28 07:35] VITALS: BP 97/54; PULSE 78; RESP 18; TEMP 98.7; BMI 28.8
== END 2023-08-28 10:39 | disposition home or self-care (01) ==
LOC: JER 06:58
DX: R09.81 Nasal congestion (principal); J02.9 Acute pharyngitis, unspecified; R05.9 Cough, unspecified; R07.9 Chest pain, unspecified; J06.9 Acute upper respiratory infection, unspecified; R09.82 Postnasal drip; Z20.822 Contact with and (suspected) exposure to COVID-19
CPT/HCPCS: 0241U-QW; 71046-TC-FY; 99284-25

== ENCOUNTER 2023-11-16 14:35 | Emergency (ER) | payer OTHER ==
[2023-11-16 14:40] VITALS: BP 127/79; PULSE 80; RESP 18; TEMP 98.7; BMI 28.0
[2023-11-16 16:54] LABS: PH,URINE 5.5 (5.0-8.0); URINE APPEARANCE CLOUDY; URINE BILIRUBIN NEGATIVE (NEGATIVE); URINE COLOR YELLOW; URINE GLUCOSE (UA) NEGATIVE (NEGATIVE); URINE KETONE NEGATIVE (NEGATIVE); URINE LEUK ESTERASE NEGATIVE (NEGATIVE); URINE NITRITE NEGATIVE (NEGATIVE); URINE PROTEIN NEGATIVE (NEGATIVE); URINE UROBILINOGEN 0.2 mg/dL (0.2-1.0)
== END 2023-11-16 17:34 | disposition home or self-care (01) ==
LOC: JER 14:35
DX: R07.9 Chest pain, unspecified (principal); J06.9 Acute upper respiratory infection, unspecified; B34.9 Viral infection, unspecified; R05.9 Cough, unspecified; R07.0 Pain in throat; B37.31 Acute candidiasis of vulva and vagina; Z20.822 Contact with and (suspected) exposure to COVID-19
CPT/HCPCS: 0241U-QW; 80053; 81003; 83735; 87086; 93005; 93010; 99284-25

== ENCOUNTER 2023-11-18 08:21 | Emergency (ER) | payer OTHER ==
[2023-11-18 08:30] VITALS: BP 111/51; PULSE 77; RESP 18; TEMP 99.1; BMI 28.2
[2023-11-18 08:57] LABS: HCG,QUALITATIVE URINE Negative
[2023-11-18] MEDS ORDERED: ALBUTEROL SO4 2.5/IPRATROPIUM 0.5 INH SOL 3 ML VIAL.NEB. NEB ONE (09:05)
[2023-11-18] MEDS: ALBUTEROL SO4 2.5/IPRATROPIUM 0.5 INH SOL 3 ML VIAL.NEB. NEB SCH (09:13)
[2023-11-18 09:18] LABS: EPITHELIAL CELLS >50 /hpf
[2023-11-18 11:33] LABS: THROAT:GRP A STREP NOT DETECTED (NOTDETECTED)
== END 2023-11-18 10:11 | disposition home or self-care (01) ==
LOC: FER 08:21
PROC: 3E0F7GC Introduction of Other Therapeutic Substance into Respiratory Tract, Via Natural or Artificial Opening (ICD-10-PCS; principal; 2023-11-18)
DX: R05.9 Cough, unspecified (principal); R09.81 Nasal congestion; J02.9 Acute pharyngitis, unspecified; R51.9 Headache, unspecified; R07.89 Other chest pain; R06.02 Shortness of breath; B37.9 Candidiasis, unspecified; J45.901 Unspecified asthma with (acute) exacerbation; J06.9 Acute upper respiratory infection, unspecified; Z20.822 Contact with and (suspected) exposure to COVID-19
CPT/HCPCS: 0241U-QW; 71046-TC-FY; 81003; 81015; 84703; 87086; 87651; 99284-25

== ENCOUNTER 2024-01-12 16:59 | Emergency (ER) | payer OTHER ==
[2024-01-12 17:07] VITALS: BP 107/74; PULSE 88; RESP 16; TEMP 98; BMI 29.0
[2024-01-12] MEDS ORDERED: KETOROLAC TROMETHAMINE 30 MG/1 ML VIAL IM ONE (18:19)
[2024-01-12] MEDS ORDERED: KETOROLAC TROMETHAMINE 30 MG/1 ML VIAL ONE (18:28)
[2024-01-12] MEDS ORDERED: IBUPROFEN 600 MG TABLET (FP) PO ONE (18:39)
[2024-01-12] MEDS: IBUPROFEN 600 MG TABLET (FP) PO ONE (18:47)
== END 2024-01-12 19:04 | disposition home or self-care (01) ==
LOC: JERFT 16:59
PROC: 3E0233Z Introduction of Anti-inflammatory into Muscle, Percutaneous Approach (ICD-10-PCS; principal; 2024-01-12)
DX: M25.571 Pain in right ankle and joints of right foot (principal)
CPT/HCPCS: 73610-TC-RT-FY; 73630-TC-RT-FY; 99284-25

== ENCOUNTER 2024-07-30 06:42 | Emergency (ER) | payer OTHER ==
[2024-07-30 06:47] VITALS: BMI 30.7
[2024-07-30] MEDS ORDERED: ACETAMINOPHEN INJECTION 100 ML ONE (07:45)
[2024-07-30] MEDS ORDERED: METOCLOPRAMIDE HCL INJECTION 10 MG/2 ML VIAL ONE (07:45)
[2024-07-30] MEDS: SODIUM CHLORIDE 0.9% 500 ML INFUS.BAG IV ONE (08:11)
[2024-07-30] MEDS: ACETAMINOPHEN 1000 MG/100 ML BAG IVPB ONE (08:11)
[2024-07-30] MEDS: METOCLOPRAMIDE HCL INJECTION 10 MG/2 ML VIAL IVPB ONE (08:11)
[2024-07-30 08:37] LABS: BASO % 0.6 % (0-2.0); HEMATOCRIT 41.1 % (32.4-45.2); HEMOGLOBIN 13.7 GM/dL (10.7-15.3); MCH 29.5 pg (25.7-33.7); MCHC 33.4 g/dl (32.0-36.0); MEAN CELL VOLUME 88.2 fl (80-96); MEAN PLT VOLUME 6.4 fl (7.5-11.1); MONO % 7.4 % (3.8-10.2); PLATELET COUNT 352 10^3/uL (134-434); RBC 4.66 M/mm3 (3.60-5.2); WHITE BLOOD COUNT 5.6 K/mm3 (4.0-10.0)
[2024-07-30 08:39] LABS: ALBUMIN 3.5 g/dl (3.4-5.0); MAGNESIUM 2.2 mg/dL (1.8-2.4)
[2024-07-30 08:42] LABS: CREATININE 0.6 mg/dL (0.55-1.3)
[2024-07-30 08:44] LABS: BILIRUBIN,TOTAL 0.6 mg/dL (0.2-1); TOT PROT 7.1 g/dl (6.4-8.2)
[2024-07-30 10:12] LABS: PH,URINE 5.5 (5.0-8.0); URINE APPEARANCE CLEAR; URINE BILIRUBIN NEGATIVE (NEGATIVE); URINE COLOR YELLOW; URINE GLUCOSE (UA) NEGATIVE (NEGATIVE); URINE KETONE NEGATIVE (NEGATIVE); URINE LEUK ESTERASE NEGATIVE (NEGATIVE); URINE NITRITE NEGATIVE (NEGATIVE); URINE PROTEIN NEGATIVE (NEGATIVE); URINE UROBILINOGEN 0.2 mg/dL (0.2-1.0)
[2024-07-30 11:53] VITALS: BP 116/74; PULSE 68; RESP 20; TEMP 98
== END 2024-07-30 11:59 | disposition home or self-care (01) ==
LOC: JER 06:42
PROC: 3E033NZ Introduction of Analgesics, Hypnotics, Sedatives into Peripheral Vein, Percutaneous Approach (ICD-10-PCS; principal; 2024-07-30)
PROC: 3E033GC Introduction of Other Therapeutic Substance into Peripheral Vein, Percutaneous Approach (ICD-10-PCS; 2024-07-30)
DX: R51.9 Headache, unspecified (principal); R53.1 Weakness; Z20.822 Contact with and (suspected) exposure to COVID-19
CPT/HCPCS: 0241U-QW; 36415; 70450-TC; 70496-TC; 70498-TC; 71045-TC-FY; 80053; 81003; 83735; 84484; 84703; 85025; 87086; 93005; 93010; 96374; 96375; 99285-25; J0131

== ENCOUNTER 2024-12-20 10:16 | Emergency (ER) | payer OTHER ==
[2024-12-20 10:33] VITALS: RESP 18; BMI 30.7
[2024-12-20 12:02] LABS: ABSOLUTE IMMATURE GRANULOCYTES 0.21 x10^3/uL (0.0-0.031); EOSINOPHIL % 1.5 % (0.7-5.8); EOSINOPHILS # 0.17 x10^3/uL (0.04-0.36); HEMATOCRIT 41.5 % (34.1-44.9); HEMOGLOBIN 13.6 g/dL (11.2-15.7); MCHC 32.8 g/dl (32.2-35.5); MEAN CELL VOLUME 88.7 fl (79.4-94.8); MONOCYTE # 0.67 x10^3/uL (0.24-0.86); MONOCYTE % 5.7 % (4.7-12.5); PLATELET COUNT 399 x10^3/uL (182-369); RDW 12.4 % (12.2-17.1)
[2024-12-20] MEDS ORDERED: ACETAMINOPHEN WITH CODEINE 300MG/30MG TABLET ONE (12:02)
[2024-12-20] MEDS ORDERED: FAMOTIDINE 10 MG TABLET ONE (12:02)
[2024-12-20] MEDS ORDERED: MAG HYDROX/AL HYDROX/SIMETH 30 ML UNIT-DOSE CUP ONE (12:02)
[2024-12-20] MEDS: MAG HYDROX/AL HYDROX/SIMETH -MYLANTA- ORAL SUSPENSION PO ONE (12:12)
[2024-12-20] MEDS: ACETAMINOPHEN WITH CODEINE 300MG/30MG TABLET PO ONE (12:12)
[2024-12-20] MEDS: FAMOTIDINE 10 MG TABLET PO ONE (12:12)
[2024-12-20 12:27] LABS: POTASSIUM 4.3 mmol/L (3.5-5.1)
[2024-12-20 12:30] LABS: ALBUMIN 3.5 g/dl (3.4-5.0); CALCIUM 8.9 mg/dL (8.5-10.1)
[2024-12-20 12:32] LABS: CREATININE 0.5 mg/dL (0.55-1.3)
[2024-12-20 12:33] LABS: TOT PROT 7.3 g/dl (6.4-8.2)
[2024-12-20 12:35] LABS: BILIRUBIN,TOTAL 0.4 mg/dL (0.2-1)
[2024-12-20] MEDS: SODIUM CHLORIDE 1,000 ML IV ONE (13:28)
[2024-12-20] MEDS ORDERED: ACETAMINOPHEN INJECTION 100 ML ONE (16:09)
[2024-12-20] MEDS: ACETAMINOPHEN 1000 MG/100 ML BAG IVPB ONE (16:14)
[2024-12-20 17:24] VITALS: BP 104/54; PULSE 60; TEMP 98.2
== END 2024-12-20 18:54 | disposition home or self-care (01) ==
LOC: JER 10:16
PROC: 3E033NZ Introduction of Analgesics, Hypnotics, Sedatives into Peripheral Vein, Percutaneous Approach (ICD-10-PCS; principal; 2024-12-20)
PROC: 3E0337Z Introduction of Electrolytic and Water Balance Substance into Peripheral Vein, Percutaneous Approach (ICD-10-PCS; 2024-12-20)
DX: R10.13 Epigastric pain (principal); R11.0 Nausea; R63.8 Other symptoms and signs concerning food and fluid intake
CPT/HCPCS: 36415; 74177-TC; 80053; 83690; 85025; 93005; 93010; 99285-25; J0131; Q9967